=== PATIENT | male | born 1945 | race Caucasian/White ===

== ENCOUNTER 2018-08-25 09:47 | Emergency (ER) | payer MEDICARE, BC ==
[2018-08-25 10:03] VITALS: RESP 18
--- NOTE | 2018-08-25 10:21 | ED ---
Fall HPI - General Chief Complaint: Fall Stated Complaint: fall Time Seen by Provider: 08/25/18 10:07 Source: patient, RN notes reviewed, old records reviewed Mode of arrival: wheelchair Limitations: no limitations - History of Present Illness Initial Comments: This is a 71-year-old male the ER status post fall patient is followed by ankle pain. Patient has no significant medical history contribute. No loss of consciousness, no other injuries noted except right ankle pain. Patient's currently bearing weight. MD Complaint: fall -: days(s) (1) Fall From: standing When Fall Occurred: 24 hours [facility]UP [facility] Fall Witnessed: no Place Fall Occurred: home Loss of Consciousness: none Prolonged Down Time?: no Symptoms Prior to Fall: none Location - Extremities: Right: Ankle Severity: moderate Severity scale (1-10): 6 Quality: stabbing, aching Context: tripped/slipped Associated Symptoms: denies - Related Data Home Medications Medication Instructions Recorded Confirmed Aspirin EC [Ecotrin] 325 mg PO DAILY 08/25/18 08/25/18 Atenolol [Tenormin] 50 mg PO BID 08/25/18 08/25/18 Chlorthalidone 25 mg PO DAILY 08/25/18 08/25/18 Cholecalciferol (Vitamin D3) 2,000 unit PO MOFR 08/25/18 08/25/18 [Vitamin D3] Colchicine 0.6 mg PO BID 08/25/18 08/25/18 Enalapril Maleate [Vasotec] 5 mg PO DAILY 08/25/18 08/25/18 Fluticasone Nasal [place] [Flonase 2 spr EA NOSTRIL BID 08/25/18 08/25/18 Nasal [place]] Furosemide [Lasix] 20 mg PO DAILY 08/25/18 08/25/18 Levocetirizine Dihydrochloride 5 mg PO DAILY 08/25/18 08/25/18 [Xyzal] Potassium Chloride [Klor-Con 10] 10 meq PO DAILY 08/25/18 08/25/18 Rosuvastatin Calcium 10 mg PO HS 08/25/18 08/25/18 amLODIPine [Norvasc] 5 mg PO BID 08/25/18 08/25/18 metFORMIN HCL 1,000 mg PO BID 08/25/18 08/25/18 sitaGLIPtin [Januvia] 100 mg PO DAILY 08/25/18 08/25/18 Allergies Allergy/AdvReac Type Severity Reaction Status Date / Time allopurinol Allergy Unknown Verified 08/25/18 10:20 Review of Systems ROS Statement: Those systems with pertinent positive or pertinent negative responses have been documented in the HPI. ROS Other: All systems not noted in ROS Statement are negative. Past Medical History Past Medical History: Diabetes Mellitus, Hypertension Additional Past Medical History / Comment(s): bladder cancer 2009 and 2011. pelvic fx 1994, umbilicial hernia. History of Any Multi-Drug Resistant Organisms: None Reported Additional Past Surgical History / Comment(s): rotator cuff left shoulder, Past Psychological History: No Psychological Hx Reported Smoking Status: Never smoker Past Alcohol Use History: Occasional Past Drug Use History: None Reported General Exam Limitations: no limitations General appearance: alert, in no apparent distress Head exam: Present: atraumatic, normocephalic, normal inspection Eye exam: Present: normal appearance, PERRL, EOMI. Absent: scleral icterus, conjunctival injection, periorbital swelling ENT exam: Present: normal exam, mucous membranes moist Neck exam: Present: normal inspection. Absent: tenderness, meningismus, lymphadenopathy Respiratory exam: Present: normal lung sounds bilaterally. Absent: respiratory distress, wheezes, rales, rhonchi, stridor Cardiovascular Exam: Present: regular rate, normal rhythm, normal heart sounds. Absent: systolic murmur, diastolic murmur, rubs, gallop, clicks GI/Abdominal exam: Present: soft, normal bowel sounds. Absent: distended, tenderness, guarding, rebound, rigid Extremities exam: Present: normal inspection, full ROM, normal capillary refill , other (Right ankle tenderness and edema). Absent: tenderness, pedal edema, joint swelling, calf tenderness Back exam: Present: normal inspection Neurological exam: Present: alert, oriented X3, CN II-XII intact Psychiatric exam: Present: normal affect, normal mood Skin exam: Present: warm, dry, intact, normal color. Absent: rash Course Vital Signs 08/25/18 09:59 Temperature 98.2 F Pulse Rate 71 Respiratory 18 Rate Blood Pressure 130/80 O2 Sat by Pulse 99 Oximetry - Reevaluation(s) Reevaluation #1: 08/25/18 11:05 Medical record reviewed Reevaluation #2: 08/25/18 11:05 Patient is ambulatory 08/25/18 11:05 Patient still with pain, able to ambulate Procedures - Orthopedic Splinting/Casting Injury #1 Side: right Lower Extremity Injury Location: short leg, ankle Lower Extremity Immobilizer: posterior splint, stirrup splint Medical Decision Making - Medical Decision Making 33 male the ER for evaluation of fall patient did have possible fall is likely down 2 stairs, patient does have positive right ankle fracture placed in splints and can be discharged home - Radiology Data Radiology results: report reviewed (X-ray right ankle shows minimally displaced spiral fracture of the lateral malleolus), image reviewed Disposition Clinical Impression: Fall, Ankle fracture, right Disposition: HOME SELF-CARE Condition: Good Instructions: Ankle Fracture (ED) Is patient prescribed a controlled substance at d/c from ED?: No Referrals: Shawn Dudley MD [STAFF PHYSICIAN] - 1-2 days
--- NOTE | 2018-08-25 10:58 | XR ---
EXAMINATION TYPE: XR ankle complete RT DATE OF EXAM: 08/25/2018 CLINICAL HISTORY: Fall injury with pain. TECHNIQUE: Frontal, lateral and oblique images of the right ankle are obtained. COMPARISON: None. FINDINGS: There is moderate to severe soft tissue swelling over the lateral malleolus. There is acut e minimally displaced spiral type fracture through the lateral malleolus above and at level of mortis e. Medial and posterior malleoli are intact. Ankle mortise symmetry is preserved. Incidental moderate inferior calcaneal spur. IMPRESSION: There is acute minimally displaced spiral type fracture through the lateral malleolus. (Initial encounter closed type post traumatic fracture)
[2018-08-25 12:32] VITALS: BP 109/74; PULSE 65; TEMP 97.5
== END 2018-08-25 12:42 | disposition home or self-care (01) ==
LOC: EC 09:47
DX: S82.61XA Displaced fracture of lateral malleolus of right fibula, initial encounter for closed fracture (principal); E11.9 Type 2 diabetes mellitus without complications; I10 Essential (primary) hypertension; Z88.8 Allergy status to other drugs, medicaments and biological substances; Z79.51 Long term (current) use of inhaled steroids; Z79.82 Long term (current) use of aspirin; Z79.84 Long term (current) use of oral hypoglycemic drugs; Z79.899 Other long term (current) drug therapy; Z85.51 Personal history of malignant neoplasm of bladder; W01.0XXA Fall on same level from slipping, tripping and stumbling without subsequent striking against object, initial encounter; Y92.89 Other specified places as the place of occurrence of the external cause
CPT/HCPCS: 99284

== ENCOUNTER → 2020-10-09 | Outpatient (CLI) | payer MEDICARE, BC ==
[2020-10-09 11:00] LABS: Appearance,Urine Clear (Clear); Bilirubin,Urine Negative (Negative); Blood,Urine Trace (Negative); Color,Urine Yellow; Glucose,Urine (UA) Negative (Negative); Ketones,Urine Negative (Negative); Leukocyte Esterase,Urine Negative (Negative); Mucus,Urine Rare /hpf; Nitrite,Urine Negative (Negative); PH, Urine 5.5 (5.0-8.0); Protein,Urine Trace (Negative); RBC,Urine 1 /hpf (0-5); Specific Gravity,Urine 1.019 (1.001-1.035); Urobilinogen,Urine <2.0 mg/dL (<2.0); WBC,Urine 1 /hpf (0-5)
[2020-10-09 15:17] LABS: HCT 46.8 % (39.6-50.0); HGB 14.8 g/dL (13.0-17.0); MCH 28.8 pg (27.0-32.0); MCHC 31.6 g/dL (32.0-37.0); MCV 91.2 fL (80.0-97.0); Platelet Count 131 X 10*3/uL (140-440); RBC 5.13 X 10*6/uL (4.40-5.60); WBC 5.82 X 10*3/uL (4.50-10.00)
[2020-10-09 15:24] LABS: Ferritin 45.2 ng/mL (22.0-322.0)
[2020-10-09 15:32] LABS: % Iron Saturation 39.49 (15.00-50.00); African American GFR (CKD) 26.9 (60.0-200.0); Albumin 4.7 g/dL (3.80-4.90); Albumin/Globulin Ratio 2.04 (1.60-3.17); Anion Gap 8.5 mmol/L (4.00-12.00); BUN/Creat Ratio 17.31 Ratio (12.00-20.00); Calcium 9.6 mg/dL (8.7-10.3); Carbon Dioxide 27.5 mmol/L (21.6-31.8); Globulin 2.3 g/dL (1.6-3.3); Magnesium 2.1 mg/dL (1.5-2.4); Non-African American GFR(CKD) 23.3 (60.0-200.0); Phosphorus 3.7 mg/dL (2.4-5.1); Potassium 4.5 mmol/L (3.5-5.5); Total Bilirubin 0.6 mg/dL (0.2-1.2); Uric Acid 9.9 mg/dL (3.7-8.7)
[2020-10-10 03:34] LABS: Urine Creatinine 126.4 mg/dL
== END | disposition home or self-care (01) ==
LOC: LABWHC1 09:08
PROVIDERS: ATTEND Nurse Practitioner Family
DX: N18.9 Chronic kidney disease, unspecified (principal); E55.9 Vitamin D deficiency, unspecified
CPT/HCPCS: 36415; 80053; 81001; 82043; 82306; 82570; 82728; 83540; 83550; 83735; 83970; 84100; 84550; 85027

== ENCOUNTER 2021-07-16 09:30 | Inpatient (IN) | payer MEDICARE, BC ==
--- NOTE | 2021-07-16 10:24 | ED ---
General Adult HPI - General Chief complaint: Weakness Stated complaint: weakness Time Seen by Provider: 07/16/21 09:35 Source: patient, EMS Mode of arrival: EMS Limitations: no limitations - History of Present Illness Initial comments: Dictation was produced using [employer] dictation software. please excuse any grammatical, word or spelling errors. Chief Complaint: 76-year-old male presents to the emergency department for poor appetite, weakness last of appetite and loss of taste History of Present Illness: 76-year-old male who has past medical history of heart valve replacement, diabetes hypertension, and accommodation medication. He presents to the emergency department for feelings of weakness, poor appetite and loss of taste and smell. Patient takes and a coagulation medications. He also has left ankle pain. States that he did not injury it. He has pain when you press on the area whenever he tries to bear weight on that leg. He stable and ambulatory but with a limp. Denies any constitutional symptoms. is at the bedside reports that patient has had poor appetite and early evening is dinner last night. Patient is vaccinated for coronavirus. No obvious sick contacts. The ROS documented in this emergency department record has been reviewed and confirmed by me. Those systems with pertinent positive or negative responses have been documented in the HPI. All other systems are other negative and/or noncontributory. PHYSICAL EXAM: General Impression: Alert and oriented x3, not in acute distress HEENT: Normocephalic atraumatic, extra-ocular movements intact, pupils equal and reactive to light bilaterally, mucous membranes moist. Cardiovascular: Heart regular rate and rhythm Chest: Able to complete full sentences, no retractions, no tachypnea Abdomen: abdomen soft, non-tender, non-distended, no organomegaly Musculoskeletal: Pulses present and equal in all extremities, no peripheral edema Left lower extremity: Atraumatic and symmetric to the right lower extremity, he has tenderness to palpation over the distal medial left lower tibia Motor: no focal deficits noted Neurological: CN II-XII grossly intact, no focal motor or sensory deficits noted Skin: Intact with no visualized rashes Psych: Normal affect and mood ED course: 76-year-old male presents emergency department for poor appetite, weakness. Signs upon arrival are within acceptable limits. EMS reports that they're concerned about A. fib. He is on Lily coagulation medications. He did see A. fib on the EMS rate monitor. Her EKG shows normal sinus rhythm with a rate of 89 Laboratory evaluation obtained. Hemoglobin 6.0 with hematocrit of 18.1. Patient states he has been having black stools but thinks that this is all from iron supplementation. Metabolic panel is within acceptable limits. Troponin is 0.046. No old labs for comparison. Sebas blood is positive. Tib-fib x-ray shows peripheral vascular occlusive disease diabetes edema versus cellulitis. Also evidence of osteoarthritis. Patient not complaining of any leg pain while at rest. Chest x-ray shows no acute processes. At this point there is concern for upper GI bleed. Patient Protonix. He is on Coumadin. Patient given vitamin K. We do not have GI coverage today. Case is discussed with general surgeon Dr. Armstrong who is agreeable for admission under his care. Internal medicine consulted. Patient ordered for transfusion of 2 units of blood. Repeat vitals are stable. Patient reevaluated at bedside at 1:00 PM found to be in stable medical condition. not showing any signs of distress. EKG interpretation: Ventricular rate 89, normal sinus rhythm, CO interval 168, QRS 110, QTc 476. No CO prolongation, no QTC prolongation, no ST or T-wave changes noted. No old EKG for comparison. Overall, this EKG is unremarkable - Related Data Home Medications Medication Instructions Recorded Confirmed Cholecalciferol (Vitamin D3) 25 mcg PO MOFR 08/25/18 07/16/21 [Vitamin D3] Colchicine 0.6 mg PO DAILY PRN 08/25/18 07/16/21 Fluticasone Nasal [place] [Flonase 2 spr EA NOSTRIL BID@0900,1600 08/25/18 07/16/21 Nasal [place]] Furosemide [Lasix] 20 mg PO BID@0900,1600 08/25/18 07/16/21 Levocetirizine Dihydrochloride 5 mg PO HS 08/25/18 07/16/21 [Xyzal] Potassium Chloride [Klor-Con 10] 10 meq PO DAILY 08/25/18 07/16/21 Rosuvastatin Calcium 10 mg PO HS 08/25/18 07/16/21 amLODIPine [Norvasc] 5 mg PO DAILY@1600 08/25/18 07/16/21 sitaGLIPtin [Januvia] 100 mg PO DAILY@1600 08/25/18 07/16/21 Acetaminophen Tab [Tylenol Tab] 500 mg PO Q6H PRN 07/16/21 07/16/21 Ascorbic Acid [Vitamin C] 500 mg PO DAILY 07/16/21 07/16/21 Aspirin EC [Ecotrin Low Dose] 81 mg PO DAILY 07/16/21 07/16/21 Ferrous Sulfate [Feosol] 325 mg PO DAILY 07/16/21 07/16/21 Metoprolol Tartrate [Lopressor] 50 mg PO BID 07/16/21 07/16/21 Warfarin [Coumadin] 2 mg PO SUSA@2100 07/16/21 07/16/21 Warfarin [Coumadin] 3 mg PO MOTUWETHFR@2100 07/16/21 07/16/21 calcitrioL [Calcitriol] 0.25 mcg PO MOFR@1600 07/16/21 07/16/21 glipiZIDE [Glucotrol] 10 mg PO DAILY 07/16/21 07/16/21 Allergies Allergy/AdvReac Type Severity Reaction Status Date / Time allopurinol AdvReac Feet Verified 07/16/21 11:40 Swelling Review of Systems ROS Statement: Those systems with pertinent positive or pertinent negative responses have been documented in the HPI. ROS Other: All systems not noted in ROS Statement are negative. Past Medical History Past Medical History: Diabetes Mellitus, Hypertension Additional Past Medical History / Comment(s): bladder cancer 2009 and 2011. pelvic fx 1993, umbilicial hernia. History of Any Multi-Drug Resistant Organisms: None Reported Past Surgical History: Cardiac Valve Replacement Additional Past Surgical History / Comment(s): rotator cuff left shoulder, Past Psychological History: No Psychological Hx Reported Smoking Status: Former smoker Past Alcohol Use History: Occasional Past Drug Use History: None Reported General Exam Limitations: no limitations Course Vital Signs 07/16/21 07/16/21 09:41 10:25 Temperature 98.4 F Pulse Rate 100 85 Respiratory 18 18 Rate Blood Pressure 139/56 130/52 O2 Sat by Pulse 99 99 Oximetry Medical Decision Making - Lab Data Result diagrams: 07/16/21 10:25 07/16/21 10:25 Lab Results 07/16/21 07/16/21 07/16/21 Range/Units 10:25 10:25 10:25 WBC 4.8 (3.8-10.6) k/uL RBC 1.95 L (4.30-5.90) m/uL Hgb 6.0 L* (13.0-17.5) gm/dL Hct 18.1 L* (39.0-53.0) % MCV 93.0 (80.0-100.0) fL MCH 31.0 (25.0-35.0) pg MCHC 33.3 (31.0-37.0) g/dL RDW 16.7 H (11.5-15.5) % Plt Count 175 (150-450) k/uL MPV 9.1 Neutrophils % 73 % Lymphocytes % 9 % Monocytes % 13 % Eosinophils % 0 % Basophils % 1 % Neutrophils # 3.5 (1.3-7.7) k/uL Lymphocytes # 0.4 L (1.0-4.8) k/uL Monocytes # 0.6 (0-1.0) k/uL Eosinophils # 0.0 (0-0.7) k/uL Basophils # 0.1 (0-0.2) k/uL Poikilocytosis Slight Anisocytosis Slight PT (9.0-12.0) sec INR (<1.2) APTT (22.0-30.0) sec Sodium 136 L (137-145) mmol/L Potassium 3.6 (3.5-5.1) mmol/L Chloride 104 (98-107) mmol/L Carbon Dioxide 21 L (22-30) mmol/L Anion Gap 11 mmol/L BUN 55 H (9-20) mg/dL Creatinine 2.19 H (0.66-1.25) mg/dL Est GFR (CKD-EPI)AfAm 33 (>60 ml/min/1.73 sqM) Est GFR (CKD-EPI)NonAf 28 (>60 ml/min/1.73 sqM) Glucose 197 H (74-99) mg/dL Calcium 8.6 (8.4-10.2) mg/dL Magnesium 2.0 (1.6-2.3) mg/dL Troponin I 0.046 H* (0.000-0.034) ng/mL C-Reactive Protein 0.8 (<1.0) mg/dL TSH 1.820 (0.465-4.680) mIU/L Stool Occult Blood (Negative) Blood Type Recheck Bld Type Recheck Status Spec Expiration Date 07/16/21 07/16/21 07/16/21 Range/Units 12:08 12:08 12:08 WBC (3.8-10.6) k/uL RBC (4.30-5.90) m/uL Hgb (13.0-17.5) gm/dL Hct (39.0-53.0) % MCV (80.0-100.0) fL MCH (25.0-35.0) pg MCHC (31.0-37.0) g/dL RDW (11.5-15.5) % Plt Count (150-450) k/uL MPV Neutrophils % % Lymphocytes % % Monocytes % % Eosinophils % % Basophils % % Neutrophils # (1.3-7.7) k/uL Lymphocytes # (1.0-4.8) k/uL Monocytes # (0-1.0) k/uL Eosinophils # (0-0.7) k/uL Basophils # (0-0.2) k/uL Poikilocytosis Anisocytosis PT 21.7 H (9.0-12.0) sec INR 2.2 H (<1.2) APTT 31.6 H (22.0-30.0) sec Sodium (137-145) mmol/L Potassium (3.5-5.1) mmol/L Chloride (98-107) mmol/L Carbon Dioxide (22-30) mmol/L Anion Gap mmol/L BUN (9-20) mg/dL Creatinine (0.66-1.25) mg/dL Est GFR (CKD-EPI)AfAm (>60 ml/min/1.73 sqM) Est GFR (CKD-EPI)NonAf (>60 ml/min/1.73 sqM) Glucose (74-99) mg/dL Calcium (8.4-10.2) mg/dL Magnesium (1.6-2.3) mg/dL Troponin I (0.000-0.034) ng/mL C-Reactive Protein (<1.0) mg/dL TSH (0.465-4.680) mIU/L Stool Occult Blood Positive (Negative) Blood Type Recheck No Previous Record Bld Type Recheck Status CABO Indicated Spec Expiration Date 07/19/2021 - 2307 Critical Care Time Critical Care Time: Yes Total Critical Care Time: 33 Disposition Clinical Impression: GI bleed Disposition: ADMITTED IP TO THIS [facility] Condition: Critical Referrals: Felton De Dios DO [Primary Care Provider] - 1-2 days
--- NOTE | 2021-07-16 10:56 | XR ---
Left leg HISTORY: Pain Frontal and lateral views of the left leg submitted on 4 images Bone mineralization, joint spaces and alignment are maintained. There are atherosclerotic vascular ca lcifications noted incidentally. There is a plantar calcaneal spur, spurring is present at the tibiot alar joint and within the intertarsal joints in the foot. No evident knee joint effusion. Patellofemo ral joint shows spurring and joint space loss. There is soft tissue swelling present. IMPRESSION: Correlate for peripheral vascular occlusive disease, diabetes, edema versus cellulitis. O steoarthritis.
--- NOTE | 2021-07-16 11:01 | XR ---
EXAMINATION TYPE: XR chest 1V portable DATE OF EXAM: 07/16/2021 COMPARISON: NONE HISTORY: Anosmia. Suspected COVID. TECHNIQUE: Single frontal view of the chest is obtained. FINDINGS: Post-CABG changes with mediastinal clips and sternal wires is present. Some increased marita ngs bilaterally favor chronic parenchymal changes particularly left lung base. There is no suspicious focal air space opacity, pleural effusion, or pneumothorax seen. The cardiac silhouette size is upp er limits of normal with atherosclerotic change aortic knob. The osseous structures are intact. IMPRESSION: Chronic changes without definitive acute pulmonary process. Correlation with old outside x-ray would be beneficial.
[2021-07-16 11:02] LABS: C Reactive Protein 0.8 mg/dL (<1.0); Calcium 8.6 mg/dL (8.4-10.2); Potassium 3.6 mmol/L (3.5-5.1)
[2021-07-16 11:03] LABS: Anisocytosis Slight; Basophils # (A) 0.1 k/uL (0-0.2); Basophils % (A) 1 %; Eosinophils % (A) 0 %; Lymphocytes # (A) 0.4 k/uL (1.0-4.8); Lymphocytes % (A) 9 %; MCHC 33.3 g/dL (31.0-37.0); Mean Platelet Volume 9.1; Monocytes # (A) 0.6 k/uL (0-1.0); Monocytes % (A) 13 %; Neutrophils # (A) 3.5 k/uL (1.3-7.7); Neutrophils % (A) 73 %; Platelet Count 175 k/uL (150-450); Poikilocytosis Slight; RBC 1.95 m/uL (4.30-5.90); RDW 16.7 % (11.5-15.5); WBC 4.8 k/uL (3.8-10.6)
[2021-07-16 11:07] LABS: HCT 18.1 % (39.0-53.0)
[2021-07-16] MEDS ORDERED: PANTOPRAZOLE 40 MG/10 ML VIAL IVP STA (11:31)
[2021-07-16] MEDS ORDERED: ONDANSETRON 4 MG/2 ML VIAL IVP PRN (12:45)
[2021-07-16] MEDS ORDERED: NALOXONE 0.4 MG/ML 1 ML VIAL IV PRN (12:45)
[2021-07-16] MEDS ORDERED: PHYTONADIONE 5 MG in SODIUM CHLORIDE 0.9% 50 ML IVPB STA (12:47)
[2021-07-16 12:52] LABS: INR 2.2 (<1.2); Partial Thromboplastin Time 31.6 sec (22.0-30.0); Prothrombin Time 21.7 sec (9.0-12.0)
[2021-07-16] MEDS ORDERED: SODIUM CHLORIDE 0.9% 1,000 ML IV STA (13:05)
[2021-07-16] MEDS: SODIUM CHLORIDE 0.9% 1,000 ML IV SCH ×2 (13:49→22:48)
--- NOTE | 2021-07-16 15:00 | P.GSHP ---
History of Present Illness H&P Date: 07/16/21 CHIEF COMPLAINT: Weakness HISTORY OF PRESENT ILLNESS: This is a 76-year-old male who presents to the hospital with complaints of weakness, decreased appetite, fatigue and chills. Patient also reports a loss of taste and smell and has had a cough. Patient has received his Covid vaccines but is due for a booster vaccination. Patient was found to have a hemoglobin of 6.0 and stool for occult blood positive. He does report having black stools but does take iron at home. He also complains of so me shortness of breath and dizziness. Patient does have a prior history of colon polyps that were benign. Last colonoscopy was in June 2020. He is on Coumadin at home for a heart valve replacement which was done in November 2019. INR 2.2 on admission. Patient has minimally abnormal troponin. Denies any chest pain. PAST MEDICAL HISTORY: Chronic kidney disease, Diabetes Mellitus, Hypertension, bladder cancer 2009 and 2011, umbilical hernia PAST SURGICAL HISTORY: Cardiac valve replacement, CABG November 2019 MEDICATIONS: See list. ALLERGIES: See list. SOCIAL HISTORY: No illicit drug use. REVIEW OF SYSTEMS: CONSTITUTIONAL: Denies fever or chills. HEENT: Denies blurred vision, vision changes, or eye pain. Denies hemoptysis CARDIOVASCULAR: Denies chest pain or pressure. RESPIRATORY: No shortness of breath. GASTROINTESTINAL: See HPI for pertinent findings HEMATOLOGIC: Denies bleeding disorders. GENITOURINARY: Denies any blood in urine or increased urinary frequency. SKIN: Denies pruitis. Denies rash. PHYSICAL EXAM: VITAL SIGNS: Reviewed GENERAL: Well-developed in no acute distress. HEENT: No sclera icterus. Extraocular movements grossly intact. Moist buccal mucosa. Head is atraumatic, normocephalic. No nasal drainage. ABDOMEN: Soft. Nondistended. Nontender NEUROLOGIC: Alert and oriented. Cranial nerves II through XII grossly intact. LABORATORY DATA: WBC 4.8 HGB 6.0 platelets 175 INR 2.2 Sodium 136 potassium 3.6 BUN 55 creatinine 2.19 Troponin 0.046 BNP 4360 TSH 1.820 Fecal occult blood positive Influenza not detected, RSV negative COVID-19 detected IMAGING: Chest x-ray chronic changes without definitive acute pulmonary process. Tib-fib x-ray correlate for peripheral vascular occlusive disease, diabetes, edema versus cellulitis. Osteoarthritis ASSESSMENT: 1. Acute GI bleed with black stools 2. Acute blood loss anemia secondary to GI bleed 3. Minimally elevated troponin 4. COVID-19 positive 5. Cardiac valve replacement and anticoagulated with Coumadin 6. History of CABG PLAN: -Patient scheduled for EGD and colonoscopy tomorrow, 07/17/[address] Armstrong pending cardiac clearance -Start GoLYTELY prep -Keep patient nothing by mouth after midnight -Patient is receiving 1 unit of blood for hemoglobin of 6.0 -Coumadin on hold. Patient did receive a dose of vitamin K in ER for reversal of anticoagulation. -Continue PPI -Medicine on consult for medical management Physician Boom Operator note has been reviewed by physician. Signing provider agrees with the documented findings, assessment, and plan of care. Past Medical History Past Medical History: Diabetes Mellitus, Hypertension Additional Past Medical History / Comment(s): bladder cancer 2009 and 2011. pelv ic fx 1993, umbilicial hernia. History of Any Multi-Drug Resistant Organisms: None Reported Past Surgical History: Cardiac Valve Replacement Additional Past Surgical History / Comment(s): rotator cuff left shoulder, Past Psychological History: No Psychological Hx Reported Smoking Status: Former smoker Past Alcohol Use History: Occasional Past Drug Use History: None Reported Medications and Allergies Home Medications Medication Instructions Recorded Confirmed Type Cholecalciferol (Vitamin D3) 25 mcg PO MOFR 08/25/18 07/16/21 History [Vitamin D3] Colchicine 0.6 mg PO DAILY PRN 08/25/18 07/16/21 History Fluticasone Nasal [place] [Flonase 2 spr EA NOSTRIL BID@0900,1600 08/25/18 07/16/21 History Nasal [place]] Furosemide [Lasix] 20 mg PO BID@0900,1600 08/25/18 07/16/21 History Levocetirizine Dihydrochloride 5 mg PO HS 08/25/18 07/16/21 History [Xyzal] Potassium Chloride [Klor-Con 10] 10 meq PO DAILY 08/25/18 07/16/21 History Rosuvastatin Calcium 10 mg PO HS 08/25/18 07/16/21 History amLODIPine [Norvasc] 5 mg PO DAILY@1600 08/25/18 07/16/21 History sitaGLIPtin [Januvia] 100 mg PO DAILY@1600 08/25/18 07/16/21 History Acetaminophen Tab [Tylenol Tab] 500 mg PO Q6H PRN 07/16/21 07/16/21 History Ascorbic Acid [Vitamin C] 500 mg PO DAILY 07/16/21 07/16/21 History Aspirin EC [Ecotrin Low Dose] 81 mg PO DAILY 07/16/21 07/16/21 History Ferrous Sulfate [Feosol] 325 mg PO DAILY 07/16/21 07/16/21 History Metoprolol Tartrate [Lopressor] 50 mg PO BID 07/16/21 07/16/21 History Warfarin [Coumadin] 2 mg PO SUSA@209907/16/21 07/16/21 History Warfarin [Coumadin] 3 mg PO MOTUWETHFR@209907/16/21 07/16/21 History calcitrioL [Calcitriol] 0.25 mcg PO MOFR@1600 07/16/21 07/16/21 History glipiZIDE [Glucotrol] 10 mg PO DAILY 07/16/21 07/16/21 History Allergies Allergy/AdvReac Type Severity Reaction Status Date / Time allopurinol AdvReac Feet Verified 07/16/21 11:40 Swelling Surgical - Exam Vital Signs Temp Pulse Resp BP Pulse Ox 98.4 F 100 18 139/56 99 07/16/21 09:41 07/16/21 09:41 07/16/21 09:41 07/16/21 09:41 07/16/21 09:41 Results - Labs 07/16/21 10:25 07/16/21 10:25 Abnormal Lab Results - Last 24 Hours (Table) 07/16/21 07/16/21 07/16/21 Range/Units 10:25 10:25 10:25 RBC 1.95 L (4.30-5.90) m/uL Hgb 6.0 L* (13.0-17.5) gm/dL Hct 18.1 L* (39.0-53.0) % RDW 16.7 H (11.5-15.5) % Lymphocytes # 0.4 L (1.0-4.8) k/uL PT (9.0-12.0) sec INR (<1.2) APTT (22.0-30.0) sec Sodium 136 L (137-145) mmol/L Carbon Dioxide 21 L (22-30) mmol/L BUN 55 H (9-20) mg/dL Creatinine 2.19 H (0.66-1.25) mg/dL Glucose 197 H (74-99) mg/dL Troponin I 0.046 H* (0.000-0.034) ng/mL SARS-CoV-2 (PCR) (Not Detectd) Crossmatch 07/16/21 07/16/21 07/16/21 Range/Units 10:50 12:08 12:08 RBC (4.30-5.90) m/uL Hgb (13.0-17.5) gm/dL Hct (39.0-53.0) % RDW (11.5-15.5) % Lymphocytes # (1.0-4.8) k/uL PT 21.7 H (9.0-12.0) sec INR 2.2 H (<1.2) APTT 31.6 H (22.0-30.0) sec Sodium (137-145) mmol/L Carbon Dioxide (22-30) mmol/L BUN (9-20) mg/dL Creatinine (0.66-1.25) mg/dL Glucose (74-99) mg/dL Troponin I (0.000-0.034) ng/mL SARS-CoV-2 (PCR) Detected A (Not Detectd) Crossmatch See Detail Diabetes panel 07/16/21 Range/Units 10:25 Sodium 136 L (137-145) mmol/L Potassium 3.6 (3.5-5.1) mmol/L Chloride 104 (98-107) mmol/L Carbon Dioxide 21 L (22-30) mmol/L BUN 55 H (9-20) mg/dL Creatinine 2.19 H (0.66-1.25) mg/dL Glucose 197 H (74-99) mg/dL Calcium 8.6 (8.4-10.2) mg/dL Thyroid panel 07/16/21 Range/Units 10:25 TSH 1.820 (0.465-4.680) mIU/L Calcium panel 07/16/21 Range/Units 10:25 Calcium 8.6 (8.4-10.2) mg/dL Pituitary panel 07/16/21 Range/Units 10:25 Sodium 136 L (137-145) mmol/L Potassium 3.6 (3.5-5.1) mmol/L Chloride 104 (98-107) mmol/L Carbon Dioxide 21 L (22-30) mmol/L BUN 55 H (9-20) mg/dL Creatinine 2.19 H (0.66-1.25) mg/dL Glucose 197 H (74-99) mg/dL Calcium 8.6 (8.4-10.2) mg/dL TSH 1.820 (0.465-4.680) mIU/L Adrenal panel 07/16/21 Range/Units 10:25 Sodium 136 L (137-145) mmol/L Potassium 3.6 (3.5-5.1) mmol/L Chloride 104 (98-107) mmol/L Carbon Dioxide 21 L (22-30) mmol/L BUN 55 H (9-20) mg/dL Creatinine 2.19 H (0.66-1.25) mg/dL Glucose 197 H (74-99) mg/dL Calcium 8.6 (8.4-10.2) mg/dL
[2021-07-16] MEDS ORDERED: PEG 3350-NA SULF,BICARB,CL/KCL 4,000 ML BOTTLE PO ONE (15:07)
[2021-07-16] MEDS ORDERED: BAMLANIVIMAB (EUA) 700 MG, ETESEVIMAB (EUA) 1,400 MG in SODIUM CHLORIDE 0.9% 50 ML IVPB ONE (18:30)
[2021-07-16] MEDS ORDERED: SODIUM CHLORIDE 0.9% 50 ML IVPB ONE (19:00)
[2021-07-16] MEDS: PANTOPRAZOLE 40 MG/10 ML VIAL IVP SCH (22:47)
[2021-07-17 00:43] LABS: Glucose,Whole Blood 173 mg/dL (75-99)
[2021-07-17 00:55] LABS: Anisocytosis Slight; HGB 7.1 gm/dL (13.0-17.5); MCHC 34.1 g/dL (31.0-37.0); Mean Platelet Volume 9.8; Platelet Count 180 k/uL (150-450); Poikilocytosis Slight; RDW 17.1 % (11.5-15.5); WBC 8.6 k/uL (3.8-10.6)
[2021-07-17 03:42] LABS: Band Neutrophils % 15 %; Basophils # (M) 0.09 k/uL (0-0.2); Lymphocytes # (M) 1.03 k/uL (1.0-4.8); Metamyelocytes # (M) 0.09 k/uL (0); Metamyelocytes % 1 %; Monocytes # (M) 0.86 k/uL (0-1.0); Neutrophils % (M) 63 %; Nucleated Red Blood Cells 0 /100 WBC (0-0); Total Cells Counted 200
[2021-07-17 03:43] LABS: Polychromasia Present
[2021-07-17 06:22] LABS: Glucose,Whole Blood 167 mg/dL (75-99)
[2021-07-17 08:15] LABS: INR 1.1 (<1.2); Prothrombin Time 11.2 sec (9.0-12.0)
[2021-07-17 08:23] LABS: Calcium 8.1 mg/dL (8.4-10.2); Potassium 3.2 mmol/L (3.5-5.1)
[2021-07-17 08:29] LABS: Anisocytosis Slight; MCHC 33.6 g/dL (31.0-37.0); MCV 92.2 fL (80.0-100.0); Mean Platelet Volume 8.5; Platelet Count 174 k/uL (150-450); Poikilocytosis Slight; RBC 2.01 m/uL (4.30-5.90); RDW 17.3 % (11.5-15.5)
[2021-07-17] MEDS: PANTOPRAZOLE 40 MG/10 ML VIAL IVP SCH ×2 (08:40→20:10)
[2021-07-17 08:47] LABS: HGB 6.2 gm/dL (13.0-17.5)
[2021-07-17 08:48] LABS: HCT 18.6 % (39.0-53.0)
--- NOTE | 2021-07-17 09:35 | ECHOF ---
Referral Reason:LV function, + covid MEASUREMENTS -------- HEIGHT: 177.8 cm WEIGHT: 108.4 kg BP: 137/58 RVIDd: 3.3 cm (< 3.3) IVSd: 1.5 cm (0.6 - 1.1) LVIDd: 5.0 cm (3.9 - 5.3) LVPWd: 1.3 cm (0.6 - 1.1) IVSs: 1.8 cm LVIDs: 3.4 cm LVPWs: 1.8 cm LAESV Index (A-L): 29.46 ml/m Ao Diam: 2.2 cm (2.0 - 3.7) MV EXCURSION: 21.910 mm (> 18.000) MV EF SLOPE: 76 mm/s (70 - 150) EPSS: 0.7 cm MV E Jasson: 0.96 m/s MV DecT: 150 ms MV A Jasson: 0.83 m/s MV E/A Ratio: 1.16 AV maxP.03 mmHg AV meanP.41 mmHg RAP: 5.00 mmHg RVSP: 35.86 mmHg FINDINGS -------- Sinus rhythm. This was a technically difficult study with suboptimal views. The left ventricular size is normal. There is moderate concentric left ventricular hypertrophy. O verall left ventricular systolic function is normal with, an EF between 55 - 60 %. The right ventricle is mildly enlarged. LA is midly dilated 29-33ml/m2. The right atrium was not well visualized. 5.0mg of Lumason was utilized for enhancement of images Interatrial and interventricular septum intact. 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 Moderate mitral annular calcification present. Mild mitral regurgitation is present. Mild tricuspid regurgitation present. There is mild pulmonary hypertension. The right ventricular systolic pressure, as measured by Doppler, is 35.86mmHg. There is no pulmonic regurgitation present. The aortic root size is normal. IVC Not well visulized. There is no pericardial effusion. CONCLUSIONS -------- 1. This was a technically difficult study with suboptimal views. 2. There is moderate concentric left ventricular hypertrophy. 3. Overall left ventricular systolic function is normal with, an EF between 55 - 60 %. 4. The right ventricle is mildly enlarged. 5. LA is midly dilated 29-33ml/m2. 6. 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 7. Moderate mitral annular calcification present. 8. Mild mitral regurgitation is present. 9. Mild tricuspid regurgitation present. 10. There is mild pulmonary hypertension. INTERNAL AUDIT MANAGER: Karen Schreiber RDCS
--- NOTE | 2021-07-17 11:17 | P.CRDCN ---
History of Present Illness Consult date: 07/16/21 History of present illness: CHIEF COMPLAINT: abnormal troponins HISTORY OF PRESENT ILLNESS: This is a 76 year old male with a past medical history significant for hypertension, hyperlipidemia, and valve replacement on coumadin. Patient does not follow with a overhead crane truck loader at [facility]. We have been asked to see the patient in consultation for abnormal troponin. Patient presented to the hospital with a chief complaint of weakness and loss of appetite. Patient was found to have acute blood loss anemia with a hemoglobin of 6.0. The patient does take Coumadin on an outpatient basis. His INR is 2.2. Patients also be found to be positive for Covid. He is scheduled for EGD and colonoscopy today with Dr. Armstrong. DIAGNOSTICS: EKG reveals sinus mechanism with nonspecific ST-T wave changes Chest xray chronic changes without definite acute pulmonary process. Laboratory data: WBC 4.8. Hemoglobin 6.0. Platelet count 175. INR 2.2. Sodium 136. Potassium 3.6. BUN 55. Creatinine 2.19. Troponin 0.046. 0.053. ProBNP 4360. TSH 1.820. Current home cardiac medications include Coumadin 2 mg Thursday and Thursday and 3 mg Thursday, Norvasc 5 mg daily, Rosuvastatin 10 mg at night, metoprolol tartrate 15 g twice a day, Lasix 20 mg twice a day, aspirin 81 mg daily Echocardiogram obtained revealing EF 55-60%, moderate stenosis of bioprosthetic aortic valve, mild MR, mild TR, and mild pulmonary hypertension REVIEW OF SYSTEMS: Thorough review of systems not completed secondary to limited evaluation/examination due to Covid19 PHYSICAL EXAM: Thorough physical exam not completed secondary to limited evaluation/examination due to Covid19 ASSESSMENT: GI Bleed Acute blood loss anemia Covid 19 History of aortic valve replacement, on coumadin, details unknown Chronic kidney disease Abnormal troponins, no evidence of ACS Hypertension Hyperlipidemia PLAN: Hold anticoagulation. Monitor hemoglobin Patient has mildly abnormal troponins. He is positive for Covid. He also has acute blood loss anemia and CKD. All 3 of these can elevate troponin and is not suggestive of acute coronary syndrome. Patient has no complaints of angina and is clinically euvolemic. Patient is at higher risk to undergo endoscopic evaluation but there are no absolute contraindications from a cardiac standpoint Thank you for this consultation We will follow on an as-needed basis. Please call with questions or concerns. Nurse practitioner note has been reviewed by physician. Signing provider agrees with the documented findings, assessment, and plan of care. Past Medical History Past Medical History: Diabetes Mellitus, Hypertension Additional Past Medical History / Comment(s): bladder cancer 2009 and 2011. pelvic fx 1993, umbilicial hernia. History of Any Multi-Drug Resistant Organisms: None Reported Past Surgical History: Cardiac Valve Replacement Additional Past Surgical History / Comment(s): rotator cuff left shoulder, Past Psychological History: No Psychological Hx Reported Smoking Status: Former smoker Past Alcohol Use History: Occasional Past Drug Use History: None Reported Medications and Allergies Home Medications Medication Instructions Recorded Confirmed Type Cholecalciferol (Vitamin D3) 25 mcg PO MOFR 08/25/18 07/16/21 History [Vitamin D3] Colchicine 0.6 mg PO DAILY PRN 08/25/18 07/16/21 History Fluticasone Nasal [place] [Flonase 2 spr EA NOSTRIL BID@0900,1600 08/25/18 07/16/21 History Nasal [place]] Furosemide [Lasix] 20 mg PO BID@0900,1600 08/25/18 07/16/21 History Levocetirizine Dihydrochloride 5 mg PO HS 08/25/18 07/16/21 History [Xyzal] Potassium Chloride [Klor-Con 10] 10 meq PO DAILY 08/25/18 07/16/21 History Rosuvastatin Calcium 10 mg PO HS 08/25/18 07/16/21 History amLODIPine [Norvasc] 5 mg PO DAILY@1600 08/25/18 07/16/21 History sitaGLIPtin [Januvia] 100 mg PO DAILY@1600 08/25/18 07/16/21 History Acetaminophen Tab [Tylenol Tab] 500 mg PO Q6H PRN 07/16/21 07/16/21 History Ascorbic Acid [Vitamin C] 500 mg PO DAILY 07/16/21 07/16/21 History Aspirin EC [Ecotrin Low Dose] 81 mg PO DAILY 07/16/21 07/16/21 History Ferrous Sulfate [Feosol] 325 mg PO DAILY 07/16/21 07/16/21 History Metoprolol Tartrate [Lopressor] 50 mg PO BID 07/16/21 07/16/21 History Warfarin [Coumadin] 2 mg PO SUSA@2100 07/16/21 11/09/21 History Warfarin [Coumadin] 3 mg PO MOTUWETHFR@209907/16/21 07/16/21 History calcitrioL [Calcitriol] 0.25 mcg PO MOFR@1600 07/16/21 07/16/21 History glipiZIDE [Glucotrol] 10 mg PO DAILY 07/16/21 07/16/21 History Allergies Allergy/AdvReac Type Severity Reaction Status Date / Time allopurinol AdvReac Feet Verified 07/16/21 11:40 Swelling Physical Exam Vitals: Vital Signs Temp Pulse Resp BP Pulse Ox 07/16/21 13:00 83 18 145/62 99 07/16/21 10:25 85 18 130/52 99 07/16/21 09:41 98.4 F 100 18 139/56 99 Intake and Output 07/15/21 07/16/21 07/16/21 22:59 06:59 14:59 Other: Weight 113.398 kg Results 07/17/21 07:43 07/17/21 07:43 Cardiac Enzymes 07/16/21 Range/Units 10:25 Troponin I 0.046 H* (0.000-0.034) ng/mL Coagulation 07/16/21 Range/Units 12:08 PT 21.7 H (9.0-12.0) sec APTT 31.6 H (22.0-30.0) sec CBC 07/16/21 Range/Units 10:25 WBC 4.8 (3.8-10.6) k/uL RBC 1.95 L (4.30-5.90) m/uL Hgb 6.0 L* (13.0-17.5) gm/dL Hct 18.1 L* (39.0-53.0) % Plt Count 175 (150-450) k/uL Comprehensive Metabolic Panel 07/16/21 Range/Units 10:25 Sodium 136 L (137-145) mmol/L Potassium 3.6 (3.5-5.1) mmol/L Chloride 104 (98-107) mmol/L Carbon Dioxide 21 L (22-30) mmol/L BUN 55 H (9-20) mg/dL Creatinine 2.19 H (0.66-1.25) mg/dL Glucose 197 H (74-99) mg/dL Calcium 8.6 (8.4-10.2) mg/dL Current Medications Generic Name Dose Route Start Last Admin Trade Name Freq PRN Reason Stop Dose Admin Sodium Chloride 1,000 mls @ 75 mls/hr 07/16/21 12:45 07/16/21 13:49 Saline 0.9% IV 75 mls/hr .[id number] MARTITA Administration Naloxone HCl 0.2 mg 07/16/21 12:45 Naloxone 0.4 Mg/Ml 1 Ml Vial IV Q2M PRN Opioid Reversal Ondansetron HCl 4 mg 07/16/21 12:45 Ondansetron 4 Mg/2 Ml Vial IVP Q8HR PRN Nausea And Vomiting Intake and Output 07/15/21 07/16/21 07/16/21 22:59 06:59 14:59 Other: Weight 113.398 kg Patient Weight 07/17/21 06:59 Weight 113.398 kg 07/16/21 10:25 07/16/21 10:25
[2021-07-17 11:38] LABS: Glucose,Whole Blood 164 mg/dL (75-99)
[2021-07-17] MEDS: POTASSIUM CHLORIDE 10 MEQ in WATER FOR INJECTION 1 100ML.BAG IVPB SCH ×4 (12:37→16:00)
[2021-07-17] MEDS: SODIUM CHLORIDE 0.9% 1,000 ML IV SCH (13:38)
[2021-07-17 15:02] LABS: Band Neutrophils % 1 %; Metamyelocytes # (M) 0.06 k/uL (0); Metamyelocytes % 1 %; Mixed Population RBC Present; Monocytes # (M) 0.48 k/uL (0-1.0); Neutrophils % (M) 87 %; Nucleated Red Blood Cells 0 /100 WBC (0-0); Total Cells Counted 200
--- NOTE | 2021-07-17 15:05 | P.PN ---
Subjective Progress Note Date: 07/17/21 CHIEF COMPLAINT: Weakness HISTORY OF PRESENT ILLNESS: Patient presented to the hospital with weakness. F ound to have a hemoglobin of 6.0 and stool occult blood positive. He is having maroon-colored stools. Hemoglobin 6.2 today and he is receiving another unit of blood. Coumadin remains on hold. He was initially scheduled for EGD and colonoscopy today but due to scheduling reasons this has been rescheduled to tomorrow. Patient seen by cardiology service for cardiac risk assessment. Afebrile. WBC 6.0 Hgb 6.2 platelets 174 INR 1.1 potassium 3.2 creatinine 1.87 troponin 0.053 PHYSICAL EXAM: VITAL SIGNS: Reviewed. GENERAL: Well-developed in no acute distress. HEENT: No sclera icterus. Extraocular movements grossly intact. Moist buccal mucosa. Head is atraumatic, normocephalic. ABDOMEN: Soft. Nondistended. Nontender. NEUROLOGIC: Alert and oriented. Cranial nerves II through XII grossly intact. ASSESSMENT: 1. Acute GI bleed with black stools 2. Acute blood loss anemia secondary to GI bleed 3. Minimally elevated troponin 4. COVID-19 positive 5. Cardiac valve replacement and anticoagulated with Coumadin 6. History of CABG PLAN: -Patient rescheduled for EGD and colonoscopy tomorrow, 07/18/[address] Armstrong -Patient can have clear liquid diet today -Keep patient nothing by mouth after midnight -Patient is receiving 1 unit of blood for hemoglobin of 6.2 -Coumadin on hold -Continue PPI Physician Executor Of Estate note has been reviewed by physician. Signing provider agrees with the documented findings, assessment, and plan of care. Objective - Vital Signs Vital signs: Vital Signs Temp 99.1 F 07/17/21 13:53 Pulse 101 H 07/17/21 13:59 Resp 18 07/17/21 13:59 BP 140/64 07/17/21 13:53 Pulse Ox 100 07/17/21 13:53 Intake & Output 07/16/21 07/17/21 07/17/21 18:59 06:59 18:59 Intake Total 310 310 Output Total 5850 225 Balance 310 -5850 85 Weight 113.398 kg 108.5 kg Intake: Blood Product 310 310 Rc As-1 Unit 310 [id number] Rc As-1 Unit 310 [id number] Output: Urine 225 Stool 4350 Urine/Stool Mix 1500 Other: Voiding Method Urinal Urinal # Bowel Movements 1 - Labs CBC & Chem 7: 07/17/21 07:43 07/17/21 07:43 Labs: Abnormal Lab Results - Last 24 Hours (Table) 07/16/21 07/17/21 07/17/21 Range/Units 12:08 00:12 00:42 RBC 2.30 L (4.30-5.90) m/uL Hgb 7.1 L (13.0-17.5) gm/dL Hct 21.0 L (39.0-53.0) % RDW 17.1 H (11.5-15.5) % Lymphocytes # (1.0-4.8) k/uL Metamyelocytes # (Man) 0.09 H (0) k/uL Potassium (3.5-5.1) mmol/L BUN (9-20) mg/dL Creatinine (0.66-1.25) mg/dL Glucose (74-99) mg/dL POC Glucose (mg/dL) 173 H (75-99) mg/dL Calcium (8.4-10.2) mg/dL Troponin I (0.000-0.034) ng/mL Crossmatch See Detail 07/17/21 07/17/21 07/17/21 Range/Units 06:20 07:43 07:43 RBC 2.01 L (4.30-5.90) m/uL Hgb 6.2 L* (13.0-17.5) gm/dL Hct 18.6 L* (39.0-53.0) % RDW 17.3 H (11.5-15.5) % Lymphocytes # 0.8 L (1.0-4.8) k/uL Metamyelocytes # (Man) (0) k/uL Potassium 3.2 L (3.5-5.1) mmol/L BUN 45 H (9-20) mg/dL Creatinine 1.87 H (0.66-1.25) mg/dL Glucose 142 H (74-99) mg/dL POC Glucose (mg/dL) 167 H (75-99) mg/dL Calcium 8.1 L (8.4-10.2) mg/dL Troponin I (0.000-0.034) ng/mL Crossmatch 07/17/21 07/17/21 Range/Units 07:43 11:35 RBC (4.30-5.90) m/uL Hgb (13.0-17.5) gm/dL Hct (39.0-53.0) % RDW (11.5-15.5) % Lymphocytes # (1.0-4.8) k/uL Metamyelocytes # (Man) (0) k/uL Potassium (3.5-5.1) mmol/L BUN (9-20) mg/dL Creatinine (0.66-1.25) mg/dL Glucose (74-99) mg/dL POC Glucose (mg/dL) 164 H (75-99) mg/dL Calcium (8.4-10.2) mg/dL Troponin I 0.053 H* (0.000-0.034) ng/mL Crossmatch
[2021-07-17] MEDS ORDERED: ACETAMINOPHEN TAB 500 MG TAB PO PRN (15:07)
[2021-07-17] MEDS: amLODIPine 5 MG TAB PO SCH (16:00)
[2021-07-17] MEDS: POTASSIUM CHLORIDE ER 10 MEQ TAB.ER.PRT PO SCH (16:00)
[2021-07-17] MEDS: FLUTICASONE 50MCG/SPRAY NASAL 16GM EA NOSTRIL SCH (16:01)
--- NOTE | 2021-07-17 16:27 | P.CONS ---
History of Present Illness - Reason for Consult Consult date: 07/17/21 Medical management - Chief Complaint Weakness - History of Present Illness 76-year-old male with a past medical history significant for hypertension, hyperlipidemia, and valve replacement on coumadin who presents to the hospital with weakness, decreased appetite, dizziness, fatigue, chills, loss of taste and smell, sob and cough. Patient has received his Covid vaccines but is due for a booster vaccination. He does report having black stools but does take iron at home. He is on Coumadin at home for a heart valve replacement which was done in November 2019. He recalls it was a pig valve. INR 2.2 on admission. Patient has minimally abnormal troponin. Denies any chest pain. In the ER he was found to have a hemoglobin of 6.0 and stool for occult blood positive. INR is 2.2. Patient was also found to be positive for Covid. He was admitted to surgery service with medicine on consult. He is scheduled for EGD and colonoscopy with Dr. Armstrong. Review of Systems Complete review of system performed, pertinent positives per HPI, otherwise negative Past Medical History Past Medical History: Diabetes Mellitus, Hypertension Additional Past Medical History / Comment(s): bladder cancer 2009 and 2011. pelvic fx 1993, umbilicial hernia. History of Any Multi-Drug Resistant Organisms: None Reported Past Surgical History: Cardiac Valve Replacement Additional Past Surgical History / Comment(s): rotator cuff left shoulder, Past Psychological History: No Psychological Hx Reported Smoking Status: Former smoker Past Alcohol Use History: Occasional Past Drug Use History: None Reported Medications and Allergies Home Medications Medication Instructions Recorded Confirmed Type Cholecalciferol (Vitamin D3) 25 mcg PO MOFR 08/25/18 07/16/21 History [Vitamin D3] Colchicine 0.6 mg PO DAILY PRN 08/25/18 07/16/21 History Fluticasone Nasal [place] [Flonase 2 spr EA NOSTRIL BID@0900,1600 08/25/18 07/16/21 History Nasal [place]] Furosemide [Lasix] 20 mg PO BID@0900,1600 08/25/18 07/16/21 History Levocetirizine Dihydrochloride 5 mg PO HS 08/25/18 07/16/21 History [Xyzal] Potassium Chloride [Klor-Con 10] 10 meq PO DAILY 08/25/18 07/16/21 History Rosuvastatin Calcium 10 mg PO HS 08/25/18 07/16/21 History amLODIPine [Norvasc] 5 mg PO DAILY@1600 08/25/18 07/16/21 History sitaGLIPtin [Januvia] 100 mg PO DAILY@1600 08/25/18 07/16/21 History Acetaminophen Tab [Tylenol Tab] 500 mg PO Q6H PRN 07/16/21 07/16/21 History Ascorbic Acid [Vitamin C] 500 mg PO DAILY 07/16/21 07/16/21 History Aspirin EC [Ecotrin Low Dose] 81 mg PO DAILY 07/16/21 07/16/21 History Ferrous Sulfate [Feosol] 325 mg PO DAILY 07/16/21 07/16/21 History Metoprolol Tartrate [Lopressor] 50 mg PO BID 07/16/21 07/16/21 History Warfarin [Coumadin] 2 mg PO SUSA@209907/16/21 07/16/21 History Warfarin [Coumadin] 3 mg PO MOTUWETHFR@209907/16/21 07/16/21 History calcitrioL [Calcitriol] 0.25 mcg PO MOFR@1600 07/16/21 07/16/21 History glipiZIDE [Glucotrol] 10 mg PO DAILY 07/16/21 07/16/21 History Allergies Allergy/AdvReac Type Severity Reaction Status Date / Time allopurinol AdvReac Feet Verified 07/16/21 11:40 Swelling Physical Exam Vitals: Vital Signs Temp Pulse Pulse Resp BP BP Pulse Ox 07/17/21 13:59 101 H 18 07/17/21 13:53 99.1 F 101 H 18 140/64 100 07/17/21 12:38 99.1 F 101 H 18 140/64 100 07/17/21 12:00 99.1 F 101 H 18 140/64 100 07/17/21 10:40 98.1 F 91 18 142/63 99 07/17/21 10:10 98.7 F 97 18 148/67 97 07/17/21 10:00 97 18 151/67 98 07/17/21 08:00 98.6 F 112 H 19 111/53 100 07/17/21 04:00 98.8 F 100 18 137/58 98 07/17/21 01:35 105 H 18 07/17/21 00:00 98.9 F 97 18 138/63 97 07/16/21 21:45 99.3 F 96 18 147/63 99 07/16/21 20:00 98.6 F 95 20 152/62 98 07/16/21 18:58 18 157/62 98 07/16/21 15:24 98.9 F 83 18 143/60 98 07/16/21 15:11 99.3 F 89 18 149/77 100 Intake and Output 07/17/21 07/17/21 07/17/21 06:59 14:59 22:59 Intake Total 310 Output Total 3850 225 Balance -3850 85 Intake: Blood Product 310 Rc As-1 Unit 310 [id number] Output: Urine 225 Stool 2350 Urine/Stool Mix 1500 Other: Voiding Method Urinal # Bowel Movements 1 Weight 108.5 kg Constitutional: No acute distress, conversant, pleasant Eyes:Anicteric sclerae, moist conjunctiva, no lid-lag, PERRLA, ENMT: Oropharynx clear, no erythema, exudates Neck: Supple, FROM, no masses, or JVD, No carotid bruits, No thyromegaly Lungs: Clear to auscultation, Clear to percussion, Normal respiratory effort, no accessory muscle use Cardiovascular: Heart regular in rate and rhythm, No murmurs, gallops, or rubs, No peripheral edema Abdominal: Soft, Nontender, no guarding, rebound or rigidity, Normoactive bowel sounds, No hepatomegaly, No splenomegaly, No palpable mass Skin: Normal temperature, tone, texture, turgor, no induration, No subcutaneous nodules, No rash, lesions, No ulcers Extremities: No digital cyanosis, No clubbing, Pedal pulses intact and symmetrical, Radial pulses intact and symmetrical, No calf tenderness Psychiatric: Alert and oriented to person, place and time, appropriate affect, intact judgement Neuro: Muscles Strength 5/5 in all 4 extremities, Sensation to light touch grossly present throughout, Cranial nerves II-XII grossly intact, no focal sensory deficits Results CBC & Chem 7: 07/17/21 07:43 07/17/21 07:43 Labs: Abnormal Lab Results - Last 24 Hours (Table) 07/16/21 07/17/21 07/17/21 Range/Units 12:08 00:12 00:42 RBC 2.30 L (4.30-5.90) m/uL Hgb 7.1 L (13.0-17.5) gm/dL Hct 21.0 L (39.0-53.0) % RDW 17.1 H (11.5-15.5) % Lymphocytes # (Manual) (1.0-4.8) k/uL Metamyelocytes # (Man) 0.09 H (0) k/uL Potassium (3.5-5.1) mmol/L BUN (9-20) mg/dL Creatinine (0.66-1.25) mg/dL Glucose (74-99) mg/dL POC Glucose (mg/dL) 173 H (75-99) mg/dL Calcium (8.4-10.2) mg/dL Troponin I (0.000-0.034) ng/mL Crossmatch See Detail 07/17/21 07/17/21 07/17/21 Range/Units 06:20 07:43 07:43 RBC 2.01 L (4.30-5.90) m/uL Hgb 6.2 L* (13.0-17.5) gm/dL Hct 18.6 L* (39.0-53.0) % RDW 17.3 H (11.5-15.5) % Lymphocytes # (Manual) 0.30 L (1.0-4.8) k/uL Metamyelocytes # (Man) 0.06 H (0) k/uL Potassium 3.2 L (3.5-5.1) mmol/L BUN 45 H (9-20) mg/dL Creatinine 1.87 H (0.66-1.25) mg/dL Glucose 142 H (74-99) mg/dL POC Glucose (mg/dL) 167 H (75-99) mg/dL Calcium 8.1 L (8.4-10.2) mg/dL Troponin I (0.000-0.034) ng/mL Crossmatch 07/17/21 07/17/21 Range/Units 07:43 11:35 RBC (4.30-5.90) m/uL Hgb (13.0-17.5) gm/dL Hct (39.0-53.0) % RDW (11.5-15.5) % Lymphocytes # (Manual) (1.0-4.8) k/uL Metamyelocytes # (Man) (0) k/uL Potassium (3.5-5.1) mmol/L BUN (9-20) mg/dL Creatinine (0.66-1.25) mg/dL Glucose (74-99) mg/dL POC Glucose (mg/dL) 164 H (75-99) mg/dL Calcium (8.4-10.2) mg/dL Troponin I 0.053 H* (0.000-0.034) ng/mL Crossmatch Assessment and Plan Plan: GI bleeding IV PPI Monitor hemoglobin Monitor for bleeding Transfuse 1 unit of blood today History of bioprosthetic valve replacement Consult cardio Unclear why patient is still on coumadin, he denied any hx of a-fib Covid 19 CXR without pneumonia, he is not hypoxic no treatment is indicated. DM 2 He is on clears now SSI Hold orals HTN: Hyperlipidemia Resume meds Disposition: Likely home Anticipated discharge: 3-4 days
[2021-07-17 16:35] LABS: Glucose,Whole Blood 183 mg/dL (75-99)
[2021-07-17] MEDS: INSULIN ASPART (NovoLOG) 100 UNIT/ML VIAL SQ SCH ×2 (16:39→20:10)
[2021-07-17 20:02] LABS: Glucose,Whole Blood 261 mg/dL (75-99)
[2021-07-17] MEDS: ATORVASTATIN 20 MG TAB PO SCH (20:10)
[2021-07-17] MEDS: METOPROLOL TARTRATE 50 MG TAB PO SCH (20:10)
[2021-07-17 20:56] LABS: Anisocytosis Slight; HCT 21.5 % (39.0-53.0); MCHC 32.2 g/dL (31.0-37.0); MCV 92.9 fL (80.0-100.0); Mean Platelet Volume 8.5; Platelet Count 163 k/uL (150-450); Poikilocytosis Slight; RBC 2.31 m/uL (4.30-5.90); RDW 16.8 % (11.5-15.5); WBC 5.8 k/uL (3.8-10.6)
[2021-07-17 20:58] LABS: HGB 6.9 gm/dL (13.0-17.5)
[2021-07-18 06:20] LABS: Glucose,Whole Blood 166 mg/dL (75-99)
[2021-07-18] MEDS: INSULIN ASPART (NovoLOG) 100 UNIT/ML VIAL SQ SCH ×4 (06:25→20:17)
[2021-07-18] MEDS: SODIUM CHLORIDE 0.9% 1,000 ML IV SCH ×2 (06:32→20:44)
[2021-07-18 09:01] LABS: Calcium 8.1 mg/dL (8.4-10.2); Potassium 3.4 mmol/L (3.5-5.1)
[2021-07-18] MEDS: FERROUS SULFATE 325 MG TAB PO SCH (09:24)
[2021-07-18] MEDS: PANTOPRAZOLE 40 MG/10 ML VIAL IVP SCH ×2 (09:24→20:47)
[2021-07-18] MEDS: FLUTICASONE 50MCG/SPRAY NASAL 16GM EA NOSTRIL SCH ×2 (09:24→17:20)
[2021-07-18] MEDS: METOPROLOL TARTRATE 50 MG TAB PO SCH ×2 (09:24→20:45)
[2021-07-18] MEDS: POTASSIUM CHLORIDE ER 10 MEQ TAB.ER.PRT PO SCH (09:24)
[2021-07-18 09:31] LABS: Anisocytosis Slight; Basophils % (A) 0 %; Eosinophils # (A) 0.1 k/uL (0-0.7); Eosinophils % (A) 2 %; HCT 23.4 % (39.0-53.0); Lymphocytes # (A) 0.8 k/uL (1.0-4.8); Lymphocytes % (A) 19 %; MCHC 34.1 g/dL (31.0-37.0); MCV 90.8 fL (80.0-100.0); Mean Platelet Volume 8.1; Monocytes # (A) 0.4 k/uL (0-1.0); Monocytes % (A) 9 %; Neutrophils # (A) 2.8 k/uL (1.3-7.7); Neutrophils % (A) 68 %; Platelet Count 144 k/uL (150-450); Poikilocytosis Slight; RBC 2.58 m/uL (4.30-5.90); RDW 17.2 % (11.5-15.5); WBC 4.2 k/uL (3.8-10.6)
[2021-07-18] MEDS ORDERED: POTASSIUM CHLORIDE ER 20 MEQ TAB.ER PO STA (10:32)
[2021-07-18 11:20] LABS: Glucose,Whole Blood 122 mg/dL (75-99)
--- NOTE | 2021-07-18 12:43 | P.PN ---
Subjective Progress Note Date: 07/18/21 CHIEF COMPLAINT: abnormal troponins HISTORY OF PRESENT ILLNESS: This is a 76 year old male with a past medical history significant for hypertension, hyperlipidemia, and valve replacement on coumadin. Patient does not follow with a electromechanical engineer at cardiology [facility]. We have been asked to see the patient in consultation for abnormal troponin. Patient presented to the hospital with a chief complaint of weakness and loss of appetite. Patient was found to have acute blood loss anemia with a hemoglobin of 6.0. The patient does take Coumadin on an outpatient basis. His INR is 2.2. Patients also be found to be positive for Covid. He is scheduled for EGD and colonoscopy today with Dr. Armstrong. DIAGNOSTICS: EKG reveals sinus mechanism with nonspecific ST-T wave changes Chest xray chronic changes without definite acute pulmonary process. Laboratory data: WBC 4.8. Hemoglobin 6.0. Platelet count 175. INR 2.2. Sodium 136. Potassium 3.6. BUN 55. Creatinine 2.19. Troponin 0.046. 0.053. ProBNP 4360. TSH 1.820. Current home cardiac medications include Coumadin 2 mg Thursday and Thursday and 3 mg Thursday, Norvasc 5 mg daily, Rosuvastatin 10 mg at night, metoprolol tartrate 15 g twice a day, Lasix 20 mg twice a day, aspirin 81 mg daily Echocardiogram obtained revealing EF 55-60%, moderate stenosis of bioprosthetic aortic valve, mild MR, mild TR, and mild pulmonary hypertension 07/18/2021 Patient is scheduled for EGD and colonoscopy today with Dr. Armstrong. Patient's anticoagulation remains on hold. Apparently the patient had a valve replacement with a pig valve done. He is on Coumadin on an outpatient basis. He denies history of atrial fibrillation. The reason for his anticoagulation is unknown at this time. PHYSICAL EXAM: Thorough physical exam not completed secondary to limited evaluation/examination due to Covid19 ASSESSMENT: GI Bleed Acute blood loss anemia Covid 19 History of aortic valve replacement, on coumadin, details unknown Chronic kidney disease Abnormal troponins, no evidence of ACS Hypertension Hyperlipidemia PLAN: The patient is on Coumadin on an outpatient basis. He does not require anticoagulation for his bioprosthetic aortic valve. The reason the patient is on anticoagulation is unknown. We will obtain records from patient's electromechanical engineer. Nevertheless, the patient is admitted with a GI bleed and acute blood loss anemia and his anticoagulation should be held. Nurse practitioner note has been reviewed by physician. Signing provider agrees with the documented findings, assessment, and plan of care. Objective - Vital Signs Vital signs: Vital Signs Temp 97.5 F L 07/18/21 08:00 Pulse 91 07/18/21 08:00 Resp 18 07/18/21 04:00 BP 138/82 07/18/21 08:00 Pulse Ox 97 07/18/21 08:00 Intake & Output 07/17/21 07/18/21 07/18/21 18:59 06:59 18:59 Intake Total 670 620 240 Output Total 475 576 600 Balance 195 44 -360 Weight 88 kg Intake: Oral 360 240 Blood Product 310 620 Rc As-1 Unit 310 [id number] Rc Pheresis 2 As3 Unit 310 [id number] Output: Urine 475 576 600 Other: Voiding Method Urinal Urinal # Voids 1 - Labs CBC & Chem 7: 07/18/21 08:14 07/18/21 08:14 Labs: Abnormal Lab Results - Last 24 Hours (Table) 07/16/21 07/17/21 07/17/21 Range/Units 12:08 07:43 16:28 RBC (4.30-5.90) m/uL Hgb 6.2 L* (13.0-17.5) gm/dL Hct 18.6 L* (39.0-53.0) % RDW (11.5-15.5) % Plt Count (150-450) k/uL Lymphocytes # (1.0-4.8) k/uL Lymphocytes # (Manual) 0.30 L (1.0-4.8) k/uL Metamyelocytes # (Man) 0.06 H (0) k/uL Potassium (3.5-5.1) mmol/L Chloride (98-107) mmol/L BUN (9-20) mg/dL Creatinine (0.66-1.25) mg/dL POC Glucose (mg/dL) 183 H (75-99) mg/dL Calcium (8.4-10.2) mg/dL Crossmatch See Detail 07/17/21 07/17/21 07/18/21 Range/Units 20:01 20:25 06:18 RBC 2.31 L (4.30-5.90) m/uL Hgb 6.9 L* (13.0-17.5) gm/dL Hct 21.5 L (39.0-53.0) % RDW 16.8 H (11.5-15.5) % Plt Count (150-450) k/uL Lymphocytes # (1.0-4.8) k/uL Lymphocytes # (Manual) (1.0-4.8) k/uL Metamyelocytes # (Man) (0) k/uL Potassium (3.5-5.1) mmol/L Chloride (98-107) mmol/L BUN (9-20) mg/dL Creatinine (0.66-1.25) mg/dL POC Glucose (mg/dL) 261 H 166 H (75-99) mg/dL Calcium (8.4-10.2) mg/dL Crossmatch 07/18/21 07/18/21 07/18/21 Range/Units 08:14 08:14 11:00 RBC 2.58 L (4.30-5.90) m/uL Hgb 8.0 L (13.0-17.5) gm/dL Hct 23.4 L (39.0-53.0) % RDW 17.2 H (11.5-15.5) % Plt Count 144 L (150-450) k/uL Lymphocytes # 0.8 L (1.0-4.8) k/uL Lymphocytes # (Manual) (1.0-4.8) k/uL Metamyelocytes # (Man) (0) k/uL Potassium 3.4 L (3.5-5.1) mmol/L Chloride 109 H (98-107) mmol/L BUN 27 H (9-20) mg/dL Creatinine 1.67 H (0.66-1.25) mg/dL POC Glucose (mg/dL) 122 H (75-99) mg/dL Calcium 8.1 L (8.4-10.2) mg/dL Crossmatch
--- NOTE | 2021-07-18 14:25 | P.PN ---
Subjective Progress Note Date: 07/18/21 Principal diagnosis: GI bleed Patient doing well, no episodes of bleeding noticed. No nausea or vomiting. No fevers. No shortness of breath. Objective - Vital Signs Vital signs: Vital Signs Temp 97.5 F L 07/18/21 08:00 Pulse 72 07/18/21 12:00 Resp 18 07/18/21 04:00 BP 138/63 07/18/21 12:00 Pulse Ox 98 07/18/21 12:00 Intake & Output 07/17/21 07/18/21 07/18/21 18:59 06:59 18:59 Intake Total 670 620 240 Output Total 475 576 600 Balance 195 44 -360 Weight 88 kg Intake: Oral 360 240 Blood Product 310 620 Rc As-1 Unit 310 [id number] Rc Pheresis 2 As3 Unit 310 [id number] Output: Urine 475 576 600 Other: Voiding Method Urinal Urinal # Voids 1 - Exam Constitutional: No acute distress, conversant, pleasant Eyes:Anicteric sclerae, moist conjunctiva, no lid-lag, PERRLA, ENMT: Oropharynx clear, no erythema, exudates Neck: Supple, FROM, no masses, or JVD, No carotid bruits, No thyromegaly Lungs: Clear to auscultation, Clear to percussion, Normal respiratory effort, no accessory muscle use Cardiovascular: Heart regular in rate and rhythm, No murmurs, gallops, or rubs, No peripheral edema Abdominal: Soft, Nontender, no guarding, rebound or rigidity, Normoactive bowel sounds, No hepatomegaly, No splenomegaly, No palpable mass Skin: Normal temperature, tone, texture, turgor, no induration, No subcutaneous nodules, No rash, lesions, No ulcers Extremities: No digital cyanosis, No clubbing, Pedal pulses intact and symmetrical, Radial pulses intact and symmetrical, No calf tenderness Psychiatric: Alert and oriented to person, place and time, appropriate affect, intact judgement Neuro: Muscles Strength 5/5 in all 4 extremities, Sensation to light touch grossly present throughout, Cranial nerves II-XII grossly intact, no focal sensory deficits - Labs CBC & Chem 7: 07/18/21 08:14 07/18/21 08:14 Labs: Abnormal Lab Results - Last 24 Hours (Table) 07/16/21 07/17/2121 Range/Units 12:08 07:43 16:28 RBC (4.30-5.90) m/uL Hgb 6.2 L* (13.0-17.5) gm/dL Hct 18.6 L* (39.0-53.0) % RDW (11.5-15.5) % Plt Count (150-450) k/uL Lymphocytes # (1.0-4.8) k/uL Lymphocytes # (Manual) 0.30 L (1.0-4.8) k/uL Metamyelocytes # (Man) 0.06 H (0) k/uL Potassium (3.5-5.1) mmol/L Chloride (98-107) mmol/L BUN (9-20) mg/dL Creatinine (0.66-1.25) mg/dL POC Glucose (mg/dL) 183 H (75-99) mg/dL Calcium (8.4-10.2) mg/dL Crossmatch See Detail 07/17/21 07/17/21 07/18/21 Range/Units 20:01 20:25 06:18 RBC 2.31 L (4.30-5.90) m/uL Hgb 6.9 L* (13.0-17.5) gm/dL Hct 21.5 L (39.0-53.0) % RDW 16.8 H (11.5-15.5) % Plt Count (150-450) k/uL Lymphocytes # (1.0-4.8) k/uL Lymphocytes # (Manual) (1.0-4.8) k/uL Metamyelocytes # (Man) (0) k/uL Potassium (3.5-5.1) mmol/L Chloride (98-107) mmol/L BUN (9-20) mg/dL Creatinine (0.66-1.25) mg/dL POC Glucose (mg/dL) 261 H 166 H (75-99) mg/dL Calcium (8.4-10.2) mg/dL Crossmatch 07/18/21 07/18/21 07/18/21 Range/Units 08:14 08:14 11:00 RBC 2.58 L (4.30-5.90) m/uL Hgb 8.0 L (13.0-17.5) gm/dL Hct 23.4 L (39.0-53.0) % RDW 17.2 H (11.5-15.5) % Plt Count 144 L (150-450) k/uL Lymphocytes # 0.8 L (1.0-4.8) k/uL Lymphocytes # (Manual) (1.0-4.8) k/uL Metamyelocytes # (Man) (0) k/uL Potassium 3.4 L (3.5-5.1) mmol/L Chloride 109 H (98-107) mmol/L BUN 27 H (9-20) mg/dL Creatinine 1.67 H (0.66-1.25) mg/dL POC Glucose (mg/dL) 122 H (75-99) mg/dL Calcium 8.1 L (8.4-10.2) mg/dL Crossmatch Assessment and Plan Plan: GI bleeding Status post 3 units of blood transfusion, currently hemoglobin stable IV PPI Monitor hemoglobin Monitor for bleeding History of bioprosthetic valve replacement Anticoagulation per cardio if needed Unclear why patient is still on coumadin, he denied any hx of a-fib Covid 19 CXR without pneumonia, he is not hypoxic no treatment is indicated. DM 2 SSI Hold orals HTN: Hyperlipidemia Resume meds Disposition: Likely home Anticipated discharge: 2-3 days
[2021-07-18] MEDS ORDERED: PROPOFOL 10 MG/ML 20 ML VIAL IV ONE (16:29)
[2021-07-18] MEDS ORDERED: LIDOCAINE 1% INJ 10MG/ML (20 ML MDV) ONE (16:29)
[2021-07-18] MEDS ORDERED: SODIUM CHLORIDE 0.9% 500 ML 500 ML IV ONE ×2 (16:32)
--- NOTE | 2021-07-18 17:04 | P.OP ---
Date of Procedure: 07/18/21 Preoperative Diagnosis: GI bleed Postoperative Diagnosis: Antral gastritis No evidence of upper GI bleed Minimal diverticulosis Poor colonic prep Procedure(s) Performed: EGD Colonoscopy Anesthesia: MAC Surgeon: Kali Armstrong Pathology: other (Antrum) Condition: stable Disposition: PACU Description of Procedure: The patient's placed on the endoscopy table in the lateral position. He received IV sedation. The gastroscope placed oropharynx passed in the esophagus and stomach. Scope was placed through the pylorus. The first and second portion of the duodenumAppeared normal. There is known to blood in the duodenum. The scope was brought back and the antrum there was some minimal patient. This was biopsied. The scope was retroflexed the remainder of the stomach appeared normal. There is small hiatal hernia. The GE junction was at 39 cm. The distal esophagus appeared normal. The proximal esophagus. Scope was withdrawn for patient. There was no evidence of any upper GI bleed. Next digital rectal exam was performed which revealed no abnormalities. Flexible colonoscope was then placed patient anus passed throughout the colon. At the level of the proximal transverse colon there was a large amount of melanotic stool. The patient a very poor colonic prep which limited view the mucosa. The scope was withdrawn. There were some diverticula noted in the transverse and descending colon. Scope was brought back the sigmoid colon in a few more diverticula were noted. Scope was brought back the rectum this was normal. Scope was withdrawn for patient. There is no evidence of any natasha lower GI bleed. The patient's prep was quite poor. The right colon was not visualized. The patient is a bleed he'll need to be repeat prepped for colonoscopy
[2021-07-18] MEDS: amLODIPine 5 MG TAB PO SCH (17:20)
[2021-07-18 17:44] LABS: Glucose,Whole Blood 119 mg/dL (75-99)
[2021-07-18 20:11] LABS: Glucose,Whole Blood 168 mg/dL (75-99)
[2021-07-18] MEDS: ATORVASTATIN 20 MG TAB PO SCH (20:45)
[2021-07-19 06:01] LABS: Glucose,Whole Blood 125 mg/dL (75-99)
[2021-07-19] MEDS: INSULIN ASPART (NovoLOG) 100 UNIT/ML VIAL SQ SCH ×4 (06:18→20:12)
[2021-07-19] MEDS: METOPROLOL TARTRATE 50 MG TAB PO SCH ×2 (08:24→20:21)
[2021-07-19] MEDS: SODIUM CHLORIDE 0.9% 1,000 ML IV SCH (08:24)
[2021-07-19] MEDS: PANTOPRAZOLE 40 MG/10 ML VIAL IVP SCH (08:24)
[2021-07-19] MEDS: FERROUS SULFATE 325 MG TAB PO SCH (08:24)
[2021-07-19] MEDS: POTASSIUM CHLORIDE ER 10 MEQ TAB.ER.PRT PO SCH (08:24)
[2021-07-19] MEDS: FLUTICASONE 50MCG/SPRAY NASAL 16GM EA NOSTRIL SCH ×2 (08:25→16:43)
[2021-07-19 10:11] LABS: Anisocytosis Slight; Basophils % (A) 0 %; Eosinophils # (A) 0.2 k/uL (0-0.7); Eosinophils % (A) 5 %; HCT 25.6 % (39.0-53.0); HGB 8.2 gm/dL (13.0-17.5); Hypochromasia Slight; Lymphocytes # (A) 0.6 k/uL (1.0-4.8); Lymphocytes % (A) 17 %; MCH 29.9 pg (25.0-35.0); MCHC 32.1 g/dL (31.0-37.0); MCV 93.2 fL (80.0-100.0); Mean Platelet Volume 8.2; Monocytes # (A) 0.2 k/uL (0-1.0); Monocytes % (A) 7 %; Neutrophils # (A) 2.4 k/uL (1.3-7.7); Neutrophils % (A) 69 %; Platelet Count 140 k/uL (150-450); Poikilocytosis Slight; RBC 2.75 m/uL (4.30-5.90); RDW 16.4 % (11.5-15.5); WBC 3.5 k/uL (3.8-10.6)
[2021-07-19 10:30] LABS: Calcium 8.2 mg/dL (8.4-10.2); Magnesium 1.9 mg/dL (1.6-2.3)
--- NOTE | 2021-07-19 10:54 | P.PN ---
Subjective Progress Note Date: 07/19/21 Principal diagnosis: GI bleed Patient is still weak. He is still having some cough and mild shortness of breath. No fevers or chills. Objective - Vital Signs Vital signs: Vital Signs Temp 98.3 F 07/19/21 08:00 Pulse 85 07/19/21 08:00 Resp 16 07/19/21 08:00 BP 135/78 07/19/21 08:00 Pulse Ox 97 07/19/21 08:00 Intake & Output 07/18/21 07/19/21 07/19/21 18:59 06:59 18:59 Intake Total 780 240 118 Output Total 900 1650 Balance -120 -1410 118 Weight 113.5 kg Intake: IV 300 Oral 480 240 118 Output: Urine 900 800 Stool 850 Other: Voiding Method Urinal Urinal # Voids 1 - Exam Constitutional: No acute distress, conversant, pleasant Eyes:Anicteric sclerae, moist conjunctiva, no lid-lag, PERRLA, ENMT: Oropharynx clear, no erythema, exudates Neck: Supple, FROM, no masses, or JVD, No carotid bruits, No thyromegaly Lungs: Clear to auscultation, Clear to percussion, Normal respiratory effort, no accessory muscle use Cardiovascular: Heart regular in rate and rhythm, No murmurs, gallops, or rubs, No peripheral edema Abdominal: Soft, Nontender, no guarding, rebound or rigidity, Normoactive bowel sounds, No hepatomegaly, No splenomegaly, No palpable mass Skin: Normal temperature, tone, texture, turgor, no induration, No subcutaneous nodules, No rash, lesions, No ulcers Extremities: No digital cyanosis, No clubbing, Pedal pulses intact and symmetrical, Radial pulses intact and symmetrical, No calf tenderness Psychiatric: Alert and oriented to person, place and time, appropriate affect, intact judgement Neuro: Muscles Strength 5/5 in all 4 extremities, Sensation to light touch grossly present throughout, Cranial nerves II-XII grossly intact, no focal sensory deficits - Labs CBC & Chem 7: 07/19/21 09:48 07/19/21 09:48 Labs: Abnormal Lab Results - Last 24 Hours (Table) 07/18/21 07/18/21 07/18/21 Range/Units 11:00 17:34 20:04 WBC (3.8-10.6) k/uL RBC (4.30-5.90) m/uL Hgb (13.0-17.5) gm/dL Hct (39.0-53.0) % RDW (11.5-15.5) % Plt Count (150-450) k/uL Lymphocytes # (1.0-4.8) k/uL Chloride (98-107) mmol/L BUN (9-20) mg/dL Creatinine (0.66-1.25) mg/dL Glucose (74-99) mg/dL POC Glucose (mg/dL) 122 H 119 H 168 H (75-99) mg/dL Calcium (8.4-10.2) mg/dL 07/19/21 07/19/21 07/19/21 Range/Units 05:58 09:48 09:48 WBC 3.5 L (3.8-10.6) k/uL RBC 2.75 L (4.30-5.90) m/uL Hgb 8.2 L (13.0-17.5) gm/dL Hct 25.6 L (39.0-53.0) % RDW 16.4 H (11.5-15.5) % Plt Count 140 L (150-450) k/uL Lymphocytes # 0.6 L (1.0-4.8) k/uL Chloride 109 H (98-107) mmol/L BUN 21 H (9-20) mg/dL Creatinine 1.77 H (0.66-1.25) mg/dL Glucose 157 H (74-99) mg/dL POC Glucose (mg/dL) 125 H (75-99) mg/dL Calcium 8.2 L (8.4-10.2) mg/dL Assessment and Plan Plan: GI bleeding Status post 3 units of blood transfusion, currently hemoglobin stable PPI Monitor hemoglobin Monitor for bleeding History of bioprosthetic valve replacement Anticoagulation per cardio if needed, unclear why patient is still on coumadin, he denied any hx of a-fib Covid 19 CXR without pneumonia, he is not hypoxic no treatment is indicated. DM 2 SSI Hold orals HTN: Hyperlipidemia Resume meds General weakness PT/OT Disposition: Likely home Anticipated discharge: 1-2 days
[2021-07-19 11:42] LABS: Glucose,Whole Blood 152 mg/dL (75-99)
--- NOTE | 2021-07-19 12:11 | P.PN ---
Subjective Progress Note Date: 07/19/21 CHIEF COMPLAINT: Weakness HISTORY OF PRESENT ILLNESS: Patient presented to the hospital with weakness. F ound to have a hemoglobin of 6.0 and stool occult blood positive. Patient is status post EGD and colonoscopy which showed antral gastritis, no evidence of upper GI bleed, minimal diverticulosis and poor colonic prep. Patient is still having black stools which are likely old. His Coumadin is currently on hold. He is on regular diet. Denies any abdominal pain. Afebrile. WBC 3.5 Hgb 8.2 platelets 140 sodium 137 potassium 4.0 BUN 21 CR 1.77 Patient seen and examined with Dr. Armstrong PHYSICAL EXAM: VITAL SIGNS: Reviewed. GENERAL: Well-developed in no acute distress. HEENT: No sclera icterus. Extraocular movements grossly intact. Moist buccal mucosa. Head is atraumatic, normocephalic. ABDOMEN: Soft. Nondistended. Nontender. NEUROLOGIC: Alert and oriented. Cranial nerves II through XII grossly intact. Hard of hearing ASSESSMENT: 1. Acute GI bleed with black stools status post EGD and colonoscopy results showed antral gastritis, no evidence of upper GI bleed, minimal diverticulosis and poor colonic prep. Bleeding likely secondary to anticoagulation 2. Acute blood loss anemia secondary to GI bleed 3. Minimally elevated troponin 4. COVID-19 positive 5. Cardiac valve replacement 6. History of CABG PLAN: -Recommend repeat colonoscopy in one year -If possible, would recommend to stay off of anticoagulation. Patient to be further evaluated by cardiology to see if patient does need to be on Coumadin -Recommend to hold Coumadin -Continue PPI -Continue to monitor hemoglobin -Continue to monitor signs and symptoms of bleeding -Continue regular diet Physician Needle Setter note has been reviewed by physician. Signing provider agrees with the documented findings, assessment, and plan of care. Objective - Vital Signs Vital signs: Vital Signs Temp 98.3 F 07/19/21 08:00 Pulse 85 07/19/21 08:00 Resp 16 07/19/21 08:00 BP 135/78 07/19/21 08:00 Pulse Ox 97 07/19/21 08:00 Intake & Output 07/18/21 07/19/21 07/19/21 18:59 06:59 18:59 Intake Total 780 240 118 Output Total 900 1650 Balance -120 -1410 118 Weight 113.5 kg Intake: IV 300 Oral 480 240 118 Output: Urine 900 800 Stool 850 Other: Voiding Method Urinal Urinal # Voids 1 - Labs CBC & Chem 7: 07/19/21 09:48 07/19/21 09:48 Labs: Abnormal Lab Results - Last 24 Hours (Table) 07/18/21 07/18/21 07/19/21 Range/Units 17:34 20:04 05:58 WBC (3.8-10.6) k/uL RBC (4.30-5.90) m/uL Hgb (13.0-17.5) gm/dL Hct (39.0-53.0) % RDW (11.5-15.5) % Plt Count (150-450) k/uL Lymphocytes # (1.0-4.8) k/uL Chloride (98-107) mmol/L BUN (9-20) mg/dL Creatinine (0.66-1.25) mg/dL Glucose (74-99) mg/dL POC Glucose (mg/dL) 119 H 168 H 125 H (75-99) mg/dL Calcium (8.4-10.2) mg/dL 07/19/21 07/19/21 07/19/21 Range/Units 09:48 09:48 11:41 WBC 3.5 L (3.8-10.6) k/uL RBC 2.75 L (4.30-5.90) m/uL Hgb 8.2 L (13.0-17.5) gm/dL Hct 25.6 L (39.0-53.0) % RDW 16.4 H (11.5-15.5) % Plt Count 140 L (150-450) k/uL Lymphocytes # 0.6 L (1.0-4.8) k/uL Chloride 109 H (98-107) mmol/L BUN 21 H (9-20) mg/dL Creatinine 1.77 H (0.66-1.25) mg/dL Glucose 157 H (74-99) mg/dL POC Glucose (mg/dL) 152 H (75-99) mg/dL Calcium 8.2 L (8.4-10.2) mg/dL
[2021-07-19] MEDS: PANTOPRAZOLE 40 MG TABLET PO SCH (16:43)
[2021-07-19] MEDS: amLODIPine 5 MG TAB PO SCH (16:43)
[2021-07-19 16:54] LABS: Glucose,Whole Blood 137 mg/dL (75-99)
--- NOTE | 2021-07-19 17:01 | PN ---
PROGRESS NOTE Mr. Carver is admitted to the hospital with anemia with positive stool for occult blood. The patient had an EGD and colonoscopy which showed antral gastritis. No evidence of upper GI bleeding. Minimal diverticulosis, with poor preparation. The patient is still having black stools, which are likely old. Patient was on Coumadin, which is being held. His hemoglobin today is 8.2. The patient had mild troponin elevation, but not consistent with acute myocardial injury pattern. Physical examination reveals a gentleman who is in no acute distress. Neck is supple. Heart: S1 and S2 heard. Abdomen is soft. Extremities: No significant edema. FINAL IMPRESSION: 1. Gastrointestinal bleeding. Etiology is not clear. Patient was found to have some antral gastritis. He was on Coumadin, which is being held. 2. Anemia. 3. Minimally elevated troponin. 4. COVID positive. 5. History of pig valve placement. 6. History of coronary artery bypass grafting. PLAN: Continue current management and continue to watch for GI bleeding and hemoglobin levels. No further cardiac workup at this time. Echocardiogram showed presence of a pig valve with a preserved LV function and ejection fraction about 55% to 60%. MMODL / IJN: [id number] /
[2021-07-19 20:09] LABS: Glucose,Whole Blood 127 mg/dL (75-99)
[2021-07-19] MEDS: ATORVASTATIN 20 MG TAB PO SCH (20:19)
[2021-07-20] MEDS: SODIUM CHLORIDE 0.9% 1,000 ML IV SCH ×2 (00:39→11:39)
[2021-07-20 06:05] LABS: Glucose,Whole Blood 125 mg/dL (75-99)
[2021-07-20] MEDS: PANTOPRAZOLE 40 MG TABLET PO SCH ×2 (06:10→17:15)
[2021-07-20] MEDS: INSULIN ASPART (NovoLOG) 100 UNIT/ML VIAL SQ SCH ×4 (06:10→20:12)
[2021-07-20] MEDS: POTASSIUM CHLORIDE ER 10 MEQ TAB.ER.PRT PO SCH (08:38)
[2021-07-20] MEDS: FLUTICASONE 50MCG/SPRAY NASAL 16GM EA NOSTRIL SCH ×2 (08:38→17:14)
[2021-07-20] MEDS: FERROUS SULFATE 325 MG TAB PO SCH (08:38)
[2021-07-20] MEDS: METOPROLOL TARTRATE 50 MG TAB PO SCH ×2 (08:38→20:13)
--- NOTE | 2021-07-20 09:39 | P.PN ---
Subjective Progress Note Date: 07/20/21 Principal diagnosis: GI bleed Patient without new complaints. Says he still has dyspnea on exertion with cough. Denies shortness of breath at rest. Had upper and lower endoscopy showing gastritis. Denies rectal bleeding or melena. Tolerating diet. Objective - Vital Signs Vital signs: Vital Signs Temp 98.2 F 07/20/21 04:00 Pulse 76 07/20/21 04:00 Resp 18 07/20/21 04:00 BP 146/65 07/20/21 04:00 Pulse Ox 97 07/20/21 04:00 Intake & Output 07/19/21 07/20/21 07/20/21 18:59 06:59 18:59 Intake Total 358 Output Total 300 950 Balance 58 -950 Weight 110 kg Intake: Oral 358 Output: Urine 300 950 Other: Voiding Method Urinal - Exam Abdomen: Soft, nontender, nondistended - Labs CBC & Chem 7: 07/19/21 09:48 07/19/21 09:48 Labs: Abnormal Lab Results - Last 24 Hours (Table) 07/19/21 07/19/21 07/19/21 Range/Units 09:48 09:48 11:41 WBC 3.5 L (3.8-10.6) k/uL RBC 2.75 L (4.30-5.90) m/uL Hgb 8.2 L (13.0-17.5) gm/dL Hct 25.6 L (39.0-53.0) % RDW 16.4 H (11.5-15.5) % Plt Count 140 L (150-450) k/uL Lymphocytes # 0.6 L (1.0-4.8) k/uL Chloride 109 H (98-107) mmol/L BUN 21 H (9-20) mg/dL Creatinine 1.77 H (0.66-1.25) mg/dL Glucose 157 H (74-99) mg/dL POC Glucose (mg/dL) 152 H (75-99) mg/dL Calcium 8.2 L (8.4-10.2) mg/dL 07/19/21 07/19/21 07/20/21 Range/Units 16:32 20:07 06:04 WBC (3.8-10.6) k/uL RBC (4.30-5.90) m/uL Hgb (13.0-17.5) gm/dL Hct (39.0-53.0) % RDW (11.5-15.5) % Plt Count (150-450) k/uL Lymphocytes # (1.0-4.8) k/uL Chloride (98-107) mmol/L BUN (9-20) mg/dL Creatinine (0.66-1.25) mg/dL Glucose (74-99) mg/dL POC Glucose (mg/dL) 137 H 127 H 125 H (75-99) mg/dL Calcium (8.4-10.2) mg/dL Assessment and Plan (1) GI bleed Narrative/Plan: Patient seems to be doing well from a GI point of view. Still short of breath and symptomatic from his Covid pneumonia. Continue regular diet. Follow hemoglobin. Current Visit: Yes Status: Acute Code(s): K92.2 - GASTROINTESTINAL HEMORRHAGE, UNSPECIFIED SNOMED Code(s): 45922604
[2021-07-20 15:07] LABS: INR 0.9 (<1.2); Prothrombin Time 10.2 sec (9.0-12.0)
[2021-07-20 15:16] LABS: Potassium 4.1 mmol/L (3.5-5.1)
[2021-07-20 15:17] LABS: Anisocytosis Slight; Basophils % (A) 0 %; Eosinophils # (A) 0.2 k/uL (0-0.7); Eosinophils % (A) 6 %; HCT 25.9 % (39.0-53.0); HGB 8.7 gm/dL (13.0-17.5); Lymphocytes # (A) 0.7 k/uL (1.0-4.8); Lymphocytes % (A) 21 %; MCH 30.6 pg (25.0-35.0); MCHC 33.7 g/dL (31.0-37.0); MCV 90.9 fL (80.0-100.0); Mean Platelet Volume 9.2; Monocytes # (A) 0.2 k/uL (0-1.0); Monocytes % (A) 6 %; Neutrophils # (A) 2.2 k/uL (1.3-7.7); Neutrophils % (A) 64 %; Platelet Count 162 k/uL (150-450); Poikilocytosis Slight; RBC 2.85 m/uL (4.30-5.90); RDW 16.3 % (11.5-15.5); WBC 3.4 k/uL (3.8-10.6)
--- NOTE | 2021-07-20 15:18 | P.PN ---
Subjective Progress Note Date: 07/20/21 Patient seen and examined at bedside. Patient is hard of hearing. Patient denies chest pain. Patient does admit to exertional dyspnea. Morning labs were just drawn so they are not available to review. Objective - Vital Signs Vital signs: Vital Signs Temp 98.4 F 07/20/21 11:35 Pulse 80 07/20/21 11:35 Resp 16 07/20/21 11:35 BP 124/72 07/20/21 11:35 Pulse Ox 97 07/20/21 11:35 Intake & Output 07/19/21 07/20/21 07/20/21 18:59 06:59 18:59 Intake Total 358 Output Total 300 950 Balance 58 -950 Weight 110 kg Intake: Oral 358 Output: Urine 300 950 Other: Voiding Method Urinal - Exam General: [non toxic], [no distress], [appears at stated age] Derm: [warm], [dry] Head: [atraumatic], [normocephalic], [symmetric] Eyes: [EOMI], [no lid lag], [anicteric sclera] Mouth: [no lip lesion], [mucus membranes moist] Cardiovascular: [S1S2 reg], [no murmur], [positive posterior tibial pulse bilateral], Lungs: [CTA bilateral], [no rhonchi, no rales] , [no accessory muscle use] Abdominal: [soft], [ nontender to palpation], [no guarding], [no appreciable organomegaly] Ext: [no gross muscle atrophy], [no edema], [no contractures] Neuro: [ CN II-XI grossly intact], [no focal neuro deficits] Psych: [Alert], [oriented], [appropriate affect] - Labs CBC & Chem 7: 07/19/21 09:48 07/19/21 09:48 Labs: Abnormal Lab Results - Last 24 Hours (Table) 07/19/21 07/19/21 07/20/21 Range/Units 16:32 20:07 06:04 POC Glucose (mg/dL) 137 H 127 H 125 H (75-99) mg/dL Assessment and Plan Assessment: GI bleeding Status post 3 units of blood transfusion, currently hemoglobin stable PPI Monitor hemoglobin Monitor for bleeding History of bioprosthetic valve replacement Patient does have a history of atrial fib per documents from [facility]. Cardiology has not seen the patient since 07/16/21. They are unaware of patient's history of atrial fib. Beauty School Instructor Dr. Stephenie Villegas was paged and anticoagulation was discussed. Dr. Finley is not convinced patient had atrial fib and recommended patient be followed on telemetry with no anticoagulation. He would like patient's tmh teacher to make that determination. If hemoglobin continues to be stable, I will restart asa daily due to patient's history of PAF. Will reassess in the AM. Covid 19 CXR without pneumonia, he is not hypoxic no treatment is indicated. DM 2 SSI Hold orals HTN: Hyperlipidemia Resume meds General weakness PT/OT Disposition: Likely home Anticipated discharge: 1-2 days
[2021-07-20 17:00] LABS: Glucose,Whole Blood 120 mg/dL (75-99)
[2021-07-20] MEDS: amLODIPine 5 MG TAB PO SCH (17:15)
[2021-07-20 20:12] LABS: Glucose,Whole Blood 142 mg/dL (75-99)
[2021-07-20] MEDS: ATORVASTATIN 20 MG TAB PO SCH (20:13)
[2021-07-21 06:39] LABS: Glucose,Whole Blood 137 mg/dL (75-99)
[2021-07-21] MEDS: PANTOPRAZOLE 40 MG TABLET PO SCH ×2 (06:41→17:33)
[2021-07-21] MEDS: INSULIN ASPART (NovoLOG) 100 UNIT/ML VIAL SQ SCH ×4 (06:41→20:22)
[2021-07-21] MEDS ORDERED: BUDESONIDE 1 MG/2 ML NEBU INHALATION SCH (08:00)
[2021-07-21] MEDS ORDERED: IPRATROPIUM-ALBUTEROL 3 ML NEB INHALATION SCH (08:00)
[2021-07-21] MEDS: SODIUM CHLORIDE 0.9% 1,000 ML IV SCH ×2 (08:33→16:41)
[2021-07-21] MEDS: METOPROLOL TARTRATE 50 MG TAB PO SCH ×2 (08:33→20:22)
[2021-07-21] MEDS: FERROUS SULFATE 325 MG TAB PO SCH (08:33)
[2021-07-21] MEDS: POTASSIUM CHLORIDE ER 10 MEQ TAB.ER.PRT PO SCH (08:33)
[2021-07-21] MEDS: FLUTICASONE 50MCG/SPRAY NASAL 16GM EA NOSTRIL SCH ×2 (08:33→17:18)
[2021-07-21] MEDS ORDERED: dexAMETHasone 4 MG TAB PO SCH (09:00)
--- NOTE | 2021-07-21 10:21 | P.PN ---
Subjective Progress Note Date: 07/21/21 Principal diagnosis: GI bleed Patient doing better. Less short of breath. No rectal bleeding. Morning labs pending. Objective - Vital Signs Vital signs: Vital Signs Temp 97.9 F 07/21/21 08:00 Pulse 86 07/21/21 08:00 Resp 18 07/21/21 08:00 BP 154/76 07/21/21 08:00 Pulse Ox 98 07/21/21 08:00 Intake & Output 07/20/21 07/21/21 07/21/21 18:59 06:59 18:59 Intake Total 780 Output Total 1750 1050 Balance -970 -1050 Weight 96.5 kg Intake: Oral 780 Output: Urine 900 1050 Stool 850 - Exam Abdomen: Soft, nontender, nondistended - Labs CBC & Chem 7: 07/20/21 14:53 07/20/21 14:53 Labs: Abnormal Lab Results - Last 24 Hours (Table) 07/20/21 07/20/21 07/20/21 Range/Units 14:53 14:53 16:59 WBC 3.4 L (3.8-10.6) k/uL RBC 2.85 L (4.30-5.90) m/uL Hgb 8.7 L (13.0-17.5) gm/dL Hct 25.9 L (39.0-53.0) % RDW 16.3 H (11.5-15.5) % Lymphocytes # 0.7 L (1.0-4.8) k/uL Sodium 134 L (137-145) mmol/L Carbon Dioxide 18 L (22-30) mmol/L BUN 22 H (9-20) mg/dL Creatinine 1.71 H (0.66-1.25) mg/dL Glucose 156 H (74-99) mg/dL POC Glucose (mg/dL) 120 H (75-99) mg/dL Calcium 8.0 L (8.4-10.2) mg/dL 07/20/21 07/21/21 Range/Units 20:10 06:38 WBC (3.8-10.6) k/uL RBC (4.30-5.90) m/uL Hgb (13.0-17.5) gm/dL Hct (39.0-53.0) % RDW (11.5-15.5) % Lymphocytes # (1.0-4.8) k/uL Sodium (137-145) mmol/L Carbon Dioxide (22-30) mmol/L BUN (9-20) mg/dL Creatinine (0.66-1.25) mg/dL Glucose (74-99) mg/dL POC Glucose (mg/dL) 142 H 137 H (75-99) mg/dL Calcium (8.4-10.2) mg/dL Assessment and Plan (1) GI bleed Narrative/Plan: Patient doing well at this time. Continue to monitor hemoglobin. Diet as tolerated. Current Visit: Yes Status: Acute Code(s): K92.2 - GASTROINTESTINAL HEMORRHAGE, UNSPECIFIED SNOMED Code(s): 66533993
[2021-07-21 12:12] LABS: Glucose,Whole Blood 194 mg/dL (75-99)
[2021-07-21 12:24] LABS: Basophils % (A) 0 %; Eosinophils # (A) 0.1 k/uL (0-0.7); Eosinophils % (A) 2 %; HCT 29.4 % (39.0-53.0); HGB 9.8 gm/dL (13.0-17.5); Hypochromasia Slight; Lymphocytes # (A) 0.5 k/uL (1.0-4.8); Lymphocytes % (A) 9 %; MCH 30.3 pg (25.0-35.0); MCHC 33.5 g/dL (31.0-37.0); MCV 90.5 fL (80.0-100.0); Mean Platelet Volume 8.6; Monocytes # (A) 0.1 k/uL (0-1.0); Monocytes % (A) 2 %; Neutrophils # (A) 4.7 k/uL (1.3-7.7); Neutrophils % (A) 87 %; Platelet Count 179 k/uL (150-450); Poikilocytosis Slight; RBC 3.24 m/uL (4.30-5.90); WBC 5.4 k/uL (3.8-10.6)
[2021-07-21] MEDS: ALBUTEROL HFA INHALER INHALATION SCH ×3 (12:34→20:50)
[2021-07-21] MEDS: FLUTICASONE 220 MCG INHALER INHALATION SCH ×2 (12:35→20:50)
[2021-07-21 12:45] LABS: Albumin 3.3 g/dL (3.5-5.0); Calcium 8.5 mg/dL (8.4-10.2); Potassium 4.4 mmol/L (3.5-5.1); Total Bilirubin 0.5 mg/dL (0.2-1.3)
--- NOTE | 2021-07-21 14:49 | P.PN ---
Subjective Patient seen and examined at bedside. Patient is hard of hearing. Patient denies chest pain. Patient does admit to exertional dyspnea. Patient does not feel comfortable going home today. Patient is concerned about his breathing. Objective - Vital Signs Vital signs: Vital Signs Temp 98.2 F 07/21/21 11:45 Pulse 79 07/21/21 11:45 Resp 17 07/21/21 11:45 BP 145/79 07/21/21 11:45 Pulse Ox 98 07/21/21 08:00 Intake & Output 07/20/21 07/21/21 07/21/21 18:59 06:59 18:59 Intake Total 780 118 Output Total 1750 1050 Balance -970 -1050 118 Weight 96.5 kg Intake: Oral 780 118 Output: Urine 900 1050 Stool 850 - Exam General: [non toxic], [no distress], [appears at stated age] Derm: [warm], [dry] Head: [atraumatic], [normocephalic], [symmetric] Eyes: [EOMI], [no lid lag], [anicteric sclera] Mouth: [no lip lesion], [mucus membranes moist] Cardiovascular: [S1S2 reg], [no murmur], [positive posterior tibial pulse bilateral], Lungs: [Diminished breath sounds bilaterally], [no rhonchi, no rales] , [no accessory muscle use] Abdominal: [soft], [ nontender to palpation], [no guarding], [no appreciable organomegaly] Ext: [no gross muscle atrophy], [no edema], [no contractures] Neuro: [ CN II-XI grossly intact], [no focal neuro deficits] Psych: [Alert], [oriented], [appropriate affect] - Labs CBC & Chem 7: 07/21/21 11:30 07/21/21 11:30 Labs: Abnormal Lab Results - Last 24 Hours (Table) 07/20/21 07/20/21 07/20/21 Range/Units 14:53 14:53 16:59 WBC 3.4 L (3.8-10.6) k/uL RBC 2.85 L (4.30-5.90) m/uL Hgb 8.7 L (13.0-17.5) gm/dL Hct 25.9 L (39.0-53.0) % RDW 16.3 H (11.5-15.5) % Lymphocytes # 0.7 L (1.0-4.8) k/uL Sodium 134 L (137-145) mmol/L Carbon Dioxide 18 L (22-30) mmol/L BUN 22 H (9-20) mg/dL Creatinine 1.71 H (0.66-1.25) mg/dL Glucose 156 H (74-99) mg/dL POC Glucose (mg/dL) 120 H (75-99) mg/dL Calcium 8.0 L (8.4-10.2) mg/dL Total Protein (6.3-8.2) g/dL Albumin (3.5-5.0) g/dL 07/20/21 07/21/21 07/21/21 Range/Units 20:10 06:38 11:30 WBC (3.8-10.6) k/uL RBC 3.24 L (4.30-5.90) m/uL Hgb 9.8 L (13.0-17.5) gm/dL Hct 29.4 L (39.0-53.0) % RDW 16.0 H (11.5-15.5) % Lymphocytes # 0.5 L (1.0-4.8) k/uL Sodium (137-145) mmol/L Carbon Dioxide (22-30) mmol/L BUN (9-20) mg/dL Creatinine (0.66-1.25) mg/dL Glucose (74-99) mg/dL POC Glucose (mg/dL) 142 H 137 H (75-99) mg/dL Calcium (8.4-10.2) mg/dL Total Protein (6.3-8.2) g/dL Albumin (3.5-5.0) g/dL 07/21/21 07/21/21 Range/Units 11:30 12:09 WBC (3.8-10.6) k/uL RBC (4.30-5.90) m/uL Hgb (13.0-17.5) gm/dL Hct (39.0-53.0) % RDW (11.5-15.5) % Lymphocytes # (1.0-4.8) k/uL Sodium 134 L (137-145) mmol/L Carbon Dioxide 21 L (22-30) mmol/L BUN (9-20) mg/dL Creatinine 1.78 H (0.66-1.25) mg/dL Glucose 176 H (74-99) mg/dL POC Glucose (mg/dL) 194 H (75-99) mg/dL Calcium (8.4-10.2) mg/dL Total Protein 6.0 L (6.3-8.2) g/dL Albumin 3.3 L (3.5-5.0) g/dL Assessment and Plan Assessment: GI bleeding Status post 3 units of blood transfusion, currently hemoglobin stable at 9.8 PPI Monitor hemoglobin No signs of GI bleeding History of bioprosthetic valve replacement Patient does have a history of atrial fib per documents from [facility]. Cardiology has not seen the patient since 07/16/21. They are unaware of patient's history of atrial fib. Signs Sales Representative Dr. Stephenie Villegas was paged and anticoagulation was discussed. Dr. Finley is not convinced patient had atrial fib and recommended patient be followed on telemetry with no anticoagulation. He would like patient's associate professor to make that determination. Aspirin daily will be initiated today. Covid 19 Repeat chest x-ray Duo nebs every 4 hours Incentive spirometry Decadron DM 2 SSI Hold orals HTN: Hyperlipidemia Resume meds General weakness PT/OT Disposition: Likely home Anticipated discharge: Tomorrow
[2021-07-21 17:18] LABS: Glucose,Whole Blood 248 mg/dL (75-99)
[2021-07-21] MEDS: amLODIPine 5 MG TAB PO SCH (17:33)
--- NOTE | 2021-07-21 18:32 | XR ---
EXAMINATION TYPE: XR chest 1V portable DATE OF EXAM: 07/21/2021 COMPARISON: 07/16/2021 HISTORY: Short of breath TECHNIQUE: FINDINGS: There is no heart failure nor confluent pneumonic infiltrate. Costophrenic angles are fairl y clear. There are sternal wires. There are chest leads. There no hilar masses. There is slight blunt ing of the left costophrenic angle. IMPRESSION: There is some mild pleural reaction left lung base without change. No heart failure.
[2021-07-21 20:21] LABS: Glucose,Whole Blood 279 mg/dL (75-99)
[2021-07-21] MEDS: ATORVASTATIN 20 MG TAB PO SCH (20:22)
[2021-07-22 06:10] LABS: Glucose,Whole Blood 184 mg/dL (75-99)
[2021-07-22] MEDS: SODIUM CHLORIDE 0.9% 1,000 ML IV SCH (06:23)
[2021-07-22] MEDS: INSULIN ASPART (NovoLOG) 100 UNIT/ML VIAL SQ SCH ×2 (06:28→12:51)
[2021-07-22] MEDS: PANTOPRAZOLE 40 MG TABLET PO SCH (06:28)
[2021-07-22] MEDS: METOPROLOL TARTRATE 50 MG TAB PO SCH (08:18)
[2021-07-22] MEDS: FERROUS SULFATE 325 MG TAB PO SCH (08:19)
[2021-07-22] MEDS: POTASSIUM CHLORIDE ER 10 MEQ TAB.ER.PRT PO SCH (08:19)
[2021-07-22] MEDS: FLUTICASONE 50MCG/SPRAY NASAL 16GM EA NOSTRIL SCH (08:30)
[2021-07-22 08:45] VITALS: RESP 20; TEMP 98.2
[2021-07-22] MEDS ORDERED: dexAMETHasone 2 MG TAB PO SCH (09:00)
[2021-07-22] MEDS ORDERED: ASPIRIN 81 MG PO SCH (09:00)
[2021-07-22] MEDS: FLUTICASONE 220 MCG INHALER INHALATION SCH (09:34)
[2021-07-22] MEDS: ALBUTEROL HFA INHALER INHALATION SCH ×3 (09:34→16:11)
[2021-07-22 10:04] VITALS: BMI 34.3
[2021-07-22 11:09] LABS: Basophils % (A) 0 %; Eosinophils % (A) 0 %; HCT 30.1 % (39.0-53.0); HGB 10.1 gm/dL (13.0-17.5); Hypochromasia Slight; Lymphocytes % (A) 13 %; MCH 30.6 pg (25.0-35.0); MCHC 33.5 g/dL (31.0-37.0); MCV 91.1 fL (80.0-100.0); Monocytes # (A) 0.4 k/uL (0-1.0); Monocytes % (A) 5 %; Neutrophils # (A) 6.1 k/uL (1.3-7.7); Neutrophils % (A) 80 %; Platelet Count 255 k/uL (150-450); Poikilocytosis Slight; RDW 15.7 % (11.5-15.5); WBC 7.6 k/uL (3.8-10.6)
[2021-07-22 11:16] LABS: Albumin 4.1 g/dL (3.5-5.0); Potassium 4.5 mmol/L (3.5-5.1); Total Bilirubin 0.6 mg/dL (0.2-1.3)
[2021-07-22 11:50] LABS: Glucose,Whole Blood 164 mg/dL (75-99)
--- NOTE | 2021-07-22 13:08 | P.DS ---
Providers Date of admission: 07/16/21 12:45 Expected date of discharge: 07/22/21 Attending physician: Kali Armstrong Consults: 07/16/21 12:47 Consult Physician Urgent Consulting Provider: Tod Holcomb Consult Reason/Comments: IM consult Do you want consulting provider notified?: Yes 07/17/21 16:28 Consult Physician Urgent Consulting Provider: Matilde Thao Consult Reason/Comments: pig valve Do you want consulting provider notified?: Yes Primary care physician: Felton De Dios Hospital Course: Discharge Diagnosis: GI bleed, status post 3 units PRBCs Generalized weakness secondary to acute blood loss anemia resulting from GI bleed History of bioprosthetic valve replacement Covid 19 virus infection Ivb-cagtzgc-hpehigxts diabetes mellitus type 2 Hypertension Hyperlipidemia Acute kidney injury on chronic kidney disease, improved A paroxysmal trial fibrillation Hospital Course: Patient is a 76-year-old male with a past medical history of hypertension, hyperlipidemia, type II vxy-uzinvlb-jifoyyayl diabetes mellitus, bioprosthetic valve replacement, and paroxysmal atrial fibrillation initially on anticoagulation with Coumadin. He presented to the emergency department on 07/16/21 with a chief complaint of weakness, decreased appetite, and fatigue. Patient was found to be positive for Covid 19 virus infection in a vaccinated individual. In addition he was found to have a hemoglobin of 6 with fecal occult positive. Patient was admitted under our services with consultation to general surgery for acute GI bleed and cardiology regarding anticoagulation status. Throughout hospitalization patient received 3 units PRBCs for treatment of acute blood loss anemia. He was evaluated by cardiology and discontinued Coumadin and recommending patient follow-up outpatient. Once stabilized, patient underwent EGD and colonoscopy. Patient was diagnosed with antral gastritis and minimal diverticulosis, however poor colonic prep was performed and if patient continues to have lower GI bleeding, surgeon recommending repeat colonoscopy after better prep. Patient's condition stabilized. He remained on room air throughout hospitalization showing no increased oxygenation needs. He was started on Decadron for Covid infection. Patient has been stabilized and is stable for discharge home at this time. Patient is being discharged home on Protonix twice daily and completion of 10 day course of Decadron. Patient instructed he will need to follow up with cardiology, general surgery for possible repeat colonoscopy, and his PCP. 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 Physical Examination: Patient seen and examined at bedside this morning. Patient appears to be doing well. He denies having any chest pain, palpitations, shortness of breath, dyspnea with exertion, headache, lightheadedness, dizziness, cough or congestion, or experiencing any numbness/tingling/weakness/swelling in his extremities. Ambulatory pulse ox being completed results were 99% with ambulation on room air. Discussed with general surgery and patient is cleared for discharge at this time Vital signs reviewed and stable. General: Nontoxic, no distress and appears stated age. Derm: Skin warm and dry, normal coloration for ethnicity. Head: Atraumatic, normocephalic and symmetric. Eyes: EOMs intact, no lid lag, and anicteric sclera Mouth: no lip lesions, mucus membranes moist Cardiovascular: regular rate and rhythm with normal S1S2, no murmur, positive posterior tibial pulses bilaterally, and cap refill < 2 seconds. Lungs: Respirations even, regular, and unlabored on room air. Lungs CTA bilaterally, no rhonchi, no rales, no wheezing, and no accessory muscle usage. Abdominal: soft, nontender to palpation, no guarding, no appreciable organomegaly Ext: ROM intact. No gross muscle atrophy, no edema, no contractures Neuro: Speech clear, face symmetrical and CN II-XII grossly intact with no noted focal neuro deficits Psych: Alert and oriented to person, place, time, and situation. Appropriate and pleasant affect. A total of 45 minutes of time were spent preparing this complex discharge summary. Patient Condition at Discharge: Stable Plan - Discharge Summary Discharge Rx Participant: No New Discharge Prescriptions: New Pantoprazole [Protonix] 40 mg PO AC-BID 30 Days #60 tab Albuterol Inhaler [Ventolin Hfa Inhaler] 2 puff INHALATION RT-QID 30 Days #1 inh Dexamethasone [Decadron] 6 mg PO DAILY 9 Days #9 tablet Continue amLODIPine [Norvasc] 5 mg PO DAILY@1600 Rosuvastatin Calcium 10 mg PO HS sitaGLIPtin [Januvia] 100 mg PO DAILY@1600 Potassium Chloride [Klor-Con 10 ER] 10 meq PO DAILY Colchicine 0.6 mg PO DAILY PRN PRN Reason: gout attack Furosemide [Lasix] 20 mg PO BID@0900,1600 Fluticasone Nasal [place] [Flonase Nasal [place]] 2 spr EA NOSTRIL BID@0900,1600 Cholecalciferol (Vitamin D3) [Vitamin D3] 25 mcg PO MOFR Levocetirizine Dihydrochloride [Xyzal] 5 mg PO HS Aspirin EC [Ecotrin Low Dose] 81 mg PO DAILY glipiZIDE [Glucotrol] 10 mg PO DAILY Acetaminophen Tab [Tylenol] 500 mg PO Q6H PRN PRN Reason: Fever And/ Or Pain calcitrioL [Calcitriol] 0.25 mcg PO MOFR@1600 Metoprolol Tartrate [Lopressor] 50 mg PO BID Ferrous Sulfate [Iron (65 MG Elemental)] 325 mg PO DAILY Ascorbic Acid [Vitamin C] 500 mg PO DAILY Discontinued Warfarin [Coumadin] 3 mg PO MOTUWETHFR@2099 Warfarin [Coumadin] 2 mg PO SUSA@2099 Discharge Medication List Cholecalciferol (Vitamin D3) [Vitamin D3] 25 mcg PO MOFR 08/25/18 [History] Colchicine 0.6 mg PO DAILY PRN 08/25/18 [History] Fluticasone Nasal [place] [Flonase Nasal [place]] 2 spr EA NOSTRIL BID@0900,1600 08/25/18 [History] Furosemide [Lasix] 20 mg PO BID@0900,1600 08/25/18 [History] Levocetirizine Dihydrochloride [Xyzal] 5 mg PO HS 08/25/18 [History] Potassium Chloride [Klor-Con 10 ER] 10 meq PO DAILY 08/25/18 [History] Rosuvastatin Calcium 10 mg PO HS 08/25/18 [History] amLODIPine [Norvasc] 5 mg PO DAILY@1600 08/25/18 [History] sitaGLIPtin [Januvia] 100 mg PO DAILY@159908/25/18 [History] Acetaminophen Tab [Tylenol] 500 mg PO Q6H PRN 07/16/21 [History] Ascorbic Acid [Vitamin C] 500 mg PO DAILY 07/16/21 [History] Aspirin EC [Ecotrin Low Dose] 81 mg PO DAILY 07/16/21 [History] Ferrous Sulfate [Iron (65 MG Elemental)] 325 mg PO DAILY 07/16/21 [History] Metoprolol Tartrate [Lopressor] 50 mg PO BID 07/16/21 [History] calcitrioL [Calcitriol] 0.25 mcg PO MOFR@1600 07/16/21 [History] glipiZIDE [Glucotrol] 10 mg PO DAILY 07/16/21 [History] Albuterol Inhaler [Ventolin Hfa Inhaler] 2 puff INHALATION RT-QID 30 Days #1 inh 07/22/21 [Rx] Dexamethasone [Decadron] 6 mg PO DAILY 9 Days #9 tablet 07/22/21 [Rx] Pantoprazole [Protonix] 40 mg PO AC-BID 30 Days #60 tab 07/22/21 [Rx] Follow up Appointment(s)/Referral(s): Felton De Dios DO [Primary Care Provider] - 1-2 days (please see PHYSICIAN in 1-2 days no appointment needed) Stephenie Villegas MD [STAFF PHYSICIAN] - 1 Week (For follow up, recommending outpatient monitoring and reevaluation of need for anticoagulants which were discontinued at this time. ) Kali Armstrong MD [STAFF PHYSICIAN] - 07/30/21 2:45 pm Ambulatory/Diagnostic Orders: Basic Metabolic Panel [LAB.AMB] Time Frame: 3 Days, Location: None Selected Complete Blood Count w/diff [LAB.AMB] Time Frame: 3 Days, Location: None Selected Patient Instructions/Handouts: Heart Healthy Diet (DC), Meal Planning with Diabetes Exchanges (DC) Activity/Diet/Wound Care/Special Instructions: Activity: As tolerated. Take breaks as needed. Diet: Heart healthy and carb consistent diet. Avoid salts, or foods with hidden salts such as canned or boxed foods and frozen dinners. Extra salt makes your heart work harder and traps the fluid in your body for longer. Special Instructions: Take all of your medications as directed and remember to keep all of your doctor's appointments and follow-up as needed. It is important for you to follow up and have your blood work drawn in 3 days for close monitoring of renal function and hemoglobin. Tylenol as needed for pain/discomfort, avoid use of excessive NSAIDs including ibuprofen Thank you for allowing us to participate in your care, it was truly a pleasure having you for our patient!!! Discharge Disposition: HOME WITH HOME HEALTH SERVICES
[2021-07-22 13:24] VITALS: BP 130/78; PULSE 82
--- NOTE | 2021-07-22 13:33 | P.PN ---
Subjective Progress Note Date: 07/22/21 CHIEF COMPLAINT: Weakness HISTORY OF PRESENT ILLNESS: Patient presented to the hospital with weakness. F ound to have a hemoglobin of 6.0 and stool occult blood positive. Patient is status post EGD and colonoscopy which showed antral gastritis, no evidence of upper GI bleed, minimal diverticulosis and poor colonic prep. Patient denies any abdominal pain. He does have some black still present in the stools. He has been restarted on his oral iron. Hemoglobin is up at 10.1. Cardiology recommended no further Coumadin at this time. Patient is tolerating diet. He is having bowel movements. He is up and ambulating. He is going to be discharged today. PHYSICAL EXAM: VITAL SIGNS: Reviewed. GENERAL: Well-developed in no acute distress. HEENT: No sclera icterus. Extraocular movements grossly intact. Moist buccal mucosa. Head is atraumatic, normocephalic. ABDOMEN: Soft. Nondistended. Nontender. NEUROLOGIC: Alert and oriented. Cranial nerves II through XII grossly intact. Hard of hearing ASSESSMENT: 1. Acute GI bleed with black stools status post EGD and colonoscopy results sh owed antral gastritis, no evidence of upper GI bleed, minimal diverticulosis and poor colonic prep. Bleeding likely secondary to anticoagulation 2. Acute blood loss anemia secondary to GI bleed 3. Minimally elevated troponin 4. COVID-19 positive 5. Cardiac valve replacement 6. History of CABG PLAN: -Recommend repeat colonoscopy in one year -Agree with discontinuing Coumadin -Continue PPI -Patient can be discharged from surgical standpoint Physician Cause Analyst note has been reviewed by physician. Signing provider agrees with the documented findings, assessment, and plan of care. Objective - Vital Signs Vital signs: Vital Signs Temp 98.2 F 07/22/21 08:00 Pulse 82 07/22/21 12:00 Resp 20 07/22/21 12:00 BP 130/78 07/22/21 12:00 Pulse Ox 98 07/21/21 08:00 Intake & Output 07/21/21 07/22/21 07/22/21 18:59 06:59 18:59 Intake Total 236 120 600 Output Total 475 575 Balance -239 -455 600 Weight 108.5 kg 108.5 kg Intake: Oral 236 120 600 Output: Urine 475 575 Other: # Voids 1 - Labs CBC & Chem 7: 07/22/21 09:52 11/15/21 09:52 Labs: Abnormal Lab Results - Last 24 Hours (Table) 07/21/21 07/21/21 07/22/21 Range/Units 17:15 20:20 06:02 RBC (4.30-5.90) m/uL Hgb (13.0-17.5) gm/dL Hct (39.0-53.0) % RDW (11.5-15.5) % Carbon Dioxide (22-30) mmol/L BUN (9-20) mg/dL Creatinine (0.66-1.25) mg/dL Glucose (74-99) mg/dL POC Glucose (mg/dL) 248 H 279 H 184 H (75-99) mg/dL 07/22/21 07/22/21 07/22/21 Range/Units 09:52 09:52 11:48 RBC 3.30 L (4.30-5.90) m/uL Hgb 10.1 L (13.0-17.5) gm/dL Hct 30.1 L (39.0-53.0) % RDW 15.7 H (11.5-15.5) % Carbon Dioxide 16 L (22-30) mmol/L BUN 23 H (9-20) mg/dL Creatinine 1.95 H (0.66-1.25) mg/dL Glucose 178 H (74-99) mg/dL POC Glucose (mg/dL) 164 H (75-99) mg/dL
== END 2021-07-22 16:13 | disposition home health service (06) | DRG 377 ==
LOC: EC 09:30 → 3SCARD 12:45
PROVIDERS: ADMIT Surgery; ATTEND Surgery
PROC: 30233N1 Transfusion of Nonautologous Red Blood Cells into Peripheral Vein, Percutaneous Approach (ICD-10-PCS; 2021-07-16)
PROC: 0DJD8ZZ Inspection of Lower Intestinal Tract, Via Natural or Artificial Opening Endoscopic (ICD-10-PCS; principal; 2021-07-18 07:30)
PROC: 0DJ08ZZ Inspection of Upper Intestinal Tract, Via Natural or Artificial Opening Endoscopic (ICD-10-PCS; 2021-07-18 07:30)
DX: K92.2 Gastrointestinal hemorrhage, unspecified (principal); U07.1 COVID-19; J12.82 Pneumonia due to coronavirus disease 2019; D62 Acute posthemorrhagic anemia; N17.9 Acute kidney failure, unspecified; E11.22 Type 2 diabetes mellitus with diabetic chronic kidney disease; E78.5 Hyperlipidemia, unspecified; H91.90 Unspecified hearing loss, unspecified ear; I12.9 Hypertensive chronic kidney disease with stage 1 through stage 4 chronic kidney disease, or unspecified chronic kidney disease; I48.0 Paroxysmal atrial fibrillation; K29.70 Gastritis, unspecified, without bleeding; M19.90 Unspecified osteoarthritis, unspecified site; N18.30 Chronic kidney disease, stage 3 unspecified; Z79.01 Long term (current) use of anticoagulants; Z79.82 Long term (current) use of aspirin; Z87.891 Personal history of nicotine dependence; Z95.1 Presence of aortocoronary bypass graft; Z95.2 Presence of prosthetic heart valve; Z87.81 Personal history of (healed) traumatic fracture; Z87.19 Personal history of other diseases of the digestive system; Z85.51 Personal history of malignant neoplasm of bladder; Z79.899 Other long term (current) drug therapy; Z79.84 Long term (current) use of oral hypoglycemic drugs
CPT/HCPCS: 36415; 43239; 45378; 71045; 80048; 80053; 82272; 83735; 83880; 84443; 84484; 85025; 85027; 85610; 85730; 86140; 86850; 86900; 86901; 86920; 87502; 87634; 87635; 88305; 93005; 93306; 94640; 96367; 96375; 99291

== ENCOUNTER → 2021-07-25 | Outpatient (CLI) | payer MEDICARE, BC ==
[2021-07-25 18:23] LABS: Basophils # (A) 0 X 10*3/uL (0.00-0.10); Basophils % (A) 0 %; Eosinophils # (A) 0 X 10*3/uL (0.04-0.35); Eosinophils % (A) 0 %; HCT 32.3 % (39.6-50.0); HGB 9.5 g/dL (13.0-17.0); Lymphocytes # (A) 0.61 X 10*3/uL (0.90-5.00); Lymphocytes % (A) 6.7 %; MCH 28.4 pg (27.0-32.0); MCHC 29.4 g/dL (32.0-37.0); MCV 96.4 fL (80.0-97.0); Mean Platelet Volume 11.5 fL (9.5-12.2); Monocytes # (A) 1.09 X 10*3/uL (0.20-1.00); Neutrophils % (A) 80.6 %; Platelet Count 307 X 10*3/uL (140-440); RBC 3.35 X 10*6/uL (4.40-5.60); RDW 14.7 % (11.5-14.5); WBC 9.06 X 10*3/uL (4.50-10.00)
[2021-07-25 19:37] LABS: African American GFR (CKD) 35.1 (60.0-200.0); BUN/Creat Ratio 17.55 Ratio (12.00-20.00); Blood Urea Nitrogen 36.5 mg/dL (9.0-27.0); Calcium 9.2 mg/dL (8.7-10.3); Carbon Dioxide 18.6 mmol/L (21.6-31.8); Non-African American GFR(CKD) 30.2 (60.0-200.0); Potassium 4.5 mmol/L (3.5-5.5)
== END | disposition home or self-care (01) ==
LOC: LABWHC1 09:54
PROVIDERS: ATTEND Nurse Practitioner
DX: K92.2 Gastrointestinal hemorrhage, unspecified (principal)
CPT/HCPCS: 36415; 80048; 85025

== ENCOUNTER 2021-08-15 09:46 | Day surgery (SDC) | payer MEDICARE, BC ==
[2021-08-13 16:19] VITALS: BMI 35.7
[~2021-08-15 09:46] MED LIST: LACTATED RINGERS 1,000 ML IV SCH; LIDOCAINE 1% (10MG/ML) FOR IV START INTRADERMA PRN
[2021-08-15 10:34] VITALS: TEMP 97.3
[2021-08-15 10:49] LABS: Glucose,Whole Blood 192 mg/dL (75-99)
[2021-08-15] MEDS ORDERED: PROPOFOL 10 MG/ML 20 ML VIAL IV ONE (11:21)
--- NOTE | 2021-08-15 11:21 | P.GSHP ---
History of Present Illness H&P Date: 08/15/21 Chief Complaint: GI bleed This is a 76-year-old male had a recent hospital admission for GI bleed. Patient presents today for colonoscopy. Past Medical History Past Medical History: Atrial Fibrillation, Cancer, Diabetes Mellitus, Hearing Disorder / Deafness, Hypertension, Osteoarthritis (OA) Additional Past Medical History / Comment(s): Recent chronic cough X3 weeks. Hx Covid 07/20/21. Bladder cancer 2009 and 2011. Hx pelvic fracture 1993. Hx Gout. "Kidney levels up, Dr monitoring." Hard of hearing. History of Any Multi-Drug Resistant Organisms: None Reported Past Surgical History: Cardiac Valve Replacement, Coronary Bypass/CABG, Heart Catheterization, Hernia Repair Additional Past Surgical History / Comment(s): Left rotator cuff surgery, bilateral cataracts removed, umbilical hernia repair, right side salivary gland removed, broken right ankle surgery, skin cancer removed from right cheek, back and hands, heart valve replacement 11/22/19, colonoscopies. Past Anesthesia/Blood Transfusion Reactions: No Reported Reaction Past Psychological History: No Psychological Hx Reported Smoking Status: Former smoker Past Alcohol Use History: Occasional Additional Past Alcohol Use History / Comment(s): Quit smoking 45 yrs ago. Past Drug Use History: None Reported - Past Family History Father Family Medical History: No Reported History Medications and Allergies Home Medications Medication Instructions Recorded Confirmed Type Cholecalciferol (Vitamin D3) 50 mcg PO MOFR 08/25/18 08/15/21 History [Vitamin D3] Colchicine 0.6 mg PO DAILY PRN 08/25/18 08/15/21 History Fluticasone Nasal [place] [Flonase 2 spr EA NOSTRIL BID@0900,1600 08/25/18 08/15/21 History Nasal [place]] Furosemide [Lasix] 20 mg PO BID@0900,1600 08/25/18 08/15/21 History Levocetirizine Dihydrochloride 5 mg PO HS 08/25/18 08/15/21 History [Xyzal] Potassium Chloride [Klor-Con 10 ER] 10 meq PO QAM 08/25/18 08/15/21 History Rosuvastatin Calcium 10 mg PO HS 08/25/18 08/15/21 History amLODIPine [Norvasc] 5 mg PO DAILY@1600 08/25/08/15/21 History Acetaminophen Tab [Tylenol] 500 mg PO Q6H PRN 07/16/21 08/15/21 History Aspirin EC [Ecotrin Low Dose] 81 mg PO QAM 07/16/21 08/15/21 History Ferrous Sulfate [Iron (65 MG 325 mg PO QAM 07/16/21 08/15/21 History Elemental)] Metoprolol Tartrate [Lopressor] 50 mg PO BID 07/16/21 08/15/21 History calcitrioL [Calcitriol] 0.25 mcg PO MOTUWETHFR 07/16/21 08/15/21 History glipiZIDE [Glucotrol] 10 mg PO QAM 07/16/21 08/15/21 History Ascorbic Acid [Vitamin C] 500 mg PO QAM 08/13/21 08/15/21 History Rivaroxaban [Xarelto] 15 mg PO HS 08/13/21 08/15/21 History hydrALAZINE HCL 50 mg PO BID 08/13/21 08/15/21 History Allergies Allergy/AdvReac Type Severity Reaction Status Date / Time allopurinol AdvReac Feet Verified 08/15/21 10:31 Swelling Surgical - Exam Vital Signs Temp Pulse Resp BP Pulse Ox 97.3 F L 127 H 20 168/81 97 08/15/21 10:32 08/15/21 10:32 08/15/21 10:32 08/15/21 10:32 08/15/21 10:32 - General well developed, well nourished, no distress - Eyes PERRL - ENT normal pinna - Neck no masses - Respiratory normal expansion - Cardiovascular Rhythm: regular - Abdomen Abdomen: soft, non tender Results - Labs Abnormal Lab Results - Last 24 Hours (Table) 08/15/21 Range/Units 10:47 POC Glucose (mg/dL) 192 H (75-99) mg/dL Assessment and Plan Assessment: GI bleed. We'll perform colonoscopy.
--- NOTE | 2021-08-15 11:38 | P.OP ---
Date of Procedure: 08/15/21 Preoperative Diagnosis: GI bleed Postoperative Diagnosis: Colon polyp Diverticulosis Procedure(s) Performed: Colonoscopy Anesthesia: MAC Surgeon: Kali Armstrong Pathology: other (Left colon polyp) Condition: stable Disposition: PACU Description of Procedure: The patient's placed on the endoscopy table in the lateral position. He received IV sedation. Digital rectal exam was performed which revealed no abnormalities. The flexible colonoscope was then placed patient anus passed throughout the entire colon. The ileocecal valve sutures. The cecum and ascending colon appeared normal. The transverse colon was a few scattered diverticula. Scope back the left colon. A polyp seen this removed acc ommodation forcep and snare. The remainder of the descending colon appeared normal. There was a few diverticular changes and sigmoid colon. Scope was then brought back the rectum was normal. Scope withdrawn for patient. Presumed patient's previous GI bleeds due to diverticulosis
[2021-08-15 12:21] VITALS: BP 150/67; PULSE 75; RESP 18
== END 2021-08-15 12:46 | disposition home or self-care (01) ==
LOC: ORWHC2ENDO 09:46
PROVIDERS: ATTEND Surgery
DX: D12.4 Benign neoplasm of descending colon (principal); K57.30 Diverticulosis of large intestine without perforation or abscess without bleeding; K92.2 Gastrointestinal hemorrhage, unspecified; I10 Essential (primary) hypertension; I48.91 Unspecified atrial fibrillation; I27.20 Pulmonary hypertension, unspecified; E11.9 Type 2 diabetes mellitus without complications; Z85.51 Personal history of malignant neoplasm of bladder; Z79.84 Long term (current) use of oral hypoglycemic drugs; Z79.82 Long term (current) use of aspirin; Z79.899 Other long term (current) drug therapy; Z95.2 Presence of prosthetic heart valve; Z98.890 Other specified postprocedural states; Z88.8 Allergy status to other drugs, medicaments and biological substances
CPT/HCPCS: 88305; 45385; J2704; 45380

== ENCOUNTER 2022-07-16 09:53 | Inpatient (IN) | payer MEDICARE, BC ==
--- NOTE | 2022-07-16 10:31 | ED ---
General Adult HPI - General Chief complaint: Shortness of Breath Stated complaint: SOB, shoulder pain Time Seen by Provider: 07/16/22 10:04 Source: patient, family, RN notes reviewed Mode of arrival: wheelchair Limitations: no limitations - History of Present Illness Initial comments: Patient is a 77-year-old male presenting to the emergency room with complaints of left shoulder pain radiating downwards into his ribs ongoing for approximately 3 weeks that began after sleeping one morning and has persisted. He reports that the pain was mild initially but is worsening slightly. He is unable to take NSAIDs due to chronic kidney disease and is utilizing Tylenol [id number] for pain as needed with out significant relief. His primary con cern today however is in regards to shortness of breath with exertion which began yesterday he denies any shortness of breath at rest. He is complaining of chest pain as well however this is pectoral worse with movement and not typical chest pain. He denies any injury to his shoulder and moving his an aggravating factor. Rest helps alleviate the pain. He denies any cough, congestion, abdominal pain, nausea, vomiting, diaphoresis, changes in chronic lower extremity edema, headache, dizziness, fevers or chills. He has a past medical history significant for type 2 diabetes, hypertension, hyperlipidemia, bladder cancer, CAD and valvular disease with previous CABG and aortic valve replacement. - Related Data Home Medications Medication Instructions Recorded Confirmed Colchicine 0.6 mg PO DAILY PRN 08/25/18 07/16/22 Fluticasone Nasal [place] [Flonase 1 spr EA NOSTRIL BID 08/25/18 07/16/22 Nasal [place]] Furosemide [Lasix] 20 mg PO BID@0900,1500 08/25/18 07/16/22 Levocetirizine Dihydrochloride 5 mg PO HS 08/25/18 07/16/22 [Xyzal] Potassium Chloride [Klor-Con 10 ER] 10 meq PO DAILY 08/25/18 07/16/22 Rosuvastatin Calcium 10 mg PO HS 08/25/18 07/16/22 amLODIPine [Norvasc] 5 mg PO BID@0900,1500 08/25/18 07/16/22 Acetaminophen Tab [Tylenol] 500 mg PO Q6H PRN 07/16/21 07/16/22 Aspirin EC [Ecotrin Low Dose] 81 mg PO DAILY 07/16/21 07/16/22 Ferrous Sulfate [Iron (65 MG 325 mg PO DAILY 07/16/21 07/16/22 Elemental)] Metoprolol Tartrate [Lopressor] 50 mg PO BID@0900,1500 07/16/21 07/16/22 calcitrioL [Calcitriol] 0.25 mcg PO MOTUWETHFR 07/16/21 07/16/22 glipiZIDE [Glucotrol] 10 mg PO DAILY 07/16/21 07/16/22 Ascorbic Acid [Vitamin C] 500 mg PO DAILY 08/13/21 07/16/22 Rivaroxaban [Xarelto] 15 mg PO HS 08/13/21 07/16/22 hydrALAZINE HCL 25 mg PO BID@0900,1500 08/13/21 07/16/22 Cholecalciferol [Vitamin D3 (25 50 mcg PO DAILY 07/16/22 07/16/22 Mcg = 1000 Iu)] Febuxostat [Uloric] 40 mg PO DAILY 07/16/22 07/16/22 sitaGLIPtin [Januvia] 100 mg PO DAILY@1500 07/16/22 07/16/22 Allergies Allergy/AdvReac Type Severity Reaction Status Date / Time allopurinol AdvReac Feet Verified 07/16/22 12:38 Swelling Review of Systems ROS Statement: Those systems with pertinent positive or pertinent negative responses have been documented in the HPI. ROS Other: All systems not noted in ROS Statement are negative. Past Medical History Past Medical History: Atrial Fibrillation, Cancer, Diabetes Mellitus, Hearing Disorder / Deafness, Hypertension, Osteoarthritis (OA), Renal Disease (Chronic kidney disease) Additional Past Medical History / Comment(s): Covid 07/20/21. Bladder cancer 2009 and 2011. Hx pelvic fracture 1993. Gout. History of Any Multi-Drug Resistant Organisms: None Reported Past Surgical History: Cardiac Valve Replacement, Coronary Bypass/CABG, Heart Catheterization, Hernia Repair Additional Past Surgical History / Comment(s): Left rotator cuff surgery, bilateral cataracts removed, umbilical hernia repair, right side salivary gland removed, broken right ankle surgery, skin cancer removed from right cheek, back and hands, heart valve replacement 11/22/19, colonoscopies. Past Anesthesia/Blood Transfusion Reactions: No Reported Reaction Past Psychological History: No Psychological Hx Reported Smoking Status: Former smoker Past Alcohol Use History: Occasional Past Drug Use History: None Reported - Past Family History Father Family Medical History: No Reported History General Exam Limitations: no limitations General appearance: alert, in no apparent distress Head exam: Present: atraumatic, normocephalic, normal inspection Eye exam: Present: normal appearance, PERRL, EOMI. Absent: scleral icterus, conjunctival injection, periorbital swelling ENT exam: Present: normal exam, normal oropharynx, mucous membranes moist Neck exam: Present: normal inspection, other (No JVD). Absent: tenderness, me ningismus, lymphadenopathy Respiratory exam: Present: normal lung sounds bilaterally. Absent: respiratory distress, wheezes, rales, rhonchi, stridor Cardiovascular Exam: Present: regular rate, normal rhythm, normal heart sounds, systolic murmur. Absent: diastolic murmur, rubs, gallop, clicks GI/Abdominal exam: Present: soft, normal bowel sounds, other (rounded). Absent: distended, tenderness, guarding, rebound, rigid Rectal exam: Present: deferred Extremities exam: Present: normal inspection, full ROM, pedal edema (Trace bilateral ). Absent: calf tenderness Left Shoulder Exam: Present: normal inspection, full ROM, tenderness. Absent: swelling Vascular: Absent: vascular compromise Back exam: Present: normal inspection. Absent: tenderness Neurological exam: Present: alert, oriented X3, CN II-XII intact Psychiatric exam: Present: normal affect, normal mood Skin exam: Present: warm, dry, intact, normal color. Absent: rash Course Vital Signs 07/16/22 09:58 Temperature 98.1 F Pulse Rate 74 Respiratory 22 Rate Blood Pressure 119/58 O2 Sat by Pulse 100 Oximetry Medical Decision Making - Medical Decision Making 77-year-old male presenting to the emergency room with shortness of breath on exertion along with left shoulder pain. Left shoulder pain ongoing for approximately 3 weeks as breath with exertion 24 hours without any other associated symptoms. History of COVID and cardiovascular disease with significant risk factors will work up shortness of breath with EKG, chest x-ray, CMP, CBC, troponin, magnesium, coags, Covid and influenza swabs.. Will obtain x-ray of left shoulder to evaluate concerns regarding left shoulder pain. Analgesics offered and declined. No need for supplemental oxygen. Chest x-ray negative for acute cardiopulmonary disease. X-ray of shoulder shows evidence of old trauma with likely impingement. Discussed treatment process for shoulder impingement., Unfortunately due to advanced renal disease unable to take NSAIDs. Lab results show elevated BUN and creatinine from baseline CKD stage 3b status and worsening of chronic anemia with a hemoglobin of 7.0. No leukocytosis. Lactic acid normal, troponin negative normal, magnesium and coags stable. COVID and influenza swabs negative. Findings reviewed with patient and spouse. Advised that patient's shortness of breath likely secondary to symptomatic anemia given chronic anemia with slow trend downward suspect insufficiently outpatient treatment for anemia of chronic disease secondary to the chronic kidney disease. No indication for transfusion at this time however given a Right and s ymptomatic anemia admission to hospital for further evaluation and treatment is recommended. Presentation and evaluation reviewed with Dr. Slaughter [place] [facility] [place] excepting of admission with consultation to nephrology. Will place admission orders. Case discussed with Dr. Warren. - Lab Data Result diagrams: 07/16/22 10:18 07/16/22 10:18 Lab Results 07/16/22 07/16/22 07/16/22 Range/Units 10:18 10:18 10:18 WBC 5.0 (3.8-10.6) k/uL RBC 2.28 L (4.30-5.90) m/uL Hgb 7.0 L (13.0-17.5) gm/dL Hct 20.7 L (39.0-53.0) % MCV 91.1 (80.0-100.0) fL MCH 30.7 (25.0-35.0) pg MCHC 33.7 (31.0-37.0) g/dL RDW 16.9 H (11.5-15.5) % Plt Count 169 (150-450) k/uL MPV 10.7 Neutrophils % 63 % Lymphocytes % 22 % Monocytes % 9 % Eosinophils % 3 % Basophils % 1 % Neutrophils # 3.1 (1.3-7.7) k/uL Lymphocytes # 1.1 (1.0-4.8) k/uL Monocytes # 0.5 (0-1.0) k/uL Eosinophils # 0.1 (0-0.7) k/uL Basophils # 0.0 (0-0.2) k/uL Anisocytosis Slight PT 12.0 (9.0-12.0) sec INR 1.1 (<1.2) APTT 25.7 (22.0-30.0) sec Sodium 141 (137-145) mmol/L Potassium 4.3 (3.5-5.1) mmol/L Chloride 109 H (98-107) mmol/L Carbon Dioxide 24 (22-30) mmol/L Anion Gap 8 mmol/L BUN 62 H (9-20) mg/dL Creatinine 2.59 H (0.66-1.25) mg/dL Est GFR (CKD-EPI)AfAm 27 (>60 ml/min/1.73 sqM) Est GFR (CKD-EPI)NonAf 23 (>60 ml/min/1.73 sqM) Glucose 120 H (74-99) mg/dL Plasma Lactic Acid David (0.7-2.0) mmol/L Calcium 8.8 (8.4-10.2) mg/dL Magnesium 2.1 (1.6-2.3) mg/dL Total Bilirubin 0.6 (0.2-1.3) mg/dL AST 53 (17-59) U/L ALT 36 (4-49) U/L Alkaline Phosphatase 54 (38-126) U/L Troponin I (0.000-0.034) ng/mL NT-Pro-B Natriuret Pep pg/mL Total Protein 6.4 (6.3-8.2) g/dL Albumin 4.1 (3.5-5.0) g/dL Coronavirus (PCR) (Not Detectd) Influenza Type A RNA (Not Detectd) Influenza Type B (PCR) (Not Detectd) 07/16/22 07/16/22 07/16/22 Range/Units 10:18 10:18 10:18 WBC (3.8-10.6) k/uL RBC (4.30-5.90) m/uL Hgb (13.0-17.5) gm/dL Hct (39.0-53.0) % MCV (80.0-100.0) fL MCH (25.0-35.0) pg MCHC (31.0-37.0) g/dL RDW (11.5-15.5) % Plt Count (150-450) k/uL MPV Neutrophils % % Lymphocytes % % Monocytes % % Eosinophils % % Basophils % % Neutrophils # (1.3-7.7) k/uL Lymphocytes # (1.0-4.8) k/uL Monocytes # (0-1.0) k/uL Eosinophils # (0-0.7) k/uL Basophils # (0-0.2) k/uL Anisocytosis PT (9.0-12.0) sec INR (<1.2) APTT (22.0-30.0) sec Sodium (137-145) mmol/L Potassium (3.5-5.1) mmol/L Chloride (98-107) mmol/L Carbon Dioxide (22-30) mmol/L Anion Gap mmol/L BUN (9-20) mg/dL Creatinine (0.66-1.25) mg/dL Est GFR (CKD-EPI)AfAm (>60 ml/min/1.73 sqM) Est GFR (CKD-EPI)NonAf (>60 ml/min/1.73 sqM) Glucose (74-99) mg/dL Plasma Lactic Acid David 2.0 (0.7-2.0) mmol/L Calcium (8.4-10.2) mg/dL Magnesium (1.6-2.3) mg/dL Total Bilirubin (0.2-1.3) mg/dL AST (17-59) U/L ALT (4-49) U/L Alkaline Phosphatase (38-126) U/L Troponin I 0.029 (0.000-0.034) ng/mL NT-Pro-B Natriuret Pep 1670 pg/mL Total Protein (6.3-8.2) g/dL Albumin (3.5-5.0) g/dL Coronavirus (PCR) (Not Detectd) Influenza Type A RNA (Not Detectd) Influenza Type B (PCR) (Not Detectd) 07/16/22 07/16/22 Range/Units 10:32 10:32 WBC (3.8-10.6) k/uL RBC (4.30-5.90) m/uL Hgb (13.0-17.5) gm/dL Hct (39.0-53.0) % MCV (80.0-100.0) fL MCH (25.0-35.0) pg MCHC (31.0-37.0) g/dL RDW (11.5-15.5) % Plt Count (150-450) k/uL MPV Neutrophils % % Lymphocytes % % Monocytes % % Eosinophils % % Basophils % % Neutrophils # (1.3-7.7) k/uL Lymphocytes # (1.0-4.8) k/uL Monocytes # (0-1.0) k/uL Eosinophils # (0-0.7) k/uL Basophils # (0-0.2) k/uL Anisocytosis PT (9.0-12.0) sec INR (<1.2) APTT (22.0-30.0) sec Sodium (137-145) mmol/L Potassium (3.5-5.1) mmol/L Chloride (98-107) mmol/L Carbon Dioxide (22-30) mmol/L Anion Gap mmol/L BUN (9-20) mg/dL Creatinine (0.66-1.25) mg/dL Est GFR (CKD-EPI)AfAm (>60 ml/min/1.73 sqM) Est GFR (CKD-EPI)NonAf (>60 ml/min/1.73 sqM) Glucose (74-99) mg/dL Plasma Lactic Acid David (0.7-2.0) mmol/L Calcium (8.4-10.2) mg/dL Magnesium (1.6-2.3) mg/dL Total Bilirubin (0.2-1.3) mg/dL AST (17-59) U/L ALT (4-49) U/L Alkaline Phosphatase (38-126) U/L Troponin I (0.000-0.034) ng/mL NT-Pro-B Natriuret Pep pg/mL Total Protein (6.3-8.2) g/dL Albumin (3.5-5.0) g/dL Coronavirus (PCR) Not Detected (Not Detectd) Influenza Type A RNA Not Detected (Not Detectd) Influenza Type B (PCR) Not Detected (Not Detectd) - EKG Data EKG Comments: EKG completed at 1006 interpreted by me shows sinus rhythm with intraventricular conduction delay and ST deviation unchanged from comparison on EKG completed 11 05/28/2021. Ventricular rate 73 bpm, LA interval 169 ms, QRS duration 120 ms, QT/QTC 408/434 ms, PRT axes -67, 13, 105 When compared to previous EKG there are: no significant change - Radiology Data Radiology results: report reviewed, image reviewed Chest x-ray without acute cardiopulmonary disease. X-ray of the left shoulder complete shows likely old trauma with curvilinear bony projection from the inferior lateral aspect of the distal clavicle which is likely causing significant impingement Disposition Clinical Impression: Anemia, [place] (acute kidney injury) Disposition: ADMITTED IP TO THIS [facility] Condition: Stable Is patient prescribed a controlled substance at d/c from ED?: No Time of Disposition: 11:35
[2022-07-16 10:46] LABS: Albumin 4.1 g/dL (3.5-5.0); Calcium 8.8 mg/dL (8.4-10.2); Total Bilirubin 0.6 mg/dL (0.2-1.3); Total Protein 6.4 g/dL (6.3-8.2)
[2022-07-16 10:47] LABS: Anisocytosis Slight; Basophils % (A) 1 %; Eosinophils # (A) 0.1 k/uL (0-0.7); Eosinophils % (A) 3 %; HCT 20.7 % (39.0-53.0); Lymphocytes # (A) 1.1 k/uL (1.0-4.8); Lymphocytes % (A) 22 %; MCH 30.7 pg (25.0-35.0); MCHC 33.7 g/dL (31.0-37.0); MCV 91.1 fL (80.0-100.0); Magnesium 2.1 mg/dL (1.6-2.3); Mean Platelet Volume 10.7; Monocytes # (A) 0.5 k/uL (0-1.0); Monocytes % (A) 9 %; Neutrophils # (A) 3.1 k/uL (1.3-7.7); Neutrophils % (A) 63 %; Platelet Count 169 k/uL (150-450); Potassium 4.3 mmol/L (3.5-5.1); RBC 2.28 m/uL (4.30-5.90); RDW 16.9 % (11.5-15.5)
[2022-07-16 10:54] LABS: INR 1.1 (<1.2); Partial Thromboplastin Time 25.7 sec (22.0-30.0)
--- NOTE | 2022-07-16 11:04 | XR ---
EXAMINATION TYPE: XR shoulder complete LT DATE OF EXAM: 07/16/2022 CLINICAL HISTORY: Pain. TECHNIQUE: Three views of the left shoulder are obtained. COMPARISON: Chest x-ray July and 2020. FINDINGS: Curvilinear bony projection from the inferior lateral aspect of the distal clavicle is pres ent. This may be products of old trauma. This likely is causing significant impingement. There is new [id number] narrowing at the acromioclavicular joint. There is [id number] glenohumeral joint narrowing greatest superiorly seen best on the externally rotated view. No acute displaced frac ture. Slice ribs are intact. Sternal wires and mediastinal clips are partially imaged. IMPRESSION: As above.
--- NOTE | 2022-07-16 11:05 | XR ---
EXAMINATION TYPE: XR chest 2V DATE OF EXAM: 07/16/2022 COMPARISON: 07/21/2021 HISTORY: Shortness of breath TECHNIQUE: Frontal and lateral views of the chest are obtained. FINDINGS: Scattered senescent parenchymal changes noted. Hyperinflation compatible with COPD. No evidence for infiltrate. No evidence for atelectasis. Heart size is stable. Mediastinal structures are stable and grossly unremarkable. No evidence for hilar prominence. Degenerative changes dorsal spine. IMPRESSION: 1. No evidence for acute pulmonary disease.
[2022-07-16] MEDS ORDERED: NALOXONE 0.4 MG/ML 1 ML VIAL IV PRN (11:32)
[2022-07-16] MEDS ORDERED: traMADol 50 MG TAB PO PRN (11:32)
[2022-07-16] MEDS ORDERED: ACETAMINOPHEN TAB 325 MG TAB PO PRN (11:32)
[2022-07-16] MEDS ORDERED: ACETAMINOPHEN TAB 500 MG TAB PO PRN (14:04)
--- NOTE | 2022-07-16 14:10 | P.HPIM ---
History of Present Illness H&P Date: 07/16/22 Chief Complaint: SOB Patient is a 77-year-old male with past medical history of chronic kidney disease, diabetes, hypertension, dyslipidemia, atrial fibrillation, CAD status post CABG presenting with shortness of breath and left shoulder pain. He claims that his left shoulder pain started about 2 days ago, shortly after he developed shortness of breath mostly with exertion. He denies any chest pain, palpitations, lightheadedness, abdominal pain, nausea, vomiting, diarrhea, constipation, melena, hematochezia, hematuria, or urinary complaints. He denies any recent illnesses, sick contacts, or travel history. Patient does see Dr. Lucas for his chronic kidney disease. More recently his renal function has been up and down according to the patient. He is unsure how his hemoglobin has been at home. In the ED, his vital signs were within normal limits. Labs were significant for hemoglobin of 7, MCV 91.1, BUN of 62 and creatinine of 2.59. Chest x-ray showed no acute process. Left shoulder x-ray showed curvilinear bony protection from the inferior lateral aspect of distal clavicle possibly causing significant impingement. There were also other chronic changes, no acute displaced fracture noted. Patient seen and examined at bedside. Pertinent positives and negatives as discussed in HPI, a complete review of systems was performed and all other systems are negative. Vital signs reviewed General: nontoxic, no distress, appears at stated age Derm: warm, dry Head: atraumatic, normocephalic, symmetric Eyes: EOMI, no lid lag, anicteric sclera, pupils equal round reactive to light ENT: Nose and ears atraumatic Neck: No thyromegaly Mouth: no lip lesion, mucus membranes moist Cardiovascular: S1S2 reg, no murmur, no edema Lungs: clear to auscultation bilateral, no rhonchi, no rales, no wheeze, no accessory muscle use Abdominal: soft, nontender to palpation, no guarding, no appreciable organomegaly Ext: no gross muscle atrophy, muscle strength muscle strength 5 out of 5 in all 4 extremities, no contractures Neuro: CN II-XII grossly intact Psych: Alert, oriented, appropriate affect Assessment/Plan: Acute on chronic symptomatic normocytic anemia [place] on Chronic kidney disease -Possibly anemia of chronic kidney disease -Type and screen, 1 unit PRBC transfusion -Occult blood stool pending -Continue iron supplements -Iron panel normal from 1 year -Nephrology consulted Left shoulder pain -No acute fractures -Chronic changes noted on x-ray Chronic medical problems: Type 2 diabetes Hypertension Dyslipidemia Bladder cancer CAD status post CABG Valvular disease status post aortic valve replacement - was previously on coumadin, now on xarelto, not sure if mechanical, currently holding due to anemia -Home medications reviewed and reconciled The patient is admitted with an anticipated greater than 2 midnight stay for evaluation of [symptomatic anemia]. Surrogate decision-maker: CODE STATUS: Full code DVT prophylaxis: SCD Anticipated discharge date: 07/18/[address]: Home A total of 50 minutes was spent on the care of this complex patient more than 5 0% of the time was spent in counseling and care coordination. Past Medical History Past Medical History: Atrial Fibrillation, Cancer, Diabetes Mellitus, Hearing Disorder / Deafness, Hypertension, Osteoarthritis (OA), Renal Disease (Chronic kidney disease) Additional Past Medical History / Comment(s): Covid 07/20/21. Bladder cancer 2009 and 2011. Hx pelvic fracture 1993. Gout. History of Any Multi-Drug Resistant Organisms: None Reported Past Surgical History: Cardiac Valve Replacement, Coronary Bypass/CABG, Heart Catheterization, Hernia Repair Additional Past Surgical History / Comment(s): Left rotator cuff surgery, bilateral cataracts removed, umbilical hernia repair, right side salivary gland removed, broken right ankle surgery, skin cancer removed from right cheek, back and hands, heart valve replacement 11/22/19, colonoscopies. Past Anesthesia/Blood Transfusion Reactions: No Reported Reaction Past Psychological History: No Psychological Hx Reported Smoking Status: Former smoker Past Alcohol Use History: Occasional Past Drug Use History: None Reported - Past Family History Father Family Medical History: No Reported History Medications and Allergies Home Medications Medication Instructions Recorded Confirmed Type Colchicine 0.6 mg PO DAILY PRN 08/25/18 07/16/22 History Fluticasone Nasal [place] [Flonase 1 spr EA NOSTRIL BID 08/25/18 07/16/22 History Nasal [place]] Furosemide [Lasix] 20 mg PO BID@0900,1500 08/25/18 07/16/22 History Levocetirizine Dihydrochloride 5 mg PO HS 08/25/18 07/16/22 History [Xyzal] Potassium Chloride [Klor-Con 10 ER] 10 meq PO DAILY 08/25/18 07/16/22 History Rosuvastatin Calcium 10 mg PO HS 08/25/18 07/16/22 History amLODIPine [Norvasc] 5 mg PO BID@0900,1500 08/25/18 07/16/22 History Acetaminophen Tab [Tylenol] 500 mg PO Q6H PRN 07/16/21 07/16/22 History Aspirin EC [Ecotrin Low Dose] 81 mg PO DAILY 07/16/21 07/16/22 History Ferrous Sulfate [Iron (65 MG 325 mg PO DAILY 07/16/21 07/16/22 History Elemental)] Metoprolol Tartrate [Lopressor] 50 mg PO BID@0900,1500 07/16/21 07/16/22 History calcitrioL [Calcitriol] 0.25 mcg PO MOTUWETHFR 07/16/21 07/16/22 History glipiZIDE [Glucotrol] 10 mg PO DAILY 07/16/21 07/16/22 History Ascorbic Acid [Vitamin C] 500 mg PO DAILY 08/13/21 07/16/22 History Rivaroxaban [Xarelto] 15 mg PO HS 08/13/21 07/16/22 History hydrALAZINE HCL 25 mg PO BID@0900,1500 08/13/21 07/16/22 History Cholecalciferol [Vitamin D3 (25 50 mcg PO DAILY 07/16/22 07/16/22 History Mcg = 1000 Iu)] Febuxostat [Uloric] 40 mg PO DAILY 07/16/22 07/16/22 History sitaGLIPtin [Januvia] 100 mg PO DAILY@1500 07/16/22 07/16/22 History Allergies Allergy/AdvReac Type Severity Reaction Status Date / Time allopurinol AdvReac Feet Verified 07/16/22 12:38 Swelling Physical Exam Vitals: Vital Signs Temp Pulse Pulse Resp BP BP Pulse Ox 07/16/22 13:50 69 19 119/50 99 07/16/22 12:58 98.7 F 64 18 105/56 98 07/16/22 09:58 98.1 F 74 22 119/58 100 Intake and Output 07/15/22 07/16/22 07/16/22 22:59 06:59 14:59 Other: Weight 113.398 kg Results CBC & Chem 7: 07/16/22 10:18 07/16/22 10:18 Labs: Abnormal Lab Results - Last 24 Hours (Table) 07/16/22 07/16/22 Range/Units 10:18 10:18 RBC 2.28 L (4.30-5.90) m/uL Hgb 7.0 L (13.0-17.5) gm/dL Hct 20.7 L (39.0-53.0) % RDW 16.9 H (11.5-15.5) % Chloride 109 H (98-107) mmol/L BUN 62 H (9-20) mg/dL Creatinine 2.59 H (0.66-1.25) mg/dL Glucose 120 H (74-99) mg/dL
[2022-07-16] MEDS: amLODIPine 5 MG TAB PO SCH (17:36)
[2022-07-16] MEDS: hydrALAZINE HCL 25 MG TAB PO SCH (17:36)
[2022-07-16] MEDS: METOPROLOL TARTRATE 50 MG TAB PO SCH (17:36)
[2022-07-16] MEDS: FLUTICASONE 50MCG/SPRAY NASAL 16GM EA NOSTRIL SCH (20:51)
[2022-07-16] MEDS: ATORVASTATIN 20 MG TAB PO SCH (20:52)
[2022-07-16] MEDS: LORATADINE 10 MG TAB PO SCH (20:52)
[2022-07-16] MEDS: INSULIN ASPART (NovoLOG) 100 UNIT/ML VIAL SQ SCH (20:54)
[2022-07-16] MEDS ORDERED: RIVAROXABAN 15 MG TAB PO SCH (21:00)
[2022-07-17 02:53] LABS: Glucose,Whole Blood 122 mg/dL (70-110)
[2022-07-17 07:34] LABS: Glucose,Whole Blood 144 mg/dL (70-110)
[2022-07-17] MEDS: INSULIN ASPART (NovoLOG) 100 UNIT/ML VIAL SQ SCH ×4 (08:17→20:58)
[2022-07-17] MEDS ORDERED: FERROUS SULFATE 325 MG TAB PO SCH (09:00)
[2022-07-17] MEDS ORDERED: ASPIRIN 81 MG PO SCH (09:00)
--- NOTE | 2022-07-17 09:59 | P.NPCON ---
History of Present Illness - Reason for Consult acute renal failure, chronic renal failure - History of Present Illness Reason for consultation: Acute kidney injury on chronic kidney disease History of present illness: Patient is a 77-year-old male seen in renal consultation for acute kidney injury on chronic kidney disease. Patient has chronic kidney disease stage IV with baseline creatinine in the range of 2-2.5 secondary to nephrosclerosis and diabetic kidney disease however recently renal function had been worse with creatinine up to 3.2 in May 2022. At that time patient's Lasix and hydr alazine doses were decreased. This admission patient's creatinine was 2.59. Patient presents to the hospital due to low hemoglobin. Patient states he's been more short of breath and is getting tired with walking short distances. Patient states that shortness of breath has been going on for over 2 days. He denies any melena or hematochezia. No active bleeding. Has been voiding. Patient does have long-standing history of diabetes. Hemoglobin was 7 on admission and he did receive a unit of blood. Morning labs are pending. Blood pressure stable. Afebrile. No vomiting or diarrhea. No abdominal pain. Denies edema. Vital signs are stable. General: Awake. No acute distress. HEENT: Head exam is unremarkable. LUNGS: Breath sounds decreased. HEART: Rate and Rhythm are regular. ABDOMEN: Soft, no distention. EXTREMITITES: No edema. Past Medical History Past Medical History: Atrial Fibrillation, Cancer, Diabetes Mellitus, Hearing Disorder / Deafness, Hypertension, Osteoarthritis (OA), Renal Disease (Chronic kidney disease) Additional Past Medical History / Comment(s): Covid 07/20/21. Bladder cancer 2009 and 2011. Hx pelvic fracture 1993. Gout. History of Any Multi-Drug Resistant Organisms: None Reported Past Surgical History: Cardiac Valve Replacement, Coronary Bypass/CABG, Heart Catheterization, Hernia Repair Additional Past Surgical History / Comment(s): Left rotator cuff surgery, bilateral cataracts removed, umbilical hernia repair, right side salivary gland removed, broken right ankle surgery, skin cancer removed from right cheek, back and hands, heart valve replacement 11/22/19, colonoscopies. Past Anesthesia/Blood Transfusion Reactions: No Reported Reaction Past Psychological History: No Psychological Hx Reported Smoking Status: Former smoker Past Alcohol Use History: Occasional Past Drug Use History: None Reported - Past Family History Father Family Medical History: No Reported History Medications and Allergies Home Medications Medication Instructions Recorded Confirmed Type Colchicine 0.6 mg PO DAILY PRN 08/25/18 07/16/22 History Fluticasone Nasal [place] [Flonase 1 spr EA NOSTRIL BID 08/25/18 07/16/22 History Nasal [place]] Furosemide [Lasix] 20 mg PO BID@0900,1500 08/25/18 07/16/22 History Levocetirizine Dihydrochloride 5 mg PO HS 08/25/18 07/16/22 History [Xyzal] Potassium Chloride [Klor-Con 10 ER] 10 meq PO DAILY 08/25/18 07/16/22 History Rosuvastatin Calcium 10 mg PO HS 08/25/18 07/16/22 History amLODIPine [Norvasc] 5 mg PO BID@0900,1500 08/25/18 07/16/22 History Acetaminophen Tab [Tylenol] 500 mg PO Q6H PRN 07/16/21 07/16/22 History Aspirin EC [Ecotrin Low Dose] 81 mg PO DAILY 07/16/21 07/16/22 History Ferrous Sulfate [Iron (65 MG 325 mg PO DAILY 07/16/21 07/16/22 History Elemental)] Metoprolol Tartrate [Lopressor] 50 mg PO BID@0900,1500 07/16/21 07/16/22 History calcitrioL [Calcitriol] 0.25 mcg PO MOTUWETHFR 07/16/21 07/16/22 History glipiZIDE [Glucotrol] 10 mg PO DAILY 07/16/21 07/16/22 History Ascorbic Acid [Vitamin C] 500 mg PO DAILY 08/13/21 07/16/22 History Rivaroxaban [Xarelto] 15 mg PO HS 08/13/21 07/16/22 History hydrALAZINE HCL 25 mg PO BID@0900,1500 08/13/21 07/16/22 History Cholecalciferol [Vitamin D3 (25 50 mcg PO DAILY 07/16/22 07/16/22 History Mcg = 1000 Iu)] Febuxostat [Uloric] 40 mg PO DAILY 07/16/22 07/16/22 History sitaGLIPtin [Januvia] 100 mg PO DAILY@1500 07/16/22 07/16/22 History Allergies Allergy/AdvReac Type Severity Reaction Status Date / Time allopurinol AdvReac Feet Verified 07/16/22 12:38 Swelling Physical Exam Vitals: Vital Signs Temp Pulse Pulse Resp BP BP Pulse Ox 07/17/22 09:36 97.7 F 74 20 111/61 100 07/17/22 04:40 98.4 F 67 16 101/55 98 07/16/22 19:19 97.7 F 67 16 113/66 100 07/16/22 18:40 97.5 F L 74 16 118/68 100 07/16/22 18:36 97.5 F L 74 16 118/68 100 07/16/22 16:04 97.5 F L 70 16 123/67 100 07/16/22 15:44 97.3 F L 70 16 114/67 100 07/16/22 15:27 97.5 F L 71 16 103/66 100 07/16/22 13:50 69 19 119/50 99 07/16/22 12:58 98.7 F 64 18 105/56 98 07/16/22 09:58 98.1 F 74 22 119/58 100 Intake and Output 07/16/22 07/17/22 07/17/22 22:59 06:59 14:59 Intake Total 610 Output Total 2 Balance 610 -2 Intake: Blood Product 610 Rc As-1 Unit 310 [id number] Output: Urine 2 Other: Voiding Method Urinal # Bowel Movements 1 Results - Lab Results Most recent lab results Calcium 8.8 mg/dL (8.4-10.2) 07/16/22 10:18 Magnesium 2.1 mg/dL (1.6-2.3) 07/16/22 10:18 07/16/22 10:18 07/16/22 10:18 Assessment and Plan Plan: Assessment: 1. Acute kidney injury mostly prerenal secondary to anemia. Creatinine 2.59 on admission. 2. Chronic kidney disease stage IV with baseline creatinine near 2.5 secondary to diabetic kidney disease and nephrosclerosis. 3. Anemia of chronic kidney disease. Status post blood transfusion this admission. No active bleeding. 4. Hypertension with chronic kidney disease. Controlled. 5. Chronic kidney disease mineral bone disease maintained on calcitriol. 6. Diabetes mellitus. 7. Coronary artery disease status post CABG. Also has history of aortic valve replacement. Plan: Decreased amlodipine dose. Hold antihypertensives for systolic blood pressure less than 120. Continue to hold diuretics. Check iron studies. Add Aranesp. Avoid nephrotoxins. Continue to monitor renal function and urine output. Encourage oral intake. Check stool for occult blood. Thank you for the consultation. I will continue to follow the patient with you during his hospital stay.
[2022-07-17] MEDS ORDERED: DARBEPOETIN ALFA 40 MCG/0.4 ML SYRINGE SQ SCH (10:00)
[2022-07-17] MEDS: METOPROLOL TARTRATE 50 MG TAB PO SCH ×2 (10:02→15:36)
[2022-07-17] MEDS: CHOLECALCIFEROL 25 MCG (1000 IU) TABLET PO SCH (10:03)
[2022-07-17] MEDS: ASCORBIC ACID 500 MG TAB PO SCH (10:03)
[2022-07-17] MEDS: FLUTICASONE 50MCG/SPRAY NASAL 16GM EA NOSTRIL SCH ×2 (10:04→20:58)
[2022-07-17] MEDS: FEBUXOSTAT 40 MG PO SCH (10:04)
[2022-07-17] MEDS: hydrALAZINE HCL 25 MG TAB PO SCH ×2 (10:11→15:36)
[2022-07-17] MEDS: amLODIPine 5 MG TAB PO SCH (10:17)
[2022-07-17 11:00] LABS: HCT 22.8 % (39.6-50.0); HGB 7.3 g/dL (13.0-17.0); MCH 30.2 pg (27.0-32.0); MCV 94.2 fL (80.0-97.0); Mean Platelet Volume 12.3 fL (9.5-12.2); NRBC Per 100 WBC 0 /100 WBCS (0.0-0.0); Platelet Count 155 X 10*3/uL (140-440); RBC 2.42 X 10*6/uL (4.40-5.60); RDW 15.9 % (11.5-14.5); WBC 4.86 X 10*3/uL (4.50-10.00)
[2022-07-17 11:22] LABS: African American GFR (CKD) 26.6 (60.0-200.0); Anion Gap 11.6 mmol/L (10.00-18.00); BUN/Creat Ratio 21.19 Ratio (12.00-20.00); Blood Urea Nitrogen 55.1 mg/dL (9.0-27.0); Calcium 8.9 mg/dL (8.7-10.3); Carbon Dioxide 22.4 mmol/L (20.0-27.5); Non-African American GFR(CKD) 22.9 (60.0-200.0); Potassium 3.9 mmol/L (3.5-5.5)
--- NOTE | 2022-07-17 12:04 | P.PN ---
Subjective Progress Note Date: 07/17/22 Principal diagnosis: symptomatic anemia Hospital Course: Patient is a 77-year-old male with past medical history of chronic kidney disease, diabetes, hypertension, dyslipidemia, atrial fibrillation, CAD status post CABG presenting with shortness of breath and left shoulder pain. Left shoulder x-ray showed curvilinear bony protection from the inferior lateral aspect of distal clavicle possibly causing significant impingement. There were also other chronic changes, no acute displaced fracture noted. Creatinine elevated from baseline concerning for acute kidney injury on chronic kidney disease. Hemoglobin on admission was 7. Patient was transfused 1 unit of packed red blood cells. Nephrology consulted. Possibility of GI source of anemia as well. Will consult Surgery. Subjective: Patient seen and examined at bedside. No acute events overnight. He claims that his shortness of breath has improved after blood transfusion. He denies any chest pain, abdominal pain, palpitations, nausea, vomiting, diarrhea, constipation, dysuria, melena, hematochezia, or abdominal pain. Pertinent positives and negatives as discussed above, a complete review of systems was performed and all other systems are negative. Vitals Signs Reviewed. General: nontoxic, no distress, appears at stated age Derm: warm, dry Head: atraumatic, normocephalic, symmetric Eyes: EOMI, no lid lag, anicteric sclera, pupils equal round reactive to light ENT: Nose and ears atraumatic Neck: No thyromegaly Mouth: no lip lesion, mucus membranes moist Cardiovascular: S1S2 reg, systolic murmur, no edema Lungs: clear to auscultation bilateral, no rhonchi, no rales, no wheeze, no accessory muscle use Abdominal: soft, nontender to palpation, no guarding, no appreciable org anomegaly Ext: no gross muscle atrophy, muscle strength muscle strength 5 out of 5 in all 4 extremities, no contractures Neuro: CN II-XII grossly intact Psych: Alert, oriented, appropriate affect Assessment and Plan: Acute on chronic symptomatic normocytic anemia [place] on Chronic kidney disease -Possibly anemia of chronic kidney disease or GI source -Status post 1 unit PRBC transfusion -Occult blood stool - positive -Continue iron supplements -Nephrology consulted -Repeat iron panel -Added aranesp Left shoulder pain -No acute fractures -Chronic changes noted on x-ray Chronic medical problems: Type 2 diabetes Hypertension - reduced amlodipine, holding diuretics Dyslipidemia Bladder cancer CAD status post CABG Valvular disease status post aortic valve replacement - was previously on cou madin, now on xarelto, not sure if mechanical, currently holding due to anemia -Home medications reviewed and reconciled DVT ppx: SCD Code status: Full code Anticipated discharge place: Home Anticipated discharge time: 12 days Objective - Vital Signs Vital signs: Vital Signs Temp 97.7 F 07/17/22 09:36 Pulse 74 07/17/22 09:36 Resp 20 07/17/22 09:36 BP 111/61 07/17/22 09:36 Pulse Ox 100 07/17/22 09:36 FiO2 Intake & Output 07/16/22 07/17/22 07/17/22 18:59 06:59 18:59 Intake Total 610 Output Total 2 Balance 610 -2 Weight 113.398 kg Intake: Blood Product 610 Rc As-1 Unit 310 [id number] Output: Urine 2 Other: Voiding Method Urinal Urinal # Bowel Movements 1 - Labs CBC & Chem 7: 07/17/22 07:01 07/17/22 07:01 Labs: Abnormal Lab Results - Last 24 Hours (Table) 07/16/22 07/16/22 07/17/22 Range/Units 13:26 20:54 07:01 RBC 2.42 L (4.40-5.60) X 10*6/uL Hgb 7.3 L (13.0-17.0) g/dL Hct 22.8 L (39.6-50.0) % RDW 15.9 H (11.5-14.5) % MPV 12.3 H (9.5-12.2) fL Chloride (96-109) mmol/L BUN (9.0-27.0) mg/dL Creatinine (0.6-1.5) mg/dL Est GFR (CKD-EPI)AfAm (60.0-200.0) Est GFR (CKD-EPI)NonAf (60.0-200.0) BUN/Creatinine Ratio (12.00-20.00) Ratio Glucose (70-110) mg/dL POC Glucose (mg/dL) 122 H (70-110) mg/dL Crossmatch See Detail 07/17/22 07/17/22 Range/Units 07:01 07:32 RBC (4.40-5.60) X 10*6/uL Hgb (13.0-17.0) g/dL Hct (39.6-50.0) % RDW (11.5-14.5) % MPV (9.5-12.2) fL Chloride 110 H (96-109) mmol/L BUN 55.1 H (9.0-27.0) mg/dL Creatinine 2.6 H (0.6-1.5) mg/dL Est GFR (CKD-EPI)AfAm 26.6 L (60.0-200.0) Est GFR (CKD-EPI)NonAf 22.9 L (60.0-200.0) BUN/Creatinine Ratio 21.19 H (12.00-20.00) Ratio Glucose 113 H (70-110) mg/dL POC Glucose (mg/dL) 144 H (70-110) mg/dL Crossmatch
[2022-07-17 12:09] LABS: Glucose,Whole Blood 110 mg/dL (70-110)
--- NOTE | 2022-07-17 14:51 | P.GSCN ---
History of Present Illness Consult date: 07/17/22 History of present illness: CHIEF COMPLAINT: Shortness of breath HISTORY OF PRESENT ILLNESS: This is a 77-year-old man who presented to the hospital with complaint of shortness of breath and left shoulder plain. He was noted to have hemoglobin of 7 on admission. Patient denies any blood in his stools or black stools. Denies any abdominal pain. Denies any nausea or vomiting. He is on Xarelto at home for afib. Stool for occult blood was positive. His last colonoscopy was in August 2021 with evidence of a colon polyp and diverticulosis. It was presumed at that time that GI bleed was due to diverticulosis. Patient tolerating regular diet. Patient does have a history of chronic kidney disease and history of anemia. Patient did receive 1 unit of blood for hemoglobin of 7.0. Per nursing staff patient did report black stool. Patient seen and examined with Dr. Armstrong PAST MEDICAL HISTORY: Atrial Fibrillation, Cancer, Diabetes Mellitus, Hearing Disorder / Deafness, Hypertension, Osteoarthritis (OA), Renal Disease (Chronic kidney disease), bladd er [place] PAST SURGICAL HISTORY: Aortic Valve Replacement, Coronary Bypass/CABG, Heart Catheterization, Hernia Repair MEDICATIONS: See below ALLERGIES: See below SOCIAL HISTORY: No illicit drug use. REVIEW OF SYSTEMS: CONSTITUTIONAL: Denies fever or chills. HEENT: Denies blurred vision, vision changes, or eye pain. Denies hemoptysis CARDIOVASCULAR: Denies chest pain or pressure. RESPIRATORY: No shortness of breath. GASTROINTESTINAL: See HPI for pertinent findings HEMATOLOGIC: Denies bleeding disorders. GENITOURINARY: Denies any blood in urine or increased urinary frequency. SKIN: Denies pruitis. Denies rash. PHYSICAL EXAM: VITAL SIGNS: Reviewed GENERAL: Well-developed in no acute distress. HEENT: No sclera icterus. Extraocular movements grossly intact. Moist buccal mucosa. Head is atraumatic, normocephalic. No nasal drainage. ABDOMEN: Soft. Nondistended. Nontender NEUROLOGIC: Alert and oriented. Cranial nerves II through XII grossly intact. LABORATORY DATA: WBC is 4.86 hemoglobin 7-7.3 platelets 155 Sodium is 144 potassium 3.9 creatinine 2.6 Stool for occult blood positive IMAGING: Chest x-ray negative ASSESSMENT: 1. Anemia with stool positive for occult blood. Patient reports no active bleeding 2. History of A. fib on Xarelto for anticoagulation 3. History of chronic kidney disease 4. Prior history of GI bleed with past colonoscopy showing diverticulosis and colon polyp PLAN: -EGD and colonoscopy scheduled for Thursday this could possibly be done outpatient -Hold Xarelto and aspirin -Stop oral iron because it can cause the stools to be black -Add protonix -repeat CBC in AM -Continue to monitor for any signs or symptoms of bleeding Thank you for this consultation Physician Seals Engraver note has been reviewed by physician. Signing provider agrees with the documented findings, assessment, and plan of care. Past Medical History Past Medical History: Atrial Fibrillation, Cancer, Diabetes Mellitus, Hearing Disorder / Deafness, Hypertension, Osteoarthritis (OA), Renal Disease (Chronic kidney disease) Additional Past Medical History / Comment(s): Covid 07/20/21. Bladder cancer 2009 and 2011. Hx pelvic fracture 1993. Gout. History of Any Multi-Drug Resistant Organisms: None Reported Past Surgical History: Cardiac Valve Replacement, Coronary Bypass/CABG, Heart Catheterization, Hernia Repair Additional Past Surgical History / Comment(s): Left rotator cuff surgery, bilateral cataracts removed, umbilical hernia repair, right side salivary gland removed, broken right ankle surgery, skin cancer removed from right cheek, back and hands, heart valve replacement 11/22/19, colonoscopies. Past Anesthesia/Blood Transfusion Reactions: No Reported Reaction Past Psychological History: No Psychological Hx Reported Smoking Status: Former smoker Past Alcohol Use History: Occasional Past Drug Use History: None Reported - Past Family History Father Family Medical History: No Reported History Medications and Allergies Home Medications Medication Instructions Recorded Confirmed Type Colchicine 0.6 mg PO DAILY PRN 08/25/18 07/16/22 History Fluticasone Nasal [place] [Flonase 1 spr EA NOSTRIL BID 08/25/18 07/16/22 History Nasal [place]] Furosemide [Lasix] 20 mg PO BID@0900,1500 08/25/18 07/16/22 History Levocetirizine Dihydrochloride 5 mg PO HS 08/25/18 07/16/22 History [Xyzal] Potassium Chloride [Klor-Con 10 ER] 10 meq PO DAILY 08/25/18 07/16/22 History Rosuvastatin Calcium 10 mg PO HS 08/25/18 07/16/22 History amLODIPine [Norvasc] 5 mg PO BID@0900,1500 08/25/18 07/16/22 History Acetaminophen Tab [Tylenol] 500 mg PO Q6H PRN 07/16/21 07/16/22 History Aspirin EC [Ecotrin Low Dose] 81 mg PO DAILY 07/16/21 07/16/22 History Ferrous Sulfate [Iron (65 MG 325 mg PO DAILY 07/16/21 07/16/22 History Elemental)] Metoprolol Tartrate [Lopressor] 50 mg PO BID@0900,1500 07/16/21 07/16/22 History calcitrioL [Calcitriol] 0.25 mcg PO MOTUWETHFR 07/16/21 07/16/22 History glipiZIDE [Glucotrol] 10 mg PO DAILY 07/16/21 07/16/22 History Ascorbic Acid [Vitamin C] 500 mg PO DAILY 08/13/21 07/16/22 History Rivaroxaban [Xarelto] 15 mg PO HS 08/13/21 07/16/22 History hydrALAZINE HCL 25 mg PO BID@0900,1500 08/13/21 07/16/22 History Cholecalciferol [Vitamin D3 (25 50 mcg PO DAILY 07/16/22 07/16/22 History Mcg = 1000 Iu)] Febuxostat [Uloric] 40 mg PO DAILY 07/16/22 07/16/22 History sitaGLIPtin [Januvia] 100 mg PO DAILY@1500 07/16/22 07/16/22 History Allergies Allergy/AdvReac Type Severity Reaction Status Date / Time allopurinol AdvReac Feet Verified 07/16/22 12:38 Swelling Surgical - Exam Vital Signs Temp Pulse Resp BP Pulse Ox 98.1 F 74 22 119/58 100 07/16/22 09:58 07/16/22 09:58 07/16/22 09:58 07/16/22 09:58 07/16/22 09:58 Results - Labs 07/17/22 07:01 07/17/22 07:01 Abnormal Lab Results - Last 24 Hours (Table) 07/16/22 07/16/22 07/17/22 Range/Units 13:26 20:54 07:01 RBC 2.42 L (4.40-5.60) X 10*6/uL Hgb 7.3 L (13.0-17.0) g/dL Hct 22.8 L (39.6-50.0) % RDW 15.9 H (11.5-14.5) % MPV 12.3 H (9.5-12.2) fL Chloride (96-109) mmol/L BUN (9.0-27.0) mg/dL Creatinine (0.6-1.5) mg/dL Est GFR (CKD-EPI)AfAm (60.0-200.0) Est GFR (CKD-EPI)NonAf (60.0-200.0) BUN/Creatinine Ratio (12.00-20.00) Ratio Glucose (70-110) mg/dL POC Glucose (mg/dL) 122 H (70-110) mg/dL Crossmatch See Detail 07/17/22 07/17/22 Range/Units 07:01 07:32 RBC (4.40-5.60) X 10*6/uL Hgb (13.0-17.0) g/dL Hct (39.6-50.0) % RDW (11.5-14.5) % MPV (9.5-12.2) fL Chloride 110 H (96-109) mmol/L BUN 55.1 H (9.0-27.0) mg/dL Creatinine 2.6 H (0.6-1.5) mg/dL Est GFR (CKD-EPI)AfAm 26.6 L (60.0-200.0) Est GFR (CKD-EPI)NonAf 22.9 L (60.0-200.0) BUN/Creatinine Ratio 21.19 H (12.00-20.00) Ratio Glucose 113 H (70-110) mg/dL POC Glucose (mg/dL) 144 H (70-110) mg/dL Crossmatch Diabetes panel 07/17/22 Range/Units 07:01 Sodium 144 (135-145) mmol/L Potassium 3.9 (3.5-5.5) mmol/L Chloride 110 H (96-109) mmol/L Carbon Dioxide 22.4 (20.0-27.5) mmol/L BUN 55.1 H (9.0-27.0) mg/dL Creatinine 2.6 H (0.6-1.5) mg/dL Glucose 113 H (70-110) mg/dL Calcium 8.9 (8.7-10.3) mg/dL Calcium panel 07/17/22 Range/Units 07:01 Calcium 8.9 (8.7-10.3) mg/dL Pituitary panel 07/17/22 Range/Units 07:01 Sodium 144 (135-145) mmol/L Potassium 3.9 (3.5-5.5) mmol/L Chloride 110 H (96-109) mmol/L Carbon Dioxide 22.4 (20.0-27.5) mmol/L BUN 55.1 H (9.0-27.0) mg/dL Creatinine 2.6 H (0.6-1.5) mg/dL Glucose 113 H (70-110) mg/dL Calcium 8.9 (8.7-10.3) mg/dL Adrenal panel 07/17/22 Range/Units 07:01 Sodium 144 (135-145) mmol/L Potassium 3.9 (3.5-5.5) mmol/L Chloride 110 H (96-109) mmol/L Carbon Dioxide 22.4 (20.0-27.5) mmol/L BUN 55.1 H (9.0-27.0) mg/dL Creatinine 2.6 H (0.6-1.5) mg/dL Glucose 113 H (70-110) mg/dL Calcium 8.9 (8.7-10.3) mg/dL
[2022-07-17 16:48] LABS: % Iron Saturation 6.02 (15.00-50.00); Ferritin 18.8 ng/mL (22.0-322.0)
[2022-07-17 17:19] LABS: Glucose,Whole Blood 133 mg/dL (70-110)
[2022-07-17] MEDS: PANTOPRAZOLE 40 MG TABLET PO SCH (17:58)
[2022-07-17 20:27] LABS: Glucose,Whole Blood 103 mg/dL (70-110)
[2022-07-17] MEDS: ATORVASTATIN 20 MG TAB PO SCH (20:58)
[2022-07-17] MEDS: LORATADINE 10 MG TAB PO SCH (20:58)
[2022-07-18 07:08] LABS: Glucose,Whole Blood 118 mg/dL (70-110)
[2022-07-18 08:27] VITALS: RESP 18
[2022-07-18] MEDS: INSULIN ASPART (NovoLOG) 100 UNIT/ML VIAL SQ SCH ×2 (08:28→11:48)
[2022-07-18] MEDS: METOPROLOL TARTRATE 50 MG TAB PO SCH (08:30)
[2022-07-18] MEDS: hydrALAZINE HCL 25 MG TAB PO SCH (08:30)
[2022-07-18] MEDS: ASCORBIC ACID 500 MG TAB PO SCH (08:31)
[2022-07-18] MEDS: CHOLECALCIFEROL 25 MCG (1000 IU) TABLET PO SCH (08:31)
[2022-07-18] MEDS: FLUTICASONE 50MCG/SPRAY NASAL 16GM EA NOSTRIL SCH (08:33)
[2022-07-18] MEDS ORDERED: amLODIPine 5 MG TAB PO SCH (09:00)
[2022-07-18] MEDS: FEBUXOSTAT 40 MG PO SCH (09:21)
--- NOTE | 2022-07-18 10:31 | P.PN ---
Subjective Patient is seen in follow-up for acute kidney injury on chronic kidney disease. Morning labs pending. Blood pressure stable. On room air. Oral intake good. No active complaints. Denies any active bleeding. Vital signs are stable. General: Awake. No acute distress. HEENT: Head exam is unremarkable. LUNGS: Breath sounds decreased. HEART: Rate and Rhythm are regular. ABDOMEN: Soft, no distention. EXTREMITITES: No edema. Objective - Vital Signs Vital signs: Vital Signs Temp 98.2 F 07/18/22 08:26 Pulse 67 07/18/22 08:26 Resp 18 07/18/22 08:26 BP 121/70 07/18/22 08:26 Pulse Ox 100 07/18/22 08:26 FiO2 Intake & Output 07/17/22 07/18/22 07/18/22 18:59 06:59 18:59 Other: Voiding Method Urinal Toilet Urinal # Voids 2 2 # Bowel Movements 1 - Labs CBC & Chem 7: 07/17/22 07:01 07/17/22 07:01 Labs: Abnormal Lab Results - Last 24 Hours (Table) 07/17/22 07/17/22 07/17/22 Range/Units 07:01 07:01 07:01 RBC 2.42 L (4.40-5.60) X 10*6/uL Hgb 7.3 L (13.0-17.0) g/dL Hct 22.8 L (39.6-50.0) % RDW 15.9 H (11.5-14.5) % MPV 12.3 H (9.5-12.2) fL Chloride 110 H (96-109) mmol/L BUN 55.1 H (9.0-27.0) mg/dL Creatinine 2.6 H (0.6-1.5) mg/dL Est GFR (CKD-EPI)AfAm 26.6 L (60.0-200.0) Est GFR (CKD-EPI)NonAf 22.9 L (60.0-200.0) BUN/Creatinine Ratio 21.19 H (12.00-20.00) Ratio Glucose 113 H (70-110) mg/dL POC Glucose (mg/dL) (70-110) mg/dL Iron 20 L (65-175) ug/dL % Saturation 6.02 L (15.00-50.00) Ferritin 18.8 L (22.0-322.0) ng/mL 07/17/22 07/18/22 Range/Units 17:07 07:06 RBC (4.40-5.60) X 10*6/uL Hgb (13.0-17.0) g/dL Hct (39.6-50.0) % RDW (11.5-14.5) % MPV (9.5-12.2) fL Chloride (96-109) mmol/L BUN (9.0-27.0) mg/dL Creatinine (0.6-1.5) mg/dL Est GFR (CKD-EPI)AfAm (60.0-200.0) Est GFR (CKD-EPI)NonAf (60.0-200.0) BUN/Creatinine Ratio (12.00-20.00) Ratio Glucose (70-110) mg/dL POC Glucose (mg/dL) 133 H 118 H (70-110) mg/dL Iron (65-175) ug/dL % Saturation (15.00-50.00) Ferritin (22.0-322.0) ng/mL Assessment and Plan Plan: Assessment: 1. Acute kidney injury mostly prerenal secondary to anemia. Creatinine 2.59 on admission - stable at 2.6 yesterday. 2. Chronic kidney disease stage IV with baseline creatinine near 2.5 secondary to diabetic kidney disease and nephrosclerosis. 3. Anemia of chronic kidney disease. Status post blood transfusion this admission. No active bleeding. On Aranesp. Stool for occult blood positive. Seen by surgery. Plan for endoscopy next week. 4. Hypertension with chronic kidney disease. Controlled. 5. Chronic kidney disease mineral bone disease maintained on calcitriol. 6. Diabetes mellitus. 7. Coronary artery disease status post CABG. Also has history of aortic valve replacement. Plan: Hold antihypertensives for systolic blood pressure less than 120. Continue to hold diuretics. Add IV iron. Avoid nephrotoxins. Continue to monitor renal function and urine output. Encourage oral intake. Follow up outpatient 1 week post discharge.
[2022-07-18 10:46] LABS: HGB 7.7 g/dL (13.0-17.0); MCH 29.7 pg (27.0-32.0); MCHC 30.8 g/dL (32.0-37.0); MCV 96.5 fL (80.0-97.0); Mean Platelet Volume 12.4 fL (9.5-12.2); NRBC Per 100 WBC 0 /100 WBCS (0.0-0.0); Platelet Count 169 X 10*3/uL (140-440); RBC 2.59 X 10*6/uL (4.40-5.60); RDW 15.9 % (11.5-14.5); WBC 4.07 X 10*3/uL (4.50-10.00)
[2022-07-18 10:57] LABS: African American GFR (CKD) 26.6 (60.0-200.0); Anion Gap 9.9 mmol/L (10.00-18.00); BUN/Creat Ratio 18.65 Ratio (12.00-20.00); Blood Urea Nitrogen 48.5 mg/dL (9.0-27.0); Calcium 8.8 mg/dL (8.7-10.3); Carbon Dioxide 21.1 mmol/L (20.0-27.5); Magnesium 2.2 mg/dL (1.5-2.4); Non-African American GFR(CKD) 22.9 (60.0-200.0); Potassium 3.9 mmol/L (3.5-5.5)
[2022-07-18] MEDS: PANTOPRAZOLE 40 MG TABLET PO SCH (11:06)
--- NOTE | 2022-07-18 11:34 | P.DS ---
Providers Date of admission: 07/16/22 11:39 Expected date of discharge: 07/18/22 Attending physician: Clarissa Slaughter MD Consults: 07/16/22 11:32 Consult Physician Routine Consulting Provider: Rudy Lucas Consult Reason/Comments: [place] on CKD Do you want consulting provider notified?: Yes 07/17/22 11:59 Consult Physician Routine Consulting Provider: Kali Armstrong Consult Reason/Comments: Symptomatic anemia, unclear if GI source Do you want consulting provider notified?: Yes Primary care physician: Felton De Dios Hospital Course: Discharge Diagnosis: Acute on chronic symptomatic normocytic anemia Iron Deficiency anemia [place] on chronic kidney disease Possible GI bleed Left shoulder pain Type 2 diabetes Hypertension Dyslipidemia Valvular heart disease status post aortic valve replacement Hospital Course: Patient is a 77-year-old male with past medical history of chronic kidney disease, diabetes, hypertension, dyslipidemia, valvular heart disease status post aortic valve replacement, CAD status post CABG presenting with shortness of breath and left shoulder pain. Left shoulder x-ray showed curvilinear bony protection from the inferior lateral aspect of distal clavicle possibly causing significant impingement. There were also other chronic changes, no acute displaced fracture noted. Creatinine elevated from baseline concerning for ac [place] kidney injury on chronic kidney disease. Hemoglobin on admission was 7. Patient was transfused 1 unit of packed red blood cells. Nephrology consulted. s/p aranesp, and IV iron. Possibility of GI source of anemia as well. FOBT positive. Surgery consulted. Outpatient follow-up for EGD and colonoscopy. Anticoagulation and aspirin held. Unsure why patient is on anticoagulation. In the past, patient was on warfarin for possible valvular heart disease. Unsure if he has a mechanical valve. Patient follow-up with PCP after EGD and colonoscopy for management of anticoagulation and aspirin. For his hypertension, amlodipine was reduced, diuretics were held. Patient seen and examined at bedside. Vital signs reviewed and stable. General: nontoxic, no distress, appears at stated age Derm: warm, dry Head: atraumatic, normocephalic, symmetric Eyes: EOMI, no lid lag, anicteric sclera, pupils equal round reactive to light ENT: Nose and ears atraumatic Neck: No thyromegaly Mouth: no lip lesion, mucus membranes moist Cardiovascular: S1S2 reg, systolic murmur, no edema Lungs: clear to auscultation bilateral, no rhonchi, no rales, no wheeze, no accessory muscle use Abdominal: soft, nontender to palpation, no guarding, no appreciable organomegaly Ext: no gross muscle atrophy, muscle strength muscle strength 5 out of 5 in all 4 extremities, no contractures Neuro: CN II-XII grossly intact Psych: Alert, oriented, appropriate affect A total of 43 minutes of time were spent preparing this complex discharge summary. Patient was discharged on 07/18/22 at 11:10. Patient Condition at Discharge: Stable Plan - Discharge Summary New Discharge Prescriptions: New Pantoprazole [Protonix] 40 mg PO AC-BID #60 tab Continue amLODIPine [Norvasc] 5 mg PO BID@0900,1500 Rosuvastatin Calcium 10 mg PO HS Colchicine 0.6 mg PO DAILY PRN PRN Reason: Gout Fluticasone Nasal [place] [Flonase Nasal Jackson] 1 spr EA NOSTRIL BID Levocetirizine Dihydrochloride [Xyzal] 5 mg PO HS glipiZIDE [Glucotrol] 10 mg PO DAILY Ascorbic Acid [Vitamin C] 500 mg PO DAILY Acetaminophen Tab [Tylenol] 500 mg PO Q6H PRN PRN Reason: Fever And/ Or Pain calcitrioL [Calcitriol] 0.25 mcg PO MOTUWETHFR Metoprolol Tartrate [Lopressor] 50 mg PO BID@0900,1500 hydrALAZINE HCL 25 mg PO BID@0900,1500 Cholecalciferol [Vitamin D3 (25 Mcg = 1000 Iu)] 50 mcg PO DAILY Febuxostat [Uloric] 40 mg PO DAILY sitaGLIPtin [Januvia] 100 mg PO DAILY@1500 Discontinued Potassium Chloride [Klor-Con 10 ER] 10 meq PO DAILY Furosemide [Lasix] 20 mg PO BID@0900,1500 Aspirin EC [Ecotrin Low Dose] 81 mg PO DAILY Rivaroxaban [Xarelto] 15 mg PO HS Ferrous Sulfate [Iron (65 MG Elemental)] 325 mg PO DAILY Discharge Medication List Colchicine 0.6 mg PO DAILY PRN 08/25/18 [History] Fluticasone Nasal Jackson [Flonase Nasal Jackson] 1 spr EA NOSTRIL BID 08/25/18 [History] Levocetirizine Dihydrochloride [Xyzal] 5 mg PO HS 08/25/18 [History] Rosuvastatin Calcium 10 mg PO HS 08/25/18 [History] amLODIPine [Norvasc] 5 mg PO BID@0900,1500 08/25/18 [History] Acetaminophen Tab [Tylenol] 500 mg PO Q6H PRN 07/16/21 [History] Metoprolol Tartrate [Lopressor] 50 mg PO BID@0900,1500 07/16/21 [History] calcitrioL [Calcitriol] 0.25 mcg PO MOTUWETHFR 07/16/21 [History] glipiZIDE [Glucotrol] 10 mg PO DAILY 07/16/21 [History] Ascorbic Acid [Vitamin C] 500 mg PO DAILY 08/13/21 [History] hydrALAZINE HCL 25 mg PO BID@0900,1500 08/13/21 [History] Cholecalciferol [Vitamin D3 (25 Mcg = 1000 Iu)] 50 mcg PO DAILY 07/16/22 [History] Febuxostat [Uloric] 40 mg PO DAILY 07/16/22 [History] sitaGLIPtin [Januvia] 100 mg PO DAILY@1500 07/16/22 [History] Pantoprazole [Protonix] 40 mg PO AC-BID #60 tab 07/18/22 [Rx] Follow up Appointment(s)/Referral(s): Felton De Dios DO [Primary Care Provider] - 1-2 days Rudy Lucas DO [STAFF PHYSICIAN] - 1 Week Kali Armstrong MD [STAFF PHYSICIAN] - 1 Week Activity/Diet/Wound Care/Special Instructions: Please see Surgery and nephrology as soon as possible. Please see your PCP in 1- 2 days. Your PCP would need you to start your blood thinners again after your EGD and colonoscopy. Discharge Disposition: HOME SELF-CARE
[2022-07-18 11:37] LABS: Glucose,Whole Blood 133 mg/dL (70-110)
--- NOTE | 2022-07-18 11:56 | P.PN ---
Subjective Progress Note Date: 07/18/22 CHIEF COMPLAINT: GI bleed HISTORY OF PRESENT ILLNESS: Patient reports that he had a bowel movement this m orning that was black/brown. He denies any abdominal pain. He is tolerating diet. He denies any nausea or vomiting. His repeat hemoglobin did go up from 7.3-7.7. PHYSICAL EXAM: VITAL SIGNS: Reviewed. GENERAL: Well-developed in no acute distress. HEENT: No sclera icterus. Extraocular movements grossly intact. Moist buccal mucosa. Head is atraumatic, normocephalic. ABDOMEN: Soft. Nondistended. Nontender. NEUROLOGIC: Alert and oriented. Cranial nerves II through XII grossly intact. ASSESSMENT: 1. Acute GI bleed with Anemia and black stools 2. History of A. fib on Xarelto for anticoagulation 3. History of chronic kidney disease 4. Prior history of GI bleed with past colonoscopy showing diverticulosis and colon polyp PLAN: -Patient is okay to discharge from surgical standpoint when medically cleared -Plan for outpatient EGD and colonoscopy on -Continue to hold anticoagulation -Continue PPI Physician [employer] note has been reviewed by physician. Signing provider agrees with the documented findings, assessment, and plan of care. Objective - Vital Signs Vital signs: Vital Signs Temp 98.2 F 07/18/22 08:26 Pulse 67 07/18/22 08:26 Resp 18 07/18/22 08:26 BP 121/70 07/18/22 08:26 Pulse Ox 100 07/18/22 08:26 FiO2 Intake & Output 07/17/22 07/18/22 07/18/22 18:59 06:59 18:59 Other: Voiding Method Urinal Toilet Urinal # Voids 2 2 # Bowel Movements 1 - Labs CBC & Chem 7: 07/18/22 07:08 07/18/22 07:08 Labs: Abnormal Lab Results - Last 24 Hours (Table) 07/17/22 07/17/22 07/18/22 Range/Units 07:01 17:07 07:06 WBC (4.50-10.00) X 10*3/uL RBC (4.40-5.60) X 10*6/uL Hgb (13.0-17.0) g/dL Hct (39.6-50.0) % MCHC (32.0-37.0) g/dL RDW (11.5-14.5) % MPV (9.5-12.2) fL Anion Gap (10.00-18.00) mmol/L BUN (9.0-27.0) mg/dL Creatinine (0.6-1.5) mg/dL Est GFR (CKD-EPI)AfAm (60.0-200.0) Est GFR (CKD-EPI)NonAf (60.0-200.0) Glucose (70-110) mg/dL POC Glucose (mg/dL) 133 H 118 H (70-110) mg/dL Iron 20 L (65-175) ug/dL % Saturation 6.02 L (15.00-50.00) Ferritin 18.8 L (22.0-322.0) ng/mL 07/18/22 07/18/22 07/18/22 Range/Units 07:08 07:08 11:33 WBC 4.07 L (4.50-10.00) X 10*3/uL RBC 2.59 L (4.40-5.60) X 10*6/uL Hgb 7.7 L (13.0-17.0) g/dL Hct 25.0 L (39.6-50.0) % MCHC 30.8 L (32.0-37.0) g/dL RDW 15.9 H (11.5-14.5) % MPV 12.4 H (9.5-12.2) fL Anion Gap 9.90 L (10.00-18.00) mmol/L BUN 48.5 H (9.0-27.0) mg/dL Creatinine 2.6 H (0.6-1.5) mg/dL Est GFR (CKD-EPI)AfAm 26.6 L (60.0-200.0) Est GFR (CKD-EPI)NonAf 22.9 L (60.0-200.0) Glucose 114 H (70-110) mg/dL POC Glucose (mg/dL) 133 H (70-110) mg/dL Iron (65-175) ug/dL % Saturation (15.00-50.00) Ferritin (22.0-322.0) ng/mL
[2022-07-18] MEDS ORDERED: SODIUM FERRIC GLUCONAT-SUCROSE 125 MG in SODIUM CHLORIDE 0.9% 100 ML IVPB SCH (12:00)
[2022-07-18 12:25] VITALS: BP 122/66; PULSE 59; TEMP 97.6
== END 2022-07-18 15:26 | disposition home or self-care (01) | DRG 378 ==
LOC: EC 09:53 → 5NMEDONC 11:39
PROVIDERS: ADMIT Family Medicine; ATTEND Family Medicine
DX: K92.2 Gastrointestinal hemorrhage, unspecified (principal); D62 Acute posthemorrhagic anemia; N17.9 Acute kidney failure, unspecified; N18.4 Chronic kidney disease, stage 4 (severe); D50.9 Iron deficiency anemia, unspecified; E83.89 Other disorders of mineral metabolism; I12.9 Hypertensive chronic kidney disease with stage 1 through stage 4 chronic kidney disease, or unspecified chronic kidney disease; I25.10 Atherosclerotic heart disease of native coronary artery without angina pectoris; I48.91 Unspecified atrial fibrillation; K63.5 Polyp of colon; Z79.01 Long term (current) use of anticoagulants; Z79.82 Long term (current) use of aspirin; Z79.84 Long term (current) use of oral hypoglycemic drugs; Z01.10 Encounter for examination of ears and hearing without abnormal findings; Z79.899 Other long term (current) drug therapy; C67.9 Malignant neoplasm of bladder, unspecified; E11.22 Type 2 diabetes mellitus with diabetic chronic kidney disease; Z85.51 Personal history of malignant neoplasm of bladder; D63.1 Anemia in chronic kidney disease; H91.90 Unspecified hearing loss, unspecified ear; E78.5 Hyperlipidemia, unspecified; M10.9 Gout, unspecified; Z20.822 Contact with and (suspected) exposure to COVID-19; M25.512 Pain in left shoulder; Z85.828 Personal history of other malignant neoplasm of skin; Z86.010 Personal history of colon polyps; Z95.1 Presence of aortocoronary bypass graft; Z95.2 Presence of prosthetic heart valve; Z87.891 Personal history of nicotine dependence; Z87.81 Personal history of (healed) traumatic fracture
CPT/HCPCS: 36415; 71046; 80048; 80053; 82272; 82728; 83540; 83550; 83605; 83735; 83880; 84484; 85025; 85027; 85610; 85730; 86850; 86900; 86901; 86920; 87502; 87635; 93005; 99285

== ENCOUNTER 2022-07-24 10:27 | Day surgery (SDC) | payer MEDICARE, BC ==
[~2022-07-24 10:27] MED LIST changes: -LIDOCAINE 1% (10MG/ML) FOR IV START INTRADERMA PRN
[2022-07-24 11:01] VITALS: TEMP 96.9
[2022-07-24 11:14] LABS: Glucose,Whole Blood 137 mg/dL (70-110)
[2022-07-24] MEDS ORDERED: LIDOCAINE 2% INJ 20 MG/ML (2 ML VIAL) ONE (11:27)
[2022-07-24] MEDS ORDERED: PROPOFOL 10 MG/ML 20 ML VIAL IV ONE (11:27)
--- NOTE | 2022-07-24 11:31 | P.GSHP ---
History of Present Illness H&P Date: 07/24/22 Chief Complaint: GI bleed This is a [age] male presents safer EGD colonoscopy. Patient is issues with GI bleed. His last table was 7.7. Past Medical History Past Medical History: Atrial Fibrillation, Cancer, Diabetes Mellitus, Hearing Disorder / Deafness, Hypertension, Osteoarthritis (OA), Renal Disease Additional Past Medical History / Comment(s): Covid 07/20/21. Bladder cancer 2009 and 2011. Hx pelvic fracture 1993. Gout. History of Any Multi-Drug Resistant Organisms: None Reported Past Surgical History: Cardiac Valve Replacement, Coronary Bypass/CABG, Heart Catheterization, Hernia Repair Additional Past Surgical History / Comment(s): Left rotator cuff surgery, bilateral cataracts removed, umbilical hernia repair, right side salivary gland removed, broken right ankle surgery, skin cancer removed from right cheek, back and hands, heart valve replacement 11/22/19, colonoscopies. Past Anesthesia/Blood Transfusion Reactions: No Reported Reaction Smoking Status: Former smoker - Past Family History Father Family Medical History: No Reported History Medications and Allergies Home Medications Medication Instructions Recorded Confirmed Type Colchicine 0.6 mg PO DAILY PRN 08/25/18 07/22/22 History Fluticasone Nasal [place] [Flonase 1 spr EA NOSTRIL BID 08/25/18 07/22/22 History Nasal [place]] Levocetirizine Dihydrochloride 5 mg PO HS 08/25/18 07/22/22 History [Xyzal] Rosuvastatin Calcium 10 mg PO HS 08/25/18 07/22/22 History amLODIPine [Norvasc] 5 mg PO BID@0900,1500 08/25/18 07/24/22 History Acetaminophen Tab [Tylenol] 500 mg PO Q6H PRN 07/16/21 07/22/22 History Metoprolol Tartrate [Lopressor] 50 mg PO BID@0900,1500 07/16/21 07/24/22 History calcitrioL [Calcitriol] 0.25 mcg PO MOTUWETHFR 07/16/21 07/22/22 History glipiZIDE [Glucotrol] 10 mg PO DAILY 07/16/21 07/22/22 History Ascorbic Acid [Vitamin C] 500 mg PO DAILY 08/13/21 07/22/22 History hydrALAZINE HCL 25 mg PO BID@0900,1500 08/13/21 07/24/22 History Cholecalciferol [Vitamin D3 (25 50 mcg PO DAILY 07/16/22 07/22/22 History Mcg = 1000 Iu)] Febuxostat [Uloric] 40 mg PO DAILY 07/16/22 07/22/22 History sitaGLIPtin [Januvia] 100 mg PO DAILY@1500 07/16/22 07/22/22 History Pantoprazole [Protonix] 40 mg PO AC-BID #60 tab 07/18/22 07/22/22 Rx Aspirin [Adult Low Dose Aspirin EC] 81 mg PO DAILY 07/22/22 07/22/22 History Furosemide [Lasix] 20 mg PO DAILY 07/22/22 07/22/22 History Potassium Chloride [Potassium 10 meq PO DAILY 07/22/22 07/22/22 History Chloride ER] Rivaroxaban [Xarelto] 15 mg PO DAILY 07/22/22 07/22/22 History Allergies Allergy/AdvReac Type Severity Reaction Status Date / Time allopurinol AdvReac Feet Verified 07/24/22 10:56 Swelling Surgical - Exam Vital Signs Temp Pulse Resp BP Pulse Ox 96.9 F L 61 18 146/66 100 07/24/22 10:52 07/24/22 10:52 07/24/22 10:52 07/24/22 10:52 07/24/22 10:52 - General well developed, well nourished, no distress - Eyes PERRL - ENT normal pinna - Neck no masses - Respiratory normal expansion - Cardiovascular Rhythm: regular - Abdomen Abdomen: soft, non tender Results - Labs Abnormal Lab Results - Last 24 Hours (Table) 07/24/22 Range/Units 11:10 POC Glucose (mg/dL) 137 H (70-110) mg/dL Assessment and Plan Assessment: GI bleed. We'll perform EGD and colonoscopy
--- NOTE | 2022-07-24 11:52 | P.OP ---
Date of Procedure: 07/24/22 Preoperative Diagnosis: GI bleed Postoperative Diagnosis: Antral gastritis Right colon polyp External hemorrhoids Procedure(s) Performed: EGD Colonoscopy Anesthesia: MAC Surgeon: Kali Armstrong Pathology: other (Antrum, right colon polyp) Condition: stable Disposition: PACU Description of Procedure: The patient's placed on the endoscopy table in the lateral position. He received IV sedation. The gastro-/oropharynx passed in the esophagus into the stomach. It was then placed through the pylorus. The first and second portion of the duodenum appeared normal. Scope was then brought back the antrum this appeared mildly inflamed. A biopsies performed. The scope was then retroflexed and the remainder of the stomach appeared normal. The GE junction was at 40 cm. The distal esophagus appeared normal. The proximal esophagus. Normal. Scope withdrawn for patient. Next digital rectal exam was performed. This revealed external hemorrhoids. The flexible colonoscope was then placed patient anus passed throughout the entire colon. Ileocecal valve sutures. In the right colon there was a pedunculated polyp. This removed with the snare. The remainder the ascending colon, transverse colon, descending colon appeared normal. There was a few scattered diverticula and sigmoid colon scope was brought back the rectum this appeared normal. Scope some withdrawn.. His presumed patient may have had bleeding from hemorrhoids.
[2022-07-24 11:58] VITALS: RESP 16
[2022-07-24 12:12] VITALS: BP 114/56; PULSE 68
== END 2022-07-24 12:28 | disposition home or self-care (01) ==
LOC: ORWHC2ENDO 10:27
PROVIDERS: ATTEND Surgery
DX: D12.3 Benign neoplasm of transverse colon (principal); K29.50 Unspecified chronic gastritis without bleeding; I48.91 Unspecified atrial fibrillation; E11.9 Type 2 diabetes mellitus without complications; M19.90 Unspecified osteoarthritis, unspecified site; I10 Essential (primary) hypertension; K64.4 Residual hemorrhoidal skin tags; Z79.82 Long term (current) use of aspirin; Z79.84 Long term (current) use of oral hypoglycemic drugs; Z85.51 Personal history of malignant neoplasm of bladder; Z86.16 Personal history of COVID-19; Z87.891 Personal history of nicotine dependence; Z95.1 Presence of aortocoronary bypass graft; Z95.2 Presence of prosthetic heart valve
CPT/HCPCS: 88305; 45385; 43239; J2704; J2001

== ENCOUNTER 2023-06-14 03:55 | Inpatient (IN) | payer MEDICARE, BC ==
[2023-06-14] MEDS ORDERED: ONDANSETRON 4 MG/2 ML VIAL IVP STA (05:29)
[2023-06-14] MEDS ORDERED: MORPHINE SULFATE 4 MG/ML SYRINGE IV STA (05:29)
[2023-06-14] MEDS ORDERED: SODIUM CHLORIDE 0.9% 1,000 ML IV STA ×2 (05:29→06:53)
[2023-06-14] MEDS ORDERED: NALOXONE 0.4 MG/ML 1 ML VIAL IV PRN (05:29)
[2023-06-14] MEDS ORDERED: ONDANSETRON 4 MG/2 ML VIAL IVP PRN (05:29)
[2023-06-14] MEDS ORDERED: MORPHINE SULFATE 4 MG/ML SYRINGE IV PRN (05:29)
--- NOTE | 2023-06-14 05:36 | ED ---
Weakness HPI - General Chief complaint: Back Pain/Injury Stated complaint: Weakness Time Seen by Provider: 06/14/23 03:59 Source: EMS, RN notes reviewed, old records reviewed, Caregiver Mode of arrival: EMS Limitations: no limitations - History of Present Illness Initial comments: This is a 78-year-old male to ER with significant and persistent weakness and debility. Patient is unable to take care of himself at home. Brought in by the who states the patient is unable at this point to get out of his chair and was coughing and screaming for help as he couldn't get up the ground when he rolled off the front of his chair this morning. Patient states ever since he had an inpatient hospitalization his weakness has significantly increased and p rior to that he was able to do all his normal activities of daily living. MD Complaint: generalized weakness, focal weakness -: days(s) Location: generalized Severity: moderate Severity scale (1-10): 4 Consistency: constant Improves with: none Worsens with: none Context: history of similar Associated Symptoms: denies other symptoms - Related Data Home Medications Medication Instructions Recorded Confirmed Colchicine 0.6 mg PO DAILY@0800 08/25/18 06/14/23 Fluticasone Nasal [place] [Flonase 1 spr EA NOSTRIL BID@0800,1500 08/25/18 06/14/23 Nasal [place]] Levocetirizine Dihydrochloride 5 mg PO HS 08/25/18 06/14/23 [Xyzal] Rosuvastatin Calcium 10 mg PO HS 08/25/18 06/14/23 Acetaminophen Tab [Tylenol] 500 mg PO Q6H PRN 07/16/21 06/14/23 Metoprolol Tartrate [Lopressor] 50 mg PO BID@0800,1500 07/16/21 06/14/23 calcitrioL [Calcitriol] 0.25 mcg PO MOTUWETHFR 07/16/21 06/14/23 glipiZIDE [Glucotrol] 10 mg PO DAILY@0800 07/16/21 06/14/23 Ascorbic Acid [Vitamin C] 500 mg PO DAILY@0800 08/13/21 06/14/23 Cholecalciferol [Vitamin D3 (25 50 mcg PO DAILY@0800 07/16/22 06/14/23 Mcg = 1000 Iu)] Febuxostat [Uloric] 40 mg PO DAILY@0800 07/16/22 06/14/23 sitaGLIPtin [Januvia] 100 mg PO DAILY@1500 07/16/22 06/14/23 Aspirin [Adult Low Dose Aspirin EC] 81 mg PO DAILY@0800 07/22/22 06/14/23 Rivaroxaban [Xarelto] 15 mg PO HS 07/22/22 06/14/23 Calcium 500mg 500 mg PO DAILY@0800 05/27/23 06/14/23 Ferrous Sulfate [Iron (65 MG 325 mg PO DAILY@0800 05/27/23 06/14/23 Elemental)] Pantoprazole [Protonix] 40 mg PO BID@0800,1500 05/27/23 06/14/23 hydrALAZINE HCL [Apresoline] 25 mg PO BID@0800,1500 05/27/23 06/14/23 lisinopriL 2.5 mg PO DAILY@0800 05/27/23 06/14/23 Amiodarone [Cordarone] See Taper PO DIRECTED 06/14/23 06/14/23 Furosemide [Lasix] 20 mg PO BID 06/14/23 06/14/23 Potassium Chloride ER [K-Dur 20] 20 meq PO DAILY 06/14/23 06/14/23 Previous Rx's Medication Instructions Recorded HYDROcodone/APAP 5-325MG [[place] 1 each PO Q6HR PRN 7 Days #28 tab 05/28/23 5-325] Allergies Allergy/AdvReac Type Severity Reaction Status Date / Time allopurinol AdvReac Feet Verified 06/14/23 12:20 Swelling Review of Systems ROS Statement: Those systems with pertinent positive or pertinent negative responses have been documented in the HPI. ROS Other: All systems not noted in ROS Statement are negative. Past Medical History Past Medical History: Atrial Fibrillation, Cancer, Diabetes Mellitus, Hearing Disorder / Deafness, Hypertension, Osteoarthritis (OA), Renal Disease Additional Past Medical History / Comment(s): Covid 07/20/21. Bladder cancer 2009 and 2011. Hx pelvic fracture 1993. Gout. Herniated disc in back in 2001. Bilateral eye cateracts. Skin cancer 10/08/20 with removal. Anemia. CKD History of Any Multi-Drug Resistant Organisms: None Reported Past Surgical History: Cardiac Valve Replacement, Coronary Bypass/CABG, Heart Catheterization, Hernia Repair Additional Past Surgical History / Comment(s): Left rotator cuff surgery, bilateral cataracts removed, umbilical hernia repair, right side salivary gland removed, broken right ankle surgery, skin cancer removed from right cheek, back and hands, heart valve replacement 11/22/19, colonoscopies, coronary artery byp ass 11/22/2019. Past Anesthesia/Blood Transfusion Reactions: No Reported Reaction Past Psychological History: No Psychological Hx Reported Smoking Status: Former smoker Past Alcohol Use History: Occasional Past Drug Use History: None Reported - Past Family History Father Additional Family Medical History / Comment(s): of emphysema. Mother Additional Family Medical History / Comment(s): of either kidney or liver problems per patient. Brother(s) Family Medical History: Unable to Obtain Son(s) Additional Family Medical History / Comment(s): Son from EtOH abuse General Exam General appearance: alert, in no apparent distress Head exam: Present: atraumatic, normocephalic, normal inspection Eye exam: Present: normal appearance, PERRL, EOMI. Absent: scleral icterus, conjunctival injection, periorbital swelling ENT exam: Present: normal exam, mucous membranes moist Neck exam: Present: normal inspection. Absent: tenderness, meningismus, lymphadenopathy Respiratory exam: Present: normal lung sounds bilaterally. Absent: respiratory distress, wheezes, rales, rhonchi, stridor Cardiovascular Exam: Present: regular rate, normal rhythm, normal heart sounds. Absent: systolic murmur, diastolic murmur, rubs, gallop, clicks GI/Abdominal exam: Present: soft, normal bowel sounds. Absent: distended, tenderness, guarding, rebound, rigid Extremities exam: Present: normal inspection, full ROM, normal capillary refill. Absent: tenderness, pedal edema, joint swelling, calf tenderness Back exam: Present: normal inspection Neurological exam: Present: alert, oriented X3, CN II-XII intact Psychiatric exam: Present: normal affect, normal mood Skin exam: Present: warm, dry, intact, normal color. Absent: rash Course Vital Signs 06/14/23 06/14/23 06/14/23 03:58 06:04 07:38 Temperature 97.9 F 97.8 F Pulse Rate 86 84 86 Respiratory 18 18 16 Rate Blood Pressure 113/63 100/50 110/68 O2 Sat by Pulse 96 100 100 Oximetry 06/14/23 09:40 Temperature Pulse Rate 68 Respiratory 16 Rate Blood Pressure 140/60 O2 Sat by Pulse 98 Oximetry - Reevaluation(s) Reevaluation #1: 06/14/23 07:36 Medical records reviewed Reevaluation #2: 06/14/23 07:36 Patient showing no significant changes here in the ER Reevaluation #3: 06/14/23 07:36 Patient informed results questions answered Reevaluation #4: 06/14/23 07:36 Was pt. sent in by a medical professional or institution (, SEEMA, HOUSE COORDINATOR, urgent care, hospital, or retirement...) When possible be specific @ -no Did you speak to anyone other than the patient for history (EMS, parent, family, police, friend...)? What history was obtained from this source @ -no Did you review nursing and triage notes (agree or disagree)? Why? @ -agree Are old charts reviewed (outside hosp., previous admission, EMS record, old EKG, old radiological studies, urgent care reports/EKG's, retirement records)? Report findings @ -yes Differential Diagnosis (chest pain, altered mental status, abdominal pain women, abdominal pain men, vaginal bleeding, weakness, fever, dyspnea, syncope, headache, dizziness, GI bleed, back pain, seizure, CVA, palpatations, mental health, musculoskeletal)? @ -prior EKG interpreted by me (3pts min.). @ -yes X-rays interpreted by me (1pt min.). @ -no CT interpreted by me (1pt min.). @ -no U/S interpreted by me (1pt. min.). @ -no What testing was considered but not performed or refused? (CT, X-rays, U/S, labs)? Why? @ -none What meds were considered but not given or refused? Why? @ -none Did you discuss the management of the patient with other professionals (professionals i.e. SEEMA Gottlieb, HOUSE COORDINATOR, lab, RT, psych nurse, medical social worker, tarper, teacher, admitting officer, casework manager)? Give summary @ -no Was smoking cessation discussed for >3mins.? @ -no Was critical care preformed (if so, how long)? @ -no Were there social determinants of health that impacted care today? How? (Cheri elessness, low income, unemployed, alcoholism, drug addiction, transportation, low edu. Level, literacy, decrease access to med. care, snf, rehab)? @ -none Was there de-escalation of care discussed even if they declined (Discuss DNR or withdrawal of care, Hospice)? DNR status @ -no What co-morbidities impacted this encounter? (DM, HTN, Smoking, COPD, CAD, Cancer, CVA, ARF, Chemo, Hep., AIDS, mental health diagnosis, sleep apnea, morbid obesity)? @ -none Was patient admitted / discharged? Hospital course, mention meds given and route, prescriptions, significant lab abnormalities, going to OR and other pertinent info. @ - 78 male with significant disability and pain back pain leg pain hip pain. Also has history of lumbar radiculopathy and sciatica comes in for severe pain per patient but states the patient safely disabled inability take care of himself ambulate, stooling himself in the house. Patient is found to be in severe worsening of renal failure with decreased urinary output will be admitted for nephrology to see, PTOT and need for placement Admitted Undiagnosed new problem with uncertain prognosis? @ -no Drug Therapy requiring intensive monitoring for toxicity (Heparin, Nitro, Insulin, Cardizem)? @ -no Were any procedures done? @ -no Diagnosis/symptom? @ -Back pain, renal failure Acute, or Chronic, or Acute on Chronic? @ -Acute Uncomplicated (without systemic symptoms) or Complicated (systemic symptoms)? @ -Complicated Side effects of treatment? @ -no Exacerbation, Progression, or Severe Exacerbation? @ -exacerbation Poses a threat to life or bodily function? How? (Chest pain, [place], NV, pneumonia, PE, COPD, DKA, ARF, appy, cholecystitis, CVA, Diverticulitis, Homicidal, Suicidal, threat to staff... and all critical care pts) @ -yes with severe dental disease and extremity of age Reevaluation #5: 06/14/23 07:36 Differential Weakness: Hypoglycemia, shock, sepsis, hyponatremia, anemia, infection, NV, ETOH, adverse medicine reaction, overdose, stroke, this is not meant to be an all-inclusive list. - Consultations Consultation #1: Spoke with mikie who agrees to admit this patient EKG Findings - EKG Comments: EKG Findings:: EKG shows atrial rhythm with PVCs 84 WA 132 QRS 131 QTc 457 Medical Decision Making - Medical Decision Making 78 male with significant disability and pain back pain leg pain hip pain. Also has history of lumbar radiculopathy and sciatica comes in for severe pain per patient but states the patient safely disabled inability take care of himself ambulate, stooling himself in the house. Patient is found to be in severe worsening of renal failure with decreased urinary output will be admitted for nephrology to see, PTOT and need for placement - Lab Data Result diagrams: 06/19/23 11:06 06/19/23 11:06 - Radiology Data Radiology results: report reviewed (Chest x-rays negative for acute disease), image reviewed Critical Care Time Critical Care Time: Yes Total Critical Care Time: 31 Disposition Clinical Impression: Mechanical back pain, Renal failure, Anemia, [place] (acute kidney injury), Atrial fibrillation, Debility, Weakness Disposition: ADMITTED IP TO THIS [facility] Condition: Serious Is patient prescribed a controlled substance at d/c from ED?: No Time of Disposition: 07:35
[2023-06-14 06:20] LABS: Basophils # (A) 0.1 k/uL (0-0.2); Basophils % (A) 2 %; Eosinophils % (A) 0 %; HCT 38.4 % (39.0-53.0); HGB 12.9 gm/dL (13.0-17.5); Lymphocytes # (A) 0.2 k/uL (1.0-4.8); Lymphocytes % (A) 4 %; MCH 31.5 pg (25.0-35.0); MCHC 33.7 g/dL (31.0-37.0); MCV 93.5 fL (80.0-100.0); Mean Platelet Volume 9.5; Monocytes # (A) 0.3 k/uL (0-1.0); Monocytes % (A) 6 %; Neutrophils # (A) 4.6 k/uL (1.3-7.7); Neutrophils % (A) 86 %; Platelet Count 121 k/uL (150-450); RDW 14.4 % (11.5-15.5); WBC 5.4 k/uL (3.8-10.6)
[2023-06-14 06:24] LABS: INR 1.5 (<1.2); Partial Thromboplastin Time 32.5 sec (22.0-30.0); Prothrombin Time 14.8 sec (9.0-12.0)
[2023-06-14 06:26] LABS: ALT 49 U/L (4-49); AST 92 U/L (17-59); African American GFR (CKD) 8 (>60 ml/min/1.73 sqM); Albumin 2.8 g/dL (3.5-5.0); Alkaline Phosphatase 91 U/L (38-126); Anion Gap 17 mmol/L; Calcium 8.5 mg/dL (8.4-10.2); Carbon Dioxide 14 mmol/L (22-30); Chloride 104 mmol/L (98-107); Glucose 76 mg/dL (74-99); Non-African American GFR(CKD) 7 (>60 ml/min/1.73 sqM); Phosphorus 5.7 mg/dL (2.5-4.5); Potassium 4.3 mmol/L (3.5-5.1); Sodium 135 mmol/L (137-145); Total Bilirubin 0.5 mg/dL (0.2-1.3); Total Protein 5.9 g/dL (6.3-8.2)
[2023-06-14 06:39] LABS: Blood Urea Nitrogen 145 mg/dL (9-20)
[2023-06-14 07:24] LABS: Appearance,Urine Cloudy (Clear); Bacteria,Urine Rare /hpf; Bilirubin,Urine Negative (Negative); Blood,Urine Negative (Negative); Color,Urine Yellow; Glucose,Urine (UA) Negative (Negative); Hyaline Casts,Urine 21 /lpf (0-2); Ketones,Urine Negative (Negative); Leukocyte Esterase,Urine Negative (Negative); Mucus,Urine Rare /hpf; Nitrite,Urine Negative (Negative); Protein,Urine Trace (Negative); RBC,Urine 5 /hpf (0-5); Specific Gravity,Urine 1.016 (1.001-1.035); Squamous Epithelial Cell,Urine 1 /hpf (0-4); Urobilinogen,Urine <2.0 mg/dL (<2.0); WBC,Urine 5 /hpf (0-5)
[2023-06-14] MEDS ORDERED: LOPERAMIDE 2 MG CAP PO PRN (10:59)
[2023-06-14] MEDS ORDERED: ACETAMINOPHEN TAB 500 MG TAB PO PRN (11:00)
--- NOTE | 2023-06-14 11:06 | US ---
EXAMINATION TYPE: US kidneys/renal and bladder DATE OF EXAM: 06/14/2023 COMPARISON: None CLINICAL INDICATION: Male, 78 years old with history of kwaku; Abnormal labs. Bladder lopez. Portable EC exam EXAM MEASUREMENTS: Right Kidney: 11.6 x 5.0 x 5.6 cm Left Kidney: 10.1 x 5.4 x 5.9 cm Limited due to patient body habitus Right Kidney: Lateral superior cortical hypoechoic area = 1.6 x 1.8 x 1.6 cm , without abnormal asso ciated Doppler flow seen Left Kidney: Mid superior hypoechoic appearing lesion = 3.8 x 2.7 x 2.2 cm , without abnormal associ ated Doppler flow seen Bladder: Lopez visualized in a decompressed bladder Bilateral Jets not seen due to lopez There is no evidence for hydronephrosis at this point in time. No nephrolithiasis is seen. No amandeep s are identified. IMPRESSION: 1. Bladder decompressed by a Lopez and not well assessed. 2. No evidence of hydronephrosis or shadowing renal calculus. 3. Bilateral hypoechoic renal lesions, most compatible with cysts.
[2023-06-14 11:22] LABS: Glucose,Whole Blood 74 mg/dL (70-110)
--- NOTE | 2023-06-14 11:22 | P.CRDCN ---
History of Present Illness History of present illness: HISTORY OF PRESENT ILLNESS: This is a 78-year-old male with a past medical history significant for atrial fibrillation, chronic kidney disease, hypertension, hyperlipidemia, diabetes, and aortic valve replacement. 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 We have been asked to see the patient in consultation for elevated troponin. Patient examined at the bedside in the emergency room. Patient's is present. Patient was brought to the hospital secondary to generalized weakness and debility. He also reports bilateral hip pain. He denies having any chest pain or pressure. He denies any shortness of breath. Denies any dizziness or lightheadedness. Vital signs are stable. * EKG reveals sinus mechanism with PACs * Current home cardiac medications include lisinopril 2.5 mg daily, hydralazine 25 mg twice a day, Xarelto 15 mg at night, rosuvastatin 10 mg at night, metoprolol tartrate 50 mg twice a day, aspirin 81 mg daily, and amiodarone 400 mg daily * Most recent echocardiogram obtained in May 2023 revealed ejection fraction 50-55%, mild MR, bioprosthetic aortic valve with mean gradient of 18 mmHg, and max gradient of 35 mmHg, and trace pulmonic regurgitation REVIEW OF SYSTEMS: At the time of my exam: CONSTITUTIONAL: Denies fever or chills. HEENT: Denies blurred vision, vision changes, or eye pain. Denies hemoptysis CARDIOVASCULAR: Denies chest pain. Denies orthopnea. Denies PND. Denies palpitations RESPIRATORY: Denies shortness of breath. GASTROINTESTINAL: Denies abdominal pain. Denies nausea or vomiting. HEMATOLOGIC: Denies bleeding disorders. GENITOURINARY: Denies any blood in urine. SKIN: Denies pruitis. Denies rash. PHYSICAL EXAM: VITAL SIGNS: Reviewed. GENERAL: Well-developed in no acute distress. HEENT: Head is normocephalic. Pupils are equal, round. Sclerae anicteric. Mucous membranes of the mouth are moist. Neck supple. No JVD or thyromegaly LUNGS: Respirations even and unlabored. Lungs essentially clear to auscultation bilaterally. HEART: Regular rate and rhythm. S1 and S2 heard. Systolic murmur noted ABDOMEN: Soft. Nondistended. Nontender. EXTREMITIES: Normal range of motion. No clubbing or cyanosis. Peripheral pulses intact. Trace bilateral lower extremity edema NEUROLOGIC: Awake and alert. Oriented x 3. ASSESSMENT: Generalized weakness and debility Chronic kidney disease Abnormal troponin, likely secondary to above, no evidence of acute coronary syndrome Paroxysmal atrial fibrillation, currently maintaining sinus mechanism Hypertension Hyperlipidemia Diabetes History of bioprosthetic aortic valve replacement PLAN: No need to repeat echocardiogram as this was performed in May 2023 Obtain additional troponin Resume home cardiac medications Decrease amiodarone to 200 mg daily Continue telemetry monitoring Further recommendations pending patient's course Nurse practitioner note has been reviewed by physician. Signing provider agrees with the documented findings, assessment, and plan of care. Past Medical History Past Medical History: Atrial Fibrillation, Cancer, Diabetes Mellitus, Hearing Disorder / Deafness, Hypertension, Osteoarthritis (OA), Renal Disease Additional Past Medical History / Comment(s): Covid 07/20/21. Bladder cancer 2009 and 2011. Hx pelvic fracture 1993. Gout. Herniated disc in back in 2001. Bilateral eye cateracts. Skin cancer 10/08/20 with removal. Anemia. CKD History of Any Multi-Drug Resistant Organisms: None Reported Past Surgical History: Cardiac Valve Replacement, Coronary Bypass/CABG, Heart Catheterization, Hernia Repair Additional Past Surgical History / Comment(s): Left rotator cuff surgery, bilateral cataracts removed, umbilical hernia repair, right side salivary gland removed, broken right ankle surgery, skin cancer removed from right cheek, back and hands, heart valve replacement 11/22/19, colonoscopies, coronary artery bypass 11/22/2019. Past Anesthesia/Blood Transfusion Reactions: No Reported Reaction Past Psychological History: No Psychological Hx Reported Smoking Status: Former smoker Past Alcohol Use History: Occasional Past Drug Use History: None Reported - Past Family History Father Additional Family Medical History / Comment(s): of emphysema. Mother Additional Family Medical History / Comment(s): of either kidney or liver problems per patient. Brother(s) Family Medical History: Unable to Obtain Medications and Allergies Home Medications Medication Instructions Recorded Confirmed Type Colchicine 0.6 mg PO DAILY@0800 08/25/18 06/14/23 History Fluticasone Nasal [place] [Flonase 1 spr EA NOSTRIL BID@0800,1500 08/25/18 History Nasal [place]] Levocetirizine Dihydrochloride 5 mg PO HS 08/25/18 06/14/23 History [Xyzal] Rosuvastatin Calcium 10 mg PO HS 08/25/18 06/14/23 History Acetaminophen Tab [Tylenol] 500 mg PO Q6H PRN 07/16/21 06/14/23 History Metoprolol Tartrate [Lopressor] 50 mg PO BID@0800,1500 07/16/21 06/14/23 History calcitrioL [Calcitriol] 0.25 mcg PO MOTUWETHFR 07/16/21 06/14/23 History glipiZIDE [Glucotrol] 10 mg PO DAILY@0800 07/16/21 06/14/23 History Ascorbic Acid [Vitamin C] 500 mg PO DAILY@0800 08/13/21 06/14/23 History Cholecalciferol [Vitamin D3 (25 50 mcg PO DAILY@0800 07/16/22 06/14/23 History Mcg = 1000 Iu)] Febuxostat [Uloric] 40 mg PO DAILY@0800 07/16/22 06/14/23 History sitaGLIPtin [Januvia] 100 mg PO DAILY@1500 07/16/22 06/14/23 History Aspirin [Adult Low Dose Aspirin EC] 81 mg PO DAILY@0800 07/22/22 06/14/23 History Rivaroxaban [Xarelto] 15 mg PO HS 07/22/22 06/14/23 History Calcium 500mg 500 mg PO DAILY@0800 05/27/23 06/14/23 History Ferrous Sulfate [Iron (65 MG 325 mg PO DAILY@0800 05/27/23 06/14/23 History Elemental)] Pantoprazole [Protonix] 40 mg PO BID@0800,1500 05/27/23 06/14/23 History hydrALAZINE HCL [Apresoline] 25 mg PO BID@0800,1500 05/27/23 06/14/23 History lisinopriL 2.5 mg PO DAILY@0800 05/27/23 06/14/23 History HYDROcodone/APAP 5-325MG [[place] 1 each PO Q6HR PRN 7 Days #28 tab 05/28/23 06/14/23 Rx 5-325] Amiodarone [Cordarone] 400 mg PO DAILY 06/14/23 06/14/23 History Allergies Allergy/AdvReac Type Severity Reaction Status Date / Time allopurinol AdvReac Feet Verified 06/14/23 04:04 Swelling Physical Exam Vitals: Vital Signs Temp Pulse Resp BP Pulse Ox 06/14/23 09:40 68 16 140/60 98 06/14/23 07:38 97.8 F 86 16 110/68 100 06/14/23 06:04 84 18 100/50 100 06/14/23 03:58 97.9 F 86 18 113/63 96 Intake and Output 06/13/23 06/14/23 06/14/23 22:59 06:59 14:59 Other: Weight 108.409 kg Results 06/14/23 05:57 06/14/23 05:57 Cardiac Enzymes 06/14/23 06/14/23 Range/Units 05:57 05:57 AST 92 H (17-59) U/L Troponin I 0.100 H* (0.000-0.034) ng/mL Coagulation 06/14/23 Range/Units 05:57 PT 14.8 H (9.0-12.0) sec APTT 32.5 H (22.0-30.0) sec CBC 06/14/23 Range/Units 05:57 WBC 5.4 (3.8-10.6) k/uL RBC 4.10 L (4.30-5.90) m/uL Hgb 12.9 L (13.0-17.5) gm/dL Hct 38.4 L (39.0-53.0) % Plt Count 121 L (150-450) k/uL Comprehensive Metabolic Panel 06/14/23 Range/Units 05:57 Sodium 135 L (137-145) mmol/L Potassium 4.3 (3.5-5.1) mmol/L Chloride 104 (98-107) mmol/L Carbon Dioxide 14 L (22-30) mmol/L BUN 145 H* (9-20) mg/dL Creatinine 6.78 H (0.66-1.25) mg/dL Glucose 76 (74-99) mg/dL Calcium 8.5 (8.4-10.2) mg/dL AST 92 H (17-59) U/L ALT 49 (4-49) U/L Alkaline Phosphatase 91 (38-126) U/L Total Protein 5.9 L (6.3-8.2) g/dL Albumin 2.8 L (3.5-5.0) g/dL Current Medications Generic Name Dose Route Start Last Admin Trade Name Freq PRN Reason Stop Dose Admin Acetaminophen 500 mg 06/14/23 11:00 Acetaminophen Tab 500 Mg Tab PO Q6H PRN Fever and/ or Pain Hydrocodone Bitart/Acetaminophen 1 each 06/14/23 11:00 Hydrocodone/Apap 5-325mg 1 Each Tab PO Q6HR PRN Pain Amiodarone HCl 400 mg 06/14/23 11:00 Amiodarone 200 Mg Tab PO DAILY [facility] Ascorbic Acid 500 mg 06/15/23 08:00 Ascorbic Acid 500 Mg Tab PO DAILY@0800 [facility] Aspirin 81 mg 06/14/23 11:30 Aspirin 81 Mg PO DAILY@0800 [facility] Atorvastatin Calcium 20 mg 06/14/23 21:00 Atorvastatin 20 Mg Tab PO HS [facility] Calcitriol 0.25 mcg 06/15/23 09:00 Calcitriol 0.25 Mcg Cap PO MoTuWeThFr@0900 [facility] Cholecalciferol 50 mcg 06/15/23 08:00 Cholecalciferol 25 Mcg (1000 Iu) Tablet PO DAILY@0800 [facility] Colchicine 0.6 mg 06/15/23 08:00 Colchicine 0.6 Mg Each PO DAILY@0800 [facility] Ferrous Sulfate 325 mg 06/15/23 08:00 Ferrous Sulfate 325 Mg Tab PO DAILY@0800 [facility] Fluticasone Propionate 1 spray 06/14/23 15:00 Fluticasone 50mcg/[place] Nasal 16gm EA NOSTRIL BID@0800,1500 [facility] Glipizide 10 mg 06/15/23 08:00 Glipizide 10 Mg Tab PO DAILY@0800 [facility] Hydralazine HCl 25 mg 06/14/23 15:00 Hydralazine Hcl 25 Mg Tab PO BID@0800,1500 [facility] Sodium Chloride 1,000 mls @ 130 mls/hr 06/14/23 05:29 06/14/23 06:09 Saline 0.9% IV 06/14/23 13:10 130 mls/hr .[id number] STA Administration Linagliptin 5 mg 06/14/23 15:00 Linagliptin 5 Mg Tablet PO DAILY@1500 [facility] Lisinopril 2.5 mg 06/15/23 08:00 Lisinopril 2.5 Mg Tab PO DAILY@0800 [facility] Loperamide HCl 2 mg 06/14/23 10:59 Loperamide 2 Mg Cap PO QID PRN Diarrhea Loratadine 10 mg 06/14/23 21:00 Loratadine 10 Mg Tab PO HS [facility] Metoprolol Tartrate 50 mg 06/14/23 15:00 Metoprolol Tartrate 50 Mg Tab PO BID@0800,1500 [facility] Naloxone HCl 0.2 mg 06/14/23 05:29 Naloxone 0.4 Mg/Ml 1 Ml Vial IV Q2M PRN Opioid Reversal Non-Formulary Medication 40 mg 06/15/23 08:00 Febuxostat [Uloric] PO DAILY@0800 [facility] Ondansetron HCl 4 mg 06/14/23 05:29 Ondansetron 4 Mg/2 Ml Vial IVP Q8HR PRN Nausea And Vomiting Pantoprazole Sodium 40 mg 06/14/23 15:00 Pantoprazole 40 Mg Tablet PO BID@0800,1500 [facility] Rivaroxaban 15 mg 06/14/23 21:00 Rivaroxaban 15 Mg Tab PO HS [facility] Protocol Intake and Output 06/13/23 06/14/23 06/14/23 22:59 06:59 14:59 Other: Weight 108.409 kg 06/14/23 05:57 06/14/23 05:57
--- NOTE | 2023-06-14 11:27 | P.NPCON ---
History of Present Illness - Reason for Consult acute renal failure, chronic renal failure - History of Present Illness Reason for consultation: Acute kidney injury on chronic kidney disease History of present illness: Patient is a 78-year-old male seen in renal consultation for acute kidney injury on chronic any disease. Patient has chronic kidney disease stage IV with baseline creatinine near 2.5 secondary to diabetic kidney disease and nephrosclerosis. Patient's creatinine this admission was 6.78 with a BUN of 145. According to the he has not been able to ambulate much due to pain from sciatica. Additionally he's been having loose bowel movements for the last few days. Patient has long-standing history of diabetes. He also has history of coronary disease and had Open heart surgery in November 2019. Blood pressures stable with lowest reading of 100/50 this admission. He is on room air. He denies use of nonsteroidals. Patient is maintained on FLOYD inhibitor. Wong catheter was placed for urinary retention. Kidney ultrasound is pending. Echocardiogram from May 2023 showed preserved ejection fraction. Patient was diagnosed with A. fib in May 2023 and was discharged on amiodarone. Heart rate is controlled. No chest pain or shortness of breath. Vital signs are stable. General: No acute distress. HEENT: Head exam is unremarkable. LUNGS: No audible rhonchi or wheezes. HEART: Rate and Rhythm are regular. ABDOMEN: Nontender. EXTREMITITES: Trace edema. Past Medical History Past Medical History: Atrial Fibrillation, Cancer, Diabetes Mellitus, Hearing Disorder / Deafness, Hypertension, Osteoarthritis (OA), Renal Disease Additional Past Medical History / Comment(s): Covid 07/20/21. Bladder cancer 2009 and 2011. Hx pelvic fracture 1993. Gout. Herniated disc in back in 2001. Bilateral eye cateracts. Skin cancer 10/08/20 with removal. Anemia. CKD History of Any Multi-Drug Resistant Organisms: None Reported Past Surgical History: Cardiac Valve Replacement, Coronary Bypass/CABG, Heart Catheterization, Hernia Repair Additional Past Surgical History / Comment(s): Left rotator cuff surgery, bilateral cataracts removed, umbilical hernia repair, right side salivary gland removed, broken right ankle surgery, skin cancer removed from right cheek, back and hands, heart valve replacement 11/22/19, colonoscopies, coronary artery bypass 11/22/2019. Past Anesthesia/Blood Transfusion Reactions: No Reported Reaction Past Psychological History: No Psychological Hx Reported Smoking Status: Former smoker Past Alcohol Use History: Occasional Past Drug Use History: None Reported - Past Family History Father Additional Family Medical History / Comment(s): of emphysema. Mother Additional Family Medical History / Comment(s): of either kidney or liver problems per patient. Brother(s) Family Medical History: Unable to Obtain Medications and Allergies Home Medications Medication Instructions Recorded Confirmed Type Colchicine 0.6 mg PO DAILY@0800 08/25/18 06/14/23 History Fluticasone Nasal [place] [Flonase 1 spr EA NOSTRIL BID@0800,1500 08/25/18 06/14/23 History Nasal [place]] Levocetirizine Dihydrochloride 5 mg PO HS 08/25/18 06/14/23 History [Xyzal] Rosuvastatin Calcium 10 mg PO HS 08/25/18 06/14/23 History Acetaminophen Tab [Tylenol] 500 mg PO Q6H PRN 07/16/21 06/14/23 History Metoprolol Tartrate [Lopressor] 50 mg PO BID@0800,1500 07/16/21 06/14/23 History calcitrioL [Calcitriol] 0.25 mcg PO MOTUWETHFR 07/16/21 06/14/23 History glipiZIDE [Glucotrol] 10 mg PO DAILY@0800 07/16/21 06/14/23 History Ascorbic Acid [Vitamin C] 500 mg PO DAILY@0800 08/13/21 06/14/23 History Cholecalciferol [Vitamin D3 (25 50 mcg PO DAILY@0800 07/16/22 06/14/23 History Mcg = 1000 Iu)] Febuxostat [Uloric] 40 mg PO DAILY@0800 07/16/22 06/14/23 History sitaGLIPtin [Januvia] 100 mg PO DAILY@1500 07/16/22 06/14/23 History Aspirin [Adult Low Dose Aspirin EC] 81 mg PO DAILY@0800 07/22/22 06/14/23 History Rivaroxaban [Xarelto] 15 mg PO HS 07/22/22 06/14/23 History Calcium 500mg 500 mg PO DAILY@0800 05/27/23 06/14/23 History Ferrous Sulfate [Iron (65 MG 325 mg PO DAILY@0800 05/27/23 06/14/23 History Elemental)] Pantoprazole [Protonix] 40 mg PO BID@0800,1500 05/27/23 06/14/23 History hydrALAZINE HCL [Apresoline] 25 mg PO BID@0800,1500 05/27/23 06/14/23 History lisinopriL 2.5 mg PO DAILY@0800 05/27/23 06/14/23 History HYDROcodone/APAP 5-325MG [[place] 1 each PO Q6HR PRN 7 Days #28 tab 05/28/23 06/14/23 Rx 5-325] Amiodarone [Cordarone] 400 mg PO DAILY 06/14/23 06/14/23 History Allergies Allergy/AdvReac Type Severity Reaction Status Date / Time allopurinol AdvReac Feet Verified 06/14/23 04:04 Swelling Physical Exam Vitals: Vital Signs Temp Pulse Resp BP Pulse Ox 06/14/23 09:40 68 16 140/60 98 06/14/23 07:38 97.8 F 86 16 110/68 100 06/14/23 06:04 84 18 100/50 100 06/14/23 03:58 97.9 F 86 18 113/63 96 Intake and Output 06/13/23 06/14/23 06/14/23 22:59 06:59 14:59 Other: Weight 108.409 kg Results - Lab Results Most recent lab results Calcium 8.5 mg/dL (8.4-10.2) 06/14/23 05:57 Phosphorus 5.7 mg/dL (2.5-4.5) H 06/14/23 05:57 Magnesium 2.0 mg/dL (1.6-2.3) 06/14/23 05:57 06/14/23 05:57 06/14/23 05:57 Assessment and Plan Plan: Assessment: 1. Acute kidney injury secondary to ATN secondary to hypovolemia from diarrhea and further worsened with the use of FLOYD inhibitor. Creatinine 6.78 on admission. Also component of urinary retention. No hydronephrosis noted on kidney ultrasound. 2. Chronic kidney disease stage IV with baseline creatinine near 2.5 secondary to diabetic kidney disease and nephrosclerosis. UA with trace protein. 3. Metabolic acidosis secondary to acute kidney injury and GI losses. 4. Diabetes mellitus. 5. Chronic kidney disease mineral bone disease maintained on calcitriol. 6. A. fib maintained on amiodarone. 7. Coronary disease status post CABG. 8. Diarrhea. Rule out C. diff. Plan: Change IV fluids to bicarb drip to be run at 75 mL an hour. Hold FLOYD inhibitor. Hold hydralazine for systolic blood pressure less than 120. Maintain Wong catheter. Add Flomax Avoid nephrotoxins. Continue to monitor renal function and urine output. Thank you for the consultation. I will continue to follow the patient with you during his hospital stay.
[2023-06-14] MEDS: ASPIRIN 81 MG PO SCH (11:56)
[2023-06-14] MEDS: DEXTROSE 5% IN WATER 1,000 ML with SODIUM BICARB (1 MEQ/ML) 150 ML IV SCH (11:57)
[2023-06-14] MEDS: TAMSULOSIN 0.4 MG CAP.ER.24H PO SCH (11:57)
[2023-06-14] MEDS ORDERED: AMIODARONE 200 MG TAB PO SCH (12:00)
--- NOTE | 2023-06-14 13:34 | HP ---
HISTORY AND PHYSICAL CHIEF COMPLAINT: Weakness. HISTORY OF PRESENT ILLNESS: This is a 78-year-old gentleman with a past medical history of multiple medical problems, recently admitted with back pain and radiculopathy. Currently, the patient is having diarrhea for the last 3 to 4 days. The patient also had complaints of weakness and the patient dehydrated. The patient had creatinine elevated up to 6 indicating acute on chronic renal failure. The patient on further evaluation, troponin is also mildly elevated, Cardiology, Nephrology evaluations are in progress. The patient had fecal incontinence also. There is no history of any fever, rigors, or chills. PAST MEDICAL HISTORY: Reviewed include recent radiculopathy, history of atrial fibrillation. Rest of the history and rest of the chart is also reviewed. HOME MEDICATIONS: Reviewed include Tylenol. Doses and rest of medications reviewed. ALLERGIES: Allopurinol. FAMILY HISTORY: COPD. SOCIAL HISTORY: Previous history of smoking. REVIEW OF SYSTEMS: Fourteen-point review is negative except as mentioned earlier. PHYSICAL EXAMINATION: VITAL SIGNS: Pulse is 68, blood pressure 140/60, respirations 16. HEENT: Conjunctivae normal. Mucosa dry. NECK: No JVD. CARDIOVASCULAR: S1, S2. RESPIRATIONS: A few scattered rhonchi and crackles. ABDOMEN: Soft, obese. LEGS: No edema. NERVOUS SYSTEM: Diffusely weak. SKIN: No ulcer, rash, or bleeding. JOINTS: No active deforming arthropathy. LABORATORY DATA: Reviewed. Creatinine 6.78 that is definitely an increase. Troponin 0.100. ASSESSMENT: 1. Acute on chronic renal failure secondary to prerenal renal failure and acute tubular necrosis. 2. Acute diarrheal disease with dehydration. 3. Troponin 0.100. Rule out acute [id number] myocardial infarction. 4. Atrial fibrillation. 5. Diabetes mellitus, type 2. 6. History of recent degenerative joint disease. 7. History of coronary artery disease, coronary artery bypass graft. 8. Multiple complex medical issues. RECOMMENDATIONS AND DISCUSSION: This is a 78-year-old gentleman presented with multiple complex medical issues, we will monitor the patient closely. Continue the current medications. Cautious IV hydration. Closely follow with Cardiology, Nephrology, otherwise symptomatic treatment will be provided. Recommend to check C difficile and stool culture. Otherwise, C diff is negative. Imodium. Resume the home medications. Avoid nephrotoxic medications. Discussed with the patient and family at length. We will also obtain a PT, OT evaluation as well. Prognosis guarded. Further recommendations to follow. MMODL / IJN: [id number] /
[2023-06-14] MEDS: hydrALAZINE HCL 25 MG TAB PO SCH (15:54)
[2023-06-14] MEDS: LINAGLIPTIN 5 MG TABLET PO SCH (15:54)
[2023-06-14] MEDS: FLUTICASONE 50MCG/SPRAY NASAL 16GM EA NOSTRIL SCH (15:55)
[2023-06-14] MEDS: PANTOPRAZOLE 40 MG TABLET PO SCH (15:55)
[2023-06-14] MEDS: METOPROLOL TARTRATE 50 MG TAB PO SCH (15:55)
[2023-06-14 16:40] LABS: Glucose,Whole Blood 105 mg/dL (70-110)
[2023-06-14 20:27] LABS: Glucose,Whole Blood 134 mg/dL (70-110)
[2023-06-14] MEDS: ATORVASTATIN 20 MG TAB PO SCH (20:35)
[2023-06-14] MEDS: LORATADINE 10 MG TAB PO SCH (20:35)
[2023-06-14] MEDS ORDERED: RIVAROXABAN 15 MG TAB PO SCH (21:00)
[2023-06-15] MEDS: DEXTROSE 5% IN WATER 1,000 ML with SODIUM BICARB (1 MEQ/ML) 150 ML IV SCH ×3 (04:30→23:52)
[2023-06-15 06:22] LABS: Glucose,Whole Blood 172 mg/dL (70-110)
[2023-06-15] MEDS ORDERED: COLCHICINE 0.6 MG EACH PO SCH (08:00)
[2023-06-15] MEDS ORDERED: glipiZIDE 10 MG TAB PO SCH (08:00)
[2023-06-15 08:44] LABS: Glucose,Whole Blood 213 mg/dL (70-110)
[2023-06-15] MEDS: hydrALAZINE HCL 25 MG TAB PO SCH (08:52)
[2023-06-15] MEDS: FEBUXOSTAT 40 MG PO SCH (08:56)
[2023-06-15] MEDS: CHOLECALCIFEROL 25 MCG (1000 IU) TABLET PO SCH (08:56)
[2023-06-15] MEDS: FERROUS SULFATE 325 MG TAB PO SCH (08:56)
[2023-06-15] MEDS: ASCORBIC ACID 500 MG TAB PO SCH (08:56)
[2023-06-15] MEDS: ASPIRIN 81 MG PO SCH (08:56)
[2023-06-15] MEDS: TAMSULOSIN 0.4 MG CAP.ER.24H PO SCH (08:56)
[2023-06-15] MEDS: PANTOPRAZOLE 40 MG TABLET PO SCH ×2 (08:56→15:05)
[2023-06-15] MEDS: FLUTICASONE 50MCG/SPRAY NASAL 16GM EA NOSTRIL SCH ×2 (08:57→16:13)
[2023-06-15 09:05] LABS: HCT 35.4 % (39.0-53.0); HGB 11.7 gm/dL (13.0-17.5); MCH 31.3 pg (25.0-35.0); MCHC 33.2 g/dL (31.0-37.0); MCV 94.3 fL (80.0-100.0); Mean Platelet Volume 9.5; RBC 3.76 m/uL (4.30-5.90); RDW 14.2 % (11.5-15.5)
[2023-06-15 09:12] LABS: ALT 54 U/L (4-49); AST 66 U/L (17-59); African American GFR (CKD) 11 (>60 ml/min/1.73 sqM); Albumin 2.2 g/dL (3.5-5.0); Alkaline Phosphatase 76 U/L (38-126); Anion Gap 13 mmol/L; Calcium 7.5 mg/dL (8.4-10.2); Carbon Dioxide 13 mmol/L (22-30); Chloride 106 mmol/L (98-107); Glucose 147 mg/dL (74-99); Magnesium 1.7 mg/dL (1.6-2.3); Non-African American GFR(CKD) 9 (>60 ml/min/1.73 sqM); Phosphorus 4.4 mg/dL (2.5-4.5); Potassium 4.2 mmol/L (3.5-5.1); Sodium 132 mmol/L (137-145); Total Bilirubin 0.5 mg/dL (0.2-1.3); Total Protein 4.9 g/dL (6.3-8.2)
[2023-06-15 09:29] LABS: Blood Urea Nitrogen 141 mg/dL (9-20); Lymphocytes # (M) 0.36 k/uL (1.0-4.8); Monocytes # (M) 0.36 k/uL (0-1.0); Neutrophils # (M) 2.28 k/uL (1.3-7.7); Neutrophils % (M) 76 %; Nucleated Red Blood Cells 0 /100 WBC (0-0); Total Cells Counted 100
[2023-06-15 09:30] LABS: Platelet Count 86 k/uL (150-450)
[2023-06-15] MEDS ORDERED: MIDODRINE 5 MG TAB PO SCH (10:00)
[2023-06-15] MEDS: METOPROLOL TARTRATE 50 MG TAB PO SCH (10:57)
--- NOTE | 2023-06-15 11:37 | P.PN ---
Subjective Patient is seen for follow-up for acute kidney injury and top of chronic kidney disease. Underlying CK D secondary to diabetic kidney disease and nephrosclerosis with baseline creatinine of around 2.5 mg/dL. Admitted to the hospital with complaints of decreased ambulation and decreased oral intake with weakness. Serum creatinine was 6.7 on initial admission and decreased to 5.5 today. Indwelling Wong catheter with 24 hour urine output of 1.3 L. It appears that 800 mL of urine was obtained on initial catheter placement. Blood pressure is also been on the lower side. Maintained on midodrine. Maintained on IV sodium bicarb for metabolic acidosis. Objective - Vital Signs Vital signs: Vital Signs Temp 98.2 F 06/15/23 08:37 Pulse 86 06/15/23 10:43 Resp 20 06/15/23 08:37 BP 95/54 06/15/23 10:43 Pulse Ox 95 06/15/23 08:47 FiO2 Intake & Output 06/14/23 06/15/23 06/15/23 18:59 06:59 18:59 Intake Total 350 300 Output Total 1300 200 Balance 350 -1300 100 Weight 108.409 kg 105 kg Intake: Oral 350 300 Output: Urine 1300 200 Uretheral (Wong) 800 Other: Voiding Method Indwelling Catheter Indwelling Catheter Indwelling Catheter - Exam Awake, comfortable, no acute distress Lethargic Examination of the heart S1 and S2 Examination lungs bilateral breath sounds are heard Abdomen is soft nontender Admission lower extremity shows no evidence of edema [employer]PERATOR exam shows patient moving all 4 extremities. - Labs CBC & Chem 7: 06/15/23 08:13 06/15/23 08:13 Labs: Abnormal Lab Results - Last 24 Hours (Table) 06/14/23 06/14/23 06/14/23 Range/Units 09:45 14:21 20:24 WBC (3.8-10.6) k/uL RBC (4.30-5.90) m/uL Hgb (13.0-17.5) gm/dL Hct (39.0-53.0) % Plt Count (150-450) k/uL Lymphocytes # (Manual) (1.0-4.8) k/uL Sodium (137-145) mmol/L Carbon Dioxide (22-30) mmol/L BUN (9-20) mg/dL Creatinine (0.66-1.25) mg/dL Glucose (74-99) mg/dL POC Glucose (mg/dL) 134 H (70-110) mg/dL Calcium (8.4-10.2) mg/dL AST (17-59) U/L ALT (4-49) U/L Troponin I 0.080 H* 0.059 H* (0.000-0.034) ng/mL Total Protein (6.3-8.2) g/dL Albumin (3.5-5.0) g/dL 06/15/23 06/15/23 06/15/23 Range/Units 06:20 08:13 08:13 WBC 3.0 L (3.8-10.6) k/uL RBC 3.76 L (4.30-5.90) m/uL Hgb 11.7 L (13.0-17.5) gm/dL Hct 35.4 L (39.0-53.0) % Plt Count 86 L (150-450) k/uL Lymphocytes # (Manual) 0.36 L (1.0-4.8) k/uL Sodium 132 L (137-145) mmol/L Carbon Dioxide 13 L (22-30) mmol/L BUN 141 H* (9-20) mg/dL Creatinine 5.55 H (0.66-1.25) mg/dL Glucose 147 H (74-99) mg/dL POC Glucose (mg/dL) 172 H (70-110) mg/dL Calcium 7.5 L (8.4-10.2) mg/dL AST 66 H (17-59) U/L ALT 54 H (4-49) U/L Troponin I (0.000-0.034) ng/mL Total Protein 4.9 L (6.3-8.2) g/dL Albumin 2.2 L (3.5-5.0) g/dL 06/15/23 Range/Units 08:42 WBC (3.8-10.6) k/uL RBC (4.30-5.90) m/uL Hgb (13.0-17.5) gm/dL Hct (39.0-53.0) % Plt Count (150-450) k/uL Lymphocytes # (Manual) (1.0-4.8) k/uL Sodium (137-145) mmol/L Carbon Dioxide (22-30) mmol/L BUN (9-20) mg/dL Creatinine (0.66-1.25) mg/dL Glucose (74-99) mg/dL POC Glucose (mg/dL) 213 H (70-110) mg/dL Calcium (8.4-10.2) mg/dL AST (17-59) U/L ALT (4-49) U/L Troponin I (0.000-0.034) ng/mL Total Protein (6.3-8.2) g/dL Albumin (3.5-5.0) g/dL Assessment and Plan Assessment: 1. Acute kidney injury secondary to ATN secondary to hypovolemia from diarrhea and further worsened with the use of FLOYD inhibitor. Creatinine 6.78 on admission. Also component of urinary retention. No hydronephrosis noted on kidney ultrasound. 2. Chronic kidney disease stage IV with baseline creatinine near 2.5 secondary to diabetic kidney disease and nephrosclerosis. UA with trace protein. 3. Metabolic acidosis secondary to acute kidney injury and GI losses. 4. Diabetes mellitus. 5. Chronic kidney disease mineral bone disease maintained on calcitriol. 6. A. fib maintained on amiodarone. 7. Coronary disease status post CABG. 8. Diarrhea. C. diff toxin negative Plan: Continue with IV bicarb Add oral sodium bicarb as well Continue Rocaltrol Repeat labs in a.m. Continue with Wong catheter. Avoid nephrotoxic agents Increase midodrine to 10 mg 3 times a day
[2023-06-15 11:46] LABS: Glucose,Whole Blood 295 mg/dL (70-110)
[2023-06-15] MEDS: AMIODARONE 200 MG TAB PO SCH (11:56)
[2023-06-15] MEDS: MIDODRINE 5 MG TAB PO SCH ×2 (12:02→17:41)
--- NOTE | 2023-06-15 13:05 | XR ---
EXAMINATION TYPE: XR chest 1V portable DATE OF EXAM: 06/15/2023 COMPARISON: 05/27/2023 HISTORY: Weakness TECHNIQUE: Single frontal view of the chest is obtained. FINDINGS: Subsegmental consolidation and small left pleural effusion. No overt failure. Heart is enl arged and there is median sternotomy changes. No pneumothorax. IMPRESSION: Left lower lobe infiltrate and small effusion.
[2023-06-15] MEDS ORDERED: CEFEPIME 2 GM in SODIUM CHLORIDE 0.9% 100 ML IVPB SCH (14:00)
--- NOTE | 2023-06-15 14:08 | PN ---
PROGRESS NOTE DATE OF SERVICE: 06/15/2023 SUBJECTIVE: This is a 78-year-old gentleman with acute on chronic renal failure, continues to be in renal failure. The patient is weak, the patient is hypotensive. The patient was running fever, possibly early sepsis. Multiple consultants are following the patient closely. PAST MEDICAL HISTORY: Reviewed. REVIEW OF SYSTEMS: A 14-point review is negative except as mentioned. CURRENT MEDICATIONS: Reviewed include Rocephin, rest of the chart and rest of the medications noted. PHYSICAL EXAMINATION: VITAL SIGNS: Pulse is 61, blood pressure is 77/40, and respirations 20. HEENT: Conjunctivae normal. NECK: No jugular venous distention. CARDIOVASCULAR: S1, S2. RESPIRATIONS: Diminished at the bases, few scattered rhonchi. ABDOMEN: Soft. NERVOUS SYSTEM: No focal deficits. LABORATORY DATA: WBC 3, hemoglobin 9.7. Other labs are noted. ASSESSMENT: 1. Acute on chronic renal failure with the possibility of prerenal failure. 2. Acute tubular necrosis. 3. Acute diarrhea with dehydration. 4. Troponin 0.10, rule out acute mzy-AP-vqfpgst-elevation myocardial infarction. 5. Atrial fibrillation. 6. Diabetes mellitus type 2. 7. History of recent DJD. 8. History of CAD, CABG. 9. Multiple complex medical issues. RECOMMENDATIONS: Recommended to continue current management, continue symptomatic treatment, otherwise I would recommend continue with IV hydration. Monitor blood sugars closely. Otherwise, I would also recommend to consult Dr. Luong for possible ICU transfer. Empiric antibiotics, cultures, Infectious Disease evaluation. Prognosis guarded. Further recommendations to follow. MMODL / IJN: [id number] /
--- NOTE | 2023-06-15 14:47 | P.PN ---
Subjective Progress Note Date: 06/15/23 HISTORY OF PRESENT ILLNESS: This is a 78-year-old male with a past medical history significant for atrial fibrillation, chronic kidney disease, hypertension, hyperlipidemia, diabetes, and aortic valve replacement. Patient follows with the healthcare administration internship out of [facility]. We have been asked to see the patient in consultation for elevated troponin. Patient examined at the bedside in the emergency room. Patient's is present. Patient was brought to the hospital secondary to generalized weakness and debility. He also reports bilateral hip pain. He denies having any chest pain or pressure. He denies any shortness of breath. Denies any dizziness or lightheadedness. Vital signs are stable. * EKG reveals sinus mechanism with PACs * Current home cardiac medications include lisinopril 2.5 mg daily, hydralazine 25 mg twice a day, Xarelto 15 mg at night, rosuvastatin 10 mg at night, metopr olol tartrate 50 mg twice a day, aspirin 81 mg daily, and amiodarone 400 mg daily * Most recent echocardiogram obtained in May 2023 revealed ejection fraction 50-55%, mild MR, bioprosthetic aortic valve with mean gradient of 18 mmHg, and max gradient of 35 mmHg, and trace pulmonic regurgitation 06/15 Patient is seen today in follow-up. His blood pressure was low this morning and repeat was 95/54, heart rate 86. He had a temperature max 101.1. Patient complains of feeling weak and tired and pain in his bilateral hips. Also complains of stomach pains. He denies shortness of breath. Patient was started on midodrine and today due to hypotension, hold Lopressor. Patient is currently on a bicarb drip and midodrine was increased to 10 mg 3 times daily per nephrology. Chest x-ray reveals left lower lobe infiltrate and small effusion. Repeat blood work reveals WBC 3, hemoglobin 11.7, platelet count 86. Sodium 132, potassium 4.2, BUN 141 creatinine 5.55. AST 66, ALT 54. Cortisol level XXIV. PHYSICAL EXAM: VITAL SIGNS: Reviewed. GENERAL: Well-developed in no acute distress. HEENT: Head is normocephalic. Pupils are equal, round. Sclerae anicteric. Mucous membranes of the mouth are moist. Neck supple. No JVD or thyromegaly LUNGS: Respirations even and unlabored. Lungs essentially clear to auscultation bilaterally. HEART: Regular rate and rhythm. S1 and S2 heard. Systolic murmur noted ABDOMEN: Soft. Nondistended. Nontender. EXTREMITIES: Normal range of motion. No clubbing or cyanosis. Peripheral pulses intact. Trace bilateral lower extremity edema NEUROLOGIC: Awake and alert. Oriented x 3. ASSESSMENT: Generalized weakness and debility Acute kidney injury Chronic kidney disease stage 4 Abnormal troponin, likely secondary to above, no evidence of acute coronary syndrome Paroxysmal atrial fibrillation, currently maintaining sinus mechanism Hypotension History of Hypertension Hyperlipidemia Diarrhea Pancytopenia Diabetes History of bioprosthetic aortic valve replacement PLAN: No need to repeat echocardiogram as this was performed in May 2023 Continue home cardiac medications Hold Lopressor today due to hypotension Continue amiodarone 200 mg daily Continue telemetry monitoring Further recommendations pending patient's course Nurse practitioner note has been reviewed by physician. Signing provider agrees with the documented findings, assessment, and plan of care. Objective - Vital Signs Vital signs: Vital Signs Temp 98.2 F 06/15/23 08:37 Pulse 66 06/15/23 08:37 Resp 20 06/15/23 08:37 BP 95/56 06/15/23 09:49 Pulse Ox 95 06/15/23 08:47 FiO2 Intake & Output 06/14/23 06/15/23 06/15/23 18:59 06:59 18:59 Intake Total 350 300 Output Total 1300 200 Balance 350 -1300 100 Weight 108.409 kg 105 kg Intake: Oral 350 300 Output: Urine 1300 200 Uretheral (Wong) 800 Other: Voiding Method Indwelling Catheter Indwelling Catheter - Labs CBC & Chem 7: 06/15/23 08:13 06/15/23 08:13 Labs: Abnormal Lab Results - Last 24 Hours (Table) 06/14/23 06/14/23 06/14/23 Range/Units 09:45 14:21 20:24 WBC (3.8-10.6) k/uL RBC (4.30-5.90) m/uL Hgb (13.0-17.5) gm/dL Hct (39.0-53.0) % Plt Count (150-450) k/uL Lymphocytes # (Manual) (1.0-4.8) k/uL Sodium (137-145) mmol/L Carbon Dioxide (22-30) mmol/L BUN (9-20) mg/dL Creatinine (0.66-1.25) mg/dL Glucose (74-99) mg/dL POC Glucose (mg/dL) 134 H (70-110) mg/dL Calcium (8.4-10.2) mg/dL AST (17-59) U/L ALT (4-49) U/L Troponin I 0.080 H* 0.059 H* (0.000-0.034) ng/mL Total Protein (6.3-8.2) g/dL Albumin (3.5-5.0) g/dL 06/15/23 06/15/23 06/15/23 Range/Units 06:20 08:13 08:13 WBC 3.0 L (3.8-10.6) k/uL RBC 3.76 L (4.30-5.90) m/uL Hgb 11.7 L (13.0-17.5) gm/dL Hct 35.4 L (39.0-53.0) % Plt Count 86 L (150-450) k/uL Lymphocytes # (Manual) 0.36 L (1.0-4.8) k/uL Sodium 132 L (137-145) mmol/L Carbon Dioxide 13 L (22-30) mmol/L BUN 141 H* (9-20) mg/dL Creatinine 5.55 H (0.66-1.25) mg/dL Glucose 147 H (74-99) mg/dL POC Glucose (mg/dL) 172 H (70-110) mg/dL Calcium 7.5 L (8.4-10.2) mg/dL AST 66 H (17-59) U/L ALT 54 H (4-49) U/L Troponin I (0.000-0.034) ng/mL Total Protein 4.9 L (6.3-8.2) g/dL Albumin 2.2 L (3.5-5.0) g/dL 06/15/23 Range/Units 08:42 WBC (3.8-10.6) k/uL RBC (4.30-5.90) m/uL Hgb (13.0-17.5) gm/dL Hct (39.0-53.0) % Plt Count (150-450) k/uL Lymphocytes # (Manual) (1.0-4.8) k/uL Sodium (137-145) mmol/L Carbon Dioxide (22-30) mmol/L BUN (9-20) mg/dL Creatinine (0.66-1.25) mg/dL Glucose (74-99) mg/dL POC Glucose (mg/dL) 213 H (70-110) mg/dL Calcium (8.4-10.2) mg/dL AST (17-59) U/L ALT (4-49) U/L Troponin I (0.000-0.034) ng/mL Total Protein (6.3-8.2) g/dL Albumin (3.5-5.0) g/dL
[2023-06-15] MEDS: LINAGLIPTIN 5 MG TABLET PO SCH (15:05)
--- NOTE | 2023-06-15 15:44 | P.CNPUL ---
History of Present Illness Consult date: 06/15/23 Requesting physician: Tori Torres Reason for consult: other (Weakness, low blood pressure and possible transfer to ICU) Chief complaint: Weakness History of present illness: This is a 78-year-old white male with history of multiple medical problems including chronic atrial fibrillation, chronic kidney disease, being followed by nephrology on outpatient basis, benign essential hypertension, dyslipidemia, history of aortic valve replacement, patient was brought into the ER mostly because of profound weakness and debility, patient was also complaining of bilateral hips pain. But he had no chest pain, no shortness of breath, no wheezing, no dizziness, he was mostly generally weak. Blood pressure was noted to be low, troponin was also noted to be elevated, patient is normally maintained at home on lisinopril, hydralazine, Xarelto, Crestor, metoprolol, aspirin, amiodarone, and he normally has a relatively normal echocardiogram with mild mitral regurgitation and he does have a bioprosthetic aortic valve. At any rate considering his soft blood pressure, I was asked to evaluate the patient and decide whether the patient should go to the ICU. I did evaluate the patient, his blood pressure was 98/55, and I felt at that point that the patient is dehydrated, and needs more fluids, he was already on a bicarb drip at 75 mL per hour, and I did not feel the patient needs to be transferred to the ICU. There is no fever, no chills, no significant findings to suggest sepsis or septic shock. Patient has been already evaluated by multiple consultants including nephrology and cardiology again he has no active pulmonary symptoms that is easy count is 3.0 hemoglobin 11.7 lites are normal bicarb is low at 13, and his BUN is 141 creatinine 5.55, blood sugar was 295. Review of Systems CONSTITUTIONAL: Generalized weakness and fatigue HEENT: Negative CARDIOVASCULAR: Negative RESPIRATORY: No shortness of breath no cough no wheezing GASTROINTESTINAL: Patient had mostly intermittent episodes of diarrhea HEMATOLOGIC: Negative GENITOURINARY: Negative SKIN: Negative Neurologic: Negative except for generalized weakness Psychiatric: Negative. Past Medical History Past Medical History: Atrial Fibrillation, Cancer, Diabetes Mellitus, Hearing Disorder / Deafness, Hypertension, Osteoarthritis (OA), Renal Disease Additional Past Medical History / Comment(s): Covid 07/20/21. Bladder cancer 2009 and 2011. Hx pelvic fracture 1993. Gout. Herniated disc in back in 2001. Bilateral eye cateracts. Skin cancer 10/08/20 with removal. Anemia. CKD History of Any Multi-Drug Resistant Organisms: None Reported Past Surgical History: Cardiac Valve Replacement, Coronary Bypass/CABG, Heart Catheterization, Hernia Repair Additional Past Surgical History / Comment(s): Left rotator cuff surgery, bilateral cataracts removed, umbilical hernia repair, right side salivary gland removed, broken right ankle surgery, skin cancer removed from right cheek, back and hands, heart valve replacement 11/22/19, colonoscopies, coronary artery bypass 11/22/2019. Past Anesthesia/Blood Transfusion Reactions: No Reported Reaction Past Psychological History: No Psychological Hx Reported Smoking Status: Former smoker Past Alcohol Use History: Occasional Additional Past Alcohol Use History / Comment(s): Quit smoking 45 yrs ago. Past Drug Use History: None Reported - Past Family History Father Additional Family Medical History / Comment(s): of emphysema. Mother Additional Family Medical History / Comment(s): of either kidney or liver problems per patient. Brother(s) Family Medical History: Unable to Obtain Medications and Allergies Home Medications Medication Instructions Recorded Confirmed Type Colchicine 0.6 mg PO DAILY@0800 08/25/18 06/14/23 History Fluticasone Nasal [place] [Flonase 1 spr EA NOSTRIL BID@0800,1500 08/25/18 06/14/23 History Nasal [place]] Levocetirizine Dihydrochloride 5 mg PO HS 08/25/18 06/14/23 History [Xyzal] Rosuvastatin Calcium 10 mg PO HS 08/25/18 06/14/23 History Acetaminophen Tab [Tylenol] 500 mg PO Q6H PRN 07/16/21 06/14/23 History Metoprolol Tartrate [Lopressor] 50 mg PO BID@0800,1500 07/16/21 06/14/23 History calcitrioL [Calcitriol] 0.25 mcg PO MOTUWETHFR 07/16/21 06/14/23 History glipiZIDE [Glucotrol] 10 mg PO DAILY@0800 07/16/21 06/14/23 History Ascorbic Acid [Vitamin C] 500 mg PO DAILY@0800 08/13/21 06/14/23 History Cholecalciferol [Vitamin D3 (25 50 mcg PO DAILY@0800 07/16/22 06/14/23 History Mcg = 1000 Iu)] Febuxostat [Uloric] 40 mg PO DAILY@0800 07/16/22 06/14/23 History sitaGLIPtin [Januvia] 100 mg PO DAILY@1500 07/16/22 06/14/23 History Aspirin [Adult Low Dose Aspirin EC] 81 mg PO DAILY@0800 07/22/22 06/14/23 History Rivaroxaban [Xarelto] 15 mg PO HS 07/22/22 06/14/23 History Calcium 500mg 500 mg PO DAILY@0800 05/27/23 06/14/23 History Ferrous Sulfate [Iron (65 MG 325 mg PO DAILY@0800 05/27/23 06/14/23 History Elemental)] Pantoprazole [Protonix] 40 mg PO BID@0800,1500 05/27/23 06/14/23 History hydrALAZINE HCL [Apresoline] 25 mg PO BID@0800,1500 05/27/23 06/14/23 History lisinopriL 2.5 mg PO DAILY@0800 05/27/23 06/14/23 History HYDROcodone/APAP 5-325MG [[place] 1 each PO Q6HR PRN 7 Days #28 tab 05/28/23 06/14/23 Rx 5-325] Amiodarone [Cordarone] See Taper PO DIRECTED 06/14/23 06/14/23 History Furosemide [Lasix] 20 mg PO BID 06/14/23 06/14/23 History Potassium Chloride ER [K-Dur 20] 20 meq PO DAILY 06/14/23 06/14/23 History Allergies Allergy/AdvReac Type Severity Reaction Status Date / Time allopurinol AdvReac Feet Verified 06/14/23 12:20 Swelling Physical Exam Vitals: Vital Signs Temp Pulse Resp BP BP Pulse Ox 06/15/23 14:56 61 20 06/15/23 11:30 97.5 F L 61 20 77/41 88/49 94 L 06/15/23 10:43 86 95/54 06/15/23 09:49 95/56 06/15/23 09:12 76/38 87/45 06/15/23 08:47 95 06/15/23 08:37 98.2 F 66 20 80/39 91/44 95 06/15/23 07:34 86 20 06/15/23 06:06 98.8 F 06/15/23 03:52 101.1 F H 65 20 105/54 95 06/14/23 23:36 99.4 F 68 20 95/56 96 06/14/23 19:52 98 F 94 20 143/76 97 06/14/23 15:53 98.3 F 90 18 107/67 99 Intake and Output 06/15/23 06/15/23 06/15/23 06:59 14:59 22:59 Intake Total 480 Output Total 500 200 Balance -500 280 Intake: Oral 480 Output: Urine 500 200 Other: Voiding Method Indwelling Catheter Indwelling Catheter Weight 105 kg Physical Exam: Revealed a 78-year-old white male in no distress on room air Head: Atraumatic, normocephalic. HEENT:[Neck is supple.] [No neck masses.] [No thyromegaly.] [No JVD.], Dry mucous membranes. Chest: [Clear throughout, no crackles, no rhonchi, no wheezes.] Cardiac Exam: [Normal S1 and S2, no S3 gallop, 2/6 systolic murmur in the right parasternal area Abdomen: [Soft, nontender, no megaly, no rebound, no guarding, normal bowel sounds.] Extremities: [No clubbing, no edema, no cyanosis.] Neurological Exam: Alert oriented 3 to gross focal neurologic deficit, patient is generally weak Psychiatric: Normal mood affect and normal mental status examination Skin: No rashes Results - Laboratory Findings CBC and BMP: 06/15/23 08:13 06/15/23 08:13 PT/INR, D-dimer PT 14.8 sec (9.0-12.0) H 06/14/23 05:57 INR 1.5 (<1.2) H 06/14/23 05:57 Abnormal lab findings: Abnormal Labs 06/14/23 06/14/23 06/14/23 05:57 05:57 05:57 WBC RBC 4.10 L Hgb 12.9 L Hct 38.4 L Plt Count 121 L Lymphocytes # 0.2 L Lymphocytes # (Manual) PT 14.8 H INR 1.5 H APTT 32.5 H Sodium Carbon Dioxide BUN Creatinine Glucose POC Glucose (mg/dL) Calcium Phosphorus AST ALT Troponin I Total Protein Albumin Urine Protein Trace H Urine Bacteria Rare H Hyaline Casts 21 H Urine Mucus Rare H 06/14/23 06/14/23 06/14/23 05:57 05:57 09:45 WBC RBC Hgb Hct Plt Count Lymphocytes # Lymphocytes # (Manual) PT INR APTT Sodium 135 L Carbon Dioxide 14 L BUN 145 H* Creatinine 6.78 H Glucose POC Glucose (mg/dL) Calcium Phosphorus 5.7 H AST 92 H ALT Troponin I 0.100 H* 0.080 H* Total Protein 5.9 L Albumin 2.8 L Urine Protein Urine Bacteria Hyaline Casts Urine Mucus 06/14/23 06/14/23 06/15/23 14:21 20:24 06:20 WBC RBC Hgb Hct Plt Count Lymphocytes # Lymphocytes # (Manual) PT INR APTT Sodium Carbon Dioxide BUN Creatinine Glucose POC Glucose (mg/dL) 134 H 172 H Calcium Phosphorus AST ALT Troponin I 0.059 H* Total Protein Albumin Urine Protein Urine Bacteria Hyaline Casts Urine Mucus 06/15/23 06/15/23 06/15/23 08:13 08:13 08:42 WBC 3.0 L RBC 3.76 L Hgb 11.7 L Hct 35.4 L Plt Count 86 L Lymphocytes # Lymphocytes # (Manual) 0.36 L PT INR APTT Sodium 132 L Carbon Dioxide 13 L BUN 141 H* Creatinine 5.55 H Glucose 147 H POC Glucose (mg/dL) 213 H Calcium 7.5 L Phosphorus AST 66 H ALT 54 H Troponin I Total Protein 4.9 L Albumin 2.2 L Urine Protein Urine Bacteria Hyaline Casts Urine Mucus 06/15/23 11:43 WBC RBC Hgb Hct Plt Count Lymphocytes # Lymphocytes # (Manual) PT INR APTT Sodium Carbon Dioxide BUN Creatinine Glucose POC Glucose (mg/dL) 295 H Calcium Phosphorus AST ALT Troponin I Total Protein Albumin Urine Protein Urine Bacteria Hyaline Casts Urine Mucus - Diagnostic Findings Chest x-ray: image reviewed (Chest x-ray showed left lower lobe atelectasis and possibly a small left-sided pleural effusion) Assessment and Plan Assessment: Impression: Generalized weakness and debility Acute dehydration Acute gastroenteritis with diarrhea Low blood pressure secondary to dehydration and secondary to his blood pressure medications which have to be placed on hold Paroxysmal atrial fibrillation History of hypertension Left lower lobe atelectasis no clinical evidence of pneumonia Type 2 diabetes with diabetic nephropathy Dyslipidemia History of bioprosthetic aortic valve acute on chronic kidney disease Acute metabolic acidosis secondary to acute on chronic renal failure recommendation: Cautious hydration Continue to hold blood pressure medications for now considering the patient's blood pressure is soft Continue bicarb drip No need to transfer to ICU at present Continue treatment plan as per nephrology and cardiology on the case We will continue to follow Time with Patient: Greater than 30
[2023-06-15 16:55] LABS: Glucose,Whole Blood 321 mg/dL (70-110)
[2023-06-15] MEDS ORDERED: DEXTROSE 50% SYRINGE 50 ML IVP PRN ×2 (17:28)
[2023-06-15] MEDS: INSULIN ASPART (NovoLOG) 100 UNIT/ML VIAL SQ SCH ×2 (17:41→21:01)
[2023-06-15] MEDS: IOPAMIDOL CONTRAST (ORAL USE) VIAL PO PRN ×2 (20:02→21:01)
[2023-06-15 20:47] LABS: Glucose,Whole Blood 199 mg/dL (70-110)
--- NOTE | 2023-06-15 22:04 | CT ---
EXAMINATION TYPE: CT abdomen pelvis wo con CT DLP: 1516.4 mGycm, Automated exposure control for dose reduction was used. DATE OF EXAM: 06/15/2023 9:58 PM COMPARISON: None. CLINICAL INDICATION:Male, 78 years old with history of sepsis; abd pain, diarrhea, sepsis TECHNIQUE: Axial CT of the abdomen and pelvis. Sagittal and coronal reformats were created on a NONO workstation. Contrast used: mL of , (none if empty) Oral contrast used: without Oral Contrast (none if empty) FINDINGS: LOWER CHEST: High-density contrast is seen within the esophagus narrowing. Aortic valve repair changes. Sternotomy wires are present. Severe coronary artery cusp patient's. ABDOMEN LIVER: Unremarkable GALLBLADDER AND BILE DUCTS: Unremarkable. PANCREAS: Unremarkable. SPLEEN: Unremarkable. ADRENAL GLANDS: Unremarkable. KIDNEYS AND URETERS: No evidence of hydronephrosis or renal calculus. The ureters are unremarkable. Left pararenal cysts. Streaky changes around the kidneys are symmetric. PELVIS BLADDER: Nondistended with Wong catheter in place. Gas within the lumen likely secondary to Wong ca theter insertion. REPRODUCTIVE: Coarse calcifications of the prostate gland are identified. ABDOMEN & PELVIS STOMACH AND BOWEL: No evidence of bowel obstruction. PERITONEUM/RETROPERITONEUM: No evidence of pneumoperitoneum or free fluid. VASCULATURE: No evidence of aortic aneurysm. MUSCULOSKELETAL: No acute osseous abnormalities. Moderate disc degeneration changes are present throu ghout the thoracolumbar spine. LYMPH NODES: No gross evidence for lymphadenopathy. SOFT TISSUE/ABDOMINAL WALL: Left fat-containing inguinal hernia. IMPRESSION: 1. No evidence for acute abdominal process to explain the patient's sepsis. 2. Wong catheter in place. 3. High density contrast seen extending into the esophagus correlate for reflux or esophageal dysmot ility.
[2023-06-15] MEDS: LORATADINE 10 MG TAB PO SCH (22:05)
[2023-06-15] MEDS: ATORVASTATIN 20 MG TAB PO SCH (22:05)
[2023-06-16] MEDS ORDERED: CEFEPIME 1 GM in SODIUM CHLORIDE 0.9% 50 ML IVPB SCH ×2
[2023-06-16 02:08] LABS: Glucose,Whole Blood 261 mg/dL (70-110)
--- NOTE | 2023-06-16 05:47 | P.CONS ---
History of Present Illness - Reason for Consult Consult date: 06/15/23 Fever, kwaku, sepsis Requesting physician: Nirali Mayes - Chief Complaint Weakness few days - History of Present Illness Patient is a 78-year-old male with a past medical history significant for chronic kidney disease hypertension hyperlipidemia aortic valve replacement recent admission to the hospital and diagnosed with atrial fibrillation patient has not been brought into the hospital yesterday morning for evaluation of weakness and debility unable to take care of himself at home and apparently recently did have a 2 falls patient main symptom remains to be weakness unable to anything patient denies any headache or URI symptoms no chest pain complains of some shortness of breath and did have mild cough but not bringing up any sputum patient also complaining of nausea vomiting did have a few episodes of loose stools and the patient was noted to have slight abdominal distention on presentation to the hospital patient was afebrile however he did spike a fever this morning of 101.1 F patient was not tachycardic or hypotensive and no hypoxemia or need for supplemental oxygen patient did have mild leukopenia elevated BUN/creatinine levels and was mildly elevated troponin was mildly elevated urine has been negative influenza RSV COVID testing was negative stool for C. difficile was negative chest x-ray this afternoon with a left lower lobe infiltrate patient was started on Rocephin that has been switched over to cefepime and infectious disease was consulted for further management of antibiotic therapy Past Medical History Past Medical History: Atrial Fibrillation, Cancer, Diabetes Mellitus, Hearing Disorder / Deafness, Hypertension, Osteoarthritis (OA), Renal Disease Additional Past Medical History / Comment(s): Covid 07/20/21. Bladder cancer 2009 and 2011. Hx pelvic fracture 1993. Gout. Herniated disc in back in 2001. Bilateral eye cateracts. Skin cancer 10/08/20 with removal. Anemia. CKD History of Any Multi-Drug Resistant Organisms: None Reported Past Surgical History: Cardiac Valve Replacement, Coronary Bypass/CABG, Heart Catheterization, Hernia Repair Additional Past Surgical History / Comment(s): Left rotator cuff surgery, bilateral cataracts removed, umbilical hernia repair, right side salivary gland removed, broken right ankle surgery, skin cancer removed from right cheek, back and hands, heart valve replacement 11/22/19, colonoscopies, coronary artery bypass 11/22/2019. Past Anesthesia/Blood Transfusion Reactions: No Reported Reaction Past Psychological History: No Psychological Hx Reported Smoking Status: Former smoker Past Alcohol Use History: Occasional Additional Past Alcohol Use History / Comment(s): Quit smoking 45 yrs ago. Past Drug Use History: None Reported - Past Family History Father Additional Family Medical History / Comment(s): of emphysema. Mother Additional Family Medical History / Comment(s): of either kidney or liver problems per patient. Brother(s) Family Medical History: Unable to Obtain Medications and Allergies Home Medications Medication Instructions Recorded Confirmed Type Colchicine 0.6 mg PO DAILY@0800 08/25/18 06/14/23 History Fluticasone Nasal [place] [Flonase 1 spr EA NOSTRIL BID@0800,1500 08/25/18 History Nasal [place]] Levocetirizine Dihydrochloride 5 mg PO HS 08/25/18 06/14/23 History [Xyzal] Rosuvastatin Calcium 10 mg PO HS 08/25/18 06/14/23 History Acetaminophen Tab [Tylenol] 500 mg PO Q6H PRN 07/16/21 06/14/23 History Metoprolol Tartrate [Lopressor] 50 mg PO BID@0800,1500 07/16/21 06/14/23 History calcitrioL [Calcitriol] 0.25 mcg PO MOTUWETHFR 07/16/21 06/14/23 History glipiZIDE [Glucotrol] 10 mg PO DAILY@0800 07/16/21 06/14/23 History Ascorbic Acid [Vitamin C] 500 mg PO DAILY@0800 08/13/21 06/14/23 History Cholecalciferol [Vitamin D3 (25 50 mcg PO DAILY@0800 07/16/22 06/14/23 History Mcg = 1000 Iu)] Febuxostat [Uloric] 40 mg PO DAILY@0800 07/16/22 06/14/23 History sitaGLIPtin [Januvia] 100 mg PO DAILY@1500 07/16/22 06/14/23 History Aspirin [Adult Low Dose Aspirin EC] 81 mg PO DAILY@0800 07/22/22 06/14/23 History Rivaroxaban [Xarelto] 15 mg PO HS 07/22/22 06/14/23 History Calcium 500mg 500 mg PO DAILY@0800 05/27/23 06/14/23 History Ferrous Sulfate [Iron (65 MG 325 mg PO DAILY@0800 05/27/23 06/14/23 History Elemental)] Pantoprazole [Protonix] 40 mg PO BID@0800,1500 05/27/23 06/14/23 History hydrALAZINE HCL [Apresoline] 25 mg PO BID@0800,1500 05/27/23 06/14/23 History lisinopriL 2.5 mg PO DAILY@0800 05/27/23 06/14/23 History HYDROcodone/APAP 5-325MG [[place] 1 each PO Q6HR PRN 7 Days #28 tab 05/28/23 06/14/23 Rx 5-325] Amiodarone [Cordarone] See Taper PO DIRECTED 06/14/23 06/14/23 History Furosemide [Lasix] 20 mg PO BID 06/14/23 06/14/23 History Potassium Chloride ER [K-Dur 20] 20 meq PO DAILY 06/14/23 06/14/23 History Allergies Allergy/AdvReac Type Severity Reaction Status Date / Time allopurinol AdvReac Feet Verified 06/14/23 12:20 Swelling Physical Exam Vitals: Vital Signs Temp Pulse Resp BP BP Pulse Ox 06/15/23 11:30 97.5 F L 61 20 77/41 88/49 94 L 06/15/23 10:43 86 95/54 06/15/23 09:49 95/56 06/15/23 09:12 76/38 87/45 06/15/23 08:47 95 06/15/23 08:37 98.2 F 66 20 80/39 91/44 95 06/15/23 07:34 86 20 06/15/23 06:06 98.8 F 06/15/23 03:52 101.1 F H 65 20 105/54 95 06/14/23 23:36 99.4 F 68 20 95/56 96 06/14/23 19:52 98 F 94 20 143/76 97 06/14/23 15:53 98.3 F 90 18 107/67 99 06/14/23 13:48 86 18 06/14/23 13:00 97.9 F 86 18 113/69 97 Intake and Output 06/14/23 06/15/23 06/15/23 22:59 06:59 14:59 Intake Total 240 300 Output Total 800 500 200 Balance -560 -500 100 Intake: Oral 240 300 Output: Urine 800 500 200 Uretheral (Wong) 800 Other: Voiding Method Indwelling Catheter Indwelling Catheter Indwelling Catheter Weight 105 kg Results CBC & Chem 7: 06/16/23 11:07 06/16/23 11:07 Labs: Abnormal Lab Results - Last 24 Hours (Table) 06/14/23 06/14/23 06/14/23 Range/Units 09:45 14:21 20:24 WBC (3.8-10.6) k/uL RBC (4.30-5.90) m/uL Hgb (13.0-17.5) gm/dL Hct (39.0-53.0) % Plt Count (150-450) k/uL Lymphocytes # (Manual) (1.0-4.8) k/uL Sodium (137-145) mmol/L Carbon Dioxide (22-30) mmol/L BUN (9-20) mg/dL Creatinine (0.66-1.25) mg/dL Glucose (74-99) mg/dL POC Glucose (mg/dL) 134 H (70-110) mg/dL Calcium (8.4-10.2) mg/dL AST (17-59) U/L ALT (4-49) U/L Troponin I 0.080 H* 0.059 H* (0.000-0.034) ng/mL Total Protein (6.3-8.2) g/dL Albumin (3.5-5.0) g/dL 06/15/23 06/15/23 06/15/23 Range/Units 06:20 08:13 08:13 WBC 3.0 L (3.8-10.6) k/uL RBC 3.76 L (4.30-5.90) m/uL Hgb 11.7 L (13.0-17.5) gm/dL Hct 35.4 L (39.0-53.0) % Plt Count 86 L (150-450) k/uL Lymphocytes # (Manual) 0.36 L (1.0-4.8) k/uL Sodium 132 L (137-145) mmol/L Carbon Dioxide 13 L (22-30) mmol/L BUN 141 H* (9-20) mg/dL Creatinine 5.55 H (0.66-1.25) mg/dL Glucose 147 H (74-99) mg/dL POC Glucose (mg/dL) 172 H (70-110) mg/dL Calcium 7.5 L (8.4-10.2) mg/dL AST 66 H (17-59) U/L ALT 54 H (4-49) U/L Troponin I (0.000-0.034) ng/mL Total Protein 4.9 L (6.3-8.2) g/dL Albumin 2.2 L (3.5-5.0) g/dL 06/15/23 06/15/23 Range/Units 08:42 11:43 WBC (3.8-10.6) k/uL RBC (4.30-5.90) m/uL Hgb (13.0-17.5) gm/dL Hct (39.0-53.0) % Plt Count (150-450) k/uL Lymphocytes # (Manual) (1.0-4.8) k/uL Sodium (137-145) mmol/L Carbon Dioxide (22-30) mmol/L BUN (9-20) mg/dL Creatinine (0.66-1.25) mg/dL Glucose (74-99) mg/dL POC Glucose (mg/dL) 213 H 295 H (70-110) mg/dL Calcium (8.4-10.2) mg/dL AST (17-59) U/L ALT (4-49) U/L Troponin I (0.000-0.034) ng/mL Total Protein (6.3-8.2) g/dL Albumin (3.5-5.0) g/dL Assessment and Plan Plan: 1patient with a fever in this patient presented to hospital with weakness debility patient also has episode of vomiting and diarrhea noticed to have some abdominal distention concerning for possible intra-abdominal source stool for C. difficile has been negative plus minus left lower lobe aspiration pneumonitis 2-we will obtain a CT of abdominal pelvis with oral contrast only 3-continue with the cefepime while waiting for the work-up to be completed at the bedside multiple questions concern answered We will follow on clinical condition and cultures to further adjust medication if needed Thank you for this consultation we will follow the patient along with you Dictation was produced using dragon dictation software. please excuse any grammatical, word or spelling errors. Time with Patient: Greater than 30
[2023-06-16 06:17] LABS: Glucose,Whole Blood 249 mg/dL (70-110)
[2023-06-16] MEDS: AMPICILLIN-SULBACTAM 3 GM in SODIUM CHLORIDE 0.9% 100 ML IVPB SCH ×2 (06:26→16:53)
[2023-06-16] MEDS: INSULIN ASPART (NovoLOG) 100 UNIT/ML VIAL SQ SCH ×4 (06:26→21:30)
[2023-06-16] MEDS: MIDODRINE 5 MG TAB PO SCH ×3 (06:27→16:53)
[2023-06-16] MEDS: FERROUS SULFATE 325 MG TAB PO SCH (08:36)
[2023-06-16] MEDS: PANTOPRAZOLE 40 MG TABLET PO SCH ×2 (08:36→16:04)
[2023-06-16] MEDS: ASCORBIC ACID 500 MG TAB PO SCH (08:36)
[2023-06-16] MEDS: AMIODARONE 200 MG TAB PO SCH (08:36)
[2023-06-16] MEDS: TAMSULOSIN 0.4 MG CAP.ER.24H PO SCH (08:36)
[2023-06-16] MEDS: ASPIRIN 81 MG PO SCH (08:36)
[2023-06-16] MEDS: FLUTICASONE 50MCG/SPRAY NASAL 16GM EA NOSTRIL SCH ×2 (08:37→16:04)
[2023-06-16] MEDS: CHOLECALCIFEROL 25 MCG (1000 IU) TABLET PO SCH (08:37)
[2023-06-16] MEDS: FEBUXOSTAT 40 MG PO SCH (08:41)
[2023-06-16 11:35] LABS: Glucose,Whole Blood 222 mg/dL (70-110)
[2023-06-16 11:42] LABS: MCH 30.8 pg (25.0-35.0); MCHC 33.5 g/dL (31.0-37.0); Mean Platelet Volume 10.9; RBC 3.58 m/uL (4.30-5.90); WBC 1.9 k/uL (3.8-10.6)
[2023-06-16 12:01] LABS: ALT 57 U/L (4-49); AST 59 U/L (17-59); African American GFR (CKD) 14 (>60 ml/min/1.73 sqM); Albumin 2.1 g/dL (3.5-5.0); Alkaline Phosphatase 83 U/L (38-126); Anion Gap 11 mmol/L; Calcium 7.6 mg/dL (8.4-10.2); Carbon Dioxide 21 mmol/L (22-30); Chloride 100 mmol/L (98-107); Glucose 200 mg/dL (74-99); Non-African American GFR(CKD) 12 (>60 ml/min/1.73 sqM); Potassium 4.1 mmol/L (3.5-5.1); Sodium 132 mmol/L (137-145); Total Bilirubin 0.4 mg/dL (0.2-1.3); Total Protein 4.6 g/dL (6.3-8.2)
[2023-06-16 12:10] LABS: Platelet Count 54 k/uL (150-450)
[2023-06-16 12:25] LABS: Blood Urea Nitrogen 130 mg/dL (9-20)
--- NOTE | 2023-06-16 12:49 | P.PN ---
Subjective Patient is seen for follow-up for acute kidney injury and top of chronic kidney disease. Underlying CK D secondary to diabetic kidney disease and nephrosclerosis with baseline creatinine of around 2.5 mg/dL. Admitted to the hospital with complaints of decreased ambulation and decreased oral intake with weakness. Serum creatinine was 6.7 on initial admission and decreased to 4.3 today. Indwelling Wong catheter with 24 hour urine output of 1.25 L. It appears that 800 mL of urine was obtained on initial catheter placement. Blood pressure is also been on the lower side. Maintained on midodrine. Maintained on IV sodium bicarb for metabolic acidosis. Mentation is improved today. is present at bedside. She reports that patient had been having diarrhea prior to admission. Objective - Vital Signs Vital signs: Vital Signs Temp 97.3 F L 06/16/23 08:26 Pulse 79 06/16/23 08:26 Resp 20 06/16/23 08:26 BP 124/68 06/16/23 08:26 Pulse Ox 98 06/16/23 08:26 FiO2 Intake & Output 06/15/23 06/16/23 06/16/23 18:59 06:59 18:59 Intake Total 660 110 Output Total 600 650 Balance 60 -650 110 Weight 109 kg Intake: Oral 660 110 Output: Urine 600 650 Other: Voiding Method Indwelling Catheter Indwelling Catheter Indwelling Catheter # Voids 1 1 # Bowel Movements 1 - Exam Awake, comfortable, no acute distress Answering questions appropriately Examination of the heart S1 and S2 Examination lungs bilateral breath sounds are heard Abdomen is soft nontender Admission lower extremity shows no evidence of edema [place] exam shows patient moving all 4 extremities. - Labs CBC & Chem 7: 06/16/23 11:07 06/16/23 11:07 Labs: Abnormal Lab Results - Last 24 Hours (Table) 06/15/23 06/15/23 06/16/23 Range/Units 16:54 20:46 02:06 WBC (3.8-10.6) k/uL RBC (4.30-5.90) m/uL Hgb (13.0-17.5) gm/dL Hct (39.0-53.0) % Plt Count (150-450) k/uL Neutrophils # (1.3-7.7) k/uL Lymphocytes # (1.0-4.8) k/uL Sodium (137-145) mmol/L Carbon Dioxide (22-30) mmol/L BUN (9-20) mg/dL Creatinine (0.66-1.25) mg/dL Glucose (74-99) mg/dL POC Glucose (mg/dL) 321 H 199 H 261 H (70-110) mg/dL Calcium (8.4-10.2) mg/dL ALT (4-49) U/L Total Protein (6.3-8.2) g/dL Albumin (3.5-5.0) g/dL 06/16/23 06/16/23 06/16/23 Range/Units 06:14 11:07 11:07 WBC 1.9 L (3.8-10.6) k/uL RBC 3.58 L (4.30-5.90) m/uL Hgb 11.0 L (13.0-17.5) gm/dL Hct 33.0 L (39.0-53.0) % Plt Count 54 L (150-450) k/uL Neutrophils # 0.9 L (1.3-7.7) k/uL Lymphocytes # 0.3 L (1.0-4.8) k/uL Sodium 132 L (137-145) mmol/L Carbon Dioxide 21 L (22-30) mmol/L BUN 130 H* (9-20) mg/dL Creatinine 4.31 H (0.66-1.25) mg/dL Glucose 200 H (74-99) mg/dL POC Glucose (mg/dL) 249 H (70-110) mg/dL Calcium 7.6 L (8.4-10.2) mg/dL ALT 57 H (4-49) U/L Total Protein 4.6 L (6.3-8.2) g/dL Albumin 2.1 L (3.5-5.0) g/dL 06/16/23 Range/Units 11:30 WBC (3.8-10.6) k/uL RBC (4.30-5.90) m/uL Hgb (13.0-17.5) gm/dL Hct (39.0-53.0) % Plt Count (150-450) k/uL Neutrophils # (1.3-7.7) k/uL Lymphocytes # (1.0-4.8) k/uL Sodium (137-145) mmol/L Carbon Dioxide (22-30) mmol/L BUN (9-20) mg/dL Creatinine (0.66-1.25) mg/dL Glucose (74-99) mg/dL POC Glucose (mg/dL) 222 H (70-110) mg/dL Calcium (8.4-10.2) mg/dL ALT (4-49) U/L Total Protein (6.3-8.2) g/dL Albumin (3.5-5.0) g/dL Microbiology - Last 24 Hours (Table) 06/15/23 12:06 Blood Culture Gram Stain - Preliminary Blood Assessment and Plan Assessment: 1. Acute kidney injury secondary to ATN secondary to hypovolemia from diarrhea and further worsened with the use of FLOYD inhibitor. Creatinine 6.78 on ad mission. Also component of urinary retention. No hydronephrosis noted on kidney ultrasound. 2. Chronic kidney disease stage IV with baseline creatinine near 2.5 secondary to diabetic kidney disease and nephrosclerosis. UA with trace protein. 3. Metabolic acidosis secondary to acute kidney injury and GI losses. 4. Diabetes mellitus. 5. Chronic kidney disease mineral bone disease maintained on calcitriol. 6. A. fib maintained on amiodarone. 7. Coronary disease status post CABG. 8. Diarrhea. C. diff toxin negative Plan: Continue with IV bicarb and oral bicarb Continue Rocaltrol Repeat labs in a.m. Continue with Wong catheter. Avoid nephrotoxic agents Continue with midodrine
[2023-06-16 12:57] LABS: Eosinophils # (M) 0.02 k/uL (0-0.7); Lymphocytes # (M) 0.21 k/uL (1.0-4.8); Monocytes # (M) 0.74 k/uL (0-1.0); Neutrophils # (M) 0.93 k/uL (1.3-7.7); Neutrophils % (M) 49 %; Nucleated Red Blood Cells 0 /100 WBC (0-0); Total Cells Counted 100
--- NOTE | 2023-06-16 13:35 | P.PN ---
Subjective Progress Note Date: 06/16/23 Principal diagnosis: Weakness and medical debility This is a 78-year-old white male with history of multiple medical problems including chronic atrial fibrillation, chronic kidney disease, being followed by nephrology on outpatient basis, benign essential hypertension, dyslipidemia, history of aortic valve replacement, patient was brought into the ER mostly because of profound weakness and debility, patient was also complaining of bilateral hips pain. But he had no chest pain, no shortness of breath, no wheezing, no dizziness, he was mostly generally weak. Blood pressure was noted to be low, troponin was also noted to be elevated, patient is normally maintained at home on lisinopril, hydralazine, Xarelto, Crestor, metoprolol, aspirin, amiodarone, and he normally has a relatively normal echocardiogram with mild mitral regurgitation and he does have a bioprosthetic aortic valve. At any rate considering his soft blood pressure, I was asked to evaluate the patient and decide whether the patient should go to the ICU. I did evaluate the patient, his blood pressure was 98/55, and I felt at that point that the patient is dehydrated, and needs more fluids, he was already on a bicarb drip at 75 mL per hour, and I did not feel the patient needs to be transferred to the ICU. There is no fever, no chills, no significant findings to suggest sepsis or septic shock. Patient has been already evaluated by multiple consultants including nephrology and cardiology again he has no active pulmonary symptoms that is easy count is 3.0 hemoglobin 11.7 lites are normal bicarb is low at 13, and his BUN is 141 creatinine 5.55, blood sugar was 295. Patient was reevaluated today on 06/16/2023, patient continues to have weakness, and I saw him yesterday for possibly transferring the patient to the ICU, however I did not feel the patient needed ICU admission. Remains hem odynamically stable, remains on room air with O2 saturation of 97% his blood pressure for the last 24 hours has been normal. With mean arterial pressure ranging between 70 and 86. WBC count however today is low at 1.9 hemoglobin is 11 electrolytes are normal BUN is 130 creatinine 4.31, blood culture is positive for gram-positive cocci in pairs and chains final identification is pending, patient is being followed by infectious disease on consultation CT abdomen and pelvis is basically unremarkable, empirically the patient remains on Unasyn Objective - Vital Signs Vital signs: Vital Signs Temp 97.7 F 06/16/23 12:00 Pulse 88 06/16/23 12:00 Resp 20 06/16/23 12:00 BP 121/65 06/16/23 12:00 Pulse Ox 97 06/16/23 12:00 FiO2 Intake & Output 06/15/23 06/16/23 06/16/23 18:59 06:59 18:59 Intake Total 660 110 Output Total 600 650 Balance 60 -650 110 Weight 109 kg Intake: Oral 660 110 Output: Urine 600 650 Other: Voiding Method Indwelling Catheter Indwelling Catheter Indwelling Catheter # Voids 1 1 # Bowel Movements 1 - Exam Physical Exam: Revealed a 78-year-old white male in no distress on room air Head: Atraumatic, normocephalic. HEENT:[Neck is supple.] [No neck masses.] [No thyromegaly.] [No JVD.], Dry mucous membranes. Chest: [Clear throughout, no crackles, no rhonchi, no wheezes.] Cardiac Exam: [Normal S1 and S2, no S3 gallop, 2/6 systolic murmur in the right parasternal area Abdomen: [Soft, nontender, no megaly, no rebound, no guarding, normal bowel sounds.] Extremities: [No clubbing, no edema, no cyanosis.] Neurological Exam: Alert oriented 3 to gross focal neurologic deficit, patient is generally weak Psychiatric: Normal mood affect and normal mental status examination Skin: No rashes - Labs CBC & Chem 7: 06/16/23 11:07 06/16/23 11:07 Labs: Abnormal Lab Results - Last 24 Hours (Table) 06/15/23 06/15/23 06/16/23 Range/Units 16:54 20:46 02:06 WBC (3.8-10.6) k/uL RBC (4.30-5.90) m/uL Hgb (13.0-17.5) gm/dL Hct (39.0-53.0) % Plt Count (150-450) k/uL Neutrophils # (Manual) (1.3-7.7) k/uL Lymphocytes # (Manual) (1.0-4.8) k/uL Sodium (137-145) mmol/L Carbon Dioxide (22-30) mmol/L BUN (9-20) mg/dL Creatinine (0.66-1.25) mg/dL Glucose (74-99) mg/dL POC Glucose (mg/dL) 321 H 199 H 261 H (70-110) mg/dL Calcium (8.4-10.2) mg/dL ALT (4-49) U/L Total Protein (6.3-8.2) g/dL Albumin (3.5-5.0) g/dL 06/16/23 06/16/23 06/16/23 Range/Units 06:14 11:07 11:07 WBC 1.9 L (3.8-10.6) k/uL RBC 3.58 L (4.30-5.90) m/uL Hgb 11.0 L (13.0-17.5) gm/dL Hct 33.0 L (39.0-53.0) % Plt Count 54 L (150-450) k/uL Neutrophils # (Manual) 0.93 L (1.3-7.7) k/uL Lymphocytes # (Manual) 0.21 L (1.0-4.8) k/uL Sodium 132 L (137-145) mmol/L Carbon Dioxide 21 L (22-30) mmol/L BUN 130 H* (9-20) mg/dL Creatinine 4.31 H (0.66-1.25) mg/dL Glucose 200 H (74-99) mg/dL POC Glucose (mg/dL) 249 H (70-110) mg/dL Calcium 7.6 L (8.4-10.2) mg/dL ALT 57 H (4-49) U/L Total Protein 4.6 L (6.3-8.2) g/dL Albumin 2.1 L (3.5-5.0) g/dL 06/16/23 Range/Units 11:30 WBC (3.8-10.6) k/uL RBC (4.30-5.90) m/uL Hgb (13.0-17.5) gm/dL Hct (39.0-53.0) % Plt Count (150-450) k/uL Neutrophils # (Manual) (1.3-7.7) k/uL Lymphocytes # (Manual) (1.0-4.8) k/uL Sodium (137-145) mmol/L Carbon Dioxide (22-30) mmol/L BUN (9-20) mg/dL Creatinine (0.66-1.25) mg/dL Glucose (74-99) mg/dL POC Glucose (mg/dL) 222 H (70-110) mg/dL Calcium (8.4-10.2) mg/dL ALT (4-49) U/L Total Protein (6.3-8.2) g/dL Albumin (3.5-5.0) g/dL Microbiology - Last 24 Hours (Table) 06/15/23 12:06 Blood Culture Gram Stain - Preliminary Blood Assessment and Plan Assessment: Impression: Gram-positive bacteremia and sepsis, further identification on his positive blood cultures are pending in the meantime patient is anemia and is on Unasyn Pancytopenia secondary to gram-positive sepsis and bacteremia Generalized weakness and debility, possible endocarditis to be considered. Acute dehydration Acute gastroenteritis with diarrhea Low blood pressure upon his initial presentation but that has resolved Paroxysmal atrial fibrillation History of hypertension Left lower lobe atelectasis no clinical evidence of pneumonia Type 2 diabetes with diabetic nephropathy Dyslipidemia History of bioprosthetic aortic valve acute on chronic kidney disease Acute metabolic acidosis secondary to acute on chronic renal failure recommendation: Continue antibiotics/Unasyn Further blood cultures to be done Consider transesophageal echocardiogram on this patient's pressure with his previous history of bioprosthetic aortic valve Cautious hydration Continue to watch blood pressure closely, if the patient demonstrate any hemodynamic instability, could consider sending him to ICU. Continue bicarb as per nephrology on the case. Continue treatment plan as per nephrology and cardiology on the case May have to consider VICKIE on this patient if he continues to have positive blood culture Discussed his condition with at bedside We will continue to follow Time with Patient: Less than 30
--- NOTE | 2023-06-16 13:59 | P.PN ---
Subjective Progress Note Date: 06/16/23 HISTORY OF PRESENT ILLNESS: This is a 78-year-old male with a past medical history significant for atrial fibrillation, chronic kidney disease, hypertension, hyperlipidemia, diabetes, and aortic valve replacement. 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 We have been asked to see the patient in consultation for elevated troponin. Patient examined at the bedside in the emergency room. Patient's is present. Patient was brought to the hospital secondary to generalized weakness and debility. He also reports bilateral hip pain. He denies having any chest pain or pressure. He denies any shortness of breath. Denies any dizziness or lightheadedness. Vital signs are stable. * EKG reveals sinus mechanism with PACs * Current home cardiac medications include lisinopril 2.5 mg daily, hydralazine 25 mg twice a day, Xarelto 15 mg at night, rosuvastatin 10 mg at night, metopr olol tartrate 50 mg twice a day, aspirin 81 mg daily, and amiodarone 400 mg daily * Most recent echocardiogram obtained in May 2023 revealed ejection fraction 50-55%, mild MR, bioprosthetic aortic valve with mean gradient of 18 mmHg, and max gradient of 35 mmHg, and trace pulmonic regurgitation 06/15 Patient is seen today in follow-up. His blood pressure was low this morning and repeat was 95/54, heart rate 86. He had a temperature max 101.1. Patient complains of feeling weak and tired and pain in his bilateral hips. Also complains of stomach pains. He denies shortness of breath. Patient was started on midodrine and today due to hypotension, hold Lopressor. Patient is currently on a bicarb drip and midodrine was increased to 10 mg 3 times daily per nephrology. Chest x-ray reveals left lower lobe infiltrate and small effusion. Repeat blood work reveals WBC 3, hemoglobin 11.7, platelet count 86. Sodium 132, potassium 4.2, BUN 141 creatinine 5.55. AST 66, ALT 54. Cortisol level XXIV. 06/16 Patient states he is feeling better today than he has for the last couple of day s. Blood pressure is improved to 124/68, heart rate is 79, pulse ox 90% on room air. We ordered blood cultures yesterday to rule out bacteremia. Blood culture is positive for gram-positive cocci in pairs and chains. Repeat blood culture ordered. Echocardiogram is ordered to rule out vegetation on the aortic valve. Patient has been afebrile since yesterday morning. WBC 1.9, hemoglobin 11, pl atelet count 94. Sodium 132, potassium 4.1, BUN 130 creatinine 4.31. PHYSICAL EXAM: VITAL SIGNS: Reviewed. GENERAL: Well-developed in no acute distress. HEENT: Head is normocephalic. Pupils are equal, round. Sclerae anicteric. Mucous membranes of the mouth are moist. Neck supple. No JVD or thyromegaly LUNGS: Respirations even and unlabored. Lungs essentially clear to auscultation bilaterally. HEART: Regular rate and rhythm. S1 and S2 heard. Systolic murmur noted ABDOMEN: Soft. Nondistended. Nontender. EXTREMITIES: Normal range of motion. No clubbing or cyanosis. Peripheral pulses intact. Trace bilateral lower extremity edema NEUROLOGIC: Awake and alert. Oriented x 3. ASSESSMENT: Generalized weakness and debility Acute kidney injury Chronic kidney disease stage 4 Abnormal troponin, likely secondary to above, no evidence of acute coronary syndrome Paroxysmal atrial fibrillation, currently maintaining sinus mechanism Hypotension History of Hypertension Hyperlipidemia Diarrhea Pancytopenia Diabetes History of bioprosthetic aortic valve replacement PLAN: Transthoracic echocardiogram to evaluate for vegetation Continue home cardiac medications Continue to hold Lopressor due to hypotension Continue amiodarone 200 mg daily Blood cultures, repeat today ID is following Continue telemetry monitoring Further recommendations pending patient's course Nurse practitioner note has been reviewed by physician. Signing provider agrees with the documented findings, assessment, and plan of care. Objective - Vital Signs Vital signs: Vital Signs Temp 97.3 F L 06/16/23 08:26 Pulse 79 06/16/23 08:26 Resp 20 06/16/23 08:26 BP 124/68 06/16/23 08:26 Pulse Ox 98 06/16/23 08:26 FiO2 Intake & Output 06/15/23 06/16/23 06/16/23 18:59 06:59 18:59 Intake Total 660 Output Total 600 650 Balance 60 -650 Weight 109 kg Intake: Oral 660 Output: Urine 600 650 Other: Voiding Method Indwelling Catheter Indwelling Catheter Indwelling Catheter # Voids 1 1 # Bowel Movements 1 - Labs CBC & Chem 7: 06/16/23 11:07 06/16/23 11:07 Labs: Abnormal Lab Results - Last 24 Hours (Table) 06/15/23 06/15/23 06/15/23 Range/Units 11:43 16:54 20:46 POC Glucose (mg/dL) 295 H 321 H 199 H (70-110) mg/dL 06/16/23 06/16/23 Range/Units 02:06 06:14 POC Glucose (mg/dL) 261 H 249 H (70-110) mg/dL Microbiology - Last 24 Hours (Table) 06/15/23 12:06 Blood Culture Gram Stain - Preliminary Blood
[2023-06-16] MEDS: LINAGLIPTIN 5 MG TABLET PO SCH (16:04)
[2023-06-16 16:19] LABS: Glucose,Whole Blood 261 mg/dL (70-110)
[2023-06-16] MEDS: DEXTROSE 5% IN WATER 1,000 ML with SODIUM BICARB (1 MEQ/ML) 150 ML IV SCH (17:28)
--- NOTE | 2023-06-16 17:46 | CA ---
Transthoracic Echo Report Name: Fernando Carver Age: 78 Gender: M : 1945 Exam Date: 06/16/2023 12:22 Exam Location: [facility] Ht (in): 70 Wt (lb): 240 Ordering Physician: Esther Bowser Attending/Referring Phys: [id number], [employer] Consultant Darrius Soria Procedure CPT: Indications: r/o vegetation Cardiac Hx: Technical Quality: Poor Contrast 1: Total Dose (mL): Contrast 2: Total Dose (mL): MEASUREMENTS (Male / Female) Normal Values DOPPLER AV Peak Velocity 272.4 cm/s AV Peak Gradient 29.7 mmHg LVOT Peak Velocity 97.4 cm/s LVOT Peak Gradient 3.8 mmHg LVOT Velocity Time Integral 17.6 cm FINDINGS Left Ventricle Right Ventricle Right Atrium Left Atrium Mitral Valve Aortic Valve Hx: AV prosthesis. Tricuspid Valve Pulmonic Valve Pericardium Aorta CONCLUSIONS Sessile mass noted in the 5 chamber view. This appears to be in juxtaposition to the left coronary cusp and left atrium . Image quality is less than ideal. Left ventricular ejection fraction of about 50% with septal hypokinesis Aortic valve prosthesis not well visualized Previewed by: Dr. Feng Hare MD (Electronically Signed) Final Date: 16 June 2023 17:45
[2023-06-16 20:26] LABS: Glucose,Whole Blood 200 mg/dL (70-110)
[2023-06-16] MEDS: LORATADINE 10 MG TAB PO SCH (21:30)
[2023-06-16] MEDS: ATORVASTATIN 20 MG TAB PO SCH (21:30)
[2023-06-17 02:02] LABS: Glucose,Whole Blood 230 mg/dL (70-110)
--- NOTE | 2023-06-17 04:57 | P.PN ---
Subjective Progress Note Date: 06/16/23 This is a 78-year-old male who was recently admitted for generalized weakness and debility with significant comorbidities. Patient is acute on chronic renal failure with multiple medical consultations following. Patient was empirically started on antibiotics with infectious disease on consult. Patient's initial blood cultures are positive and awaiting finalized with follow-up cultures ordered and pending at this time. Patient appears more awake and alert today with at bedside. Patient remains on gentle hydration along with sodium bicarb drip and nephrology is following closely. Patient today is afebrile currently maintained on room air and denies chest pain or shortness of breath. Will have speech evaluate the patient as there was a brief episode of coughing while eating although patient reports has been coughing. Will have speech evaluate. Review of systems: Constitutional: No reports of fatigue, fever, or chills Cardiovascular: No reports of chest pain or palpitations Respiratory: No reports of shortness of breath, reports cough GI: No reports of nausea, no reports of vomiting, reports diarrhea has resolved : No reports of dysuria or retention Neurovascular: reports of generalized weakness All medications have been reviewed PHYSICAL EXAMINATION: GENERAL: The patient is alert and oriented x3, hard of hearing, elderly appearing, ill appearing Well developed, well nourished. Obese HEENT: Pupils are round and equally reacting to light. EOMI. no scleral icterus. No conjunctival pallor. Normocephalic, atraumatic. No pharyngeal erythema. No thyromegaly. CARDIOVASCULAR: S1 and S2 muffled PULMONARY: diminished breath sounds bilaterally with no wheezing or rhonchi noted. ABDOMEN: soft. Nontender on exam. obese. non-distended, normoactive bowel sounds. No palpable organomegaly. MUSCULOSKELETAL: No joint swelling or deformity. EXTREMITIES: No cyanosis, clubbing, or pedal edema. NEUROLOGICAL: Gross neurological examination did not reveal any focal deficits. Diffuse weakness SKIN: No rashes. Assessment: Acute on chronic renal failure, prerenal with acute tubular necrosis, maintained on a bicarbonate drip Bacteremia with features of sepsis, present on admission, currently under investigation Troponin 0.10, rule out NSTEMI History of atrial fibrillation Diabetes mellitus, type II uncontrolled with hyper and hypoglycemia History of degenerative joint disease History of coronary artery disease with CABG GI prophylaxis DVT prophylaxis Full code Plan: Patient is currently continued on gentle IV hydration along with sodium bicarb drip with nephrology following closely Multiple medical consultations following including pulmonary, infectious disease, nephrology. Cardiology to evaluate Patient is continued on antibiotics and initial blood cultures were positive and currently pending on finalized results with repeat ordered daily Patient did have an episode of coughing eating and reports he chronically does this, concerns for aspiration and will continue with aspiration precautions and have speech evaluate the patient Patient with significant weakness will have PT/OT therapy evaluate and discuss possible ECF, consult case management Patient continues to make urine with no immediate plans for renal replacement therapy at this time Continue Accu-Cheks before meals and at bedtime and at 2 AM and continue current regimen Will follow-up on repeat labs The impression and plan of care has been dictated by Nirali Mayes, nurse practitioner as directed. Dr. Sallie MD I have performed a history and examination and MDM of this patient, discussed the same with the dictator, and agree with the dictator's assessment and plan as written ,documented as a scribe. Based on total visit time, I have performed more than 50% of the visit. Any additional findings or plans will be noted. Objective - Vital Signs Vital signs: Vital Signs Temp 97.3 F L 06/16/23 08:26 Pulse 79 06/16/23 08:26 Resp 20 06/16/23 08:26 BP 124/68 06/16/23 08:26 Pulse Ox 98 06/16/23 08:26 FiO2 Intake & Output 06/15/23 06/16/23 06/16/23 18:59 06:59 18:59 Intake Total 660 Output Total 600 650 Balance 60 -650 Weight 109 kg Intake: Oral 660 Output: Urine 600 650 Other: Voiding Method Indwelling Catheter Indwelling Catheter Indwelling Catheter # Voids 1 1 # Bowel Movements 1 - Labs CBC & Chem 7: 06/16/23 11:07 06/16/23 11:07 Labs: Abnormal Lab Results - Last 24 Hours (Table) 06/15/23 06/15/23 06/15/23 Range/Units 11:43 16:54 20:46 POC Glucose (mg/dL) 295 H 321 H 199 H (70-110) mg/dL 06/16/23 06/16/23 Range/Units 02:06 06:14 POC Glucose (mg/dL) 261 H 249 H (70-110) mg/dL Microbiology - Last 24 Hours (Table) 06/15/23 12:06 Blood Culture Gram Stain - Preliminary Blood
[2023-06-17 06:19] LABS: Glucose,Whole Blood 217 mg/dL (70-110)
[2023-06-17] MEDS: DEXTROSE 5% IN WATER 1,000 ML with SODIUM BICARB (1 MEQ/ML) 150 ML IV SCH (06:24)
[2023-06-17] MEDS: AMPICILLIN-SULBACTAM 3 GM in SODIUM CHLORIDE 0.9% 100 ML IVPB SCH (06:24)
[2023-06-17] MEDS: INSULIN ASPART (NovoLOG) 100 UNIT/ML VIAL SQ SCH ×4 (06:25→20:28)
[2023-06-17] MEDS: AMIODARONE 200 MG TAB PO SCH (08:46)
[2023-06-17] MEDS: FERROUS SULFATE 325 MG TAB PO SCH (08:47)
[2023-06-17] MEDS: TAMSULOSIN 0.4 MG CAP.ER.24H PO SCH (08:47)
[2023-06-17] MEDS: ASCORBIC ACID 500 MG TAB PO SCH (08:48)
[2023-06-17] MEDS: PANTOPRAZOLE 40 MG TABLET PO SCH ×2 (08:48→15:29)
[2023-06-17] MEDS: ASPIRIN 81 MG PO SCH (08:48)
[2023-06-17] MEDS: CHOLECALCIFEROL 25 MCG (1000 IU) TABLET PO SCH (08:53)
[2023-06-17] MEDS: FLUTICASONE 50MCG/SPRAY NASAL 16GM EA NOSTRIL SCH ×2 (08:54→17:11)
[2023-06-17] MEDS: MIDODRINE 5 MG TAB PO SCH ×3 (10:23→17:08)
[2023-06-17] MEDS: FEBUXOSTAT 40 MG PO SCH (10:24)
[2023-06-17 11:23] LABS: Glucose,Whole Blood 249 mg/dL (70-110)
[2023-06-17 11:41] LABS: ALT 61 U/L (4-49); AST 48 U/L (17-59); African American GFR (CKD) 17 (>60 ml/min/1.73 sqM); Albumin 2.3 g/dL (3.5-5.0); Alkaline Phosphatase 92 U/L (38-126); Anion Gap 10 mmol/L; Calcium 7.8 mg/dL (8.4-10.2); Carbon Dioxide 24 mmol/L (22-30); Chloride 99 mmol/L (98-107); Glucose 232 mg/dL (74-99); Non-African American GFR(CKD) 15 (>60 ml/min/1.73 sqM); Potassium 3.9 mmol/L (3.5-5.1); Sodium 133 mmol/L (137-145); Total Bilirubin 0.6 mg/dL (0.2-1.3); Total Protein 5.1 g/dL (6.3-8.2)
--- NOTE | 2023-06-17 11:43 | P.PN ---
Subjective Progress Note Date: 06/16/23 Principal diagnosis: Enterococcus faecalis bacteremia Patient is a 78-year-old male with a past medical history significant for chronic kidney disease hypertension hyperlipidemia aortic valve replacement has been brought to the hospital for evaluation of weakness and falls patient did have a nausea vomiting and diarrhea, blood culture coming back positive with Enterococcus faecalis. On today's evaluation that is 06/17/2023, the patient denies any fever or any chills, the patient is breathing comfortably on room air and no need for supplemental oxygen, the patient denies chest pain did have occasional dry cough, patient denies nausea/vomiting and no further diarrhea has been reported Patient did have white count of 1.9, creatinine is 4.31, UA is negative, CT a bdominal pelvis negative for acute intra-abdominal process, blood culture with Enterococcus faecalis Objective - Vital Signs Vital signs: Vital Signs Temp 97.3 F L 06/16/23 08:26 Pulse 79 06/16/23 08:26 Resp 20 06/16/23 08:26 BP 124/68 06/16/23 08:26 Pulse Ox 98 06/16/23 08:26 FiO2 Intake & Output 06/15/23 06/16/23 06/16/23 18:59 06:59 18:59 Intake Total 660 110 Output Total 600 650 Balance 60 -650 110 Weight 109 kg Intake: Oral 660 110 Output: Urine 600 650 Other: Voiding Method Indwelling Catheter Indwelling Catheter Indwelling Catheter # Voids 1 1 # Bowel Movements 1 - Exam GENERAL DESCRIPTION: An elderly male lying in bed in no distress RESPIRATORY SYSTEM: Unlabored breathing , decreased breath sounds at bases HEART: S1 S2 regular rate and rhythm , ABDOMEN: Soft , no tenderness EXTREMITIES: No edema feet - Labs CBC & Chem 7: 06/16/23 11:07 06/16/23 11:07 Labs: Abnormal Lab Results - Last 24 Hours (Table) 06/15/23 06/15/23 06/16/23 Range/Units 16:54 20:46 02:06 WBC (3.8-10.6) k/uL RBC (4.30-5.90) m/uL Hgb (13.0-17.5) gm/dL Hct (39.0-53.0) % Plt Count (150-450) k/uL Neutrophils # (1.3-7.7) k/uL Lymphocytes # (1.0-4.8) k/uL POC Glucose (mg/dL) 321 H 199 H 261 H (70-110) mg/dL 06/16/23 06/16/23 06/16/23 Range/Units 06:14 11:07 11:30 WBC 1.9 L (3.8-10.6) k/uL RBC 3.58 L (4.30-5.90) m/uL Hgb 11.0 L (13.0-17.5) gm/dL Hct 33.0 L (39.0-53.0) % Plt Count 54 L (150-450) k/uL Neutrophils # 0.9 L (1.3-7.7) k/uL Lymphocytes # 0.3 L (1.0-4.8) k/uL POC Glucose (mg/dL) 249 H 222 H (70-110) mg/dL Microbiology - Last 24 Hours (Table) 06/15/23 12:06 Blood Culture Gram Stain - Preliminary Blood Assessment and Plan (1) Bacteremia due to Enterococcus Current Visit: Yes Status: Acute Code(s): R78.81 - BACTEREMIA; B95.2 - ENTEROCOCCUS THE CAUSE OF DISEASES CLASSIFIED ELSEWHERE SNOMED Code(s): 9997081352 Plan: 1patient with a fever in this patient presented to hospital with weakness de bility patient also has episode of vomiting and diarrhea noticed to have some abdominal distention with initial concern for possible abdominal source however CT abdominal pelvis came back negative patient did have a negative UA 2-patient with Enterococcus faecalis bacteremia await echocardiogram antibiotic has been adjusted to Unasyn this morning we'll continue blood culture has been repeated to document clearance Dictation was produced using [employer] dictation software. please excuse any grammatical, word or spelling errors. Time with Patient: Less than 30
--- NOTE | 2023-06-17 11:48 | P.PN ---
Subjective Progress Note Date: 06/17/23 Principal diagnosis: Enterococcus faecalis bacteremia Patient is a 78-year-old male with a past medical history significant for chronic kidney disease hypertension hyperlipidemia aortic valve replacement has been brought to the hospital for evaluation of weakness and falls patient did have a nausea vomiting and diarrhea, blood culture coming back positive with Enterococcus faecalis. Patient did have echocardiogram with sessile mass noted and text position of the left coronary cusp On today's evaluation that is 06/17/2023, the patient remains to be afebrile the patient is breathing comfortably on room air, the patient denies having any chest pain shortness of breath or cough, patient denies abdominal pain and no nausea/vomiting /diarrhea, the patient is feeling better today Patient did have white count of 1.9, creatinine is 4.31 as of yesterday labs are pending from today, UA is negative, CT abdominal pelvis negative for acute intra-abdominal process, blood culture with Enterococcus faecalis Objective - Vital Signs Vital signs: Vital Signs Temp 97.8 F 06/17/23 07:58 Pulse 89 06/17/23 07:58 Resp 17 06/17/23 07:58 BP 144/64 06/17/23 07:58 Pulse Ox 89 L 06/17/23 07:58 FiO2 Intake & Output 06/16/23 06/17/23 06/17/23 18:59 06:59 18:59 Intake Total 645 Output Total 825 1250 Balance -180 -1250 Weight 110 kg Intake: Oral 645 Output: Urine 825 1250 Other: Voiding Method Indwelling Catheter Indwelling Catheter - Exam GENERAL DESCRIPTION: An elderly male lying in bed in no distress RESPIRATORY SYSTEM: Unlabored breathing , decreased breath sounds at bases HEART: S1 S2 regular rate and rhythm , ABDOMEN: Soft , no tenderness EXTREMITIES: No edema feet - Labs CBC & Chem 7: 06/16/23 11:07 06/16/23 11:07 Labs: Abnormal Lab Results - Last 24 Hours (Table) 06/16/23 06/16/23 06/16/23 Range/Units 11:07 11:07 11:30 WBC 1.9 L (3.8-10.6) k/uL RBC 3.58 L (4.30-5.90) m/uL Hgb 11.0 L (13.0-17.5) gm/dL Hct 33.0 L (39.0-53.0) % Plt Count 54 L (150-450) k/uL Neutrophils # (Manual) 0.93 L (1.3-7.7) k/uL Lymphocytes # (Manual) 0.21 L (1.0-4.8) k/uL Sodium 132 L (137-145) mmol/L Carbon Dioxide 21 L (22-30) mmol/L BUN 130 H* (9-20) mg/dL Creatinine 4.31 H (0.66-1.25) mg/dL Glucose 200 H (74-99) mg/dL POC Glucose (mg/dL) 222 H (70-110) mg/dL Calcium 7.6 L (8.4-10.2) mg/dL ALT 57 H (4-49) U/L Total Protein 4.6 L (6.3-8.2) g/dL Albumin 2.1 L (3.5-5.0) g/dL 06/16/23 06/16/23 06/17/23 Range/Units 16:14 20:24 01:58 WBC (3.8-10.6) k/uL RBC (4.30-5.90) m/uL Hgb (13.0-17.5) gm/dL Hct (39.0-53.0) % Plt Count (150-450) k/uL Neutrophils # (Manual) (1.3-7.7) k/uL Lymphocytes # (Manual) (1.0-4.8) k/uL Sodium (137-145) mmol/L Carbon Dioxide (22-30) mmol/L BUN (9-20) mg/dL Creatinine (0.66-1.25) mg/dL Glucose (74-99) mg/dL POC Glucose (mg/dL) 261 H 200 H 230 H (70-110) mg/dL Calcium (8.4-10.2) mg/dL ALT (4-49) U/L Total Protein (6.3-8.2) g/dL Albumin (3.5-5.0) g/dL 06/17/23 Range/Units 06:17 WBC (3.8-10.6) k/uL RBC (4.30-5.90) m/uL Hgb (13.0-17.5) gm/dL Hct (39.0-53.0) % Plt Count (150-450) k/uL Neutrophils # (Manual) (1.3-7.7) k/uL Lymphocytes # (Manual) (1.0-4.8) k/uL Sodium (137-145) mmol/L Carbon Dioxide (22-30) mmol/L BUN (9-20) mg/dL Creatinine (0.66-1.25) mg/dL Glucose (74-99) mg/dL POC Glucose (mg/dL) 217 H (70-110) mg/dL Calcium (8.4-10.2) mg/dL ALT (4-49) U/L Total Protein (6.3-8.2) g/dL Albumin (3.5-5.0) g/dL Microbiology - Last 24 Hours (Table) 06/16/23 11:07 Blood Culture Gram Stain - Preliminary Blood 06/14/23 19:13 Stool Culture - Preliminary Stool 06/15/23 12:06 Blood Culture Gram Stain - Preliminary Blood Blood Culture - Preliminary Group D Enterococcus Assessment and Plan (1) Bacteremia due to Enterococcus Current Visit: Yes Status: Acute Code(s): R78.81 - BACTEREMIA; B95.2 - ENTEROCOCCUS THE CAUSE OF DISEASES CLASSIFIED ELSEWHERE SNOMED Code(s): 6748835521 Plan: 1patient with a fever in this patient presented to hospital with weakness debility patient also has episode of vomiting and diarrhea noticed to have some abdominal distention with initial concern for possible abdominal source however CT abdominal pelvis came back negative patient did have a negative UA 2-patient with Enterococcus faecalis bacteremia and abnormal echocardiogram concerning for endocarditis, VICKIE was discussed with the cardiology team and has been scheduled for tomorrow we will discontinue Unasyn and start the patient on ampicillin and Rocephin for possible endocarditis and monitor clinical course closely Dictation was produced using [employer] dictation software. please excuse any grammatical, word or spelling errors. Time with Patient: Less than 30
[2023-06-17 12:06] LABS: Blood Urea Nitrogen 107 mg/dL (9-20)
[2023-06-17 12:23] LABS: HCT 34.5 % (39.0-53.0); HGB 11.6 gm/dL (13.0-17.5); MCH 30.8 pg (25.0-35.0); MCHC 33.6 g/dL (31.0-37.0); MCV 91.6 fL (80.0-100.0); Mean Platelet Volume 11.1; RBC 3.76 m/uL (4.30-5.90); RDW 13.8 % (11.5-15.5)
[2023-06-17 12:28] LABS: WBC 1.3 k/uL (3.8-10.6)
--- NOTE | 2023-06-17 12:42 | P.PN ---
Subjective Patient is seen for follow-up for acute kidney injury on top of chronic kidney disease. Underlying CK D secondary to diabetic kidney disease and nephrosclerosis with baseline creatinine of around 2.5 mg/dL. Admitted to the hospital with complaints of decreased ambulation and decreased oral intake with weakness. Serum creatinine was 6.7 on initial admission and decreased to 3.6 today. Indwelling Wong catheter with 24 hour urine output of 1.25 L. It appears that 800 mL of urine was obtained on initial catheter placement. Blood pressure is also been on the lower side. Maintained on midodrine. Maintained on IV sodium bicarb for metabolic acidosis. Mentation is improved. Objective - Vital Signs Vital signs: Vital Signs Temp 97.7 F 06/17/23 11:24 Pulse 93 06/17/23 11:24 Resp 17 06/17/23 11:24 BP 106/61 06/17/23 11:24 Pulse Ox 99 06/17/23 11:24 FiO2 Intake & Output 06/16/23 06/17/23 06/17/23 18:59 06:59 18:59 Intake Total 645 Output Total 825 1250 Balance -180 -1250 Weight 110 kg Intake: Oral 645 Output: Urine 825 1250 Other: Voiding Method Indwelling Catheter Indwelling Catheter Indwelling Catheter - Exam Awake, comfortable, no acute distress Answering questions appropriately Examination of the heart S1 and S2 Examination lungs bilateral breath sounds are heard Abdomen is soft nontender Admission lower extremity shows no evidence of edema PLUSH BRUSHER exam shows patient moving all 4 extremities. - Labs CBC & Chem 7: 06/17/23 11:02 06/17/23 11:02 Labs: Abnormal Lab Results - Last 24 Hours (Table) 06/16/23 06/16/23 06/16/23 Range/Units 11:07 16:14 20:24 WBC (3.8-10.6) k/uL RBC (4.30-5.90) m/uL Hgb (13.0-17.5) gm/dL Hct (39.0-53.0) % Neutrophils # (Manual) 0.93 L (1.3-7.7) k/uL Lymphocytes # (Manual) 0.21 L (1.0-4.8) k/uL Sodium (137-145) mmol/L BUN (9-20) mg/dL Creatinine (0.66-1.25) mg/dL Glucose (74-99) mg/dL POC Glucose (mg/dL) 261 H 200 H (70-110) mg/dL Calcium (8.4-10.2) mg/dL ALT (4-49) U/L Total Protein (6.3-8.2) g/dL Albumin (3.5-5.0) g/dL 06/17/23 06/17/23 06/17/23 Range/Units 01:58 06:17 11:02 WBC 1.3 L* (3.8-10.6) k/uL RBC 3.76 L (4.30-5.90) m/uL Hgb 11.6 L (13.0-17.5) gm/dL Hct 34.5 L (39.0-53.0) % Neutrophils # (Manual) (1.3-7.7) k/uL Lymphocytes # (Manual) (1.0-4.8) k/uL Sodium (137-145) mmol/L BUN (9-20) mg/dL Creatinine (0.66-1.25) mg/dL Glucose (74-99) mg/dL POC Glucose (mg/dL) 230 H 217 H (70-110) mg/dL Calcium (8.4-10.2) mg/dL ALT (4-49) U/L Total Protein (6.3-8.2) g/dL Albumin (3.5-5.0) g/dL 06/17/23 06/17/23 Range/Units 11:02 11:22 WBC (3.8-10.6) k/uL RBC (4.30-5.90) m/uL Hgb (13.0-17.5) gm/dL Hct (39.0-53.0) % Neutrophils # (Manual) (1.3-7.7) k/uL Lymphocytes # (Manual) (1.0-4.8) k/uL Sodium 133 L (137-145) mmol/L BUN 107 H* (9-20) mg/dL Creatinine 3.67 H (0.66-1.25) mg/dL Glucose 232 H (74-99) mg/dL POC Glucose (mg/dL) 249 H (70-110) mg/dL Calcium 7.8 L (8.4-10.2) mg/dL ALT 61 H (4-49) U/L Total Protein 5.1 L (6.3-8.2) g/dL Albumin 2.3 L (3.5-5.0) g/dL Microbiology - Last 24 Hours (Table) 06/16/23 11:07 Blood Culture Gram Stain - Preliminary Blood 06/14/23 19:13 Stool Culture - Preliminary Stool 06/15/23 12:06 Blood Culture Gram Stain - Preliminary Blood Blood Culture - Preliminary Group D Enterococcus Assessment and Plan Assessment: 1. Acute kidney injury secondary to ATN secondary to hypovolemia from diarrhea and further worsened with the use of FLOYD inhibitor. Creatinine 6.78 on admissi on. Also component of urinary retention. No hydronephrosis noted on kidney ultrasound. Improving. 2. Chronic kidney disease stage IV with baseline creatinine near 2.5 secondary to diabetic kidney disease and nephrosclerosis. UA with trace protein. 3. Metabolic acidosis secondary to acute kidney injury and GI losses. 4. Diabetes mellitus. 5. Chronic kidney disease mineral bone disease maintained on calcitriol. 6. A. fib maintained on amiodarone. 7. Coronary disease status post CABG. 8. Diarrhea. C. diff toxin negative Plan: Discontinue IV bicarb Continue with oral sodium bicarb Continue Rocaltrol Repeat labs in a.m. Continue with Wong catheter. Avoid nephrotoxic agents Continue with midodrine
--- NOTE | 2023-06-17 13:04 | P.PN ---
Subjective Progress Note Date: 06/17/23 HISTORY OF PRESENT ILLNESS: This is a 78-year-old male with a past medical history significant for atrial fibrillation, chronic kidney disease, hypertension, hyperlipidemia, diabetes, and aortic valve replacement. Patient follows with the medical staff services manager out of [facility]. We have been asked to see the patient in consultation for elevated troponin. Patient examined at the bedside in the emergency room. Patient's is present. Patient was brought to the hospital secondary to generalized weakness and debility. He also reports bilateral hip pain. He denies having any chest pain or pressure. He denies any shortness of breath. Denies any dizziness or lightheadedness. Vital signs are stable. * EKG reveals sinus mechanism with PACs * Current home cardiac medications include lisinopril 2.5 mg daily, hydralazine 25 mg twice a day, Xarelto 15 mg at night, rosuvastatin 10 mg at night, metopr olol tartrate 50 mg twice a day, aspirin 81 mg daily, and amiodarone 400 mg daily * Most recent echocardiogram obtained in May 2023 revealed ejection fraction 50-55%, mild MR, bioprosthetic aortic valve with mean gradient of 18 mmHg, and max gradient of 35 mmHg, and trace pulmonic regurgitation 06/15 Patient is seen today in follow-up. His blood pressure was low this morning and repeat was 95/54, heart rate 86. He had a temperature max 101.1. Patient complains of feeling weak and tired and pain in his bilateral hips. Also complains of stomach pains. He denies shortness of breath. Patient was started on midodrine and today due to hypotension, hold Lopressor. Patient is currently on a bicarb drip and midodrine was increased to 10 mg 3 times daily per nephrology. Chest x-ray reveals left lower lobe infiltrate and small effusion. Repeat blood work reveals WBC 3, hemoglobin 11.7, platelet count 86. Sodium 132, potassium 4.2, BUN 141 creatinine 5.55. AST 66, ALT 54. Cortisol level XXIV. 06/16 Patient states he is feeling better today than he has for the last couple of day s. Blood pressure is improved to 124/68, heart rate is 79, pulse ox 90% on room air. We ordered blood cultures yesterday to rule out bacteremia. Blood culture is positive for gram-positive cocci in pairs and chains. Repeat blood culture ordered. Echocardiogram is ordered to rule out vegetation on the aortic valve. Patient has been afebrile since yesterday morning. WBC 1.9, hemoglobin 11, pl atelet count 94. Sodium 132, potassium 4.1, BUN 130 creatinine 4.31. 06/17 Echocardiogram limited reveals seasonal mass noted in the 5 chamber view. This appears to be injected relation to the left coronary cusp and left atrium. Left ventricular EF 50% with septal hypokinesia. Aortic valve prosthesis not well visualized. Infectious disease requesting a VICKIE which will be scheduled tomorrow with Dr. Martinez. BUN 107, creatinine 3.67. Patient has been afebrile, heart rate 93, blood pressure 106/61, pulse ox 99% on room air. Blood culture positive for group D enterococcus. Repeat blood culture ordered. PHYSICAL EXAM: VITAL SIGNS: Reviewed. GENERAL: Well-developed in no acute distress. HEENT: Head is normocephalic. Pupils are equal, round. Sclerae anicteric. Mucous membranes of the mouth are moist. Neck supple. No JVD or thyromegaly LUNGS: Respirations even and unlabored. Lungs essentially clear to auscultation bilaterally. HEART: Regular rate and rhythm. S1 and S2 heard. Systolic murmur noted ABDOMEN: Soft. Nondistended. Nontender. EXTREMITIES: Normal range of motion. No clubbing or cyanosis. Peripheral pulses intact. Trace bilateral lower extremity edema NEUROLOGIC: Awake and alert. Oriented x 3. ASSESSMENT: Generalized weakness and debility Enterococcus bacteremia Acute kidney injury Chronic kidney disease stage 4 Abnormal troponin, likely secondary to above, no evidence of acute coronary syndrome Paroxysmal atrial fibrillation, currently maintaining sinus mechanism Hypotension History of Hypertension Hyperlipidemia Diarrhea Pancytopenia Diabetes History of bioprosthetic aortic valve replacement concern for endocarditis PLAN: Transthoracic echocardiogram to evaluate for vegetation Continue home cardiac medications Continue to hold Lopressor due to hypotension Continue amiodarone 200 mg daily Blood cultures, repeat today ID is following Continue telemetry monitoring Further recommendations pending patient's course Nurse practitioner note has been reviewed by physician. Signing provider agrees with the documented findings, assessment, and plan of care. Objective - Vital Signs Vital signs: Vital Signs Temp 97.8 F 06/17/23 07:58 Pulse 89 06/17/23 07:58 Resp 17 06/17/23 07:58 BP 144/64 06/17/23 07:58 Pulse Ox 98 06/17/23 07:58 FiO2 Intake & Output 06/16/23 06/17/23 06/17/23 18:59 06:59 18:59 Intake Total 645 Output Total 825 1250 Balance -180 -1250 Weight 110 kg Intake: Oral 645 Output: Urine 825 1250 Other: Voiding Method Indwelling Catheter Indwelling Catheter Indwelling Catheter - Labs CBC & Chem 7: 06/17/23 11:02 06/17/23 11:02 Labs: Abnormal Lab Results - Last 24 Hours (Table) 06/16/23 06/16/23 06/16/23 Range/Units 11:07 11:07 11:30 WBC 1.9 L (3.8-10.6) k/uL RBC 3.58 L (4.30-5.90) m/uL Hgb 11.0 L (13.0-17.5) gm/dL Hct 33.0 L (39.0-53.0) % Plt Count 54 L (150-450) k/uL Neutrophils # (Manual) 0.93 L (1.3-7.7) k/uL Lymphocytes # (Manual) 0.21 L (1.0-4.8) k/uL Sodium 132 L (137-145) mmol/L Carbon Dioxide 21 L (22-30) mmol/L BUN 130 H* (9-20) mg/dL Creatinine 4.31 H (0.66-1.25) mg/dL Glucose 200 H (74-99) mg/dL POC Glucose (mg/dL) 222 H (70-110) mg/dL Calcium 7.6 L (8.4-10.2) mg/dL ALT 57 H (4-49) U/L Total Protein 4.6 L (6.3-8.2) g/dL Albumin 2.1 L (3.5-5.0) g/dL 06/16/23 06/16/23 06/17/23 Range/Units 16:14 20:24 01:58 WBC (3.8-10.6) k/uL RBC (4.30-5.90) m/uL Hgb (13.0-17.5) gm/dL Hct (39.0-53.0) % Plt Count (150-450) k/uL Neutrophils # (Manual) (1.3-7.7) k/uL Lymphocytes # (Manual) (1.0-4.8) k/uL Sodium (137-145) mmol/L Carbon Dioxide (22-30) mmol/L BUN (9-20) mg/dL Creatinine (0.66-1.25) mg/dL Glucose (74-99) mg/dL POC Glucose (mg/dL) 261 H 200 H 230 H (70-110) mg/dL Calcium (8.4-10.2) mg/dL ALT (4-49) U/L Total Protein (6.3-8.2) g/dL Albumin (3.5-5.0) g/dL 06/17/23 Range/Units 06:17 WBC (3.8-10.6) k/uL RBC (4.30-5.90) m/uL Hgb (13.0-17.5) gm/dL Hct (39.0-53.0) % Plt Count (150-450) k/uL Neutrophils # (Manual) (1.3-7.7) k/uL Lymphocytes # (Manual) (1.0-4.8) k/uL Sodium (137-145) mmol/L Carbon Dioxide (22-30) mmol/L BUN (9-20) mg/dL Creatinine (0.66-1.25) mg/dL Glucose (74-99) mg/dL POC Glucose (mg/dL) 217 H (70-110) mg/dL Calcium (8.4-10.2) mg/dL ALT (4-49) U/L Total Protein (6.3-8.2) g/dL Albumin (3.5-5.0) g/dL Microbiology - Last 24 Hours (Table) 06/16/23 11:07 Blood Culture Gram Stain - Preliminary Blood 06/14/23 19:13 Stool Culture - Preliminary Stool 06/15/23 12:06 Blood Culture Gram Stain - Preliminary Blood Blood Culture - Preliminary Group D Enterococcus
[2023-06-17 13:14] LABS: Band Neutrophils % 1 %; Lymphocytes # (M) 0.35 k/uL (1.0-4.8); Monocytes # (M) 0.43 k/uL (0-1.0); Neutrophils % (M) 39 %; Nucleated Red Blood Cells 0 /100 WBC (0-0); Total Cells Counted 100
[2023-06-17 13:16] LABS: RBC Morphology Normal
[2023-06-17 13:17] LABS: Platelet Count 58 k/uL (150-450)
--- NOTE | 2023-06-17 15:02 | P.PN ---
Subjective Progress Note Date: 06/17/23 Principal diagnosis: Acute bacteremia and sepsis This is a 78-year-old white male with history of multiple medical problems including chronic atrial fibrillation, chronic kidney disease, being followed by nephrology on outpatient basis, benign essential hypertension, dyslipidemia, history of aortic valve replacement, patient was brought into the ER mostly because of profound weakness and debility, patient was also complaining of bilateral hips pain. But he had no chest pain, no shortness of breath, no wheezing, no dizziness, he was mostly generally weak. Blood pressure was noted to be low, troponin was also noted to be elevated, patient is normally maintained at home on lisinopril, hydralazine, Xarelto, Crestor, metoprolol, aspirin, amiodarone, and he normally has a relatively normal echocardiogram with mild mitral regurgitation and he does have a bioprosthetic aortic valve. At any rate considering his soft blood pressure, I was asked to evaluate the patient an d decide whether the patient should go to the ICU. I did evaluate the patient, his blood pressure was 98/55, and I felt at that point that the patient is dehydrated, and needs more fluids, he was already on a bicarb drip at 75 mL per hour, and I did not feel the patient needs to be transferred to the ICU. There is no fever, no chills, no significant findings to suggest sepsis or septic shock. Patient has been already evaluated by multiple consultants including nephrology and cardiology again he has no active pulmonary symptoms that is easy count is 3.0 hemoglobin 11.7 lites are normal bicarb is low at 13, and his BUN is 141 creatinine 5.55, blood sugar was 295. Patient was reevaluated today on 06/16/2023, patient continues to have weakness, and I saw him yesterday for possibly transferring the patient to the ICU, however I did not feel the patient needed ICU admission. Remains hemod ynamically stable, remains on room air with O2 saturation of 97% his blood pressure for the last 24 hours has been normal. With mean arterial pressure ranging between 70 and 86. WBC count however today is low at 1.9 hemoglobin is 11 electrolytes are normal BUN is 130 creatinine 4.31, blood culture is positive for gram-positive cocci in pairs and chains final identification is pending, patient is being followed by infectious disease on consultation CT abdomen and pelvis is basically unremarkable, empirically the patient remains on Unasyn Patient was seen and examined today on 06/17/2023, patient is feeling a bit better, less weakness, his blood cultures came back positive for group D enter ococcus. However his CT of the abdomen and pelvis showed no acute intra- abdominal process, considering his valvular heart disease patient is now scheduled to have VICKIE. In the meantime his Unasyn was discontinued and he is now on ampicillin and Rocephin for 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 Continues to have pancytopenia with WBC count of 1.3 hemoglobin 11.6 and his platelets are 58,000. Renal functioning remains abnormal with a BUN of 107 creatinine 3.6, this is felt to be acute kidney injury secondary to ATN secondary to hypovolemia and dehydration as well as use of FLOYD inhibitor's and the patient does have history of chronic kidney disease stage IV. [place] to have diabetic kidney disease and nephrosclerosis Objective - Vital Signs Vital signs: Vital Signs Temp 97.7 F 06/17/23 11:24 Pulse 93 06/17/23 11:24 Resp 17 06/17/23 11:24 BP 106/61 06/17/23 11:24 Pulse Ox 99 06/17/23 11:24 FiO2 Intake & Output 06/16/23 06/17/23 06/17/23 18:59 06:59 18:59 Intake Total 645 236 Output Total 825 1250 Balance -180 -1250 236 Weight 110 kg Intake: Oral 645 236 Output: Urine 825 1250 Other: Voiding Method Indwelling Catheter Indwelling Catheter Indwelling Catheter - Exam Physical Exam: Revealed a 78-year-old white male in no distress on room air Head: Atraumatic, normocephalic. HEENT:[Neck is supple.] [No neck masses.] [No thyromegaly.] [No JVD.], Dry mucous membranes. Chest: [Clear throughout, no crackles, no rhonchi, no wheezes.] Cardiac Exam: [Normal S1 and S2, no S3 gallop, 2/6 systolic murmur in the right parasternal area Abdomen: [Soft, nontender, no megaly, no rebound, no guarding, normal bowel sounds.] Extremities: [No clubbing, no edema, no cyanosis.] Neurological Exam: Alert oriented 3 to gross focal neurologic deficit, patient is generally weak Psychiatric: Normal mood affect and normal mental status examination Skin: No rashes - Labs CBC & Chem 7: 06/17/23 11:02 06/17/23 11:02 Labs: Abnormal Lab Results - Last 24 Hours (Table) 06/16/23 06/16/23 06/17/23 Range/Units 16:14 20:24 01:58 WBC (3.8-10.6) k/uL RBC (4.30-5.90) m/uL Hgb (13.0-17.5) gm/dL Hct (39.0-53.0) % Plt Count (150-450) k/uL Neutrophils # (Manual) (1.3-7.7) k/uL Lymphocytes # (Manual) (1.0-4.8) k/uL Sodium (137-145) mmol/L BUN (9-20) mg/dL Creatinine (0.66-1.25) mg/dL Glucose (74-99) mg/dL POC Glucose (mg/dL) 261 H 200 H 230 H (70-110) mg/dL Calcium (8.4-10.2) mg/dL ALT (4-49) U/L Total Protein (6.3-8.2) g/dL Albumin (3.5-5.0) g/dL 06/17/23 06/17/23 06/17/23 Range/Units 06:17 11:02 11:02 WBC 1.3 L* (3.8-10.6) k/uL RBC 3.76 L (4.30-5.90) m/uL Hgb 11.6 L (13.0-17.5) gm/dL Hct 34.5 L (39.0-53.0) % Plt Count 58 L (150-450) k/uL Neutrophils # (Manual) 0.50 L (1.3-7.7) k/uL Lymphocytes # (Manual) 0.35 L (1.0-4.8) k/uL Sodium 133 L (137-145) mmol/L BUN 107 H* (9-20) mg/dL Creatinine 3.67 H (0.66-1.25) mg/dL Glucose 232 H (74-99) mg/dL POC Glucose (mg/dL) 217 H (70-110) mg/dL Calcium 7.8 L (8.4-10.2) mg/dL ALT 61 H (4-49) U/L Total Protein 5.1 L (6.3-8.2) g/dL Albumin 2.3 L (3.5-5.0) g/dL 06/17/23 Range/Units 11:22 WBC (3.8-10.6) k/uL RBC (4.30-5.90) m/uL Hgb (13.0-17.5) gm/dL Hct (39.0-53.0) % Plt Count (150-450) k/uL Neutrophils # (Manual) (1.3-7.7) k/uL Lymphocytes # (Manual) (1.0-4.8) k/uL Sodium (137-145) mmol/L BUN (9-20) mg/dL Creatinine (0.66-1.25) mg/dL Glucose (74-99) mg/dL POC Glucose (mg/dL) 249 H (70-110) mg/dL Calcium (8.4-10.2) mg/dL ALT (4-49) U/L Total Protein (6.3-8.2) g/dL Albumin (3.5-5.0) g/dL Microbiology - Last 24 Hours (Table) 06/16/23 11:07 Blood Culture Gram Stain - Preliminary Blood 06/14/23 19:13 Stool Culture - Preliminary Stool 06/15/23 12:06 Blood Culture Gram Stain - Preliminary Blood Blood Culture - Preliminary Group D Enterococcus Assessment and Plan Assessment: Impression: Group D enterococcus faecalis bacteremia, 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 Patient is scheduled for VICKIE tomorrow Pancytopenia secondary to gram-positive sepsis and bacteremia Generalized weakness and debility, possible endocarditis to be considered. Acute dehydration Acute gastroenteritis with diarrhea Paroxysmal atrial fibrillation History of hypertension Left lower lobe atelectasis no clinical evidence of pneumonia Type 2 diabetes with diabetic nephropathy Dyslipidemia History of bioprosthetic aortic valve acute on chronic kidney disease recommendation: Continue antibiotics/, as per infectious disease on the case, patient is on Rocephin and ampicillin for now. Further blood cultures to be done VICKIE is scheduled for tomorrow to rule out endocarditis Cautious hydration, and continue to monitor renal profile Continue to monitor his pancytopenia We will continue to follow Time with Patient: Less than 30
[2023-06-17] MEDS: AMPICILLIN 2,000 MG in SODIUM CHLORIDE 0.9% 100 ML IVPB SCH (15:29)
[2023-06-17] MEDS: LINAGLIPTIN 5 MG TABLET PO SCH (15:29)
[2023-06-17 16:11] LABS: Glucose,Whole Blood 376 mg/dL (70-110)
[2023-06-17] MEDS: LACTATED RINGERS 1,000 ML IV SCH (17:35)
[2023-06-17 20:00] LABS: Glucose,Whole Blood 219 mg/dL (70-110)
[2023-06-17] MEDS: ATORVASTATIN 20 MG TAB PO SCH (20:28)
[2023-06-17] MEDS: LORATADINE 10 MG TAB PO SCH (20:28)
[2023-06-18] MEDS: AMPICILLIN 2,000 MG in SODIUM CHLORIDE 0.9% 100 ML IVPB SCH ×4 (00:36→23:09)
--- NOTE | 2023-06-18 02:07 | P.PN ---
Subjective Progress Note Date: 06/17/23 This is a 78-year-old male who was recently admitted for generalized weakness and debility with significant comorbidities. Patient is acute on chronic renal failure with multiple medical consultations following. Patient was empirically started on antibiotics with infectious disease on consult. Patient's initial blood cultures are positive and awaiting finalized with follow-up cultures ordered and pending at this time. Patient appears more awake and alert today with at bedside. Patient remains on gentle hydration along with sodium bicarb drip and nephrology is following closely. Patient today is afebrile currently maintained on room air and denies chest pain or shortness of breath. Will have speech evaluate the patient as there was a brief episode of coughing while eating although patient reports has been coughing. Will have speech evaluate. 06/17/2023 Patient is seen in follow-up today currently sitting up in the bed appears to be clinically improving with multiple medical consultations following. Patient continues with significant weakness and will have physical therapy evaluate the patient. Cardiology following and patient's blood cultures continue to be positive with enterococcus currently maintained on ampicillin with ceftriaxone and infectious disease following. VICKIE is recommended and currently pending for tomorrow. Follow-up blood cultures remain positive and will continue daily blood cultures. Speech evaluated the patient with no signs of overt aspiration and is continued on current diet. Patient is diabetic and will continue Accu- Cheks before meals and at bedtime and sliding scale as needed. Nephrology following and kidney functions are improving and sodium bicarbonate is being discontinued. Will follow-up with repeat labs Review of systems: Constitutional: No reports of fatigue, fever, or chills Cardiovascular: No reports of chest pain or palpitations Respiratory: No reports of shortness of breath, reports cough GI: No reports of nausea, no reports of vomiting, reports diarrhea has resolved : No reports of dysuria or retention Neurovascular: reports of generalized weakness All medications have been reviewed PHYSICAL EXAMINATION: GENERAL: The patient is alert and oriented x3, hard of hearing, elderly appearing, ill appearing Well developed, well nourished. Obese HEENT: Pupils are round and equally reacting to light. EOMI. no scleral icterus. No conjunctival pallor. Normocephalic, atraumatic. No pharyngeal erythema. No t hyromegaly. CARDIOVASCULAR: S1 and S2 muffled PULMONARY: diminished breath sounds bilaterally with no wheezing or rhonchi noted. Week upper congested cough noted ABDOMEN: soft. Nontender on exam. obese. non-distended, normoactive bowel sounds. No palpable organomegaly. MUSCULOSKELETAL: No joint swelling or deformity. EXTREMITIES: No cyanosis, clubbing, or pedal edema. NEUROLOGICAL: Gross neurological examination did not reveal any focal deficits. Diffuse weakness SKIN: No rashes. Assessment: Acute on chronic renal failure, prerenal with acute tubular necrosis, improving Bacteremia with features of sepsis, present on admission, concerns of possible infective endocarditis with plans for VICKIE on 06/18/2023. Cultures showing enterococcus Troponin 0.10, rule out NSTEMI History of atrial fibrillation, currently rate controlled Diabetes mellitus, type II uncontrolled with hyper and hypoglycemia History of degenerative joint disease History of coronary artery disease with CABG Gait dysfunction with generalized weakness GI prophylaxis DVT prophylaxis Full code Plan: Patient is currently continued on sodium bicarb drip with nephrology following closely. Bicarb being discontinued and kidney functions are improving Multiple medical consultations following including pulmonary, infectious disease, nephrology. Cardiology following as well with plans for VICKIE on 06/18/2023 with concerns of infective endocarditis Patient is continued on antibiotics and initial blood cultures were positive for enterococcus and most recent blood cultures are coming back preliminary positive as well. Recommend daily blood cultures. Patient is continued on ampicillin along with ceftriaxone while awaiting cultures to finalized. Recommend VICKIE. Patient did have an episode of coughing eating and reports he chronically does this, concerns for aspiration and was evaluated by speech and within normal limits. Continue head of bed elevated 45 at all times Patient with significant weakness will have PT/OT therapy evaluate and discuss possible ECF, consult case management Patient continues to make urine with no immediate plans for renal replacement therapy at this time Continue Accu-Cheks before meals and at bedtime and at 2 AM and continue current regimen Will follow-up on repeat labs The impression and plan of care has been dictated by Nirali Mayes, nurse practitioner as directed. Dr. Sallie MD I have performed a history and examination and MDM of this patient, discussed the same with the dictator, and agree with the dictator's assessment and plan as written ,documented as a scribe. Based on total visit time, I have performed more than 50% of the visit. Any additional findings or plans will be noted. Objective - Vital Signs Vital signs: Vital Signs Temp 98.5 F 06/18/23 00:32 Pulse 94 10/12/23 00:32 Resp 18 06/18/23 00:32 BP 119/76 06/18/23 00:32 Pulse Ox 97 06/18/23 00:32 FiO2 Intake & Output 06/17/23 06/17/23 06/18/23 06:59 18:59 06:59 Intake Total 346 Output Total 1250 700 Balance -1250 346 -700 Weight 110 kg Intake: Oral 346 Output: Urine 1250 700 Other: Voiding Method Indwelling Catheter Indwelling Catheter Indwelling Catheter # Bowel Movements 1 - Labs CBC & Chem 7: 06/17/23 11:02 06/17/23 11:02 Labs: Abnormal Lab Results - Last 24 Hours (Table) 06/17/23 06/17/23 06/17/23 Range/Units 01:58 06:17 11:02 WBC 1.3 L* (3.8-10.6) k/uL RBC 3.76 L (4.30-5.90) m/uL Hgb 11.6 L (13.0-17.5) gm/dL Hct 34.5 L (39.0-53.0) % Plt Count 58 L (150-450) k/uL Neutrophils # (Manual) 0.50 L (1.3-7.7) k/uL Lymphocytes # (Manual) 0.35 L (1.0-4.8) k/uL Sodium (137-145) mmol/L BUN (9-20) mg/dL Creatinine (0.66-1.25) mg/dL Glucose (74-99) mg/dL POC Glucose (mg/dL) 230 H 217 H (70-110) mg/dL Calcium (8.4-10.2) mg/dL ALT (4-49) U/L Total Protein (6.3-8.2) g/dL Albumin (3.5-5.0) g/dL 06/17/23 06/17/23 06/17/23 Range/Units 11:02 11:22 16:08 WBC (3.8-10.6) k/uL RBC (4.30-5.90) m/uL Hgb (13.0-17.5) gm/dL Hct (39.0-53.0) % Plt Count (150-450) k/uL Neutrophils # (Manual) (1.3-7.7) k/uL Lymphocytes # (Manual) (1.0-4.8) k/uL Sodium 133 L (137-145) mmol/L BUN 107 H* (9-20) mg/dL Creatinine 3.67 H (0.66-1.25) mg/dL Glucose 232 H (74-99) mg/dL POC Glucose (mg/dL) 249 H 376 H (70-110) mg/dL Calcium 7.8 L (8.4-10.2) mg/dL ALT 61 H (4-49) U/L Total Protein 5.1 L (6.3-8.2) g/dL Albumin 2.3 L (3.5-5.0) g/dL 06/17/23 Range/Units 19:59 WBC (3.8-10.6) k/uL RBC (4.30-5.90) m/uL Hgb (13.0-17.5) gm/dL Hct (39.0-53.0) % Plt Count (150-450) k/uL Neutrophils # (Manual) (1.3-7.7) k/uL Lymphocytes # (Manual) (1.0-4.8) k/uL Sodium (137-145) mmol/L BUN (9-20) mg/dL Creatinine (0.66-1.25) mg/dL Glucose (74-99) mg/dL POC Glucose (mg/dL) 219 H (70-110) mg/dL Calcium (8.4-10.2) mg/dL ALT (4-49) U/L Total Protein (6.3-8.2) g/dL Albumin (3.5-5.0) g/dL Microbiology - Last 24 Hours (Table) 06/15/23 12:06 Blood Culture Gram Stain - Final Blood Blood Culture - Final Enterococcus faecalis 06/16/23 11:07 Blood Culture Gram Stain - Preliminary Blood 06/14/23 19:13 Stool Culture - Preliminary Stool
[2023-06-18 05:53] LABS: Glucose,Whole Blood 186 mg/dL (70-110)
[2023-06-18] MEDS: INSULIN ASPART (NovoLOG) 100 UNIT/ML VIAL SQ SCH ×4 (06:44→20:00)
[2023-06-18 08:43] LABS: ALT 61 U/L (4-49); AST 42 U/L (17-59); African American GFR (CKD) 21 (>60 ml/min/1.73 sqM); Albumin 2.2 g/dL (3.5-5.0); Alkaline Phosphatase 86 U/L (38-126); Anion Gap 8 mmol/L; Blood Urea Nitrogen 92 mg/dL (9-20); Carbon Dioxide 24 mmol/L (22-30); Chloride 102 mmol/L (98-107); Glucose 169 mg/dL (74-99); Non-African American GFR(CKD) 18 (>60 ml/min/1.73 sqM); Potassium 4.2 mmol/L (3.5-5.1); Sodium 134 mmol/L (137-145); Total Bilirubin 0.5 mg/dL (0.2-1.3); Total Protein 4.9 g/dL (6.3-8.2)
[2023-06-18 08:48] LABS: HCT 36.3 % (39.0-53.0); HGB 12.4 gm/dL (13.0-17.5); MCH 31.1 pg (25.0-35.0); MCV 91.4 fL (80.0-100.0); Mean Platelet Volume 10.7; RBC 3.97 m/uL (4.30-5.90); WBC 1.7 k/uL (3.8-10.6)
[2023-06-18 08:49] LABS: Platelet Count 67 k/uL (150-450)
[2023-06-18] MEDS ORDERED: ALPRAZolam 0.25 MG TAB PO PRN (09:12)
[2023-06-18] MEDS: ASCORBIC ACID 500 MG TAB PO SCH (09:19)
[2023-06-18] MEDS: AMIODARONE 200 MG TAB PO SCH (09:19)
[2023-06-18] MEDS: FERROUS SULFATE 325 MG TAB PO SCH (09:19)
[2023-06-18] MEDS: TAMSULOSIN 0.4 MG CAP.ER.24H PO SCH (09:20)
[2023-06-18] MEDS: PANTOPRAZOLE 40 MG TABLET PO SCH ×2 (09:20→16:28)
[2023-06-18] MEDS: ASPIRIN 81 MG PO SCH (09:20)
[2023-06-18] MEDS: MIDODRINE 5 MG TAB PO SCH ×4 (09:20→18:12)
[2023-06-18] MEDS: CHOLECALCIFEROL 25 MCG (1000 IU) TABLET PO SCH (09:20)
[2023-06-18 10:05] LABS: Band Neutrophils % 3 %; Lymphocytes # (M) 0.46 k/uL (1.0-4.8); Monocytes # (M) 0.53 k/uL (0-1.0); Neutrophils % (M) 39 %; Nucleated Red Blood Cells 0 /100 WBC (0-0); Total Cells Counted 100
[2023-06-18 11:34] LABS: Glucose,Whole Blood 224 mg/dL (70-110)
[2023-06-18] MEDS: FEBUXOSTAT 40 MG PO SCH (12:00)
[2023-06-18] MEDS: LACTATED RINGERS 1,000 ML IV SCH (12:00)
--- NOTE | 2023-06-18 12:11 | P.PN ---
Subjective Patient is seen for follow-up for acute kidney injury on top of chronic kidney disease. Underlying CK D secondary to diabetic kidney disease and nephrosclerosis with baseline creatinine of around 2.5 mg/dL. Admitted to the hospital with complaints of decreased ambulation and decreased oral intake with weakness. Serum creatinine was 6.7 on initial admission and decreased to 3.1 today. Indwelling Wong catheter with 24 hour urine output of 1.25 L. It appears that 800 mL of urine was obtained on initial catheter placement. Blood pressure is also been on the lower side. Maintained on midodrine. Mentation is improved. Objective - Vital Signs Vital signs: Vital Signs Temp 98.0 F 06/18/23 08:00 Pulse 112 H 06/18/23 08:00 Resp 18 06/18/23 08:00 BP 135/68 06/18/23 08:00 Pulse Ox 96 06/18/23 08:00 FiO2 Intake & Output 06/17/23 06/18/23 06/18/23 18:59 06:59 18:59 Intake Total 346 Output Total 1100 525 Balance 346 -1100 -525 Intake: Oral 346 Output: Urine 1100 525 Other: Voiding Method Indwelling Catheter Indwelling Catheter Indwelling Catheter # Bowel Movements 1 - Exam Awake, comfortable, no acute distress Answering questions appropriately Examination of the heart S1 and S2 Examination lungs bilateral breath sounds are heard Abdomen is soft nontender Admission lower extremity shows no evidence of edema [employer] exam shows patient moving all 4 extremities. - Labs CBC & Chem 7: 06/18/23 07:47 06/18/23 07:47 Labs: Abnormal Lab Results - Last 24 Hours (Table) 06/17/23 06/17/23 06/17/23 Range/Units 11:02 16:08 19:59 WBC 1.3 L* (3.8-10.6) k/uL RBC 3.76 L (4.30-5.90) m/uL Hgb 11.6 L (13.0-17.5) gm/dL Hct 34.5 L (39.0-53.0) % Plt Count 58 L (150-450) k/uL Neutrophils # (Manual) 0.50 L (1.3-7.7) k/uL Lymphocytes # (Manual) 0.35 L (1.0-4.8) k/uL Sodium (137-145) mmol/L BUN (9-20) mg/dL Creatinine (0.66-1.25) mg/dL Glucose (74-99) mg/dL POC Glucose (mg/dL) 376 H 219 H (70-110) mg/dL Calcium (8.4-10.2) mg/dL ALT (4-49) U/L Total Protein (6.3-8.2) g/dL Albumin (3.5-5.0) g/dL 06/18/23 06/18/23 06/18/23 Range/Units 05:52 07:47 07:47 WBC 1.7 L (3.8-10.6) k/uL RBC 3.97 L (4.30-5.90) m/uL Hgb 12.4 L (13.0-17.5) gm/dL Hct 36.3 L (39.0-53.0) % Plt Count 67 L (150-450) k/uL Neutrophils # (Manual) 0.70 L (1.3-7.7) k/uL Lymphocytes # (Manual) 0.46 L (1.0-4.8) k/uL Sodium 134 L (137-145) mmol/L BUN 92 H (9-20) mg/dL Creatinine 3.16 H (0.66-1.25) mg/dL Glucose 169 H (74-99) mg/dL POC Glucose (mg/dL) 186 H (70-110) mg/dL Calcium 8.0 L (8.4-10.2) mg/dL ALT 61 H (4-49) U/L Total Protein 4.9 L (6.3-8.2) g/dL Albumin 2.2 L (3.5-5.0) g/dL 06/18/23 Range/Units 11:32 WBC (3.8-10.6) k/uL RBC (4.30-5.90) m/uL Hgb (13.0-17.5) gm/dL Hct (39.0-53.0) % Plt Count (150-450) k/uL Neutrophils # (Manual) (1.3-7.7) k/uL Lymphocytes # (Manual) (1.0-4.8) k/uL Sodium (137-145) mmol/L BUN (9-20) mg/dL Creatinine (0.66-1.25) mg/dL Glucose (74-99) mg/dL POC Glucose (mg/dL) 224 H (70-110) mg/dL Calcium (8.4-10.2) mg/dL ALT (4-49) U/L Total Protein (6.3-8.2) g/dL Albumin (3.5-5.0) g/dL Microbiology - Last 24 Hours (Table) 06/14/23 19:13 Stool Culture - Final Stool 06/15/23 12:06 Blood Culture Gram Stain - Final Blood Blood Culture - Final Enterococcus faecalis 06/16/23 11:07 Blood Culture Gram Stain - Preliminary Blood Assessment and Plan Assessment: 1. Acute kidney injury secondary to ATN secondary to hypovolemia from diarrhea and further worsened with the use of FLOYD inhibitor. Creatinine 6.78 on admission. Also component of urinary retention. No hydronephrosis noted on kidney ultrasound. Improving. 2. Chronic kidney disease stage IV with baseline creatinine near 2.5 secondary to diabetic kidney disease and nephrosclerosis. UA with trace protein. 3. Metabolic acidosis secondary to acute kidney injury and GI losses. 4. Diabetes mellitus. 5. Chronic kidney disease mineral bone disease maintained on calcitriol. 6. A. fib maintained on amiodarone. 7. Coronary disease status post CABG. 8. Diarrhea. C. diff toxin negative Plan: Continue LR at 50 ML per hour Continue Rocaltrol Repeat labs in a.m. Continue with Wong catheter. Avoid nephrotoxic agents Continue with midodrine
[2023-06-18] MEDS ORDERED: BENZOCAINE SPRAY 1 CAN TOPICAL ONE (12:41)
[2023-06-18] MEDS ORDERED: MIDAZOLAM 2 MG/2 ML VIAL IVP ONE (12:46)
[2023-06-18] MEDS ORDERED: fentaNYL (PF) 50 MCG/ML 2 ML AMP IVP ONE (12:47)
[2023-06-18] MEDS ORDERED: IV FLUID CONTINUATION 400 ML IV ONE (12:51)
[2023-06-18] MEDS: FLUTICASONE 50MCG/SPRAY NASAL 16GM EA NOSTRIL SCH ×2 (13:48→16:28)
--- NOTE | 2023-06-18 13:48 | P.TEE ---
Date of Procedure: 06/18/23 Description of Procedure(s): Procedure performed: 1. Transesophageal Echocardiogram with color flow doppler, pulsed wave doppler and continuous wave doppler, 2. Bubble Study 3. Moderate conscious sedation. Sedation time 29 mins. Indications: Infective endocarditis Patient has a prior history of bioprosthetic aortic valve. He presented to the hospital with confusion and concerns of sepsis. His blood culture was positive for Enterococcus faecalis. Surface echocardiogram showed suspicion of possible endocarditis and a left atrial mass concerning of possible abscess. VICKIE was performed to confirm these findings Consent: I have discussed the risks, benefits and alternative therapies for the above-mentioned procedure. The patient has indicated understanding and acceptance of the risks of the procedure. Signed consent was obtained and was placed in the paper chart. Procedural Steps: Timeout was performed in usual fashion. Patient's heart rate, blood pressure, oxygen saturation and ECG were monitored. Benzocaine was sprayed liberally in the back of the throat. Bite block was placed between the jaw. 2 mg of Versed and 50 mcg of Fentanyl were administered intravenously. After achieving appropriate moderate conscious sedation, VICKIE probe was advanced without difficulty and without any immediate complications to the esophagus. VICKIE study was performed with color flow doppler, pulsed wave doppler and continuous wave doppler. The probe was then removed. Patient tolerated the procedure well. Patient was transferred to the post procedure area in stable and satisfactory condition. Throughout the procedure patient's heart rate, blood pressure, oxygen saturation and ECG were monitored. Total sedation time 29 mins. Complications: none FINDINGS Left Atrium: Moderate left atrial dilatation. Left Atrial Appendage: No evidence of thrombus and left atrial appendage Inter atrial septum: Intact interatrial septum Left Ventricle: Normal global LV size and systolic function Right Atrium: Moderate right atrial dilatation Right Ventricle: Mild right atrial dilatation. Preserved systolic function Aortic Valve: Bioprosthetic aortic valve in place with at least moderate aortic stenosis with color Doppler flow. There is a possible concern for periaortic abscess with some continuation to aorto-mitral curtain. No evidence of aortic regurgitation Mitral Valve: Normal mitral valve. Right functional mitral regurgitation. 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 His review views 14, 23, 48, 63 Moderate biatrial dilatation next and no evidence of left atrial or left atrial appendage thrombus Will Consult CT surgery
--- NOTE | 2023-06-18 14:10 | P.PN ---
Subjective Progress Note Date: 06/18/23 Principal diagnosis: Acute infective endocarditis This is a 78-year-old white male with history of multiple medical problems including chronic atrial fibrillation, chronic kidney disease, being followed by nephrology on outpatient basis, benign essential hypertension, dyslipidemia, history of aortic valve replacement, patient was brought into the ER mostly because of profound weakness and debility, patient was also complaining of bilateral hips pain. But he had no chest pain, no shortness of breath, no wheezing, no dizziness, he was mostly generally weak. Blood pressure was noted to be low, troponin was also noted to be elevated, patient is normally maintained at home on lisinopril, hydralazine, Xarelto, Crestor, metoprolol, aspirin, amiodarone, and he normally has a relatively normal echocardiogram with mild mitral regurgitation and he does have a bioprosthetic aortic valve. At any rate considering his soft blood pressure, I was asked to evaluate the patient a nd decide whether the patient should go to the ICU. I did evaluate the patient, his blood pressure was 98/55, and I felt at that point that the patient is dehydrated, and needs more fluids, he was already on a bicarb drip at 75 mL per hour, and I did not feel the patient needs to be transferred to the ICU. There is no fever, no chills, no significant findings to suggest sepsis or septic shock. Patient has been already evaluated by multiple consultants including nephrology and cardiology again he has no active pulmonary symptoms that is easy count is 3.0 hemoglobin 11.7 lites are normal bicarb is low at 13, and his BUN is 141 creatinine 5.55, blood sugar was 295. Patient was reevaluated today on 06/16/2023, patient continues to have weakness, and I saw him yesterday for possibly transferring the patient to the ICU, however I did not feel the patient needed ICU admission. Remains hemo dynamically stable, remains on room air with O2 saturation of 97% his blood pressure for the last 24 hours has been normal. With mean arterial pressure ranging between 70 and 86. WBC count however today is low at 1.9 hemoglobin is 11 electrolytes are normal BUN is 130 creatinine 4.31, blood culture is positive for gram-positive cocci in pairs and chains final identification is pending, patient is being followed by infectious disease on consultation CT abdomen and pelvis is basically unremarkable, empirically the patient remains on Unasyn Patient was seen and examined today on 06/17/2023, patient is feeling a bit better, less weakness, his blood cultures came back positive for group D ente rococcus. However his CT of the abdomen and pelvis showed no acute intra- abdominal process, considering his valvular heart disease patient is now scheduled to have VICKIE. In the meantime his Unasyn was discontinued and he is now on ampicillin and Rocephin for 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 Continues to have pancytopenia with WBC count of 1.3 hemoglobin 11.6 and his platelets are 58,000. Renal functioning remains abnormal with a BUN of 107 creatinine 3.6, this is felt to be acute kidney injury secondary to ATN secondary to hypovolemia and dehydration as well as use of FLYOD inhibitor's and the patient does have history of chronic kidney disease stage IV. [place] to have diabetic kidney disease and nephrosclerosis Patient was reevaluated today on 06/18/2023, patient is doing well, surprisingly improving, patient is now on antibiotics as per infectious disease, and his VICKIE is consistent with endocarditis of the bioprosthetic aortic valve. In the meantime the patient is on ampicillin and Rocephin clinically doing well, continues to have bicytopenia with WBC of 1.7 and platelets are 67,000. Elec trodes are normal renal profile remains abnormal with a BUN of 92 creatinine 3.16 patient is on room air with O2 sats of 96%, and blood pressure remains stable 143/70 Objective - Vital Signs Vital signs: Vital Signs Temp 98.0 F 06/18/23 08:00 Pulse 97 06/18/23 12:00 Resp 18 06/18/23 12:00 BP 143/79 06/18/23 12:00 Pulse Ox 96 06/18/23 12:00 FiO2 Intake & Output 06/17/23 06/18/23 06/18/23 18:59 06:59 18:59 Intake Total 346 50 Output Total 1100 525 Balance 346 -1100 -475 Intake: IV 50 Oral 346 Output: Urine 1100 525 Other: Voiding Method Indwelling Catheter Indwelling Catheter Indwelling Catheter # Bowel Movements 1 - Exam Physical Exam: Revealed a 78-year-old white male in no distress on room air Head: Atraumatic, normocephalic. HEENT:[Neck is supple.] [No neck masses.] [No thyromegaly.] [No JVD.], Dry mucous membranes. Chest: [Clear throughout, no crackles, no rhonchi, no wheezes.] Cardiac Exam: [Normal S1 and S2, no S3 gallop, 2/6 systolic murmur in the right parasternal area Abdomen: [Soft, nontender, no megaly, no rebound, no guarding, normal bowel sounds.] Extremities: [No clubbing, no edema, no cyanosis.] Neurological Exam: Alert oriented 3 to gross focal neurologic deficit, patient is generally weak Psychiatric: Normal mood affect and normal mental status examination Skin: No rashes - Labs CBC & Chem 7: 06/18/23 07:47 06/18/23 07:47 Labs: Abnormal Lab Results - Last 24 Hours (Table) 06/17/23 06/17/23 06/18/23 Range/Units 16:08 19:59 05:52 WBC (3.8-10.6) k/uL RBC (4.30-5.90) m/uL Hgb (13.0-17.5) gm/dL Hct (39.0-53.0) % Plt Count (150-450) k/uL Neutrophils # (Manual) (1.3-7.7) k/uL Lymphocytes # (Manual) (1.0-4.8) k/uL Sodium (137-145) mmol/L BUN (9-20) mg/dL Creatinine (0.66-1.25) mg/dL Glucose (74-99) mg/dL POC Glucose (mg/dL) 376 H 219 H 186 H (70-110) mg/dL Calcium (8.4-10.2) mg/dL ALT (4-49) U/L Total Protein (6.3-8.2) g/dL Albumin (3.5-5.0) g/dL 06/18/23 06/18/23 06/18/23 Range/Units 07:47 07:47 11:32 WBC 1.7 L (3.8-10.6) k/uL RBC 3.97 L (4.30-5.90) m/uL Hgb 12.4 L (13.0-17.5) gm/dL Hct 36.3 L (39.0-53.0) % Plt Count 67 L (150-450) k/uL Neutrophils # (Manual) 0.70 L (1.3-7.7) k/uL Lymphocytes # (Manual) 0.46 L (1.0-4.8) k/uL Sodium 134 L (137-145) mmol/L BUN 92 H (9-20) mg/dL Creatinine 3.16 H (0.66-1.25) mg/dL Glucose 169 H (74-99) mg/dL POC Glucose (mg/dL) 224 H (70-110) mg/dL Calcium 8.0 L (8.4-10.2) mg/dL ALT 61 H (4-49) U/L Total Protein 4.9 L (6.3-8.2) g/dL Albumin 2.2 L (3.5-5.0) g/dL Microbiology - Last 24 Hours (Table) 06/14/23 19:13 Stool Culture - Final Stool 06/15/23 12:06 Blood Culture Gram Stain - Final Blood Blood Culture - Final Enterococcus faecalis Assessment and Plan Assessment: Impression: Group D enterococcus faecalis bacteremia, and endocarditis of bioprosthetic aortic valve. Pancytopenia secondary Sepsis and bacteremia Generalized weakness and debility, secondary to endocarditis Acute dehydration, resolved Acute gastroenteritis with diarrhea Paroxysmal atrial fibrillation History of hypertension Left lower lobe atelectasis no clinical evidence of pneumonia Type 2 diabetes with diabetic nephropathy Dyslipidemia History of bioprosthetic aortic valve acute on chronic kidney disease recommendation: Continue antibiotics/, as per infectious disease on the case, patient is on Rocephin and ampicillin for now. Further blood cultures to be done Reviewed the results of the VICKIE Cautious hydration, and continue to monitor renal profile Continue to monitor his bicytopenia We will continue to follow Time with Patient: Less than 30
--- NOTE | 2023-06-18 15:38 | P.PN ---
Subjective Progress Note Date: 06/18/23 Principal diagnosis: Enterococcus faecalis bacteremia Patient is a 78-year-old male with a past medical history significant for chronic kidney disease hypertension hyperlipidemia aortic valve replacement has been brought to the hospital for evaluation of weakness and falls patient did have a nausea vomiting and diarrhea, blood culture coming back positive with Enterococcus faecalis. 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 On today's evaluation that is 06/18/2023, the patient remains to be afebrile the patient is breathing comfortably on room air, the patient denies chest pain and no significant cough or sputum production, patient denies nausea/vomiting and no diarrhea, no new symptoms, feeling better Patient did have white count of 1.7, creatinine is 3.16, UA is negative, CT abdominal pelvis negative for acute intra-abdominal process, blood culture with Enterococcus faecalis Objective - Vital Signs Vital signs: Vital Signs Temp 98.0 F 06/18/23 08:00 Pulse 97 06/18/23 14:00 Resp 18 06/18/23 14:00 BP 143/79 06/18/23 12:00 Pulse Ox 96 06/18/23 12:00 FiO2 Intake & Output 06/17/23 06/18/23 06/18/23 18:59 06:59 18:59 Intake Total 346 50 Output Total 1100 525 Balance 346 -1100 -475 Intake: IV 50 Oral 346 Output: Urine 1100 525 Other: Voiding Method Indwelling Catheter Indwelling Catheter Indwelling Catheter # Bowel Movements 1 - Exam GENERAL DESCRIPTION: An elderly male lying in bed in no distress RESPIRATORY SYSTEM: Unlabored breathing , decreased breath sounds at bases HEART: S1 S2 regular rate and rhythm , ABDOMEN: Soft , no tenderness EXTREMITIES: No edema feet - Labs CBC & Chem 7: 06/18/23 07:47 06/18/23 07:47 Labs: Abnormal Lab Results - Last 24 Hours (Table) 06/17/23 06/17/23 06/18/23 Range/Units 16:08 19:59 05:52 WBC (3.8-10.6) k/uL RBC (4.30-5.90) m/uL Hgb (13.0-17.5) gm/dL Hct (39.0-53.0) % Plt Count (150-450) k/uL Neutrophils # (Manual) (1.3-7.7) k/uL Lymphocytes # (Manual) (1.0-4.8) k/uL Sodium (137-145) mmol/L BUN (9-20) mg/dL Creatinine (0.66-1.25) mg/dL Glucose (74-99) mg/dL POC Glucose (mg/dL) 376 H 219 H 186 H (70-110) mg/dL Calcium (8.4-10.2) mg/dL ALT (4-49) U/L Total Protein (6.3-8.2) g/dL Albumin (3.5-5.0) g/dL 06/18/23 06/18/23 06/18/23 Range/Units 07:47 07:47 11:32 WBC 1.7 L (3.8-10.6) k/uL RBC 3.97 L (4.30-5.90) m/uL Hgb 12.4 L (13.0-17.5) gm/dL Hct 36.3 L (39.0-53.0) % Plt Count 67 L (150-450) k/uL Neutrophils # (Manual) 0.70 L (1.3-7.7) k/uL Lymphocytes # (Manual) 0.46 L (1.0-4.8) k/uL Sodium 134 L (137-145) mmol/L BUN 92 H (9-20) mg/dL Creatinine 3.16 H (0.66-1.25) mg/dL Glucose 169 H (74-99) mg/dL POC Glucose (mg/dL) 224 H (70-110) mg/dL Calcium 8.0 L (8.4-10.2) mg/dL ALT 61 H (4-49) U/L Total Protein 4.9 L (6.3-8.2) g/dL Albumin 2.2 L (3.5-5.0) g/dL Microbiology - Last 24 Hours (Table) 06/14/23 19:13 Stool Culture - Final Stool 06/15/23 12:06 Blood Culture Gram Stain - Final Blood Blood Culture - Final Enterococcus faecalis Assessment and Plan (1) Bacteremia due to Enterococcus Current Visit: Yes Status: Acute Code(s): R78.81 - BACTEREMIA; B95.2 - ENT EROCOCCUS THE CAUSE OF DISEASES CLASSIFIED ELSEWHERE SNOMED Code(s): 1 072810679 Plan: 1patient with a fever in this patient presented to hospital with weakness debility patient also has episode of vomiting and diarrhea noticed to have some abdominal distention with initial concern for possible abdominal source however CT abdominal pelvis came back negative patient did have a negative UA 2-patient with Enterococcus faecalis bacteremia and abnormal echocardiogram concerning for endocarditis, VICKIE suggestive of aortic valve endocarditis and possible valvular abscess 3-continue the patient on ampicillin and Rocephin cannot use gentamicin because of his kidney function and gentamicin resistant for synergy, currently waiting for transfer to tertiary care to be evaluated by CT surgery at the bedside and multiple questions and concerns were answered Dictation was produced using [employer] dictation software. please excuse any gramma tical, word or spelling errors. Time with Patient: Less than 30
--- NOTE | 2023-06-18 15:50 | P.CONS ---
History of Present Illness - Reason for Consult Consult date: 06/18/23 pancytopenia Requesting physician: Nirali Mayes - Chief Complaint weakness, diarrhea - History of Present Illness Patient is a 78 year old male with a significant history multiple comorbidites including a fib, aortic valve replacement anticoagulated with xarelto, CKD and MURIEL. Consult was placed for pancytopenia. He is a patient of Dr. Lopez. The patient was admitted to [facility] in 07/29, with severe anemia, requiring blood transfusion. This was new onset, as hemoglobin in 05/29 had been 12.5. The patient has known chronic kidney disease, and had been taking oral iron as his iron saturation had been somewhat low. The patient had EGD and colonoscopy done during his admission, that showed some minor antral gastritis, for tubular adenomatous polyp in the right colon, as well as external hemorrhoids. It was felt that his blood loss was from the hemorrhoids. However the patient denied any visible bleeding, which would have been present in case of hemorrhoidal blood loss. Post discharge, on 08/28/22 hemoglobin was 8.2. His iron studies performed by nephrology showed saturation of 13% and ferritin of 10. He received IV iron 2 doses (ferraheme), and was also started on CRYS. He had an excellent response, with increase in hemoglobin to 13.3 by 10/08/22. Labs on that day, as well as a week before however showed new thrombocytopenia, with platelet counts of 128 and 129 respectively. Plt counts had been 170,000 on 09/18/22. Patient denied any prior history of blood related problems of malignancy. He is on xarelto since aortic valve replacement with a porcine valve, in 11/2019 as well as a baby aspirin. Denied any history of chronic liver disease, or significant alcohol use. 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 Workup for his mild, new onset thrombocytopenia showed changes suggestive of diffuse fatty infiltration in the liver. Both light chains were elevated, with a ratio mildly high at 1.8 8. It was otherwise negative. Additional tests with a 24-hour urines and bone survey were negative. 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 Repeat K/L ratio 02/2023 was 0.89. M-spike negative. Pt was found to be iron deficient at that time and received 2 doses of ferraheme. Patient presented to the emergency room with complaints of fatigue, generalized weakness, persisting diarrhea and decreased appetite. of note patient was previously admitted for new onset atrial fibrillation. states he was improving after discharge but symptoms started progressing 1 week ago. Patient denies shortness of breath and chest pain. Denies blood in stool and melena. Chest x-ray revealed left lower lobe infiltrate and small effusion. CT abdomen and pelvis show no evidence for acute abdominal processes. Cardiology was consulted and echocardiogram as obtained revealing sessile mass noted in the 5 chamber view. Left ventricular ejection fraction 50% with septal hypokinesis. VICKIE has been ordered. Today's CBC reveals WBC 1.7, hemoglobin 12.4, platelets 67,000. Creatinine 3.16, GFR 18. C. difficile negative. RSV, COVID, and influenza negative. Blood culture found to be positive for enterococcus faecalis. Patient was started on ampicillin and Rocephin. UA negative for UTI. At today's visit patient is reporting improvement in symptoms but is still experiencing generalized weakness. Patient has been afebrile 3 days. VSS Review of Systems 10 point ROS is negative except as stated in the HPI Past Medical History Past Medical History: Atrial Fibrillation, Cancer, Diabetes Mellitus, Hearing Disorder / Deafness, Hypertension, Osteoarthritis (OA), Renal Disease Additional Past Medical History / Comment(s): Covid 07/20/21. Bladder cancer 2009 and 2011. Hx pelvic fracture 1993. Gout. Herniated disc in back in 2001. Bilateral eye cateracts. Skin cancer 10/08/20 with removal. Anemia. CKD History of Any Multi-Drug Resistant Organisms: None Reported Past Surgical History: Cardiac Valve Replacement, Coronary Bypass/CABG, Heart Catheterization, Hernia Repair Additional Past Surgical History / Comment(s): Left rotator cuff surgery, bilateral cataracts removed, umbilical hernia repair, right side salivary gland removed, broken right ankle surgery, skin cancer removed from right cheek, back and hands, heart valve replacement 11/22/19, colonoscopies, coronary artery bypass 11/22/2019. Past Anesthesia/Blood Transfusion Reactions: No Reported Reaction Past Psychological History: No Psychological Hx Reported Smoking Status: Former smoker Past Alcohol Use History: Occasional Additional Past Alcohol Use History / Comment(s): Quit smoking 45 yrs ago. Past Drug Use History: None Reported - Past Family History Father Additional Family Medical History / Comment(s): of emphysema. Mother Additional Family Medical History / Comment(s): of either kidney or liver problems per patient. Brother(s) Family Medical History: Unable to Obtain Medications and Allergies Home Medications Medication Instructions Recorded Confirmed Type Colchicine 0.6 mg PO DAILY@0800 08/25/18 06/14/23 History Fluticasone Nasal [place] [Flonase 1 spr EA NOSTRIL BID@0800,1500 08/25/18 06/14/23 History Nasal [place]] Levocetirizine Dihydrochloride 5 mg PO HS 08/25/18 06/14/23 History [Xyzal] Rosuvastatin Calcium 10 mg PO HS 08/25/18 06/14/23 History Acetaminophen Tab [Tylenol] 500 mg PO Q6H PRN 07/16/21 06/14/23 History Metoprolol Tartrate [Lopressor] 50 mg PO BID@0800,1500 07/16/21 06/14/23 History calcitrioL [Calcitriol] 0.25 mcg PO MOTUWETHFR 07/16/21 06/14/23 History glipiZIDE [Glucotrol] 10 mg PO DAILY@0800 07/16/21 06/14/23 History Ascorbic Acid [Vitamin C] 500 mg PO DAILY@0800 08/13/21 06/14/23 History Cholecalciferol [Vitamin D3 (25 50 mcg PO DAILY@0800 07/16/22 06/14/23 History Mcg = 1000 Iu)] Febuxostat [Uloric] 40 mg PO DAILY@0800 07/16/22 06/14/23 History sitaGLIPtin [Januvia] 100 mg PO DAILY@1500 07/16/22 06/14/23 History Aspirin [Adult Low Dose Aspirin EC] 81 mg PO DAILY@0800 07/22/22 06/14/23 History Rivaroxaban [Xarelto] 15 mg PO HS 07/22/22 06/14/23 History Calcium 500mg 500 mg PO DAILY@0800 05/27/23 06/14/23 History Ferrous Sulfate [Iron (65 MG 325 mg PO DAILY@0800 05/27/23 06/14/23 History Elemental)] Pantoprazole [Protonix] 40 mg PO BID@0800,1500 05/27/23 06/14/23 History hydrALAZINE HCL [Apresoline] 25 mg PO BID@0800,1500 05/27/23 06/14/23 History lisinopriL 2.5 mg PO DAILY@0800 05/27/23 06/14/23 History HYDROcodone/APAP 5-325MG [[place] 1 each PO Q6HR PRN 7 Days #28 tab 05/28/23 06/14/23 Rx 5-325] Amiodarone [Cordarone] See Taper PO DIRECTED 06/14/23 06/14/23 History Furosemide [Lasix] 20 mg PO BID 06/14/23 06/14/23 History Potassium Chloride ER [K-Dur 20] 20 meq PO DAILY 06/14/23 06/14/23 History Allergies Allergy/AdvReac Type Severity Reaction Status Date / Time allopurinol AdvReac Feet Verified 06/14/23 12:20 Swelling Physical Exam Vitals: Vital Signs Temp Pulse Resp BP BP Pulse Ox 06/18/23 14:00 97 18 06/18/23 12:00 97 18 143/79 96 06/18/23 08:00 98.0 F 112 H 18 135/68 96 06/18/23 04:33 97.5 F L 93 18 136/72 97 06/18/23 00:32 98.5 F 94 18 119/76 97 06/17/23 19:46 98.2 F 95 20 132/74 97 06/17/23 16:00 97.1 F L 72 17 124/64 100 Intake and Output 06/18/23 06/18/23 06/18/23 06:59 14:59 22:59 Intake Total 50 Output Total 1100 525 Balance -1100 -475 Intake: IV 50 Output: Urine 1100 525 Other: Voiding Method Indwelling Catheter Indwelling Catheter - Constitutional General appearance: no acute distress - EENT Eyes: anicteric sclerae, EOMI ENT: hearing grossly normal - Respiratory Respiratory: bilateral: CTA - Cardiovascular Rhythm: irregularly irregular Heart sounds: normal: S1, S2 Abnormal Heart Sounds: no systolic murmur, no diastolic murmur, no rub, no S3 Gallop, no S4 Gallop, no click, no other leg Peripheral Edema: bilateral: None - Gastrointestinal General gastrointestinal: soft, no tenderness - Integumentary Integumentary: no cyanotic - Musculoskeletal Musculoskeletal: generalized weakness - Psychiatric Psychiatric: A&O x's 3, appropriate affect, intact judgment & insight Results CBC & Chem 7: 06/18/23 07:47 06/18/23 07:47 Labs: Abnormal Lab Results - Last 24 Hours (Table) 06/17/23 06/17/23 06/18/23 Range/Units 16:08 19:59 05:52 WBC (3.8-10.6) k/uL RBC (4.30-5.90) m/uL Hgb (13.0-17.5) gm/dL Hct (39.0-53.0) % Plt Count (150-450) k/uL Neutrophils # (Manual) (1.3-7.7) k/uL Lymphocytes # (Manual) (1.0-4.8) k/uL Sodium (137-145) mmol/L BUN (9-20) mg/dL Creatinine (0.66-1.25) mg/dL Glucose (74-99) mg/dL POC Glucose (mg/dL) 376 H 219 H 186 H (70-110) mg/dL Calcium (8.4-10.2) mg/dL ALT (4-49) U/L Total Protein (6.3-8.2) g/dL Albumin (3.5-5.0) g/dL 06/18/23 06/18/23 06/18/23 Range/Units 07:47 07:47 11:32 WBC 1.7 L (3.8-10.6) k/uL RBC 3.97 L (4.30-5.90) m/uL Hgb 12.4 L (13.0-17.5) gm/dL Hct 36.3 L (39.0-53.0) % Plt Count 67 L (150-450) k/uL Neutrophils # (Manual) 0.70 L (1.3-7.7) k/uL Lymphocytes # (Manual) 0.46 L (1.0-4.8) k/uL Sodium 134 L (137-145) mmol/L BUN 92 H (9-20) mg/dL Creatinine 3.16 H (0.66-1.25) mg/dL Glucose 169 H (74-99) mg/dL POC Glucose (mg/dL) 224 H (70-110) mg/dL Calcium 8.0 L (8.4-10.2) mg/dL ALT 61 H (4-49) U/L Total Protein 4.9 L (6.3-8.2) g/dL Albumin 2.2 L (3.5-5.0) g/dL Microbiology - Last 24 Hours (Table) 06/14/23 19:13 Stool Culture - Final Stool 06/15/23 12:06 Blood Culture Gram Stain - Final Blood Blood Culture - Final Enterococcus faecalis Comments: echocardiogram reviewed Chest x-ray: report reviewed CT scan - abdomen: report reviewed CT scan - pelvis: report reviewed Assessment and Plan (1) Pancytopenia Current Visit: Yes Status: Acute Priority: High Code(s): D61.818 - OTHER PANCYTOPENIA SNOMED Code(s): 982561196 (2) Bacteremia due to Enterococcus Current Visit: Yes Status: Acute Priority: High Code(s): R78.81 - BACTEREMIA; B95.2 - ENTEROCOCCUS THE CAUSE OF DISEASES CLASSIFIED ELSEWHERE SNOMED Code(s): 6393371439 Plan: Pancytopenia: -Hx of anemia and thrombocytopenia -Has been worked up for the same. 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 Workup for his mild, new onset thrombocytopenia showed changes suggestive of diffuse fatty infiltration in the liver. Both light chains were elevated, with a ratio mildly high at 1.88. It was otherwise negative. Additional tests with a 24-hour urines and bone survey were negative. 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 Repeat K/L ratio 02/2023 was normal at 0.89. Repeat M-spike negative. Pt was found to be iron deficient at that time and received 2 doses of ferraheme. -Cytopenias likely reactive r/t bacteremia, would expect counts to improve as pt acutely recovers -Will order anemia workup to r/o any nutritional deficiencies. If found to be iron deficient, would recommend holding parenteral iron until adequately treated for bacteremia -Patient can continue anticoagulation as long as platelets are greater than 50,000. If it is felt the patient needs to be continued on anticoagulation, platelets can be transfused if less than 50,000 -Will continue to monitor counts -Hospital f/u will be scheduled in 2-3 weeks Bacteremia: -Blood culture found to be positive for enterococcus faecalis. Patient was started on ampicillin and Rocephin. -ID following
[2023-06-18 16:13] LABS: Glucose,Whole Blood 189 mg/dL (70-110)
[2023-06-18] MEDS: LINAGLIPTIN 5 MG TABLET PO SCH (16:28)
[2023-06-18 17:05] LABS: % Iron Saturation 42.96 (15.00-50.00)
[2023-06-18 19:44] LABS: Glucose,Whole Blood 263 mg/dL (70-110)
[2023-06-18] MEDS: HYDROcodone/APAP 5-325MG 1 EACH TAB PO PRN (19:59)
[2023-06-18] MEDS: LORATADINE 10 MG TAB PO SCH (19:59)
[2023-06-18] MEDS: ATORVASTATIN 20 MG TAB PO SCH (19:59)
[2023-06-19 02:35] LABS: Glucose,Whole Blood 173 mg/dL (70-110)
[2023-06-19] MEDS: LACTATED RINGERS 1,000 ML IV SCH (06:01)
--- NOTE | 2023-06-19 06:20 | P.PN ---
Subjective Progress Note Date: 06/18/23 This is a 78-year-old male who was recently admitted for generalized weakness and debility with significant comorbidities. Patient is acute on chronic renal failure with multiple medical consultations following. Patient was empirically started on antibiotics with infectious disease on consult. Patient's initial blood cultures are positive and awaiting finalized with follow-up cultures ordered and pending at this time. Patient appears more awake and alert today with at bedside. Patient remains on gentle hydration along with sodium bicarb drip and nephrology is following closely. Patient today is afebrile currently maintained on room air and denies chest pain or shortness of breath. Will have speech evaluate the patient as there was a brief episode of coughing while eating although patient reports has been coughing. Will have speech evaluate. 06/17/2023 Patient is seen in follow-up today currently sitting up in the bed appears to be clinically improving with multiple medical consultations following. Patient continues with significant weakness and will have physical therapy evaluate the patient. Cardiology following and patient's blood cultures continue to be positive with enterococcus currently maintained on ampicillin with ceftriaxone and infectious disease following. VICKIE is recommended and currently pending for tomorrow. Follow-up blood cultures remain positive and will continue daily blood cultures. Speech evaluated the patient with no signs of overt aspiration and is continued on current diet. Patient is diabetic and will continue Accu- Cheks before meals and at bedtime and sliding scale as needed. Nephrology following and kidney functions are improving and sodium bicarbonate is being discontinued. Will follow-up with repeat labs 06/18/2023 Patient is seen and evaluated today currently nothing by mouth as patient is scheduled to undergo VICKIE today with cardiology. Being followed by multiple medical consultations with continued positive blood cultures with concerns of endocarditis and awaiting VICKIE for further evaluation. Patient reports feeling better although continues with significant weakness and would recommend physical therapy daily. Hematology was also consulted for pancytopenia and appreciate input and recommendations. Patient is currently afebrile with no reports of chest pain or shortness of breath. Patient continues to have hiccups throughout most of the day. Swallow eval was within normal limits. Review of systems: Constitutional: No reports of fatigue, fever, or chills Cardiovascular: No reports of chest pain or palpitations Respiratory: No reports of shortness of breath, reports cough GI: No reports of nausea, no reports of vomiting, reports diarrhea but less intense and less frequent : No reports of dysuria or retention Neurovascular: reports of generalized weakness All medications have been reviewed PHYSICAL EXAMINATION: GENERAL: The patient is alert and oriented x3, hard of hearing, elderly appear ing, ill appearing Well developed, well nourished. Obese HEENT: Pupils are round and equally reacting to light. EOMI. no scleral icterus. No conjunctival pallor. Normocephalic, atraumatic. No pharyngeal erythema. No thyromegaly. CARDIOVASCULAR: S1 and S2 muffled PULMONARY: diminished breath sounds bilaterally with no wheezing or rhonchi noted. Weak upper congested cough noted with continued hiccups ABDOMEN: soft. Nontender on exam. obese. non-distended, normoactive bowel sounds. No palpable organomegaly. MUSCULOSKELETAL: No joint swelling or deformity. EXTREMITIES: No cyanosis, clubbing, or pedal edema. NEUROLOGICAL: Gross neurological examination did not reveal any focal deficits. Diffuse weakness SKIN: No rashes. Assessment: Acute on chronic renal failure, prerenal with acute tubular necrosis, improving Bacteremia with features of sepsis, present on admission, concerns of possible infective endocarditis with plans for VICKIE today and pending. Cultures showing enterococcus Troponin 0.10, likely secondary to infective endocarditis, ACS ruled out History of atrial fibrillation, currently rate controlled Pancytopenia Diabetes mellitus, type II uncontrolled with hyper and hypoglycemia History of degenerative joint disease History of coronary artery disease with CABG Gait dysfunction with generalized weakness GI prophylaxis DVT prophylaxis Full code Plan: Patient is currently continued on antibiotics with infectious disease following. Plan is for VICKIE today with cardiology with high concerns of infective endocarditis Blood cultures remain positive at this time for enterococcus. Recommend daily blood cultures. Patient is continued on ampicillin along with ceftriaxone while awaiting cultures to finalized. Continue aspiration precautions and would recommend being out of the bed while eating and sitting upright Patient with significant weakness will have PT/OT therapy evaluate and discuss possible ECF, consult case management Patient continues to make urine with no immediate plans for renal replacement therapy at this time Significant pancytopenia and have consulted hematology and appreciate input recommendations Continue Accu-Cheks before meals and at bedtime and at 2 AM and continue current regimen Will follow-up on repeat labs Overall prognosis is guarded at this time The impression and plan of care has been dictated by Nirali Mayes, nurse practitioner as directed. Dr. Sallie MD I have performed a history and examination and MDM of this patient, discussed the same with the dictator, and agree with the dictator's assessment and plan as written ,documented as a scribe. Based on total visit time, I have performed more than 50% of the visit. Any additional findings or plans will be noted. Objective - Vital Signs Vital signs: Vital Signs Temp 98.0 F 06/18/23 08:00 Pulse 112 H 06/18/23 08:00 Resp 18 06/18/23 08:00 BP 135/68 06/18/23 08:00 Pulse Ox 96 06/18/23 08:00 FiO2 Intake & Output 06/17/23 06/18/23 06/18/23 18:59 06:59 18:59 Intake Total 346 Output Total 1100 525 Balance 346 -1100 -525 Intake: Oral 346 Output: Urine 1100 525 Other: Voiding Method Indwelling Catheter Indwelling Catheter Indwelling Catheter # Bowel Movements 1 - Labs CBC & Chem 7: 06/18/23 07:47 06/18/23 07:47 Labs: Abnormal Lab Results - Last 24 Hours (Table) 06/17/23 06/17/23 06/17/23 Range/Units 11:02 16:08 19:59 WBC 1.3 L* (3.8-10.6) k/uL RBC 3.76 L (4.30-5.90) m/uL Hgb 11.6 L (13.0-17.5) gm/dL Hct 34.5 L (39.0-53.0) % Plt Count 58 L (150-450) k/uL Neutrophils # (Manual) 0.50 L (1.3-7.7) k/uL Lymphocytes # (Manual) 0.35 L (1.0-4.8) k/uL Sodium (137-145) mmol/L BUN (9-20) mg/dL Creatinine (0.66-1.25) mg/dL Glucose (74-99) mg/dL POC Glucose (mg/dL) 376 H 219 H (70-110) mg/dL Calcium (8.4-10.2) mg/dL ALT (4-49) U/L Total Protein (6.3-8.2) g/dL Albumin (3.5-5.0) g/dL 06/18/23 06/18/23 06/18/23 Range/Units 05:52 07:47 07:47 WBC 1.7 L (3.8-10.6) k/uL RBC 3.97 L (4.30-5.90) m/uL Hgb 12.4 L (13.0-17.5) gm/dL Hct 36.3 L (39.0-53.0) % Plt Count 67 L (150-450) k/uL Neutrophils # (Manual) 0.70 L (1.3-7.7) k/uL Lymphocytes # (Manual) 0.46 L (1.0-4.8) k/uL Sodium 134 L (137-145) mmol/L BUN 92 H (9-20) mg/dL Creatinine 3.16 H (0.66-1.25) mg/dL Glucose 169 H (74-99) mg/dL POC Glucose (mg/dL) 186 H (70-110) mg/dL Calcium 8.0 L (8.4-10.2) mg/dL ALT 61 H (4-49) U/L Total Protein 4.9 L (6.3-8.2) g/dL Albumin 2.2 L (3.5-5.0) g/dL 06/18/23 Range/Units 11:32 WBC (3.8-10.6) k/uL RBC (4.30-5.90) m/uL Hgb (13.0-17.5) gm/dL Hct (39.0-53.0) % Plt Count (150-450) k/uL Neutrophils # (Manual) (1.3-7.7) k/uL Lymphocytes # (Manual) (1.0-4.8) k/uL Sodium (137-145) mmol/L BUN (9-20) mg/dL Creatinine (0.66-1.25) mg/dL Glucose (74-99) mg/dL POC Glucose (mg/dL) 224 H (70-110) mg/dL Calcium (8.4-10.2) mg/dL ALT (4-49) U/L Total Protein (6.3-8.2) g/dL Albumin (3.5-5.0) g/dL Microbiology - Last 24 Hours (Table) 06/14/23 19:13 Stool Culture - Final Stool 06/15/23 12:06 Blood Culture Gram Stain - Final Blood Blood Culture - Final Enterococcus faecalis 06/16/23 11:07 Blood Culture Gram Stain - Preliminary Blood
[2023-06-19 06:25] LABS: Glucose,Whole Blood 234 mg/dL (70-110)
[2023-06-19] MEDS: MIDODRINE 5 MG TAB PO SCH ×3 (06:32→16:36)
[2023-06-19] MEDS: INSULIN ASPART (NovoLOG) 100 UNIT/ML VIAL SQ SCH ×4 (06:37→20:31)
[2023-06-19] MEDS: PANTOPRAZOLE 40 MG TABLET PO SCH ×2 (08:45→14:39)
[2023-06-19] MEDS: ASPIRIN 81 MG PO SCH (08:45)
[2023-06-19] MEDS: FERROUS SULFATE 325 MG TAB PO SCH (08:45)
[2023-06-19] MEDS: AMIODARONE 200 MG TAB PO SCH (08:45)
[2023-06-19] MEDS: CHOLECALCIFEROL 25 MCG (1000 IU) TABLET PO SCH (08:45)
[2023-06-19] MEDS: ASCORBIC ACID 500 MG TAB PO SCH (08:45)
[2023-06-19] MEDS: TAMSULOSIN 0.4 MG CAP.ER.24H PO SCH (08:45)
[2023-06-19] MEDS: AMPICILLIN 2,000 MG in SODIUM CHLORIDE 0.9% 100 ML IVPB SCH ×2 (08:46→15:57)
[2023-06-19] MEDS: FLUTICASONE 50MCG/SPRAY NASAL 16GM EA NOSTRIL SCH ×2 (08:47→14:39)
[2023-06-19] MEDS: FEBUXOSTAT 40 MG PO SCH (09:36)
[2023-06-19 09:48] VITALS: BMI 34.7
[2023-06-19] MEDS ORDERED: FUROSEMIDE 10 MG/ML 4 ML VIAL IV STA (11:21)
--- NOTE | 2023-06-19 11:21 | P.PN ---
Subjective Patient is seen for follow-up for acute kidney injury on top of chronic kidney disease. Underlying CK D secondary to diabetic kidney disease and nephrosclerosis with baseline creatinine of around 2.5 mg/dL. Admitted to the hospital with complaints of decreased ambulation and decreased oral intake with weakness. Serum creatinine was 6.7 on initial admission and decreased to 3.1 yesterday. Indwelling Wong catheter with 24 hour urine output of 1.8 L. It appears that 800 mL of urine was obtained on initial catheter placement. Blood pressure is also been on the lower side. Maintained on midodrine. Mentation is improved. is present at bedside Objective - Vital Signs Vital signs: Vital Signs Temp 98.4 F 06/19/23 08:43 Pulse 98 06/19/23 08:43 Resp 17 06/19/23 08:43 BP 138/69 06/19/23 08:43 Pulse Ox 98 06/19/23 08:43 FiO2 Intake & Output 06/18/23 06/19/23 06/19/23 18:59 06:59 18:59 Intake Total 50 225 Output Total 525 1300 750 Balance -475 -1300 -525 Weight 110 kg Intake: IV 50 Oral 225 Output: Urine 525 1300 750 Other: Voiding Method Indwelling Catheter Indwelling Catheter Indwelling Catheter # Bowel Movements 1 - Exam Awake, comfortable, no acute distress Answering questions appropriately Examination of the heart S1 and S2 Examination lungs bilateral breath sounds are heard, basal crackles Abdomen is soft nontender Admission lower extremity shows no evidence of edema ELECTRIC CELL TENDER exam shows patient moving all 4 extremities. - Labs CBC & Chem 7: 06/18/23 07:47 06/18/23 07:47 Labs: Abnormal Lab Results - Last 24 Hours (Table) 06/18/23 06/18/23 06/18/23 Range/Units 11:32 12:06 16:11 POC Glucose (mg/dL) 224 H 189 H (70-110) mg/dL Iron 58 L (65-175) UG/DL TIBC 135 L (228-460) UG/DL Transferrin 96.5 L (204.0-354.0) mg/dL Ferritin 1148.0 H (22.0-322.0) ng/mL 06/18/23 06/19/23 06/19/23 Range/Units 19:41 02:33 06:24 POC Glucose (mg/dL) 263 H 173 H 234 H (70-110) mg/dL Iron (65-175) UG/DL TIBC (228-460) UG/DL Transferrin (204.0-354.0) mg/dL Ferritin (22.0-322.0) ng/mL Microbiology - Last 24 Hours (Table) 06/16/23 11:07 Blood Culture Gram Stain - Final Blood Blood Culture - Final Enterococcus faecalis 06/17/23 11:02 Blood Culture - Preliminary Blood Assessment and Plan Assessment: 1. Acute kidney injury secondary to ATN secondary to hypovolemia from diarrhea and further worsened with the use of FLOYD inhibitor. Creatinine 6.78 on admission. Also component of urinary retention. No hydronephrosis noted on kidney ultrasound. Improving. 2. Chronic kidney disease stage IV with baseline creatinine near 2.5 secondary to diabetic kidney disease and nephrosclerosis. UA with trace protein. 3. Metabolic acidosis secondary to acute kidney injury and GI losses. 4. Diabetes mellitus. 5. Chronic kidney disease mineral bone disease maintained on calcitriol. 6. A. fib maintained on amiodarone. 7. Coronary disease status post CABG. 8. Diarrhea. C. diff toxin negative Plan: DC IV fluids IV Lasix 1 Continue Rocaltrol Repeat labs in a.m. Continue with Wong catheter. Avoid nephrotoxic agents Continue with midodrine, hold if systolic blood pressure more than 110 mmHg
[2023-06-19 11:22] LABS: HCT 34.6 % (39.0-53.0); HGB 11.7 gm/dL (13.0-17.5); MCH 31.3 pg (25.0-35.0); Mean Platelet Volume 9.7; RBC 3.76 m/uL (4.30-5.90); RDW 13.7 % (11.5-15.5); WBC 2.6 k/uL (3.8-10.6)
[2023-06-19 11:24] LABS: Glucose,Whole Blood 198 mg/dL (70-110)
[2023-06-19 11:56] LABS: Platelet Count 105 k/uL (150-450)
[2023-06-19 11:59] LABS: African American GFR (CKD) 24 (>60 ml/min/1.73 sqM); Anion Gap 7 mmol/L; Blood Urea Nitrogen 74 mg/dL (9-20); Calcium 8.3 mg/dL (8.4-10.2); Carbon Dioxide 26 mmol/L (22-30); Chloride 104 mmol/L (98-107); Glucose 169 mg/dL (74-99); Magnesium 1.7 mg/dL (1.6-2.3); Non-African American GFR(CKD) 20 (>60 ml/min/1.73 sqM); Potassium 4.6 mmol/L (3.5-5.1); Sodium 137 mmol/L (137-145)
[2023-06-19 12:59] LABS: Band Neutrophils % 1 %; Lymphocytes # (M) 0.55 k/uL (1.0-4.8); Monocytes # (M) 0.52 k/uL (0-1.0); Neutrophils % (M) 58 %; Nucleated Red Blood Cells 0 /100 WBC (0-0); Total Cells Counted 100
[2023-06-19] MEDS: LINAGLIPTIN 5 MG TABLET PO SCH (14:39)
--- NOTE | 2023-06-19 15:08 | P.PN ---
Subjective Progress Note Date: 06/19/23 Principal diagnosis: weakness, bacteremia At today's visit patient is resting comfortably in bed, family at bedside. Patient is reporting persisting weakness but feels improvement in symptoms since admission. Denies any reported episodes of acute bleeding. Platelets improved today, 105,000 Objective - Vital Signs Vital signs: Vital Signs Temp 98.4 F 06/19/23 08:43 Pulse 97 06/19/23 12:00 Resp 15 06/19/23 12:00 BP 153/78 06/19/23 12:00 Pulse Ox 98 06/19/23 12:00 FiO2 Intake & Output 06/18/23 06/19/23 06/19/23 18:59 06:59 18:59 Intake Total 50 450 Output Total 525 1300 1650 Balance -475 -1300 -1200 Weight 110 kg Intake: IV 50 Oral 450 Output: Urine 525 1300 1650 Other: Voiding Method Indwelling Catheter Indwelling Catheter Indwelling Catheter # Bowel Movements 1 1 - Constitutional General appearance: Present: average body habitus, no acute distress - EENT Eyes: Present: anicteric sclerae, EOMI ENT: Present: hearing grossly normal - Respiratory Details: breathing even and unlabored - Cardiovascular Details: skin warm and dry - Gastrointestinal General gastrointestinal: Present: soft. Absent: tenderness - Integumentary Integumentary: Absent: cyanotic - Musculoskeletal Musculoskeletal: Present: generalized weakness - Psychiatric Psychiatric: Present: A&O x's 3, appropriate affect, intact judgment & insight - Labs CBC & Chem 7: 06/19/23 11:06 06/19/23 11:06 Labs: Abnormal Lab Results - Last 24 Hours (Table) 06/18/23 06/18/23 06/18/23 Range/Units 12:06 16:11 19:41 WBC (3.8-10.6) k/uL RBC (4.30-5.90) m/uL Hgb (13.0-17.5) gm/dL Hct (39.0-53.0) % Plt Count (150-450) k/uL Lymphocytes # (Manual) (1.0-4.8) k/uL BUN (9-20) mg/dL Creatinine (0.66-1.25) mg/dL Glucose (74-99) mg/dL POC Glucose (mg/dL) 189 H 263 H (70-110) mg/dL Calcium (8.4-10.2) mg/dL Iron 58 L (65-175) UG/DL TIBC 135 L (228-460) UG/DL Transferrin 96.5 L (204.0-354.0) mg/dL Ferritin 1148.0 H (22.0-322.0) ng/mL 06/19/23 06/19/23 06/19/23 Range/Units 02:33 06:24 11:06 WBC 2.6 L (3.8-10.6) k/uL RBC 3.76 L (4.30-5.90) m/uL Hgb 11.7 L (13.0-17.5) gm/dL Hct 34.6 L (39.0-53.0) % Plt Count 105 L D (150-450) k/uL Lymphocytes # (Manual) 0.55 L (1.0-4.8) k/uL BUN (9-20) mg/dL Creatinine (0.66-1.25) mg/dL Glucose (74-99) mg/dL POC Glucose (mg/dL) 173 H 234 H (70-110) mg/dL Calcium (8.4-10.2) mg/dL Iron (65-175) UG/DL TIBC (228-460) UG/DL Transferrin (204.0-354.0) mg/dL Ferritin (22.0-322.0) ng/mL 06/19/23 06/19/23 Range/Units 11:06 11:18 WBC (3.8-10.6) k/uL RBC (4.30-5.90) m/uL Hgb (13.0-17.5) gm/dL Hct (39.0-53.0) % Plt Count (150-450) k/uL Lymphocytes # (Manual) (1.0-4.8) k/uL BUN 74 H (9-20) mg/dL Creatinine 2.86 H (0.66-1.25) mg/dL Glucose 169 H (74-99) mg/dL POC Glucose (mg/dL) 198 H (70-110) mg/dL Calcium 8.3 L (8.4-10.2) mg/dL Iron (65-175) UG/DL TIBC (228-460) UG/DL Transferrin (204.0-354.0) mg/dL Ferritin (22.0-322.0) ng/mL Microbiology - Last 24 Hours (Table) 06/16/23 11:07 Blood Culture Gram Stain - Final Blood Blood Culture - Final Enterococcus faecalis 06/17/23 11:02 Blood Culture - Preliminary Blood - Imaging and Cardiology VICKIE reviewed Assessment and Plan (1) Pancytopenia Current Visit: Yes Status: Acute Priority: High Code(s): D61.818 - OTHER PANCYTOPENIA SNOMED Code(s): 297495993 (2) Bacteremia due to Enterococcus Current Visit: Yes Status: Acute Priority: High Code(s): R78.81 - BACTEREMIA; B95.2 - ENTEROCOCCUS THE CAUSE OF DISEASES CLASSIFIED ELSEWHERE SNOMED Code(s): 0846877675 Plan: Pancytopenia: -Hx of anemia and thrombocytopenia -Has been worked up for the same. 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 Workup for his mild, new onset thrombocytopenia showed changes suggestive of diffuse fatty infiltration in the liver. Both light chains were elevated, with a ratio mildly high at 1.88. It was otherwise negative. Additional tests with a 24-hour urines and bone survey were negative. 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 Repeat K/L ratio 02/2023 was normal at 0.89. Repeat M-spike negative. Pt was found to be iron deficient at that time and received 2 doses of ferraheme. -Cytopenias likely reactive r/t bacteremia, would expect counts to improve as pt acutely recovers -No nutritional deficiencies noted on anemia workup -Platelets improved, 105,000. Patient can continue anticoagulation as long as platelets are greater than 50,000. If it is felt the patient needs to be continued on anticoagulation, platelets can be transfused if less than 50,000 -Will continue to monitor counts -Hospital f/u will be scheduled in 2-3 weeks Bacteremia, possible endocarditis: -Blood culture found to be positive for enterococcus faecalis. Continues on ampicillin and Rocephin. Repeat blood culture negative thus far -VICKIE obtained revealing suspicion for bioprosthetic aortic valve endocarditis with possible abscess in periaortic area. Cardiothoracic surgery has been consulted -Cardiology and ID following
--- NOTE | 2023-06-19 15:18 | P.GSCN ---
History of Present Illness Consult date: 06/19/23 Reason for Consult: Bioprosthetic aortic valve endocarditis Requesting physician: Andres Martinez History of present illness: This is a 78-year-old gentleman who follows on an outpatient basis with Dr. Felton De Dios out of the [place] area and also follows with cardiology in the [facility]. He has a past medical history significant for aortic valve disease and coronary artery disease in which she underwent an aortic valve replacement with a bioprosthetic valve and a single-vessel coronary artery by pass grafting surgery on 11/22/2019 at [facility]. He also has a past medical history significant for persistent atrial fibrillation on Xarelto for anticoagulation as an outpatient, hypertension, hyperlipidemia, diabetes mellitus type 2, hard of hearing, bladder cancer, osteoarthritis, chronic kidney disease stage IV, obesity with a BMI of 34.8 kg/m and a remote history of nicotine dependence in which he quit smoking over 45 years ago. The patient presented to the emergency department here at [facility] via EMS on 06/14/2023 due to complaints of bilateral hip pain, weakness and medical debility. He reports that for around 1 month he has had severe bilateral hip pain and has really not been able to get get up out of a chair for around the last month. The patient's is present at his bedside and also reports that the patient has been using a urinal while sitting in the chair due to his lack of mobility and hip pain. He denies any recent fever, chills, nausea, vomiting, constipation, headache, palpitations, chest pain/chest pressure, shortness of breath, dizziness, presyncope or syncope. On admission his laboratory results showed a WBC count of 5.4, hemoglobin 12.9, hematocrit 38.4, platelets 121, PT 14.8, INR 1.5, PTT 32.5, sodium 135, potassium 4.3, CO2 14, BUN 145, creatinine 6.78, serial troponins were elevated as high as 0.080, albumin 2.8 and his influenza type A, type B, RSV and COVID-19 testing all showed nondetected. A 12-lead EKG was completed which showed sinus mechanism with PACs and a heart rate of 84 BPM. Due to the patient's elevated BUN and creatinine and ultrasound of the kidneys/renal and bladder was completed which demonstrated no evidence for hydronephrosis or shadowing renal calculus, bilateral hypoechoic renal lesions, most compatible with cysts. On admission the patient also had complaints of diarrhea and a 10-16 pound weight loss over the past month. A computed tomography scan of the abdomen/pelvis without contrast was completed which showed no evidence for acute abdominal process to explain the patient's sepsis, and a high-density contrast seen extending into the esophagus correlate for reflux or esophageal dysmotility. On 06/16/2023 at transthoracic 2-D echocardiogram was completed which demonstrated a sessile mass noted in the 5 chamber view which appeared to be juxtaposition to the left coronary cusp and left atrium, left ventricular ejection fraction of about 50% with septal hypokinesis, aortic valve prosthesis was not well visualized and was recommended to follow-up with a transesophageal echocardiogram. Yesterday 06/18/2023 the patient underwent a transesophageal echocardiogram which showed suspicion of a bioprosthetic aortic valve endocarditis with possible abscess in the periaortic area extending to the aorta mitral continuity. It also demonstrated a normal global LV size and systolic function. Subsequently, due to the findings on the transthoracic and transesophageal echocardiograms a consult was placed to cardiothoracic surgery for further evaluation and treatment recommendations. The patient is also being seen by infectious disease as the patient had positive blood cultures for enterococcus faecalis and is being treated with ampicillin and Rocephin for antibiotic coverage. Review of Systems A 14 point review systems was completed and is negative except as mentioned in the HPI. Past Medical History Past Medical History: Atrial Fibrillation, Coronary Artery Disease (CAD), Cancer, Diabetes Mellitus, Hearing Disorder / Deafness, Hyperlipidemia, Hypertension, Osteoarthritis (OA), Renal Disease Additional Past Medical History / Comment(s): Covid 07/20/21. Bladder cancer 2009 and 2011. Hx pelvic fracture 1993. Gout. Herniated disc in back in 2001. Bilateral eye cateracts. Skin cancer 10/08/20 with removal. Anemia. Chronic kidney disease stage IV. History of Any Multi-Drug Resistant Organisms: None Reported Past Surgical History: Cardiac Valve Replacement, Coronary Bypass/CABG, Heart Catheterization, Hernia Repair Additional Past Surgical History / Comment(s): Left rotator cuff surgery, bilateral cataracts removed, umbilical hernia repair, right side salivary gland removed, broken right ankle surgery, skin cancer removed from right cheek, back and hands, heart valve replacement 11/22/19, coronary artery bypass 11/22/2019, colonoscopies. Past Anesthesia/Blood Transfusion Reactions: No Reported Reaction Past Psychological History: No Psychological Hx Reported Smoking Status: Former smoker Past Alcohol Use History: Rare Additional Past Alcohol Use History / Comment(s): Quit smoking 45 yrs ago. Past Drug Use History: None Reported - Past Family History Father Additional Family Medical History / Comment(s): of emphysema. Mother Additional Family Medical History / Comment(s): of either kidney or liver problems per patient. Brother(s) Family Medical History: GERD/Reflux Additional Family Medical History / Comment(s): Stomach issues per patient Son(s) Additional Family Medical History / Comment(s): Son from EtOH abuse Medications and Allergies Home Medications Medication Instructions Recorded Confirmed Type Colchicine 0.6 mg PO DAILY@0800 08/25/18 06/14/23 History Fluticasone Nasal [place] [Flonase 1 spr EA NOSTRIL BID@0800,1500 08/25/18 06/14/23 History Nasal [place]] Levocetirizine Dihydrochloride 5 mg PO HS 08/25/18 06/14/23 History [Xyzal] Rosuvastatin Calcium 10 mg PO HS 08/25/18 06/14/23 History Acetaminophen Tab [Tylenol] 500 mg PO Q6H PRN 07/16/21 06/14/23 History Metoprolol Tartrate [Lopressor] 50 mg PO BID@0800,1500 07/16/21 06/14/23 History calcitrioL [Calcitriol] 0.25 mcg PO MOTUWETHFR 07/16/21 06/14/23 History glipiZIDE [Glucotrol] 10 mg PO DAILY@0800 07/16/21 06/14/23 History Ascorbic Acid [Vitamin C] 500 mg PO DAILY@0800 08/13/21 06/14/23 History Cholecalciferol [Vitamin D3 (25 50 mcg PO DAILY@0800 07/16/22 06/14/23 History Mcg = 1000 Iu)] Febuxostat [Uloric] 40 mg PO DAILY@0800 07/16/22 06/14/23 History sitaGLIPtin [Januvia] 100 mg PO DAILY@1500 07/16/22 06/14/23 History Aspirin [Adult Low Dose Aspirin EC] 81 mg PO DAILY@0800 07/22/22 06/14/23 History Rivaroxaban [Xarelto] 15 mg PO HS 07/22/22 06/14/23 History Calcium 500mg 500 mg PO DAILY@0800 05/27/23 06/14/23 History Ferrous Sulfate [Iron (65 MG 325 mg PO DAILY@0800 05/27/23 06/14/23 History Elemental)] Pantoprazole [Protonix] 40 mg PO BID@0800,1500 05/27/23 06/14/23 History hydrALAZINE HCL [Apresoline] 25 mg PO BID@0800,1500 05/27/23 06/14/23 History lisinopriL 2.5 mg PO DAILY@0800 05/27/23 06/14/23 History HYDROcodone/APAP 5-325MG [[place] 1 each PO Q6HR PRN 7 Days #28 tab 05/28/23 06/14/23 Rx 5-325] Amiodarone [Cordarone] See Taper PO DIRECTED 06/14/23 06/14/23 History Furosemide [Lasix] 20 mg PO BID 06/14/23 06/14/23 History Potassium Chloride ER [K-Dur 20] 20 meq PO DAILY 06/14/23 06/14/23 History Allergies Allergy/AdvReac Type Severity Reaction Status Date / Time allopurinol AdvReac Feet Verified 06/14/23 12:20 Swelling Surgical - Exam Vital Signs Temp Pulse Resp BP Pulse Ox 97.9 F 86 18 113/63 96 06/14/23 03:58 06/14/23 03:58 06/14/23 03:58 06/14/23 03:58 06/14/23 03:58 - General well developed, well nourished, no distress, moderate pain (To his bilateral h ips), chronically ill, obese - Eyes PERRL, normal ocular movement, no pale, no icteric - ENT normal pinna, normal nares, normal mucosa, no hearing loss, no congestion, poor half-way - Neck Neck is supple, no JVD. no masses, no bruits, trachea midline, no venous distension - Respiratory Lungs sounds essentially clear to his bilateral upper lobes, few scattered crackles to his bilateral bases. Respirations are symmetrical and nonlabored. Oxygen saturation 98% on room air. - Cardiovascular Irregular rhythm and controlled rate. S1 and S2 present, negative for S3 or gallop. 2/6 systolic murmur present. Trace edema to his bilateral lower extremities. - Abdomen Abdomen is soft, nontender and nondistended. Active bowel sounds present in all 4 abdominal quadrants. No guarding or rigidity. No organomegaly appreciated. - Genitourinary Deferred - Rectum Deferred - Integumentary The patient has ecchymosis to his right foot fifth toe. Skin is warm and dry, no clubbing or cyanosis is present. no rash, no growths - Neurologic No focal deficits. - Musculoskeletal Generalized weakness and debility. Does move all 4 extremities. - Psychiatric oriented to time, oriented to person, oriented to place, speech is normal, memory intact Results - Labs 06/19/23 11:06 06/19/23 11:06 Abnormal Lab Results - Last 24 Hours (Table) 06/18/23 06/18/23 06/18/23 Range/Units 12:06 16:11 19:41 WBC (3.8-10.6) k/uL RBC (4.30-5.90) m/uL Hgb (13.0-17.5) gm/dL Hct (39.0-53.0) % Plt Count (150-450) k/uL Lymphocytes # (Manual) (1.0-4.8) k/uL BUN (9-20) mg/dL Creatinine (0.66-1.25) mg/dL Glucose (74-99) mg/dL POC Glucose (mg/dL) 189 H 263 H (70-110) mg/dL Calcium (8.4-10.2) mg/dL Iron 58 L (65-175) UG/DL TIBC 135 L (228-460) UG/DL Transferrin 96.5 L (204.0-354.0) mg/dL Ferritin 1148.0 H (22.0-322.0) ng/mL 06/19/23 06/19/23 06/19/23 Range/Units 02:33 06:24 11:06 WBC 2.6 L (3.8-10.6) k/uL RBC 3.76 L (4.30-5.90) m/uL Hgb 11.7 L (13.0-17.5) gm/dL Hct 34.6 L (39.0-53.0) % Plt Count 105 L D (150-450) k/uL Lymphocytes # (Manual) 0.55 L (1.0-4.8) k/uL BUN (9-20) mg/dL Creatinine (0.66-1.25) mg/dL Glucose (74-99) mg/dL POC Glucose (mg/dL) 173 H 234 H (70-110) mg/dL Calcium (8.4-10.2) mg/dL Iron (65-175) UG/DL TIBC (228-460) UG/DL Transferrin (204.0-354.0) mg/dL Ferritin (22.0-322.0) ng/mL 06/19/23 06/19/23 Range/Units 11:06 11:18 WBC (3.8-10.6) k/uL RBC (4.30-5.90) m/uL Hgb (13.0-17.5) gm/dL Hct (39.0-53.0) % Plt Count (150-450) k/uL Lymphocytes # (Manual) (1.0-4.8) k/uL BUN 74 H (9-20) mg/dL Creatinine 2.86 H (0.66-1.25) mg/dL Glucose 169 H (74-99) mg/dL POC Glucose (mg/dL) 198 H (70-110) mg/dL Calcium 8.3 L (8.4-10.2) mg/dL Iron (65-175) UG/DL TIBC (228-460) UG/DL Transferrin (204.0-354.0) mg/dL Ferritin (22.0-322.0) ng/mL Microbiology - Last 24 Hours (Table) 06/16/23 11:07 Blood Culture Gram Stain - Final Blood Blood Culture - Final Enterococcus faecalis 06/17/23 11:02 Blood Culture - Preliminary Blood Diabetes panel 06/19/23 Range/Units 11:06 Sodium 137 (137-145) mmol/L Potassium 4.6 (3.5-5.1) mmol/L Chloride 104 (98-107) mmol/L Carbon Dioxide 26 (22-30) mmol/L BUN 74 H (9-20) mg/dL Creatinine 2.86 H (0.66-1.25) mg/dL Glucose 169 H (74-99) mg/dL Calcium 8.3 L (8.4-10.2) mg/dL Calcium panel 06/19/23 Range/Units 11:06 Calcium 8.3 L (8.4-10.2) mg/dL Pituitary panel 06/19/23 Range/Units 11:06 Sodium 137 (137-145) mmol/L Potassium 4.6 (3.5-5.1) mmol/L Chloride 104 (98-107) mmol/L Carbon Dioxide 26 (22-30) mmol/L BUN 74 H (9-20) mg/dL Creatinine 2.86 H (0.66-1.25) mg/dL Glucose 169 H (74-99) mg/dL Calcium 8.3 L (8.4-10.2) mg/dL Adrenal panel 06/19/23 Range/Units 11:06 Sodium 137 (137-145) mmol/L Potassium 4.6 (3.5-5.1) mmol/L Chloride 104 (98-107) mmol/L Carbon Dioxide 26 (22-30) mmol/L BUN 74 H (9-20) mg/dL Creatinine 2.86 H (0.66-1.25) mg/dL Glucose 169 H (74-99) mg/dL Calcium 8.3 L (8.4-10.2) mg/dL - Imaging Chest x-ray: report reviewed, image reviewed Additional studies: Transesophageal echocardiogram films reviewed by Dr. Asher Porras with Dr. Juan davidson cardiology Assessment and Plan Assessment: Infective endocarditis, possible abscess in the periaortic area extending to the aorta mitral continuity per transesophageal echocardiogram Enterococcus bacteremia Acute kidney injury Chronic kidney disease stage IV Elevated troponins on admission as high as 0.080 Paroxysmal atrial fibrillation, maintained on Xarelto for anticoagulation as an outpatient History of aortic valve disease and coronary artery disease, status post aortic valve replacement with bioprosthetic valve and a single-vessel bypass in November 2016 at [facility] History of hypertension Hyperlipidemia Diarrhea, stool for C. diff negative Pancytopenia Diabetes mellitus type 2 Obesity with a BMI of 34.8 kg/m Medical debility, bedridden at this time due to his pain to his hips Plan: Patient was seen and examined at his bedside on the third floor cardiac stepdown unit in conjunction with Dr. Desean Pack. His chart and diagnostics were reviewed. Dr. Pack discussed the findings on the transesophageal ec hocardiogram with the patient and the patient's present at his bedside. The patient is extremely hard of hearing. At this time the patient is requesting to be transferred to [facility] to see Dr. Beckford his original surgeon that did his first surgery or would like to be transferred to [facility] for further treatment and evaluation. The patient's reports that there is already discussion to transfer to [facility]. The patient continues to be followed by infectious disease and is currently on IV antibiotic treatment with ampicillin and Rocephin. Continue to maximize medical management. Thank you for this consult Dr. Martinez and please contact us for any further opinions regarding the endocarditis. I have personally seen and examined the patient, performed the documentation and the assessment and plan as written. 30 minutes spent on the visit. Jace JAMISON Time with Patient: Greater than 30
--- NOTE | 2023-06-19 15:45 | P.PN ---
Subjective Progress Note Date: 06/19/23 Principal diagnosis: Acute infective endocarditis This is a 78-year-old white male with history of multiple medical problems including chronic atrial fibrillation, chronic kidney disease, being followed by nephrology on outpatient basis, benign essential hypertension, dyslipidemia, history of aortic valve replacement, patient was brought into the ER mostly because of profound weakness and debility, patient was also complaining of bilateral hips pain. But he had no chest pain, no shortness of breath, no wheezing, no dizziness, he was mostly generally weak. Blood pressure was noted to be low, troponin was also noted to be elevated, patient is normally maintained at home on lisinopril, hydralazine, Xarelto, Crestor, metoprolol, aspirin, amiodarone, and he normally has a relatively normal echocardiogram with mild mitral regurgitation and he does have a bioprosthetic aortic valve. At any rate considering his soft blood pressure, I was asked to evaluate the patient a nd decide whether the patient should go to the ICU. I did evaluate the patient, his blood pressure was 98/55, and I felt at that point that the patient is dehydrated, and needs more fluids, he was already on a bicarb drip at 75 mL per hour, and I did not feel the patient needs to be transferred to the ICU. There is no fever, no chills, no significant findings to suggest sepsis or septic shock. Patient has been already evaluated by multiple consultants including nephrology and cardiology again he has no active pulmonary symptoms that is easy count is 3.0 hemoglobin 11.7 lites are normal bicarb is low at 13, and his BUN is 141 creatinine 5.55, blood sugar was 295. Patient was reevaluated today on 06/16/2023, patient continues to have weakness, and I saw him yesterday for possibly transferring the patient to the ICU, however I did not feel the patient needed ICU admission. Remains hemo dynamically stable, remains on room air with O2 saturation of 97% his blood pressure for the last 24 hours has been normal. With mean arterial pressure ranging between 70 and 86. WBC count however today is low at 1.9 hemoglobin is 11 electrolytes are normal BUN is 130 creatinine 4.31, blood culture is positive for gram-positive cocci in pairs and chains final identification is pending, patient is being followed by infectious disease on consultation CT abdomen and pelvis is basically unremarkable, empirically the patient remains on Unasyn Patient was seen and examined today on 06/17/2023, patient is feeling a bit better, less weakness, his blood cultures came back positive for group D ente rococcus. However his CT of the abdomen and pelvis showed no acute intra- abdominal process, considering his valvular heart disease patient is now scheduled to have VICKIE. In the meantime his Unasyn was discontinued and he is now on ampicillin and Rocephin for 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 Continues to have pancytopenia with WBC count of 1.3 hemoglobin 11.6 and his platelets are 58,000. Renal functioning remains abnormal with a BUN of 107 creatinine 3.6, this is felt to be acute kidney injury secondary to ATN secondary to hypovolemia and dehydration as well as use of FLOYD inhibitor's and the patient does have history of chronic kidney disease stage IV. [place] to have diabetic kidney disease and nephrosclerosis Patient was reevaluated today on 06/18/2023, patient is doing well, surprisingly improving, patient is now on antibiotics as per infectious disease, and his VICKIE is consistent with endocarditis of the bioprosthetic aortic valve. In the meantime the patient is on ampicillin and Rocephin clinically doing well, continues to have bicytopenia with WBC of 1.7 and platelets are 67,000. Elec trodes are normal renal profile remains abnormal with a BUN of 92 creatinine 3.16 patient is on room air with O2 sats of 96%, and blood pressure remains stable 143/70 Patient was reevaluated today on 06/19/2023, patient has been seen already by different consultants for his endocarditis. Being considered for transfer to a tertiary care center, apparently the patient is requested to be transferred to [facility]: Who had his previous cardiac surgery with. And I believe it is not clear whether the patient will end up going to [facility] or [facility]. In the meantime the patient is on antibiotics in the form of ampicillin and Rocephin ideally speaking would be nice to use aminoglycosides, however the patient has significant kidney injury and being avoided by infectious disease. Clinically however the patient is doing well does not seem to be in any distress, and is relatively asymptomatic Objective - Vital Signs Vital signs: Vital Signs Temp 98.4 F 06/19/23 08:43 Pulse 97 06/19/23 12:00 Resp 15 06/19/23 12:00 BP 153/78 06/19/23 12:00 Pulse Ox 98 06/19/23 12:00 FiO2 Intake & Output 06/18/23 06/19/23 06/19/23 18:59 06:59 18:59 Intake Total 50 450 Output Total 525 1300 1650 Balance -475 -1300 -1200 Weight 110 kg Intake: IV 50 Oral 450 Output: Urine 525 1300 1650 Other: Voiding Method Indwelling Catheter Indwelling Catheter Indwelling Catheter # Bowel Movements 1 1 - Exam Physical Exam: Revealed a 78-year-old white male in no distress on room air Head: Atraumatic, normocephalic. HEENT:[Neck is supple.] [No neck masses.] [No thyromegaly.] [No JVD.], Dry mucous membranes. Chest: [Clear throughout, no crackles, no rhonchi, no wheezes.] Cardiac Exam: [Normal S1 and S2, no S3 gallop, 2/6 systolic murmur in the right parasternal area Abdomen: [Soft, nontender, no megaly, no rebound, no guarding, normal bowel sounds.] Extremities: [No clubbing, no edema, no cyanosis.] Neurological Exam: Alert oriented 3 to gross focal neurologic deficit, patient is generally weak Psychiatric: Normal mood affect and normal mental status examination Skin: No rashes - Labs CBC & Chem 7: 06/19/23 11:06 06/19/23 11:06 Labs: Abnormal Lab Results - Last 24 Hours (Table) 06/18/23 06/18/23 06/18/23 Range/Units 12:06 16:11 19:41 WBC (3.8-10.6) k/uL RBC (4.30-5.90) m/uL Hgb (13.0-17.5) gm/dL Hct (39.0-53.0) % Plt Count (150-450) k/uL Lymphocytes # (Manual) (1.0-4.8) k/uL BUN (9-20) mg/dL Creatinine (0.66-1.25) mg/dL Glucose (74-99) mg/dL POC Glucose (mg/dL) 189 H 263 H (70-110) mg/dL Calcium (8.4-10.2) mg/dL Iron 58 L (65-175) UG/DL TIBC 135 L (228-460) UG/DL Transferrin 96.5 L (204.0-354.0) mg/dL Ferritin 1148.0 H (22.0-322.0) ng/mL 06/19/23 06/19/23 06/19/23 Range/Units 02:33 06:24 11:06 WBC 2.6 L (3.8-10.6) k/uL RBC 3.76 L (4.30-5.90) m/uL Hgb 11.7 L (13.0-17.5) gm/dL Hct 34.6 L (39.0-53.0) % Plt Count 105 L D (150-450) k/uL Lymphocytes # (Manual) 0.55 L (1.0-4.8) k/uL BUN (9-20) mg/dL Creatinine (0.66-1.25) mg/dL Glucose (74-99) mg/dL POC Glucose (mg/dL) 173 H 234 H (70-110) mg/dL Calcium (8.4-10.2) mg/dL Iron (65-175) UG/DL TIBC (228-460) UG/DL Transferrin (204.0-354.0) mg/dL Ferritin (22.0-322.0) ng/mL 06/19/23 06/19/23 Range/Units 11:06 11:18 WBC (3.8-10.6) k/uL RBC (4.30-5.90) m/uL Hgb (13.0-17.5) gm/dL Hct (39.0-53.0) % Plt Count (150-450) k/uL Lymphocytes # (Manual) (1.0-4.8) k/uL BUN 74 H (9-20) mg/dL Creatinine 2.86 H (0.66-1.25) mg/dL Glucose 169 H (74-99) mg/dL POC Glucose (mg/dL) 198 H (70-110) mg/dL Calcium 8.3 L (8.4-10.2) mg/dL Iron (65-175) UG/DL TIBC (228-460) UG/DL Transferrin (204.0-354.0) mg/dL Ferritin (22.0-322.0) ng/mL Microbiology - Last 24 Hours (Table) 06/16/23 11:07 Blood Culture Gram Stain - Final Blood Blood Culture - Final Enterococcus faecalis 06/17/23 11:02 Blood Culture - Preliminary Blood Assessment and Plan Assessment: Impression: Group D enterococcus faecalis bacteremia, and endocarditis of bioprosthetic aortic valve. Pancytopenia secondary Sepsis and bacteremia Generalized weakness and debility, secondary to endocarditis Acute dehydration, resolved Acute gastroenteritis with diarrhea Paroxysmal atrial fibrillation History of hypertension Left lower lobe atelectasis no clinical evidence of pneumonia Type 2 diabetes with diabetic nephropathy Dyslipidemia History of bioprosthetic aortic valve acute on chronic kidney disease recommendation: Continue antibiotics/, as per infectious disease on the case, patient is on Rocephin and ampicillin for now. Further blood cultures to be done Reviewed the results of the VICKIE Agree with transfer to a tertiary care center Cautious hydration, and continue to monitor renal profile Continue to monitor his bicytopenia We will continue to follow Time with Patient: Less than 30
[2023-06-19 16:41] LABS: Glucose,Whole Blood 183 mg/dL (70-110)
--- NOTE | 2023-06-19 17:05 | P.PN ---
Subjective Progress Note Date: 06/19/23 Principal diagnosis: Enterococcus faecalis bacteremia Patient is a 78-year-old male with a past medical history significant for chronic kidney disease hypertension hyperlipidemia aortic valve replacement has been brought to the hospital for evaluation of weakness and falls patient did have a nausea vomiting and diarrhea, blood culture coming back positive with Enterococcus faecalis. 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 On today's evaluation that is 06/19/2023, the patient continues to be afebrile the patient is breathing comfortably on room air, the patient denies chest pain or cough, patient denies abdominal pain and no nausea/vomiting and no diarrhea has been reported Patient did have white count of 2.6, creatinine is 2.86, UA is negative, CT abdominal pelvis negative for acute intra-abdominal process, blood culture with Enterococcus faecalis Objective - Vital Signs Vital signs: Vital Signs Temp 97.9 F 06/19/23 15:45 Pulse 101 H 06/19/23 15:45 Resp 24 06/19/23 15:45 BP 134/71 06/19/23 15:45 Pulse Ox 98 06/19/23 15:45 FiO2 Intake & Output 06/18/23 06/19/23 06/19/23 18:59 06:59 18:59 Intake Total 50 450 Output Total 525 1300 1650 Balance -045 -1300 -1200 Weight 110 kg Intake: IV 50 Oral 450 Output: Urine 525 1300 1650 Other: Voiding Method Indwelling Catheter Indwelling Catheter Indwelling Catheter # Bowel Movements 1 1 - Exam GENERAL DESCRIPTION: An elderly male lying in bed in no distress RESPIRATORY SYSTEM: Unlabored breathing , decreased breath sounds at bases HEART: S1 S2 regular rate and rhythm , ABDOMEN: Soft , no tenderness EXTREMITIES: No edema feet - Labs CBC & Chem 7: 06/19/23 11:06 06/19/23 11:06 Labs: Abnormal Lab Results - Last 24 Hours (Table) 06/18/23 06/18/23 06/19/23 Range/Units 12:06 19:41 02:33 WBC (3.8-10.6) k/uL RBC (4.30-5.90) m/uL Hgb (13.0-17.5) gm/dL Hct (39.0-53.0) % Plt Count (150-450) k/uL Lymphocytes # (Manual) (1.0-4.8) k/uL BUN (9-20) mg/dL Creatinine (0.66-1.25) mg/dL Glucose (74-99) mg/dL POC Glucose (mg/dL) 263 H 173 H (70-110) mg/dL Calcium (8.4-10.2) mg/dL Iron 58 L (65-175) UG/DL TIBC 135 L (228-460) UG/DL Transferrin 96.5 L (204.0-354.0) mg/dL Ferritin 1148.0 H (22.0-322.0) ng/mL 06/19/23 06/19/23 06/19/23 Range/Units 06:24 11:06 11:06 WBC 2.6 L (3.8-10.6) k/uL RBC 3.76 L (4.30-5.90) m/uL Hgb 11.7 L (13.0-17.5) gm/dL Hct 34.6 L (39.0-53.0) % Plt Count 105 L D (150-450) k/uL Lymphocytes # (Manual) 0.55 L (1.0-4.8) k/uL BUN 74 H (9-20) mg/dL Creatinine 2.86 H (0.66-1.25) mg/dL Glucose 169 H (74-99) mg/dL POC Glucose (mg/dL) 234 H (70-110) mg/dL Calcium 8.3 L (8.4-10.2) mg/dL Iron (65-175) UG/DL TIBC (228-460) UG/DL Transferrin (204.0-354.0) mg/dL Ferritin (22.0-322.0) ng/mL 06/19/23 06/19/23 Range/Units 11:18 16:38 WBC (3.8-10.6) k/uL RBC (4.30-5.90) m/uL Hgb (13.0-17.5) gm/dL Hct (39.0-53.0) % Plt Count (150-450) k/uL Lymphocytes # (Manual) (1.0-4.8) k/uL BUN (9-20) mg/dL Creatinine (0.66-1.25) mg/dL Glucose (74-99) mg/dL POC Glucose (mg/dL) 198 H 183 H (70-110) mg/dL Calcium (8.4-10.2) mg/dL Iron (65-175) UG/DL TIBC (228-460) UG/DL Transferrin (204.0-354.0) mg/dL Ferritin (22.0-322.0) ng/mL Microbiology - Last 24 Hours (Table) 06/16/23 11:07 Blood Culture Gram Stain - Final Blood Blood Culture - Final Enterococcus faecalis 06/17/23 11:02 Blood Culture - Preliminary Blood Assessment and Plan (1) Bacteremia due to Enterococcus Current Visit: Yes Status: Acute Priority: High Code(s): R78.81 - BACTEREMIA; B95.2 - ENTEROCOCCUS THE CAUSE OF DISEASES CLASSIFIED ELSEWHERE SNOMED Code(s): 7499690280 Plan: 1patient with a fever in this patient presented to hospital with weakness debility patient also has episode of vomiting and diarrhea noticed to have some abdominal distention with initial concern for possible abdominal source however CT abdominal pelvis came back negative patient did have a negative UA 2-patient with Enterococcus faecalis bacteremia and abnormal echocardiogram concerning for endocarditis, VICKIE suggestive of aortic valve endocarditis and possible valvular abscess 3-patient to continue with ampicillin and Rocephin cannot use gentamicin because of his kidney function and gentamicin resistant for synergy, currently waiting for transfer to tertiary care to be evaluated by CT surgery, also discussed with the cardiology and son at the bedside and multiple questions and concerns were answered Dictation was produced using [employer] dictation software. please excuse any grammatical, word or spelling errors. Time with Patient: Less than 30
--- NOTE | 2023-06-19 18:18 | P.PN ---
Subjective Progress Note Date: 06/19/23 HISTORY OF PRESENT ILLNESS: This is a 78-year-old male with a past medical history significant for atrial fibrillation, chronic kidney disease, hypertension, hyperlipidemia, diabetes, and aortic valve replacement. Patient follows with the director of graduate medical education out of [facility]. We have been asked to see the patient in consultation for elevated troponin. Patient examined at the bedside in the emergency room. Patient's is present. Patient was brought to the hospital secondary to generalized weakness and debility. He also reports bilateral hip pain. He denies having any chest pain or pressure. He denies any shortness of breath. Denies any dizziness or lightheadedness. Vital signs are stable. * EKG reveals sinus mechanism with PACs * Current home cardiac medications include lisinopril 2.5 mg daily, hydralazine 25 mg twice a day, Xarelto 15 mg at night, rosuvastatin 10 mg at night, metopr olol tartrate 50 mg twice a day, aspirin 81 mg daily, and amiodarone 400 mg daily * Most recent echocardiogram obtained in May 2023 revealed ejection fraction 50-55%, mild MR, bioprosthetic aortic valve with mean gradient of 18 mmHg, and max gradient of 35 mmHg, and trace pulmonic regurgitation 06/15 Patient is seen today in follow-up. His blood pressure was low this morning and repeat was 95/54, heart rate 86. He had a temperature max 101.1. Patient complains of feeling weak and tired and pain in his bilateral hips. Also complains of stomach pains. He denies shortness of breath. Patient was started on midodrine and today due to hypotension, hold Lopressor. Patient is currently on a bicarb drip and midodrine was increased to 10 mg 3 times daily per nephrology. Chest x-ray reveals left lower lobe infiltrate and small effusion. Repeat blood work reveals WBC 3, hemoglobin 11.7, platelet count 86. Sodium 132, potassium 4.2, BUN 141 creatinine 5.55. AST 66, ALT 54. Cortisol level XXIV. 06/16 Patient states he is feeling better today than he has for the last couple of day s. Blood pressure is improved to 124/68, heart rate is 79, pulse ox 90% on room air. We ordered blood cultures yesterday to rule out bacteremia. Blood culture is positive for gram-positive cocci in pairs and chains. Repeat blood culture ordered. Echocardiogram is ordered to rule out vegetation on the aortic valve. Patient has been afebrile since yesterday morning. WBC 1.9, hemoglobin 11, pl atelet count 94. Sodium 132, potassium 4.1, BUN 130 creatinine 4.31. 06/17 Echocardiogram limited reveals seasonal mass noted in the 5 chamber view. This appears to be injected relation to the left coronary cusp and left atrium. Left ventricular EF 50% with septal hypokinesia. Aortic valve prosthesis not well visualized. Infectious disease requesting a VICKIE which will be scheduled tomorrow with Dr. Martinez. BUN 107, creatinine 3.67. Patient has been afebrile, heart rate 93, blood pressure 106/61, pulse ox 99% on room air. Blood culture positive for group D enterococcus. Repeat blood culture ordered. 06/19/2023 VICKIE showed evidence of thickening around the bioprosthetic aortic valve with concerns of possible abscess and medications on bioprosthetic aortic valve. Case was discussed with CT surgery team thinks that he should be transferred to higher level of care facility for possible surgical removal of the valve. Patient's blood culture from 2 days ago grows anteroposteriorly By being on antibiotic. PHYSICAL EXAM: VITAL SIGNS: Reviewed. GENERAL: Well-developed in no acute distress. HEENT: Head is normocephalic. Pupils are equal, round. Sclerae anicteric. Mucous membranes of the mouth are moist. Neck supple. No JVD or thyromegaly LUNGS: Respirations even and unlabored. Lungs essentially clear to auscultation bilaterally. HEART: Regular rate and rhythm. S1 and S2 heard. Systolic murmur noted ABDOMEN: Soft. Nondistended. Nontender. EXTREMITIES: Normal range of motion. No clubbing or cyanosis. Peripheral pulses intact. Trace bilateral lower extremity edema NEUROLOGIC: Awake and alert. Oriented x 3. ASSESSMENT: Generalized weakness and debility Enterococcus bacteremia Acute kidney injury Chronic kidney disease stage 4 Abnormal troponin, likely secondary to above, no evidence of acute coronary syndrome Paroxysmal atrial fibrillation, currently maintaining sinus mechanism Hypotension History of Hypertension Hyperlipidemia Diarrhea Pancytopenia Diabetes History of bioprosthetic aortic valve replacement , 2019 at [facility] PLAN: There is high clinical suspicion that patient's thickening around the aortic valve is related to infection and possible abscess. Patient's primary cardiac surgeon is at [facility]. We have tried to contact them and request records including VICKIE, echocardiogram and surgical report for erin lomas. We should transfer the patient will [facility] or [facility]. We will continue to follow. Continue IV antibiotics. Continue to draw blood cultures obtained today to check the response. Overall patient's prognosis is very poor Continue to hold Lopressor due to hypotension Continue amiodarone 200 mg daily Blood cultures, repeat today ID is following Continue telemetry monitoring Further recommendations pending patient's course Objective - Vital Signs Vital signs: Vital Signs Temp 97.9 F 06/19/23 15:45 Pulse 101 H 06/19/23 15:45 Resp 24 06/19/23 15:45 BP 134/71 06/19/23 15:45 Pulse Ox 98 06/19/23 15:45 FiO2 Intake & Output 06/18/23 06/19/23 06/19/23 18:59 06:59 18:59 Intake Total 50 560 Output Total 525 1300 2100 Balance -129 -2239 -6638 Weight 110 kg Intake: IV 50 Oral 560 Output: Urine 525 1300 2100 Other: Voiding Method Indwelling Catheter Indwelling Catheter Indwelling Catheter # Bowel Movements 1 1 - Labs CBC & Chem 7: 06/19/23 11:06 06/19/23 11:06 Labs: Abnormal Lab Results - Last 24 Hours (Table) 06/18/23 06/19/23 06/19/23 Range/Units 19:41 02:33 06:24 WBC (3.8-10.6) k/uL RBC (4.30-5.90) m/uL Hgb (13.0-17.5) gm/dL Hct (39.0-53.0) % Plt Count (150-450) k/uL Lymphocytes # (Manual) (1.0-4.8) k/uL BUN (9-20) mg/dL Creatinine (0.66-1.25) mg/dL Glucose (74-99) mg/dL POC Glucose (mg/dL) 263 H 173 H 234 H (70-110) mg/dL Calcium (8.4-10.2) mg/dL 06/19/23 06/19/23 06/19/23 Range/Units 11:06 11:06 11:18 WBC 2.6 L (3.8-10.6) k/uL RBC 3.76 L (4.30-5.90) m/uL Hgb 11.7 L (13.0-17.5) gm/dL Hct 34.6 L (39.0-53.0) % Plt Count 105 L D (150-450) k/uL Lymphocytes # (Manual) 0.55 L (1.0-4.8) k/uL BUN 74 H (9-20) mg/dL Creatinine 2.86 H (0.66-1.25) mg/dL Glucose 169 H (74-99) mg/dL POC Glucose (mg/dL) 198 H (70-110) mg/dL Calcium 8.3 L (8.4-10.2) mg/dL 06/19/23 Range/Units 16:38 WBC (3.8-10.6) k/uL RBC (4.30-5.90) m/uL Hgb (13.0-17.5) gm/dL Hct (39.0-53.0) % Plt Count (150-450) k/uL Lymphocytes # (Manual) (1.0-4.8) k/uL BUN (9-20) mg/dL Creatinine (0.66-1.25) mg/dL Glucose (74-99) mg/dL POC Glucose (mg/dL) 183 H (70-110) mg/dL Calcium (8.4-10.2) mg/dL Microbiology - Last 24 Hours (Table) 06/17/23 11:02 Blood Culture - Preliminary Blood 06/16/23 11:07 Blood Culture Gram Stain - Final Blood Blood Culture - Final Enterococcus faecalis
--- NOTE | 2023-06-19 19:33 | P.DS ---
Providers Date of admission: 06/14/23 05:29 Expected date of discharge: 06/19/23 Attending physician: Tori Torres Consults: 06/14/23 06:51 Consult Physician Routine Consulting Provider: Rudy Lucas Consult Reason/Comments: kwaku Do you want consulting provider notified?: Yes 06/14/23 06:53 Consult Physician Routine Consulting Provider: Matilde Thao Consult Reason/Comments: elevTrop Do you want consulting provider notified?: Yes 06/15/23 12:07 Consult Physician Urgent Consulting Provider: Brenda Monroy Consult Reason/Comments: hypotension, possible ICU transfer Do you want consulting provider notified?: Yes 06/15/23 12:34 Consult Physician Urgent Consulting Provider: Mega Diez Consult Reason/Comments: fever, kwaku, arf, sepsis?? Do you want consulting provider notified?: Yes 06/17/23 14:10 Consult Physician Urgent Consulting Provider: Lyle Kulkarni Consult Reason/Comments: pancytopenia, leukopenia Do you want consulting provider notified?: Yes 06/18/23 13:50 Consult Physician Routine Consulting Provider: Asher Porras Consult Reason/Comments: Bioprothetic aortic valve endocarditis Do you want consulting provider notified?: Yes Primary care physician: Felton De Dios Hospital Course: Final diagnosis Acute on chronic renal failure, prerenal with acute tubular necrosis, improving Bacteremia with features of sepsis, present on admission, 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 Patient will follow-up with Dr. De Dios in the outpatient setting upon discharge. Patient has been accepted by Dr. Marquise Alves and will have cardiology and cardiothoracic surgery evaluation. Total time taken is greater than 35 minutes. Hospital course This is a 78-year-old male who was recently admitted with weakness and medical debility with acute on chronic kidney disease that was progressively getting worse. Patient being followed by multiple medical consultations including nep hrology and cardiology along with infectious disease maintained on antibiotics. Patient had positive blood cultures that were showing enterococcus that were persistent and patient was seen and evaluated by cardiology underwent VICKIE showing infective endocarditis of the bioprosthetic valve along with concerns for aubree-aortic abscess. Patient is being followed by cardiology and infectious disease recommending transfer to tertiary treatment Center for further cardiothoracic evaluation. Patient is agreeable to this transfer. Please refer to other consultation notes further HPI. Currently no reports of chest pain, shortness of breath, or palpitations. Patient is afebrile. No reports of nausea or vomiting and patient is tolerating diet. Patient will be going to [facility] today. Physical exam: Gen: This is a 78-year-old male who is awake, alert and oriented 3, well- developed, well-nourished, obese, extremely hard of hearing HEENT: Head is atraumatic, normocephalic. Pupils equal, round. Sclerae is anicteric. NECK: Supple. No JVD. No lymphadenopathy. No thyromegaly. LUNGS: Clear to auscultation. No wheezes or rhonchi. No intercostal retractions. HEART: S1, S2 are muffled, irregular ABDOMEN: Soft. obese. Bowel sounds are present. No masses. No tenderness. EXTREMITIES: No pedal edema. No calf tenderness. NEUROLOGICAL: Patient is awake, alert and oriented x3. Cranial nerves 2 through 12 are grossly intact. Diffusely weak Please refer to medication reconciliation sheet for a list of medications. The impression and plan of care has been dictated by Nirali Mayes, Nurse Practitioner as directed. Dr. Reed MD I have performed a history and examination and MDM of this patient, discussed the same with the dictator, and agree with the dictator's assessment and plan as written ,documented as a scribe. Based on total visit time, I have performed more than 50% of the visit. Patient Condition at Discharge: Good Plan - Discharge Summary Discharge Rx Participant: No New Discharge Prescriptions: No Action Rosuvastatin Calcium 10 mg PO HS Colchicine 0.6 mg PO DAILY@0800 Fluticasone Nasal Volga [Flonase Nasal Volga] 1 spr EA NOSTRIL BID@0800,1500 Levocetirizine Dihydrochloride [Xyzal] 5 mg PO HS glipiZIDE [Glucotrol] 10 mg PO DAILY@0800 Ascorbic Acid [Vitamin C] 500 mg PO DAILY@0800 Rivaroxaban [Xarelto] 15 mg PO HS hydrALAZINE HCL [Apresoline] 25 mg PO BID@0800,1500 lisinopriL 2.5 mg PO DAILY@0800 Pantoprazole [Protonix] 40 mg PO BID@0800,1500 HYDROcodone/APAP 5-325MG [De Smet 5-325] 1 each PO Q6HR PRN 7 Days #28 tab PRN Reason: Pain Amiodarone [Cordarone] See Taper PO DIRECTED Acetaminophen Tab [Tylenol] 500 mg PO Q6H PRN PRN Reason: Fever And/ Or Pain calcitrioL [Calcitriol] 0.25 mcg PO MOTUWETHFR Metoprolol Tartrate [Lopressor] 50 mg PO BID@0800,1500 Cholecalciferol [Vitamin D3 (25 Mcg = 1000 Iu)] 50 mcg PO DAILY@0800 Febuxostat [Uloric] 40 mg PO DAILY@0800 sitaGLIPtin [Januvia] 100 mg PO DAILY@1500 Aspirin [Adult Low Dose Aspirin EC] 81 mg PO DAILY@0800 Calcium 500mg 500 mg PO DAILY@0800 Ferrous Sulfate [Iron (65 MG Elemental)] 325 mg PO DAILY@0800 Potassium Chloride ER [K-Dur 20] 20 meq PO DAILY Furosemide [Lasix] 20 mg PO BID Discharge Medication List Colchicine 0.6 mg PO DAILY@0800 08/25/18 [History] Fluticasone Nasal Volga [Flonase Nasal Volga] 1 spr EA NOSTRIL BID@0800,1500 08/25/18 [History] Levocetirizine Dihydrochloride [Xyzal] 5 mg PO HS 08/25/18 [History] Rosuvastatin Calcium 10 mg PO HS 08/25/18 [History] Acetaminophen Tab [Tylenol] 500 mg PO Q6H PRN 07/16/21 [History] Metoprolol Tartrate [Lopressor] 50 mg PO BID@0800,1500 07/16/21 [History] calcitrioL [Calcitriol] 0.25 mcg PO MOTUWETHFR 07/16/21 [History] glipiZIDE [Glucotrol] 10 mg PO DAILY@0800 07/16/21 [History] Ascorbic Acid [Vitamin C] 500 mg PO DAILY@0800 08/13/21 [History] Cholecalciferol [Vitamin D3 (25 Mcg = 1000 Iu)] 50 mcg PO DAILY@0800 07/16/22 [History] Febuxostat [Uloric] 40 mg PO DAILY@0800 07/16/22 [History] sitaGLIPtin [Januvia] 100 mg PO DAILY@1500 07/16/22 [History] Aspirin [Adult Low Dose Aspirin EC] 81 mg PO DAILY@0800 07/22/22 [History] Rivaroxaban [Xarelto] 15 mg PO HS 07/22/22 [History] Calcium 500mg 500 mg PO DAILY@0805/27/23 [History] Ferrous Sulfate [Iron (65 MG Elemental)] 325 mg PO DAILY@0805/27/23 [History] Pantoprazole [Protonix] 40 mg PO BID@0800,1500 05/27/23 [History] hydrALAZINE HCL [Apresoline] 25 mg PO BID@0800,1500 05/27/23 [History] lisinopriL 2.5 mg PO DAILY@0805/27/23 [History] HYDROcodone/APAP 5-325MG [[place]et 5-325] 1 each PO Q6HR PRN 7 Days #28 tab 05/28/23 [Rx] Amiodarone [Cordarone] See Taper PO DIRECTED 06/14/23 [History] Furosemide [Lasix] 20 mg PO BID 06/14/23 [History] Potassium Chloride ER [K-Dur 20] 20 meq PO DAILY 06/14/23 [History] Follow up Appointment(s)/Referral(s): Ruma Farris, LOUISA [Nurse Practitioner] - 07/07/23 11:00 am ([facility] office. [address], behind [facility]) Felton De Dios DO [Primary Care Provider] - 1-2 days
[2023-06-19 19:59] VITALS: BP 139/77; PULSE 99; RESP 18; TEMP 98.1
[2023-06-19 20:06] LABS: Glucose,Whole Blood 230 mg/dL (70-110)
[2023-06-19] MEDS: LORATADINE 10 MG TAB PO SCH (20:30)
[2023-06-19] MEDS: ATORVASTATIN 20 MG TAB PO SCH (20:30)
[2023-06-19] MEDS: HYDROcodone/APAP 5-325MG 1 EACH TAB PO PRN (20:43)
[2023-06-20 05:59] LABS: Methylmalonic Acid 0.51 umol/L (<0.40)
[2023-07-10] MEDS ORDERED: AMIODARONE 200 MG TAB PO SCH (09:00)
== END 2023-06-19 23:09 | disposition short-term general hospital (02) | DRG 314 ==
LOC: EC 03:55 → 3SCARD 05:29
PROVIDERS: ADMIT Hospitalist; ATTEND Hospitalist
PROC: 05HA33Z Insertion of Infusion Device into Left Brachial Vein, Percutaneous Approach (ICD-10-PCS; 2023-06-15)
PROC: 05HB33Z Insertion of Infusion Device into Right Basilic Vein, Percutaneous Approach (ICD-10-PCS; principal; 2023-06-17 14:45)
PROC: B24BZZ4 Ultrasonography of Heart with Aorta, Transesophageal (ICD-10-PCS; 2023-06-18)
DX: T82.6XXA Infection and inflammatory reaction due to cardiac valve prosthesis, initial encounter (principal); A41.9 Sepsis, unspecified organism; I33.0 Acute and subacute infective endocarditis; N17.0 Acute kidney failure with tubular necrosis; D61.818 Other pancytopenia; E87.20 Acidosis, unspecified; I48.19 Other persistent atrial fibrillation; J98.11 Atelectasis; N18.4 Chronic kidney disease, stage 4 (severe); B95.2 Enterococcus as the cause of diseases classified elsewhere; B96.89 Other specified bacterial agents as the cause of diseases classified elsewhere; E11.22 Type 2 diabetes mellitus with diabetic chronic kidney disease; E61.1 Iron deficiency; E66.9 Obesity, unspecified; E78.5 Hyperlipidemia, unspecified; E86.0 Dehydration; H91.90 Unspecified hearing loss, unspecified ear; I12.9 Hypertensive chronic kidney disease with stage 1 through stage 4 chronic kidney disease, or unspecified chronic kidney disease; I25.10 Atherosclerotic heart disease of native coronary artery without angina pectoris; K52.9 Noninfective gastroenteritis and colitis, unspecified; K55.20 Angiodysplasia of colon without hemorrhage; K64.9 Unspecified hemorrhoids; M89.8X9 Other specified disorders of bone, unspecified site; Y83.1 Surgical operation with implant of artificial internal device as the cause of abnormal reaction of the patient, or of later complication, without mention of misadventure at the time of the procedure; Z68.34 Body mass index [BMI] 34.0-34.9, adult; Z74.01 Bed confinement status; Z79.01 Long term (current) use of anticoagulants; Z79.82 Long term (current) use of aspirin; Z79.84 Long term (current) use of oral hypoglycemic drugs; Z79.899 Other long term (current) drug therapy; Z82.5 Family history of asthma and other chronic lower respiratory diseases; Z85.51 Personal history of malignant neoplasm of bladder; Z85.828 Personal history of other malignant neoplasm of skin; Z87.81 Personal history of (healed) traumatic fracture; Z87.891 Personal history of nicotine dependence; Z95.1 Presence of aortocoronary bypass graft
CPT/HCPCS: 36410; 36415; 51702; 71045; 74176; 76770; 76937; 80048; 80053; 81001; 82525; 82533; 82607; 82728; 82746; 83540; 83550; 83605; 83735; 83921; 84100; 84484; 85025; 85610; 85730; 87040; 87045; 87046; 87077; 87186; 87324; 87635; 87636; 93005; 93308; 93312; 93320; 93325; 94760; 96374; 96375; 99291

== ENCOUNTER 2024-06-05 15:31 | Emergency (ER) | payer MEDICARE, BC ==
[2024-06-05 15:40] VITALS: RESP 16
--- NOTE | 2024-06-05 16:11 | ED ---
Fall HPI - General Chief Complaint: Fall Stated Complaint: Fall, left leg injury, right hand injury Time Seen by Provider: 06/05/24 16:10 Source: patient, RN notes reviewed Mode of arrival: wheelchair Limitations: no limitations - History of Present Illness Initial Comments: 79-year-old male presented to ER with a chief complaint of a fall. Patient sta nereyda last night he was reaching up to [employer] when his foot accidentally slipped out from under him. He states his left leg twisted. Since then he has been reporting pain to his left ankle with associated edema. He denies any paresthesias. He also is reporting a skin tear to his right hand. Tetanus is unknown. He denies any head injury, loss of consciousness. He does take Xarelto due to open heart surgery. No other injuries or complaints. - Related Data Home Medications Medication Instructions Recorded Confirmed Colchicine 0.6 mg PO DAILY@0800 08/25/18 01/26/24 Fluticasone Nasal [place] [Flonase 1 spr EA NOSTRIL BID@0800,1500 08/25/18 01/26/24 Nasal [place]] Levocetirizine Dihydrochloride 5 mg PO HS 08/25/18 01/26/24 [Xyzal] Rosuvastatin Calcium 10 mg PO HS 08/25/18 01/26/24 Acetaminophen Tab [Tylenol] 500 mg PO Q6H PRN 07/16/21 01/26/24 Metoprolol Tartrate [Lopressor] 50 mg PO BID@0800,1500 07/16/21 01/26/24 calcitrioL 0.25 mcg PO MOTUWETHFR 07/16/21 01/26/24 glipiZIDE [Glucotrol] 10 mg PO DAILY@0800 07/16/21 01/26/24 Ascorbic Acid [Vitamin C] 500 mg PO DAILY@0800 08/13/21 01/26/24 Cholecalciferol [Vitamin D3 (25 50 mcg PO DAILY@0800 07/16/22 01/26/24 Mcg = 1000 Iu)] Febuxostat [Uloric] 40 mg PO DAILY@0800 07/16/22 01/26/24 sitaGLIPtin [Januvia] 100 mg PO DAILY@1500 07/16/22 01/26/24 Aspirin [Adult Low Dose Aspirin EC] 81 mg PO DAILY@0800 07/22/22 01/26/24 Rivaroxaban [Xarelto] 15 mg PO HS 07/22/22 01/26/24 Calcium 500mg 500 mg PO DAILY@0800 05/27/23 01/26/24 Pantoprazole [Protonix] 40 mg PO BID@0800,1500 05/27/23 01/26/24 hydrALAZINE HCL [Apresoline] 25 mg PO TID 05/27/23 01/26/24 Allergies Allergy/AdvReac Type Severity Reaction Status Date / Time allopurinol AdvReac Feet Verified 06/05/24 15:40 Swelling Review of Systems ROS Statement: Those systems with pertinent positive or pertinent negative responses have been documented in the HPI. ROS Other: All systems not noted in ROS Statement are negative. Past Medical History Past Medical History: Atrial Fibrillation, Cancer, Diabetes Mellitus, Hearing Disorder / Deafness, Hypertension, Osteoarthritis (OA), Renal Disease Additional Past Medical History / Comment(s): Covid 07/20/21. Bladder cancer 2009 and 2011. Hx pelvic fracture 1993. Gout. Herniated disc in back in 2001. Bilateral eye cateracts. Skin cancer 10/08/20 with removal. Anemia. CKD SEPTIC EMIA - 2023 History of Any Multi-Drug Resistant Organisms: None Reported Past Surgical History: Cardiac Valve Replacement, Coronary Bypass/CABG, Heart Catheterization, Hernia Repair Additional Past Surgical History / Comment(s): Left rotator cuff surgery, bilateral cataracts removed, umbilical hernia repair, right side salivary gland removed, broken right ankle surgery, skin cancer removed from right cheek, back and hands, heart valve replacement 11/22/19, colonoscopies, coronary artery bypass 11/22/2019. Past Anesthesia/Blood Transfusion Reactions: No Reported Reaction Past Psychological History: No Psychological Hx Reported Smoking Status: Former smoker - Past Family History Father Additional Family Medical History / Comment(s): of emphysema. Mother Additional Family Medical History / Comment(s): of either kidney or liver problems per patient. Brother(s) Family Medical History: Unable to Obtain Additional Family Medical History / Comment(s): Stomach issues per patient Son(s) Additional Family Medical History / Comment(s): Son from EtOH abuse General Exam Limitations: no limitations General appearance: alert, in no apparent distress Head exam: Present: atraumatic, normocephalic, normal inspection Respiratory exam: Present: normal lung sounds bilaterally. Absent: respiratory distress, wheezes, rales, rhonchi, stridor Cardiovascular Exam: Present: regular rate, normal rhythm, normal heart sounds. Absent: systolic murmur, diastolic murmur, rubs, gallop, clicks Extremities exam: Present: tenderness (Edema to lateral right malleolus. 2+ right dorsalis pedis pulse. Tenderness to medial left knee. Patient has full range of motion in knee.) Neurological exam: Present: alert, oriented X3, CN II-XII intact Skin exam: Present: warm, dry, intact, normal color. Absent: rash Course Vital Signs 06/05/24 06/05/24 15:38 17:20 Temperature 98 F 98.1 F Pulse Rate 70 72 Respiratory 16 16 Rate Blood Pressure 148/62 139/68 O2 Sat by Pulse 97 97 Oximetry Procedures - Orthopedic Splinting/Casting Injury #1 Side: left Lower Extremity Injury Location: ankle Lower Extremity Immobilizer: stirrup splint Medical Decision Making - Medical Decision Making Was pt. sent in by a medical professional or institution (, PA, FORENSIC MEDICAL EXAMINER, urgent care, hospital, or intermediate...) When possible be specific @ -No Did you speak to anyone other than the patient for history (EMS, parent, family, police, friend...)? What history was obtained from this source @ -No Did you review nursing and triage notes (agree or disagree)? Why? @ -I reviewed and agree with nursing and triage notes Were old charts reviewed (outside hosp., previous admission, EMS record, old EKG, old radiological studies, urgent care reports/EKG's, intermediate records)? Report findings @ -No old charts were reviewed Differential Diagnosis (chest pain, altered mental status, abdominal pain women, abdominal pain men, vaginal bleeding, weakness, fever, dyspnea, syncope, headache, dizziness, GI bleed, back pain, seizure, CVA, palpatations, mental health, musculoskeletal)? @ -Fracture, dislocation, contusion, hematoma, intracranial hemorrhage, concussion, abrasion, laceration this list does not like to be all-inclusive EKG interpreted by me (3pts min.). @ -None done X-rays interpreted by me (1pt min.). @ -Left ankle x-ray showing a distal fibula fracture. Right hand and left knee x-rays negative for acute process. CT interpreted by me (1pt min.). @ -None done U/S interpreted by me (1pt. min.). @ -None done What testing was considered but not performed or refused? (CT, X-rays, U/S, labs)? Why? @ -None What meds were considered but not given or refused? Why? @ -Patient refused analgesic medication. Did you discuss the management of the patient with other professionals (pr ofessionals i.e. , PA, FORENSIC MEDICAL EXAMINER, lab, RT, psych nurse, health social work professor, collections curator, teacher, parole or probation officer, manager of case management)? Give summary @ -No Was smoking cessation discussed for >3mins.? @ -No Was critical care preformed (if so, how long)? @ -No Were there social determinants of health that impacted care today? How? (Homelessness, low income, unemployed, alcoholism, drug addiction, transportation, low edu. Level, literacy, decrease access to med. care, senior living, rehab)? @ -No Was there de-escalation of care discussed even if they declined (Discuss DNR or withdrawal of care, Hospice)? DNR status @ -No What co-morbidities impacted this encounter? (DM, HTN, Smoking, COPD, CAD, Cancer, CVA, ARF, Chemo, Hep., AIDS, mental health diagnosis, sleep apnea, morbid obesity)? @ -None Was patient admitted / discharged? Hospital course, mention meds given and route, prescriptions, significant lab abnormalities, going to OR and other pertinent info. @ -Discharge. 79-year-old male presented to the ER with a chief complaint of a fall History and physical exam completed. Vitals within normal limits. He denied head injury. Patient in no sign of acute distress. Exam significant edema and tenderness to lateral malleolus. Tenderness to medial left knee joint line. There is no overlying skin changes to knee. Left lower extremity neurovascular intact. There is a 1 cm skin tear to right hand. Patient's tetanus updated. X-rays significant for distal fibula fracture. Patient placed in a splint, see note above. Patient refused crutches and he states he has a walker at home he can ambulate with. Advise close follow-up with orthopedics, referral given. T3 starter pack given for pain control outpatient. Strict return parameters discussed. Patient discharged in stable condition. Patient kulwinder madrid expressed understanding and agreement with care plan. Case discussed with ED attending, Dr. Peralta. Undiagnosed new problem with uncertain prognosis? @ -No Drug Therapy requiring intensive monitoring for toxicity (Heparin, Nitro, Insulin, Cardizem)? @ -No Were any procedures done? @ -yes Diagnosis/symptom? @ -Distal fibula fracture Acute, or Chronic, or Acute on Chronic? @ -Acute Uncomplicated (without systemic symptoms) or Complicated (systemic symptoms)? @ -Uncomplicated Side effects of treatment? @ -No Exacerbation, Progression, or Severe Exacerbation? @ -No Poses a threat to life or bodily function? How? (Chest pain, USA, PA, pneumonia, PE, COPD, DKA, ARF, appy, cholecystitis, CVA, Diverticulitis, Homicidal, Suicidal, threat to staff... and all critical care pts) @ -No - Radiology Data Radiology results: image reviewed Disposition Clinical Impression: Fracture of distal fibula, Skin tear Disposition: HOME SELF-CARE Condition: Stable Instructions (If sedation given, give patient instructions): Fall Prevention for Older Adults (ED) Additional Instructions: Keep foot elevated and ice. Follow-up with orthopedics. Return to the ER for any new or worsening concerns. Is patient prescribed a controlled substance at d/c from ED?: No Referrals: Felton De Dios DO [Primary Care Provider] - 1-2 days Jerrod Dougherty DO [Doctor of Osteopathic Medicine] - 1-2 days Time of Disposition: 17:04
[2024-06-05] MEDS: DIPH,PERTUS(ACELL)TETVAC-LF 0.5 ML VIAL IM ONE (16:30)
[2024-06-05] MEDS: ACET/COD 300 MG/30 MG STARTER PACK 6 TAB BTL PO STA (17:08)
--- NOTE | 2024-06-05 17:21 | XR ---
EXAMINATION TYPE: XR ankle complete LT DATE OF EXAM: 06/05/2024 COMPARISON: NONE HISTORY: Pain FINDINGS: Three views of the ankle demonstrate the ankle mortise to be intact and symmetric. There is no obliqu e mildly displaced fracture of the distal fibula. Moderate size calcaneal spur. Vascular calcificatio ns. Soft tissue swelling laterally. IMPRESSION: 1. Mildly displaced acute fracture distal fibula. Cannot exclude a hairline fracture through the post erior tibia. [facility], , 06/05/2024 5:18 PM
[2024-06-05 17:22] VITALS: BP 139/68; PULSE 72; TEMP 98.1
--- NOTE | 2024-06-05 17:24 | XR ---
EXAMINATION TYPE: XR knee complete LT DATE OF EXAM: 06/05/2024 COMPARISON: NONE HISTORY: Pain TECHNIQUE: Three views are submitted. FINDINGS: Mild narrowing of the patellofemoral and medial compartment of the joint space with marginal spurring . Vascular calcifications noted. Osseous structures are intact. No acute fracture seen. IMPRESSION: 1. No acute fracture or dislocation. [facility], Workstation: [id number], 06/05/2024 5:22 PM
--- NOTE | 2024-06-05 18:23 | XR ---
EXAMINATION TYPE: XR hand complete RT DATE OF EXAM: 06/05/2024 4:24 PM CLINICAL INDICATION:Male, 79 years old with history of fall; [facility] COMPARISON: None TECHNIQUE: 3 views FINDINGS: Osseous mineralization appears appropriate. No destructive bony lesion. No acute fracture or dislocat ion. Mild to moderate diffuse osteoarthritic changes. No acute soft tissue abnormality. No radiopaque foreign body. Moderate arterial vascular calcifications. IMPRESSION: No acute fracture or dislocation. [facility], , 06/05/2024 6:20 PM
== END 2024-06-05 17:20 | disposition home or self-care (01) ==
LOC: EC 15:31
CPT/HCPCS: 29515; 90471; 90715; 99283